=== PATIENT | male | born 1940 | race Caucasian/White ===

== ENCOUNTER 2017-12-31 15:40 | Inpatient (IN) ==
[2017-12-31] MEDS ORDERED: ceFAZolin 2 GM Premix Inj 2 GM/50 ML PIGGYBACK IV.SIG ONE (15:53)
[2017-12-31] MEDS ORDERED: Diphtheria/Tetanus/Pertussis Vaccine Inj 0.5 ML Syringe IM ONE (15:53)
--- NOTE | 2017-12-31 15:58 | XR ---
EXAM DATE: 12/31/2017 3:55 PM EDT AGE/SEX: 89 years / Male INDICATIONS: Syncope; fall at home. CLINICAL DATA: This is the patient's initial encounter. Patient reports that signs and symptoms have been present for 1 day and indicates a pain score of Nonresponsive. MEDICAL/SURGICAL HISTORY: Non-responsive. Non-responsive. COMPARISON: No prior exams available for comparison. FINDINGS: Examination of the pelvis demonstrates no evidence of fracture or dislocation. Bony mineralization i s normal. There is no widening of the sacroiliac joints. No foreign body is identified. Degenerativ e changes about the hips. Calcified vessels. CONCLUSION: 1. No acute fracture. Electronically signed by: Kostas Lovelace MD 12/31/2017 3:56 PM EDT
--- NOTE | 2017-12-31 16:00 | XR ---
EXAM DATE: 12/31/2017 3:57 PM EDT AGE/SEX: 89 years / Male INDICATIONS: Right hand laceration; fall at home. CLINICAL DATA: This is the patient's initial encounter. Patient reports that signs and symptoms have been present for 1 day and indicates a pain score of Nonresponsive. MEDICAL/SURGICAL HISTORY: Non-responsive. Non-responsive. COMPARISON: No prior exams available for comparison. FINDINGS: Bony structures are intact and in normal alignment. Osseous density is mildly decreased. Soft tissue s are unremarkable. No radiopaque foreign bodies seen. Diffusely calcified vessels. Degenerative gin nges most prominently at the first PIP joint. CONCLUSION: 1. No acute fracture or radiopaque foreign body. Electronically signed by: Kostas Lovelace MD 12/31/2017 3:59 PM EDT
--- NOTE | 2017-12-31 16:01 | XR ---
EXAM DATE: 12/31/2017 3:57 PM EDT AGE/SEX: 89 years / Male INDICATIONS: Syncope, fell at home.Trauma alert. CLINICAL DATA: This is the patient's initial encounter. Patient reports that signs and symptoms have been present for 1 day and indicates a pain score of Nonresponsive. MEDICAL/SURGICAL HISTORY: . none known . none known COMPARISON: No prior exams available for comparison. FINDINGS: Median sternotomy wires are noted status post cardiac surgery. The heart is prominent in size. The ally ngs are clear. No pneumothorax is noted. CONCLUSION: 1. Cardiomegaly. 2. Lungs are clear. Electronically signed by: Kendell Story MD 12/31/2017 3:59 PM EDT
[2017-12-31 16:09] LABS: Baso # (Auto) 0.1 th/mm3 (0.0-0.2); Baso % (Auto) 0.5 % (0.0-2.0); Eos # (Auto) 0.4 th/mm3 (0.0-0.4); Eos % (Auto) 3.7 % (0.0-4.0); Hematocrit 35.5 % (39.0-51.0); Hemoglobin 11.4 gm/dL (13.0-17.0); Lymph # (Auto) 1.7 th/mm3 (1.0-4.8); Lymph % (Auto) 16.1 % (9.0-44.0); Mean Corpuscular HGB Conc 32.2 % (32.0-36.0); Mean Corpuscular Hemoglobin 28.4 pg (27.0-34.0); Mean Corpuscular Volume 88.3 fL (80.0-100.0); Mean Platelet Volume 8.6 fL (7.0-11.0); Mono # (Auto) 0.6 th/mm3 (0.0-0.9); Neut # (Auto) 7.6 th/mm3 (1.8-7.7); Neut % (Auto) 73.7 % (16.0-70.0); Platelet Count 300 th/mm3 (150-450); Red Blood Count 4.02 mil/mm3 (4.50-5.90); Red Cell Distribution Width 16.3 % (11.6-17.2); White Blood Count 10.3 th/mm3 (4.0-11.0)
--- NOTE | 2017-12-31 16:12 | CT ---
EXAM DATE: 12/31/2017 4:08 PM EDT AGE/SEX: 89 years / Male INDICATIONS: Trauma Alert. Fall from standing. CLINICAL DATA: This is the patient's initial encounter. Patient reports that signs and symptoms have been present for 1 day and indicates a pain score of Nonresponsive. MEDICAL/SURGICAL HISTORY: None. None. RADIATION DOSE: 66.34 CTDI (mGy) COMPARISON: No prior exams available for comparison. TECHNIQUE: CT of the head without contrast. Using automated exposure control and adjustment of the mA and/or kV according to patient size, radiation dose was kept as low as reasonably achievable to ob tain optimal diagnostic quality images. DICOM format image data is available electronically for revi ew and comparison. FINDINGS: Cerebrum: Moderate diffuse cerebral atrophy. The ventricles are normal for degree of atrophy. Modera te periventricular white matter hypodensities. No evidence of midline shift, mass lesion, hemorrhage or acute infarction. No extraaxial fluid collections are seen. Posterior Fossa: The cerebellum and brainstem are intact. The 4th ventricle is midline. The cerebe llopontine angle is unremarkable. Extracranial: The visualized portion of the orbits is intact. Mucopyocele thickening in the inferior maxillary sinuses. Soft tissue hematoma overlying the anterior scalp near the vertex. Skull: The calvaria is intact. No evidence of skull fracture. CONCLUSION: 1. No acute intracranial abnormality. 2. Mild maxillary sinus mucosal disease. . Electronically signed by: Kostas Lovelace MD 12/31/2017 4:10 PM EDT
[2017-12-31 16:19] LABS: Activated Partial Thrombo Time 26.5 sec (24.3-30.1); INR 1.1 Ratio; Prothrombin Time 10.7 sec (9.8-11.6)
--- NOTE | 2017-12-31 16:24 | ED ---
HPI General Chief Complaint: Trauma Alert Stated Complaint: Trauma Alert Time Seen by Provider: 12/31/17 16:10 Source: EMS Mode of arrival: EMS Limitations: altered mental status History of Present Illness HPI narrative: The patient is approximately a [age]-old male who presents to the emergency department via EMS as a trauma alert. According to EMS the patient was standing in the kitchen, with his , when he fell and struck his head on the floor. EMS states when they arrived the patient had a good waveform, however, did not have a pulse and appeared to be in pulseless electrical activity. They subsequently started CPR and bag valve ventilation when the patient had spontaneous return of a pulse. They state the patient's initial GCS was 3. Upon arrival the patient's GCS has improved, however, he is unable to answer questions. No further history is obtainable from the patient. The patient was called a trauma alert in the field secondary to the fall, GCS , and head injury per EMS report. It is unknown if the patient is on any blood thinners. There was no medication list or allergy list brought with the patient by EMS. MD complaint: fall Onset (ago): minute(s) Loss of Consciousness: unsure Location: head and face Location - Extremities: Right: hand Severity: severe Severity scale (1-10): 10 Context: fall Associated symptoms: unable to assess and confusion Treatments prior to arrival: cervical collar and spinal immobilization Related Data Home Medications Medication Instructions Recorded Confirmed aspirin 81 mg PO DAILY 12/31/17 12/31/17 bumetanide 2 mg PO DAILY 12/31/17 12/31/17 carvedilol [Coreg] 12.5 mg PO BID 12/31/17 12/31/17 citalopram 20 mg PO DAILY 12/31/17 12/31/17 clopidogrel [Plavix] 75 mg PO DAILY 12/31/17 12/31/17 insulin aspart U-100 [Novolog 5 unit SUB-Q DAILY 12/31/17 12/31/17 U-100 Insulin aspart] insulin detemir U-100 [Levemir 25 unit SUB-Q QPM 12/31/17 12/31/17 FlexTouch U-100 Insuln] losartan 25 mg PO DAILY 12/31/17 12/31/17 ranitidine HCl 150 mg PO DAILY 12/31/17 12/31/17 rosuvastatin [Crestor] 20 mg PO DAILY 12/31/17 12/31/17 tamsulosin [Flomax] 0.4 mg PO DAILY 12/31/17 12/31/17 Allergies Allergy/AdvReac Type Severity Reaction Status Date / Time acetaminophen [From Hitchita] Allergy Nausea/Vomi Verified 12/31/17 18:03 ting exenatide [From Bydureon] Allergy Nausea/Vomi Verified 12/31/17 18:03 ting fentanyl Allergy Nausea/Vomi Verified 12/31/17 18:03 ting hydrocodone [From Hitchita] Allergy Nausea/Vomi Verified 12/31/17 18:03 ting oxycodone [From Percocet] Allergy Nausea/Vomi Verified 12/31/17 18:03 ting Review of Systems ROS: all other systems reviewed are negative [facility] Social History Social History Recent Travel in [facility] within the Last 8 Weeks: No Recent Out of Country Travel within the Last 8 Weeks: No Exam Narrative Exam Narrative: GENERAL: Awake, eyes open, confused approximately 70-82-year- old male who presents to the emergency department on a backboard with a cervical collar in place. SKIN: HEAD: Patient has a stellate laceration to the right frontal forehead that measures approximately 7 cm total in length. Small hematoma just to the lateral aspect. EYES: Pupils equal and round. 2 mm bilateral and reactive. EOMs appear intact. ENT: No nasal bleeding or discharge. Mucous membranes pink and moist. No visible blood in the posterior oropharynx. NECK: Trachea midline. No JVD. Cervical collar in place CARDIOVASCULAR: Regular rate and rhythm. No murmur appreciated. Well-healed sternal scar. No crepitus noted. RESPIRATORY: No accessory muscle use. Diminished breath sounds in the bases bilaterally. GASTROINTESTINAL: Abdomen soft, non-tender, nondistended. No guarding or rigidity. MUSCULOSKELETAL: Large skin abrasions noted to the extensor surface of the right hand over the second, third, fourth digit. No obvious bony deformity. Edema noted to lower extremities. Will squeeze his hands bilaterally and move his legs with flexion of the hips and knees to 30 bilaterally. NEUROLOGICAL: Awake, alert, confused speech, moves extremities spontaneously. Back: No obvious deformity over the thoracic or lumbar vertebrae. PSYCHIATRIC: Appears confused. Course Initial Documented Vital Signs Pulse Oximetry 94 L 12/31/17 16:00 Last Documented Vital Signs Pulse Rate 79 12/31/17 16:46 Respiratory Rate 16 12/31/17 16:46 Blood Pressure 143/66 H 12/31/17 16:46 Pulse Oximetry 98 12/31/17 16:46 Critical Care Time Critical Care Time: Yes Total Critical Care Time: 35 Attestation: Aggregate critical care time was 35 minutes. Time to perform other separately billable procedures was not included in the critical care time. My time did not include minutes spent treating any other patients simultaneously or on activities that did not directly contribute to the patient's treatment. The services I provided to this patient were to treat and/or prevent clinically significant deterioration that could result in: Anoxia, hypoxia, aspiration, hemorrhage, . I provided critical care services requiring my management, as noted below: Chart data review, documentation time, medication orders and management, vital sign assessments/reviewing monitor data, ordering and reviewing lab tests, ordering and interpreting/reviewing x-rays and diagnostic studies, care of the patient and discussion of the patient with the admitting physicians. Medical Decision Making MDM Narrative Medical decision making narrative: ATLS protocol was followed. Upon arrival 2 large-bore IVs were established, labs are drawn and sent, the patient was placed on cardiac telemetry monitoring and continuous pulse oximetry monitoring. Chest x-ray and pelvis x-ray were obtained. Chest x-ray and pelvis x-ray unremarkable for any acute findings. X-ray of the right hand was obtained, no obvious fracture. The patient was administered Ancef 2 g intravenously and a tetanus shot was updated. The patient was placed on oxygen , 4-5 L via nasal cannula, which brought his O2 saturation up to 94/95%. The patient was logrolled off the backboard, no obvious injuries. The patient then went to CT for CT the brain, facial bones, cervical spine, thorax, abdomen/ pelvis, thoracic spine, and lumbar spine. CT the brain was negative, no obvious hemorrhage. CT of the thorax does reveal possible aspiration and possible mass versus atelectasis. CT the cervical spine reveals degenerative changes but no fracture. CT of the abdomen and pelvis is negative. CT of the thoracic spine and lumbar spine are negative. I discussed the patient with the trauma surgeon, Dr. Hernandez, who evaluated the patient. Dr. Hernandez has medically cleared the patient for admission to the medical service. As the patient did have CPR and possible PEA upon arrival the patient will be placed intensive care unit. Medical Screen Exam Complete: Yes Emergency Medical Condition: Yes Differential Diagnosis Differential Diagnosis: Differential diagnosis includes syncope, mechanical fall , closed head injury, to cranial hemorrhage, cervical fracture, spinal cord injury, congestive heart failure, arrhythmia, electrolyte abnormality, hypoglycemia. Lab Data Result diagrams: 12/31/17 15:45 Lab Results 12/31/17 12/31/17 12/31/17 Range/Units 15:45 15:45 15:45 WBC 10.3 (4.0-11.0) th/mm3 RBC 4.02 L (4.50-5.90) mil/mm3 Hgb 11.4 L (13.0-17.0) gm/dL POC Hgb (Calc) 11.9 L (13.0-17.0) g/dL Hct 35.5 L (39.0-51.0) % POC Hct 35.0 L (39-51.0) % MCV 88.3 (80.0-100.0) fL MCH 28.4 (27.0-34.0) pg MCHC 32.2 (32.0-36.0) % RDW 16.3 (11.6-17.2) % Plt Count 300 (150-450) th/mm3 MPV 8.6 (7.0-11.0) fL Prelim Diff (Auto) Slide review pending Neut % (Auto) 73.7 H (16.0-70.0) % Lymph % (Auto) 16.1 (9.0-44.0) % Dewitt % (Auto) 6.0 (0.0-8.0) % Eos % (Auto) 3.7 (0.0-4.0) % Baso % (Auto) 0.5 (0.0-2.0) % Neut # (Auto) 7.6 (1.8-7.7) th/mm3 Lymph # (Auto) 1.7 (1.0-4.8) th/mm3 Dewitt # (Auto) 0.6 (0.0-0.9) th/mm3 Eos # (Auto) 0.4 (0.0-0.4) th/mm3 Baso # (Auto) 0.1 (0.0-0.2) th/mm3 WBC Differential Manual diff final Seg Neuts % (Manual) 64 (16-70) % Band Neuts % (Manual) 9 H (0-6) % Lymphocytes % (Manual) 17 (9-44) % Monocytes % (Manual) 5 (0-8) % Eosinophils % (Manual) 4 (0-4) % Myelocytes % (Man) 1 H (0-0) % Abs Neuts (Manual) 7.6 (1.8-7.7) th/mm3 Differential Comment . Platelet Estimate Normal (Normal) Platelet Morphology Normal (Normal) PT 10.7 (9.8-11.6) sec INR 1.1 Ratio APTT 26.5 (24.3-30.1) sec POC Sodium 139 (137-144) mmol/L POC Potassium 5.6 H (3.6-5.0) mmol/L POC Chloride 93 L (102-111) mmol/L POC BUN 64 H (5-21) mg/dL POC Creatinine 1.5 H (0.6-1.3) mg/dL POC Glucose 200 H (68-110) mg/dL Troponin I (0.02-0.05) ng/mL B-Natriuretic Peptide (0-100) pg/mL Blood Type Antibody Screen 12/31/17 12/31/17 12/31/17 Range/Units 15:45 15:45 15:45 WBC (4.0-11.0) th/mm3 RBC (4.50-5.90) mil/mm3 Hgb (13.0-17.0) gm/dL POC Hgb (Calc) (13.0-17.0) g/dL Hct (39.0-51.0) % POC Hct (39-51.0) % MCV (80.0-100.0) fL MCH (27.0-34.0) pg MCHC (32.0-36.0) % RDW (11.6-17.2) % Plt Count (150-450) th/mm3 MPV (7.0-11.0) fL Prelim Diff (Auto) Neut % (Auto) (16.0-70.0) % Lymph % (Auto) (9.0-44.0) % Dewitt % (Auto) (0.0-8.0) % Eos % (Auto) (0.0-4.0) % Baso % (Auto) (0.0-2.0) % Neut # (Auto) (1.8-7.7) th/mm3 Lymph # (Auto) (1.0-4.8) th/mm3 Dewitt # (Auto) (0.0-0.9) th/mm3 Eos # (Auto) (0.0-0.4) th/mm3 Baso # (Auto) (0.0-0.2) th/mm3 WBC Differential Seg Neuts % (Manual) (16-70) % Band Neuts % (Manual) (0-6) % Lymphocytes % (Manual) (9-44) % Monocytes % (Manual) (0-8) % Eosinophils % (Manual) (0-4) % Myelocytes % (Man) (0-0) % Abs Neuts (Manual) (1.8-7.7) th/mm3 Differential Comment Platelet Estimate (Normal) Platelet Morphology (Normal) PT (9.8-11.6) sec INR Ratio APTT (24.3-30.1) sec POC Sodium (137-144) mmol/L POC Potassium (3.6-5.0) mmol/L POC Chloride (102-111) mmol/L POC BUN (5-21) mg/dL POC Creatinine (0.6-1.3) mg/dL POC Glucose (68-110) mg/dL Troponin I 0.03 (0.02-0.05) ng/mL B-Natriuretic Peptide 101 H (0-100) pg/mL Blood Type O Negative Antibody Screen Negative Imaging Data Radiologist's impression: Chest X-Ray 12/31/17 15:43 CONCLUSION: 1. Cardiomegaly. 2. Lungs are clear. Pelvis X-Ray 12/31/17 15:43 CONCLUSION: 1. No acute fracture. Hand X-Ray 12/31/17 15:47 CONCLUSION: 1. No acute fracture or radiopaque foreign body. Abdomen/Pelvis CT 12/31/17 15:49 CONCLUSION: 1. Bilateral pleural effusions left greater than right. Consolidation left lung base I believe is rounded atelectasis. Intra-abdominal exam is unremarkable. Sigmoid diverticulosis. Marked atherosclerotic disease including the coronary vessels Chest CT 12/31/17 15:49 CONCLUSION: 1. No acute traumatic abdomen in the thorax. 2. Small fluid density left pleural effusion. 3. Rounded nearly masslike airspace consolidation in the left lung base measuring 5.9 x 3.3 cm. This may reflect rounded atelectasis given the adjacent pleural effusion. However, malignant etiology cannot be entirely excluded. Comparisons with prior examinations would be beneficial in further evaluation. Alternatively, outpatient PET/CT examination may be performed for further evaluation as clinically warranted. 4. Groundglass airspace consolidation in the inferior right middle lobe, presumably atelectasis, although differential considerations include aspiration. 5. Prominent coronary artery calcifications. Lumbar Spine CT 12/31/17 15:49 CONCLUSION: 1. Broad-based diffuse annular bulges at multiple levels. No evidence of an acute fracture. The posterior elements are unremarkable. There is no evidence of any subluxation or facet malalignment. Thoracic Spine CT 12/31/17 15:49 CONCLUSION: 1. Negative CT Thoracic Spine with contrast. No evidence of fracture. Cervical Spine CT 12/31/17 15:50 CONCLUSION: 1. No acute fracture. 2. 2 mm retrolisthesis of C4 on C5 and 3 mm anterolisthesis of C7 on T1 likely due to degenerative arthrosis. 3. Advanced multilevel degenerative spondylosis of the cervical spine most prominently at C4-5 and C5-6, as above. Face CT 12/31/17 15:50 CONCLUSION: 1. No acute facial bone fractures. 2. Mild bilateral maxillary sinus mucosal disease. Head CT 12/31/17 15:50 CONCLUSION: 1. No acute intracranial abnormality. 2. Mild maxillary sinus mucosal disease. . ECG Data EKG Prior to Arrival: No Attestation: I personally reviewed and interpreted this ECG as follows: Interpretation: EKG reveals sinus rhythm with first-degree AV block. Low QRS voltage in extremity leads. Moderate intraventricular conduction delay with QRS of 160 ms. Discharge Plan Discharge Disposition Patient Disposition: 30 Still Patient Discharge Condition Condition: Stable Discharge Details Diagnosis: Closed head injury, Dysrhythmia Physicians Team ED Provider: Jeramie Worthington Primary Care Provider: UNKNOWN, Attending Provider: Dashawn Davis Other Providers: Nik Rosales ; Jair Silva ; [employer] ; Cortez Pina ; Cherelle Miner ; Thomas Hernandez ; Nataliya Reynoso ; Sherry Rojas ; Radha King Discharge Interventions Interventions: Vital Signs Last Done: 12/31/17 16:46 Status ED Status: Admitted Patient
--- NOTE | 2017-12-31 16:27 | CT ---
EXAM DATE: 12/31/2017 4:19 PM EDT AGE/SEX: 89 years / Male INDICATIONS: Trauma alert. Fall from standing. CLINICAL DATA: This is the patient's initial encounter. Patient reports that signs and symptoms have been present for 1 day and indicates a pain score of Nonresponsive. MEDICAL/SURGICAL HISTORY: None. None. RADIATION DOSE: 25.19 CTDI (mGy) COMPARISON: No prior exams available for comparison. TECHNIQUE: Contiguous axial images were obtained using helical multirow detector technique. The vol umetric data was post-processed with multiplanar reconstruction in oblique axial, sagittal, and coron al planes. Using automated exposure control and adjustment of the mA and/or kV according to patient s ize, radiation dose was kept as low as reasonably achievable to obtain optimal diagnostic quality kathrine ges. DICOM format image data is available electronically for review and comparison. FINDINGS: OSSEOUS STRUCTURES: Vertebral body heights are maintained. Osseous structures are intact without evid ence for acute bony fracture. Dens is intact. ALIGNMENT: Grade 1, 2 mm, retrolisthesis of C4 on C5 and 3 mm anterolisthesis of C7 on T1. There is a normal C1-2 relationship. Facets are normally aligned. SOFT TISSUES: There is no significant prevertebral soft tissue hematoma. No significant cervical acosta nopathy or gross mass. The thyroid appears unremarkable. Visualized lung apices are clear without pn eumothorax. ADDITIONAL FINDINGS: Dense carotid artery calcifications particularly on the left. Multilevel facet a rthropathy. Multilevel degenerative spondylosis with severe disc space narrowing and prominent osteop hyte formation throughout the lower lumbar spine. This is most prominent at C4-5 and C5-6 with mild b bronwyn central canal stenosis and effacement of the left anterior lateral recess at C5-6. Moderate left bony neural foraminal narrowing at C4-5 and C7-T1 and on the right at C7-T1. CONCLUSION: 1. No acute fracture. 2. 2 mm retrolisthesis of C4 on C5 and 3 mm anterolisthesis of C7 on T1 likely due to degenerative a rthrosis. 3. Advanced multilevel degenerative spondylosis of the cervical spine most prominently at C4-5 and C 5-6, as above. Electronically signed by: Kostas Lovelace MD 12/31/2017 4:26 PM EDT
--- NOTE | 2017-12-31 16:34 | CT ---
EXAM DATE: 12/31/2017 4:29 PM EDT AGE/SEX: 89 years / Male INDICATIONS: Trauma alert. Fall from standing. CLINICAL DATA: This is the patient's initial encounter. Patient reports that signs and symptoms have been present for 1 day and indicates a pain score of Nonresponsive. MEDICAL/SURGICAL HISTORY: None. None. ORAL CONTRAST: No oral contrast ingested. RADIATION DOSE: 8.16 CTDI (mGy) ; Combined studies COMPARISON: No prior exams available for comparison. TECHNIQUE: Multiple contiguous axial images were obtained through the abdomen and pelvis following b olus infusion of 80 ml Omnipaque 350 (iohexol) nonionic water-soluble contrast as a cumulative dose for multiple exams. No oral contrast ingested. Using automated exposure control and adjustment of t he mA and/or kV according to patient size, radiation dose was kept as low as reasonably achievable to obtain optimal diagnostic quality images. DICOM format image data is available electronically for r eview and comparison. FINDINGS: Lower Lungs: There are bilateral pleural effusions, moderate-sized on the left tiny on the right. Th ere is a consolidated lung left lung base possible rounded atelectasis. The patient does have dense c oronary atherosclerotic disease Liver: The liver has a homogeneous density without space-occupying lesion. There is no dilation of th e biliary tree. Spleen: Homogeneous density without enlargement. Pancreas: Unremarkable without mass or calcification. Kidneys: Normal in size and shape. No evidence of mass or hydronephrosis. Adrenal Glands: Unremarkable. Aorta: The aorta and proximal iliac vessels are grossly unremarkable without aneurysmal dilation. Bowel/Mesentery: The bowel loops are grossly unremarkable. The cecum and sigmoid colon have a normal configuration. Abdominal Wall: Intact. Retroperitoneum: No evidence of adenopathy in the retrocrural, para-aortic, or deep pelvic regions. Bladder: Contours are smooth. Reproductive Organs: No abnormal masses or calcifications seen. Inguinal: The inguinal region is unremarkable without evidence of adenopathy. Bony Structures: Unremarkable. CONCLUSION: 1. Bilateral pleural effusions left greater than right. Consolidation left lung base I believe is ro unded atelectasis. Intra-abdominal exam is unremarkable. Sigmoid diverticulosis. Marked atherosclerot ic disease including the coronary vessels Electronically signed by: Roberto Coleman MD 12/31/2017 4:33 PM EDT
--- NOTE | 2017-12-31 16:36 | CT ---
EXAM DATE: 12/31/2017 4:29 PM EDT AGE/SEX: 89 years / Male INDICATIONS: Trauma alert. Fall from standing. CLINICAL DATA: This is the patient's initial encounter. Patient reports that signs and symptoms have been present for 1 day and indicates a pain score of Nonresponsive. MEDICAL/SURGICAL HISTORY: None. None. RADIATION DOSE: 8.16 CTDI (mGy) ; Combined studies COMPARISON: [facility], CHEST 1V SINGLE AP, 12/31/2017. . TECHNIQUE: Multiple contiguous axial images were obtained through the chest during bolus infusion of 80 ml Omnipaque 350 (iohexol) nonionic water-soluble contrast as a cumulative dose for multiple exa ms. Images were obtained in suspended respiration using multiple row detector helical technique. U sing automated exposure control and adjustment of the mA and/or kV according to patient size, radiati on dose was kept as low as reasonably achievable to obtain optimal diagnostic quality images. DICOM format image data is available electronically for review and comparison. FINDINGS: Lung: Groundglass airspace consolidation in the inferior right middle lobe. Minimal airspace consoli dation at the lung bases bilaterally. Rounded nearly masslike airspace consolidation in the left lung base measuring 5.9 x 3.3 cm. Pleura: Simple fluid density small left pleural effusion. No pneumothorax. Mediastinum: Prominent coronary artery calcifications. Heart is otherwise unremarkable without signi ficant pericardial effusion. The very central pulmonary arteries are patent. No significant mediastin al hematoma. Osseous Structures: Median sternotomy wires in place. Osseous structures appear intact without acute bony fracture. Degenerative spondylosis of the thoracic spine. Probable bone infarct in the proximal right humerus. Soft Tissues: Soft tissues are unremarkable. No significant axillary adenopathy. CONCLUSION: 1. No acute traumatic abdomen in the thorax. 2. Small fluid density left pleural effusion. 3. Rounded nearly masslike airspace consolidation in the left lung base measuring 5.9 x 3.3 cm. This may reflect rounded atelectasis given the adjacent pleural effusion. However, malignant etiology can not be entirely excluded. Comparisons with prior examinations would be beneficial in further evaluati on. Alternatively, outpatient PET/CT examination may be performed for further evaluation as clinicall y warranted. 4. Groundglass airspace consolidation in the inferior right middle lobe, presumably atelectasis, alt tod differential considerations include aspiration. 5. Prominent coronary artery calcifications. Electronically signed by: Kostas Lovelace MD 12/31/2017 4:35 PM EDT
--- NOTE | 2017-12-31 16:38 | CT ---
EXAM DATE: 12/31/2017 4:30 PM EDT AGE/SEX: 89 years / Male INDICATIONS: Trauma alert. Fall from standing. CLINICAL DATA: This is the patient's initial encounter. Patient reports that signs and symptoms have been present for 1 day and indicates a pain score of Nonresponsive. MEDICAL/SURGICAL HISTORY: None. None. RADIATION DOSE: 21.96 CTDI (mGy) COMPARISON: No prior exams available for comparison. TECHNIQUE: Contiguous images in the axial and coronal planes were obtained using helical multirow de tector technique. Using automated exposure control and adjustment of the mA and/or kV according to p atient size, radiation dose was kept as low as reasonably achievable to obtain optimal diagnostic ivett lity images. DICOM format image data is available electronically for review and comparison. FINDINGS: Orbits: The orbital and infraorbital osseous structures are intact. The retroconal structures have a normal configuration. No radiopaque foreign bodies are seen. Nasal Bone: The nasal bone and maxillary spine are intact. Zygomatic Arches: Symmetric without evidence of fracture. Sinuses: The maxillary, ethmoid, and frontal sinuses are intact. No air-fluid levels seen. Mild muc osal periosteal thickening in the inferior maxillary sinuses, left greater than right. Nasal Cavity: The nasal septum is intact and midline. The lacrimal ducts are intact. Soft Tissues: No radiopaque foreign bodies seen. No soft-tissue swelling is seen. Intracranial: No intracranial air seen. Cribriform Plate: Grossly intact. CONCLUSION: 1. No acute facial bone fractures. 2. Mild bilateral maxillary sinus mucosal disease. Electronically signed by: Kostas Lovelace MD 12/31/2017 4:37 PM EDT
[2017-12-31 16:51] LABS: Eosinophils 4 % (0-4); Lymphocytes 17 % (9-44); Monocytes 5 % (0-8); Myelocytes 1 % (0-0); Platelet Estimate Normal (Normal); Platelet Morphology Normal (Normal)
--- NOTE | 2017-12-31 16:58 | CT ---
EXAM DATE: 12/31/2017 4:53 PM EDT AGE/SEX: 89 years / Male INDICATIONS: Trauma alert. Fall from standing. CLINICAL DATA: This is the patient's initial encounter. Patient reports that signs and symptoms have been present for 1 day and indicates a pain score of Nonresponsive. MEDICAL/SURGICAL HISTORY: None. None. RADIATION DOSE: 0 CTDI (mGy) ; Reconstructed from previous dataset, no dose COMPARISON: [facility] [place], CT CERVICAL SPINE W/O CONTRAST, 12/31/2017. . TECHNIQUE: Contiguous axial images were acquired using a multirow detector CT scanner after intraven ous administration of 80 ml Omnipaque 350 (iohexol) nonionic water-soluble contrast as a cumulative dose for multiple exams. Multiplanar reconstruction in the sagittal and coronal planes was performe d. Using automated exposure control and adjustment of the mA and/or kV according to patient size, ra diation dose was kept as low as reasonably achievable to obtain optimal diagnostic quality images. D ICOM format image data is available electronically for review and comparison. FINDINGS: Vertebrae: Normal vertebral body height. Alignment: Normal. No subluxation. Post Contrast: No abnormal areas of enhancement are seen in the cord, dural or paraspinal regions. T1 - T2: Normal. T2 - T3: The thecal sac has a normal diameter. No evidence of disc bulge or protrusion. T3 - T4: The thecal sac has a normal diameter. No evidence of disc bulge or protrusion. T4 - T5: The thecal sac has a normal diameter. No evidence of disc bulge or protrusion. T5 - T6: The thecal sac has a normal diameter. No evidence of disc bulge or protrusion. T6 - T7: The thecal sac has a normal diameter. No evidence of disc bulge or protrusion. T7 - T8: The thecal sac has a normal diameter. No evidence of disc bulge or protrusion. T8 - T9: The thecal sac has a normal diameter. No evidence of disc bulge or protrusion. T9 - T10: The thecal sac has a normal diameter. No evidence of disc bulge or protrusion. T10 - T11: The thecal sac has a normal diameter. No evidence of disc bulge or protrusion. T11 - T12: The thecal sac has a normal diameter. No evidence of disc bulge or protrusion. T12 - L1: The thecal sac has a normal diameter. No evidence of disc bulge or protrusion. CONCLUSION: 1. Negative CT Thoracic Spine with contrast. No evidence of fracture. Electronically signed by: Roberto Coleman MD 12/31/2017 4:56 PM EDT
--- NOTE | 2017-12-31 17:27 | CT ---
EXAM DATE: 12/31/2017 5:09 PM EDT AGE/SEX: 89 years / Male INDICATIONS: Trauma alert. Fall from standing. CLINICAL DATA: This is the patient's initial encounter. Patient reports that signs and symptoms have been present for 1 day and indicates a pain score of Nonresponsive. MEDICAL/SURGICAL HISTORY: None. None. RADIATION DOSE: 0 CTDI (mGy) ; Reconstructed from previous dataset, no dose [place] [facility] [place] 12/31/2017. . TECHNIQUE: Contiguous axial images were acquired with a multirow detector CT scanner after intraveno us administration of 80 ml Omnipaque 350 (iohexol) nonionic water-soluble contrast as a cumulative d ose for multiple exams. Multiplanar reconstructions in the sagittal and coronal plane were also perf ormed. Using automated exposure control and adjustment of the mA and/or kV according to patient size, radiation dose was kept as low as reasonably achievable to obtain optimal diagnostic quality images. DICOM format image data is available electronically for review and comparison. FINDINGS: Vertebrae: Normal vertebral body height. Vacuum phenomenon at L5-S1. Alignment: Normal. No subluxation. There is an accentuated lumbar lordosis Post Contrast: No abnormal areas of enhancement are seen in the cord, dural or paraspinal regions. T12-L1: The thecal sac has a normal diameter. No evidence of disc bulge or protrusion. The neural foramina are patent bilaterally. L1-L2: The thecal sac is slightly flattened due to a broad-based diffuse annular bulge The neural fo ramina are patent bilaterally. L2-L3: The thecal sac has a normal diameter. There is a mild lateral disc bulge.. The neural forami na are patent bilaterally. L3-L4: The thecal sac is slightly flattened due to a broad-based diffuse annular bulge. Facet joints are well aligned.. The neural foramina are patent bilaterally. L4-L5: The thecal sac is slightly flattened secondary to diffuse annular bulge. Both neural foramen are narrowed due to bulge. L5-S1: The thecal sac has a normal diameter. No evidence of disc bulge or protrusion. The neural f oramina are patent bilaterally. CONCLUSION: 1. Broad-based diffuse annular bulges at multiple levels. No evidence of an acute fracture. The post erior elements are unremarkable. There is no evidence of any subluxation or facet malalignment. Electronically signed by: Roberto Coleman MD 12/31/2017 5:26 PM EDT
--- NOTE | 2017-12-31 18:01 | P.HPIM ---
History of Present Illness Service: [facility] Primary Care Physician: UNKNOWN Chief Complaint: trauma, PEA, head injury History of Present Illness: Mr. Sellers is a 77 yo M with PMH CAD (s/p CABG, prior IA x2), PAD (recent reperfusion surgery by Dr. Bustos, planned subsequent intervention 01/2018), TM, HTN, GERD, CKD who presented via EMS. History provided by patient's - patient was being wheeled into kitchen when they stopped to transition him to his walker, go up stair, then sit back down in wheelchair; during this process patient fell forward and hit his head. Patient's saw blood and that he looke "blue" so called family/neighbors who arrived and started doing CPR due to lack of palpable pulse and nonresponsiveness. EMS called; patient's estimates that EMS showed up very quickly. Per EMS documentation: patient was found to be in PEA; CPR was performed and ROSC achieved. Patient was initially GCS 3; this improved to 6 quickly and subsequently to a 13. Patient's states that patient has been doing much better since he arrived to ED. She is sure that mechanical fall took place when he was sitting up to reposition in chair and no syncope occurred to cause fall. His inability to remember year is new for him. Patient has had recent toe surgery (partial amputation?) per Podiatry with Dr. Aiken; he also has recently had angiogram/? intervention in R leg due to severe PAD. He plans to have additional procedure 01/18/[address] Bustos prior to repeat amputation. Patient has CHF but no recent complications reported; he sees Dr. Ferraro. PMH CAD- 2 IA, CHF, PAD, severe, DM, diabetic retinopathy, HTN, GERD, CKD PSH CABG, toe amputation, cyst removal from back,PAD- 5 blockages in R leg; reperfusion Physicians- sees Dr. Bustos for Vascular, Ronan- Cardiology, Dr. Cr- primary , Dr Lester- renal, Dr. Gaston- Urology- urinary retention, Dr. Louise- retinopathy, Dr. Wilkerson- cataract surgery, Dr. Aiken- Podiatry - Diagnosis (1) PEA (Pulseless electrical activity) (2) Closed head injury Review of Systems All other systems reviewed negative except as stated in HPI, other (recent trauma, some confusion) Constitutional: Denies chills, Denies fatigue Eyes: Reports blurry vision, Reports change in vision (chronic) Cardiovascular: Denies chest pain, Denies slow heart rate Respiratory: Denies cough, Denies wheezing Gastrointestinal: Denies abdominal pain Genitourinary: Denies urinary frequency, Denies urinary urgency Skin/Breast: Denies redness, Denies rash Neurologic: Denies tingling, Denies tingling/numbness/burning sensations Hematologic/Lymphatic: Denies easy bleeding, Denies easy bruising PMFSH - History History Provided By: Technical Fellow / EMT - Medical History Medical History: Medical History (Last Updated 12/31/17 @ 19:19 by Dashawn Davis MD) Fall with injury (Acute) Concussion (Acute) CAD (coronary artery disease) (Acute) Diabetes Fall with injury PAD (peripheral artery disease) - Surgical History Surgical History: Surgical History (Last Updated 12/31/17 @ 19:21 by Dashawn Davis MD) H/O vascular surgery Hx of CABG - Social History I have reviewed the patient's Social History: Yes - Travel History Recent Travel in the [place] Within the Last 8 Weeks: No Recent Travel Out of the Country Within the Last 8 Weeks: No Medications and Allergies Allergies Allergy/AdvReac Type Severity Reaction Status Date / Time acetaminophen [From [place]] Allergy Nausea/Vomi Verified 12/31/17 18:03 ting exenatide [From Bydureon] Allergy Nausea/Vomi Verified 12/31/17 18:03 ting fentanyl Allergy Nausea/Vomi Verified 12/31/17 18:03 ting hydrocodone [From [place]] Allergy Nausea/Vomi Verified 12/31/17 18:03 ting oxycodone [From Percocet] Allergy Nausea/Vomi Verified 12/31/17 18:03 ting Home Medications Medication Instructions Recorded Confirmed Type aspirin 81 mg PO DAILY 12/31/17 12/31/17 History bumetanide 2 mg PO DAILY 12/31/17 12/31/17 History carvedilol [Coreg] 12.5 mg PO BID 12/31/17 12/31/17 History citalopram 20 mg PO DAILY 12/31/17 12/31/17 History clopidogrel [Plavix] 75 mg PO DAILY 12/31/17 12/31/17 History insulin aspart U-100 [Novolog 5 unit SUB-Q DAILY 12/31/17 12/31/17 History U-100 Insulin aspart] insulin detemir U-100 [Levemir 25 unit SUB-Q QPM 12/31/17 12/31/17 History FlexTouch U-100 Insuln] losartan 25 mg PO DAILY 12/31/17 12/31/17 History ranitidine HCl 150 mg PO DAILY 12/31/17 12/31/17 History rosuvastatin [Crestor] 20 mg PO DAILY 12/31/17 12/31/17 History tamsulosin [Flomax] 0.4 mg PO DAILY 12/31/17 12/31/17 History Exam Vital signs: Vital Signs 12/31/17 16:00 12/31/17 16:31 12/31/17 16:46 Pulse Rate 81 79 Respiratory Rate 18 16 Blood Pressure 143/66 H 143/66 H Pulse Oximetry 94 L 94 L 98 Intake & Output 12/30/17 12/31/17 12/31/17 18:59 06:59 18:59 Weight 105 kg Narrative: Gen: On simple mask at ~5L; no distress HEENT: Moist mucus membranes. EOMI; PERRLA Skin: Laceration to forehead- no active bleeding. Right hand covered. R great toe appears gangrenous and/or without perfusion. Erythema proximally suggestive of infection associated Neuro: Awake, alert. Oriented to person and that he is in hospital. Does not know year or president. Normal sensory function peripherally; grossly normal motor function in extremities but weak symmetrically Cardiovascular-regular rate and rhythm; DP pulses not palpable Resp: On simple mask; saturations >95%. CTAB bilaterally; no obvious crackles Abd: soft, nontender Ext: Grossly normal ROM and motor function with symmetric weakness Results - Labs CBC & Chem 7: 12/31/17 15:45 Labs: Short CBC 12/31/17 Range/Units 15:45 WBC 10.3 (4.0-11.0) th/mm3 Hgb 11.4 L (13.0-17.0) gm/dL Hct 35.5 L (39.0-51.0) % Plt Count 300 (150-450) th/mm3 Cardiac Enzymes 12/31/17 Range/Units 15:45 Troponin I 0.03 (0.02-0.05) ng/mL - Imaging Impressions Chest X-Ray 12/31/17 15:43 CONCLUSION: 1. Cardiomegaly. 2. Lungs are clear. Pelvis X-Ray 12/31/17 15:43 CONCLUSION: 1. No acute fracture. Hand X-Ray 12/31/17 15:47 CONCLUSION: 1. No acute fracture or radiopaque foreign body. Abdomen/Pelvis CT 12/31/17 15:49 CONCLUSION: 1. Bilateral pleural effusions left greater than right. Consolidation left lung base I believe is rounded atelectasis. Intra-abdominal exam is unremarkable. Sigmoid diverticulosis. Marked atherosclerotic disease including the coronary vessels Chest CT 12/31/17 15:49 CONCLUSION: 1. No acute traumatic abdomen in the thorax. 2. Small fluid density left pleural effusion. 3. Rounded nearly masslike airspace consolidation in the left lung base measuring 5.9 x 3.3 cm. This may reflect rounded atelectasis given the adjacent pleural effusion. However, malignant etiology cannot be entirely excluded. Comparisons with prior examinations would be beneficial in further evaluation. Alternatively, outpatient PET/CT examination may be performed for further evaluation as clinically warranted. 4. Groundglass airspace consolidation in the inferior right middle lobe, presumably atelectasis, although differential considerations include aspiration. 5. Prominent coronary artery calcifications. Lumbar Spine CT 12/31/17 15:49 CONCLUSION: 1. Broad-based diffuse annular bulges at multiple levels. No evidence of an acute fracture. The posterior elements are unremarkable. There is no evidence of any subluxation or facet malalignment. Thoracic Spine CT 12/31/17 15:49 CONCLUSION: 1. Negative CT Thoracic Spine with contrast. No evidence of fracture. Cervical Spine CT 12/31/17 15:50 CONCLUSION: 1. No acute fracture. 2. 2 mm retrolisthesis of C4 on C5 and 3 mm anterolisthesis of C7 on T1 likely due to degenerative arthrosis. 3. Advanced multilevel degenerative spondylosis of the cervical spine most prominently at C4-5 and C5-6, as above. Face CT 12/31/17 15:50 CONCLUSION: 1. No acute facial bone fractures. 2. Mild bilateral maxillary sinus mucosal disease. Head CT 12/31/17 15:50 CONCLUSION: 1. No acute intracranial abnormality. 2. Mild maxillary sinus mucosal disease. . Caprini VTE Risk Assessment Caprini VTE Risk Assessment: Moderate/High Risk (score >= 2) Caprini Risk Assessment Model: Point Value = 1 Point Value = 2 Point Value = 3 Point Value = 5 Age 41-60 Minor surgery BMI > 25 kg/m2 Swollen legs Varicose veins or History of unexplained or recurrent spontaneous Oral contraceptives or hormone replacement Sepsis (< 1 month) Serious lung disease, including pneumonia (< 1 month) Abnormal pulmonary function Acute myocardial infarction Congestive heart failure (< 1 month) History of inflammatory bowel disease Medical patient at bed rest Age 61-74 Arthroscopic surgery Major open surgery (> 45 min) Laparoscopic surgery (> 45 min) Malignancy Confined to bed (> 72 hours) Immobilizing plaster cast Central venous access Age >= 75 History of VTE Family history of VTE Factor V Leiden Prothrombin [id number] Lupus anticoagulant Anticardiolipin antibodies Elevated serum homocysteine Heparin-induced thrombocytopenia Other congenital or acquired thrombophilia Stroke (< 1 month) Elective arthroplasty Hip, pelvis, or leg fracture Acute spinal cord injury (< 1 month) Prophylaxis Regimen: Total Risk Factor Score Risk Level Prophylaxis Regimen 0-1 Low Early ambulation 2 Moderate Order ONE of the following: *Sequential Compression Device (SCD) *Heparin 5000 units SQ BID 3-4 Higher Order ONE of the following medications: *Heparin 5000 units SQ TID *Enoxaparin/Lovenox 40 mg SQ daily (WT < 150 kg, CrCl > 30 mL/min) *Enoxaparin/Lovenox 30 mg SQ daily (WT < 150 kg, CrCl > 10-29 mL/min) *Enoxaparin/Lovenox 30 mg SQ BID (WT < 150 kg, CrCl > 30 mL/min) AND/OR *Sequential Compression Device (SCD) 5 or more Highest Order ONE of the following medications: *Heparin 5000 units SQ TID (Preferred with Epidurals) *Enoxaparin/Lovenox 40 mg SQ daily (WT < 150 kg, CrCl > 30 mL/min) *Enoxaparin/Lovenox 30 mg SQ daily (WT < 150 kg, CrCl > 10-29 mL/min) *Enoxaparin/Lovenox 30 mg SQ BID (WT < 150 kg, CrCl > 30 mL/min) AND *Sequential Compression Device (SCD) Assessment and Plan - Assessment (1) PEA (Pulseless electrical activity) Code(s): I46.9 - Cardiac arrest, cause unspecified Status: Acute (2) Closed head injury Code(s): S09.90XA - Unspecified injury of head, initial encounter Status: Acute - Plan Mr. Sellers is a 77 yo M with: Trauma Impression: Mechanical fall resulting in head injury Head CT- no acute intracranial abnormality Face CT- no acute fractures. 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 Multilevel spondylosis of Cspine most prominent at C4-5 and C5-[address]- negative T spine with contrast L spine CT- broad-based diffuse annular bulges at multiple levels. No evidence acute fracture, the posterior elements unremarkable. No subluxation or facet malalignment Chest CT- no acute trauma. concern for masslike airspace at L base- 5.9 x3.3 cm ; possible atelectasis w/ effusion vs possible malignancy, Outpatient f/u recommended. Ground glass consolidation at R middle lobe suggestive of possible aspiration. Prominent coronary calcifications A/P CT- left lung atelectasis, atherosclerosis Pelvic XR negative Hand XR negative -Will give IV Tylenol for pain control to avoid altering neuro status -PT consult Neuro Impression: Altered status with inability to remember year but otherwise oriented. GCS 14 at time of my exam; previously 3 in field. On home ASA/Plavix. Suspect concussion Head CT negative -Will monitor neuro checks -Will repeat CT head >[address] -ST consult Cardiovascular PEA CAD s/p CABD Impression: Reported PEA in field with ROSC after CPR. -Continue Telemetry -Will trend troponin, lactic acid EKG -Will continue home ASA, Plavix -Continue home BB, ARB -Continue home stat -Continue home Metolazone 2.5mg BID -Continue Bumex 2mg daily -Cardiology consulted Respiratory Impression: Lung imaging suggestive of effusions; possible aspiration in R middle lobe. Required simple mask in ED -Will start on Zosyn while monitoring respiratory status -VBG performed -CO2 was 73- will start BIPAP DM Impression: On home Levemir 24 U daily, Novolog 6U BID -Will give SS insulin while inpatient GI NPO overnight until assured of stability -Continue home Pepcid for PPX DVT PPX -SCD's Discussed with CC; aware in case of decompensation Code Status: Full code (2) Closed head injury Qualifiers: Encounter type: initial encounter Qualified Code(s): S09.90XA - Unspecified injury of head, initial encounter
--- NOTE | 2017-12-31 18:15 | MB ---
cc: Thomas Hernandez MD DATE: 12/31/2017 CHIEF COMPLAINT: Fall. HISTORY OF PRESENT ILLNESS: The patient is a 80-year-old male status post syncopal episode fall. The patient was noted, according to the EMS, standing in the kitchen, had a syncopal episode; fell and struck his head on the floor. The patient is amnestic to the event, states loss of consciousness. He was a questionable PEA arrest and underwent CPR without administration of medication and a return of pulse. The patient's initial GCS was reported to be 3. On arrival to the trauma bay, he was noted to be GCS of 13-14 with some confusion and intermittently answering some questions. He was complaining of headache and had a bruising to his anterior scalp area and complaints of right hand pain. He otherwise denies any numbness or weakness in extremities. He states he has never had a previous fall in the past. Primary and secondary surveys were done. The patient was otherwise noted to be hemodynamically stable. PAST MEDICAL HISTORY: Coronary artery disease, diabetes. PAST SURGICAL HISTORY: CABG, cardiac surgery. SOCIAL HISTORY: Denies smoking, ETOH, or IVDA. ALLERGIES: NO KNOWN DRUG ALLERGIES. MEDICATIONS: See EMR. FAMILY HISTORY: Denies diabetes, or cancers. REVIEW OF SYSTEMS: A 12-point review of systems is otherwise negative, except for as above per HPI. PHYSICAL EXAMINATION: GENERAL: The patient in no acute distress. VITAL SIGNS: Temperature 98.4, pulse 81, respirations 18, blood pressure 143/66, saturation 94%. HEENT: Pupils equal, round, reactive. Scalp: Laceration to anterior scalp. No active bleeding. Moist mucous membranes. NECK: C-collar in place. LUNGS: Bilateral expansion, decreased breath sounds to left chest basal area. HEART: S1, S2. Regular. ABDOMEN: Soft, nontender, nondistended. CHEST: With a midline healed surgical scar. EXTREMITIES: Warm and well perfused. Bilateral upper extremities: Bruising right hand with a dressing in place with laceration. Right lower extremity abrasion, right lower extremity large toe necrotic; chronic. NEUROLOGIC: GCS of 14; 5/5 motor in all extremities. PSYCHIATRIC: Appropriate mood, appropriate insight. LABORATORY AND DIAGNOSTIC DATA: WBC is pending. Labs reviewed. IMAGIN. Chest x-ray: No evidence of acute pneumothorax or fracture. 2. Pelvic x-ray: No fracture. 3. CT head: No evidence of intracranial hemorrhage or fracture. 4. CT C-spine: Degenerative changes. 5. CT chest: A 5.9 cm atelectatic spherical mass lower base with a small pleural effusion. 6. CT abdomen and pelvis: No evidence of acute pathology or no evidence of air. 7. X-ray right hand: No fracture. 8. X-ray entire spine: Degenerative changes. No evidence of acute fracture. ASSESSMENT: The patient is a 80-year-old male status-post fall in kitchen; questionable pulseless electrical activity arrest, concussion. PLAN: After a full workup, the patient with above above-named issues. At this point, the patient does not have appearance of any acute pathological fracture or acute traumatic injury. The patient is noted to have possible concussion and syncope. Recommend defer to medical management. Recommend observation for 24-hours in ICU. Again, we will defer to medicine for further workup and medical treatment. Trauma surgery will sign off. The patient is cleared from a traumatic standpoint. MD DAILY Pope/tex/asmita , 05:16 PM , 05:29 PM
[2017-12-31] MEDS ORDERED: Acetaminophen 325 MG Tablet PO PRN (18:21)
[2017-12-31] MEDS ORDERED: Dextrose 50% in Water 50 ML Vial IV.PUSH PRN (18:29)
[2017-12-31] MEDS: Sod Chloride 0.9% Inj 1,000 ML IV.CONT SCH (18:36)
[2017-12-31 19:13] LABS: VBG Base Excess 10.9 mmol/L (-2-2); VBG Blood Gas Oxygen Content 11.1 Vol % (9.0-17.0); VBG PCO2 73 mmHG (44-48); VBG PH 7.33 (7.360-7.400); VBG PO2 44 mmHG (35-40)
[2017-12-31] MEDS: Carvedilol 12.5 MG Tablet PO SCH (21:36)
[2017-12-31] MEDS: Senna/Docusate Sodium 8.6/50 MG Tablet PO SCH (21:36)
[2017-12-31] MEDS: Acetaminophen Inj 650 MG/65 ML VIAL IV.SIG SCH (21:36)
[2017-12-31] MEDS: Insulin NovoLOG Aspart Correctional Sugar Inj SQ SCH (21:37)
[2017-12-31] MEDS: Piperacil/Tazo 3.375 GM Premix 50 ML IV.SIG SCH (21:39)
[2017-12-31 23:19] LABS: Albumin 2.6 g/dL (3.4-5.0); Anion Gap 6 meq/L (5-15); Aspartate Aminotransferase 75 U/L (15-37); Blood Urea Nitrogen 40 mg/dL (7-18); Calcium 8.4 mg/dL (8.5-10.1); Carbon Dioxide 33.6 meq/L (21.0-32.0); Chloride 100 meq/L (98-107); Glomerular Filtration Rate 43 mL/min (>89); Glucose,Random 171 mg/dL (74-106); Potassium 3.8 meq/L (3.5-5.1); Sodium 140 meq/L (136-145)
[2017-12-31 23:20] LABS: Alanine Aminotransferase 76 U/L (12-78)
[2017-12-31 23:24] LABS: Alkaline Phosphatase 95 U/L (45-117)
[2017-12-31 23:28] LABS: Creatine Kinase 92 U/L (39-308)
[2018-01-01] MEDS: Acetaminophen Inj 650 MG/65 ML VIAL IV.SIG SCH ×3 (03:41→14:11)
[2018-01-01] MEDS: Piperacil/Tazo 3.375 GM Premix 50 ML IV.SIG SCH ×4 (03:42→21:08)
[2018-01-01] MEDS: Insulin NovoLOG Aspart Correctional Sugar Inj SQ SCH ×5 (03:42→21:07)
--- NOTE | 2018-01-01 04:45 | CT ---
EXAM DATE: 01/01/2018 4:30 AM EDT AGE/SEX: 89 years / Male INDICATIONS: Trauma; head injury. CLINICAL DATA: This is the patient's subsequent encounter. Patient reports that signs and symptoms h ave been present for 1 day and indicates a pain score of 3/10. MEDICAL/SURGICAL HISTORY: Cardiovascular disease. Diabetes. Concussion. CABG. RADIATION DOSE: 66.34 CTDI (mGy) COMPARISON: [facility] [place], CT HEAD W/O CONTRAST, 12/31/2017. . TECHNIQUE: CT of the head without contrast. Using automated exposure control and adjustment of the mA and/or kV according to patient size, radiation dose was kept as low as reasonably achievable to ob tain optimal diagnostic quality images. DICOM format image data is available electronically for revi ew and comparison. FINDINGS: Cerebrum: The ventricles are normal for age. No evidence of midline shift, mass lesion, hemorrhage or acute infarction. No extraaxial fluid collections are seen. Chronic low-attenuation again seen in the periventricular white matter. Posterior Fossa: The cerebellum and brainstem are intact. The 4th ventricle is midline. The cerebe llopontine angle is unremarkable. Extracranial: Frontal scalp hematoma again noted. Skull: The calvaria is intact. No evidence of skull fracture. CONCLUSION: 1. No acute intracranial abnormality. 2. Frontal scalp contusion/hematoma again noted. 3. Chronic white matter changes. . Electronically signed by: Michael Cardoso MD 01/01/2018 4:44 AM EDT
--- NOTE | 2018-01-01 04:52 | XR ---
EXAM DATE: 01/01/2018 3:54 AM EDT AGE/SEX: 89 years / Male INDICATIONS: Congestive heart failure. CLINICAL DATA: This is the patient's subsequent encounter. Patient reports that signs and symptoms h ave been present for 2 days and indicates a pain score of Nonresponsive. MEDICAL/SURGICAL HISTORY: Non-responsive. Non-responsive. COMPARISON: [place], CT CHEST W CONTRAST, 12/31/2017. . FINDINGS: Mild bibasilar consolidation noted. There is also a small left pleural effusion. No definite change f rom yesterday's chest CT. No pneumothorax demonstrated. Heart size stable, within normal limits. Patient has had previous median sternotomy. CONCLUSION: No significant change. Mild bibasilar consolidation and small left pleural effusion again noted. Electronically signed by: Michael Cardoso MD 01/01/2018 4:50 AM EDT
[2018-01-01 05:10] LABS: Baso % (Auto) 0.3 % (0.0-2.0); Eos # (Auto) 0.1 th/mm3 (0.0-0.4); Eos % (Auto) 0.7 % (0.0-4.0); Hematocrit 33.8 % (39.0-51.0); Hemoglobin 10.7 gm/dL (13.0-17.0); Lymph # (Auto) 0.7 th/mm3 (1.0-4.8); Lymph % (Auto) 5.8 % (9.0-44.0); Mean Corpuscular HGB Conc 31.8 % (32.0-36.0); Mean Corpuscular Hemoglobin 27.9 pg (27.0-34.0); Mean Corpuscular Volume 87.6 fL (80.0-100.0); Mean Platelet Volume 8.1 fL (7.0-11.0); Mono # (Auto) 0.7 th/mm3 (0.0-0.9); Mono % (Auto) 6.2 % (0.0-8.0); Neut # (Auto) 10.5 th/mm3 (1.8-7.7); Platelet Count 233 th/mm3 (150-450); Red Blood Count 3.86 mil/mm3 (4.50-5.90); Red Cell Distribution Width 15.6 % (11.6-17.2)
[2018-01-01 05:21] LABS: Alanine Aminotransferase 70 U/L (12-78); Albumin 2.6 g/dL (3.4-5.0); Anion Gap 8 meq/L (5-15); Aspartate Aminotransferase 64 U/L (15-37); Blood Urea Nitrogen 41 mg/dL (7-18); Calcium 8.4 mg/dL (8.5-10.1); Carbon Dioxide 35.1 meq/L (21.0-32.0); Chloride 98 meq/L (98-107); Glomerular Filtration Rate 44 mL/min (>89); Glucose,Random 170 mg/dL (74-106); Potassium 3.7 meq/L (3.5-5.1); Sodium 141 meq/L (136-145)
[2018-01-01 05:25] LABS: Alkaline Phosphatase 92 U/L (45-117); Total Protein 7.2 g/dL (6.4-8.2); Troponin I 0.08 ng/mL (0.02-0.05)
[2018-01-01 05:29] LABS: Creatine Kinase 88 U/L (39-308)
[2018-01-01 06:33] LABS: VBG Base Excess 10.1 mmol/L (-2-2); VBG Blood Gas Oxygen Content 12.3 Vol % (9.0-17.0); VBG PCO2 61 mmHG (44-48); VBG PH 7.38 (7.360-7.400); VBG PO2 59 mmHG (35-40)
--- NOTE | 2018-01-01 07:52 | P.PNIM ---
Subjective Interval history: Mr. Sellers was afebrile with intermittent HTN overnight (max SBP 186). Per nursing staff, patient did well and has been responding well to questioning. Patient oriented to place and person but does not know year. Patient now knows president with prompting. Patient provides supplemental history that he uses O2 at night per his primary physician; he has a distant history of smoking. Patient denies pain at this time on IV Tylenol. No headache or numbness/weakness /tingling reported; he feels of normal mental status No reported shortness of breath or chest pain Physical Exam Vital signs: Vital Signs 12/31/17 16:00 12/31/17 16:31 12/31/17 16:46 Temperature Pulse Rate 81 79 Respiratory Rate 18 16 Blood Pressure 143/66 H 143/66 H Pulse Oximetry 94 L 94 L 98 12/31/17 20:10 12/31/17 20:30 12/31/17 20:36 Temperature 97.7 F Pulse Rate 76 82 Respiratory Rate 22 30 H Blood Pressure 125/68 186/85 H Pulse Oximetry 98 96 94 L 12/31/17 20:38 01/01/18 00:00 01/01/18 03:40 Temperature 98.0 F Pulse Rate 62 Respiratory Rate 19 Blood Pressure 133/62 Pulse Oximetry 94 L 99 94 L 01/01/18 04:00 Temperature 98.3 F Pulse Rate 74 Respiratory Rate 23 Blood Pressure 179/83 H Pulse Oximetry 100 Intake & Output 12/31/17 01/01/18 01/01/18 18:59 06:59 18:59 Intake Total 350 / 350 Output Total 450 / 450 Balance -100 / -100 Weight 105 kg Intake: IV 230 / 230 Ofirmev Inj 650 mg In 65 ml @ 130 / 130 400 mls/hr IV.SIG Q6H LISSETH Rx#: [id number] Zosyn 3.375 GM Premix 50 ML @ 100 / 100 100 mls/hr IV.SIG Q6H LISSETH Rx#: [id number] Oral 120 / 120 Output: Urine Amount (Catheter) 450 / 450 Condom 450 / 450 Other: # Incontinent Voids 2 Date of Last Bowel Movement 12/31/17 Narrative: Gen: On BIPAP; calm and comfortable HEENT: Moist mucus membranes. EOMI; PERRLA. No photophobia Skin: Laceration to forehead- no active bleeding. Right hand covered. R great toe appears gangrenous and/or without perfusion. Erythema proximally suggestive of infection associated Neuro: Awake, alert. Oriented to person and that he is in hospital; still does not know year. Normal peripheral motor/sensory function. Cranial nerves normal Cardiovascular-regular rate and rhythm; DP pulses not palpable Resp: On BIPAP; saturations >95%. CTAB bilaterally; no obvious crackles Abd: soft, nontender Ext: Grossly normal ROM and motor function with symmetric weakness - Urinary Catheter Management Condom Cath placed during this visit: no Results - Labs CBC & Chem 7: 01/01/18 03:55 01/01/18 03:55 Laboratory Results - last 24 hr 12/31/17 12/31/17 12/31/17 15:45 15:45 15:45 WBC 10.3 RBC 4.02 L Hgb 11.4 L POC Hgb (Calc) 11.9 L Hct 35.5 L POC Hct 35.0 L MCV 88.3 MCH 28.4 MCHC 32.2 RDW 16.3 Plt Count 300 MPV 8.6 Prelim Diff (Auto) Slide review pending Neut % (Auto) 73.7 H Lymph % (Auto) 16.1 [place] % (Auto) 6.0 Eos % (Auto) 3.7 Baso % (Auto) 0.5 Neut # (Auto) 7.6 Lymph # (Auto) 1.7 [place] # (Auto) 0.6 Eos # (Auto) 0.4 Baso # (Auto) 0.1 WBC Differential Manual diff final Seg Neuts % (Manual) 64 Band Neuts % (Manual) 9 H Lymphocytes % (Manual) 17 Monocytes % (Manual) 5 Eosinophils % (Manual) 4 Myelocytes % (Man) 1 H Abs Neuts (Manual) 7.6 Differential Comment . Platelet Estimate Normal Platelet Morphology Normal PT 10.7 INR 1.1 APTT 26.5 Puncture Site Patient Temperature VBG pH VBG pCO2 VBG pO2 VBG HCO3 VBG O2 Saturation VBG O2 Content VBG Base Excess VBG Carboxyhemoglobin VBG Methemoglobin Hemoglobin O2 Delivery Device Liter Flow Critical Value POC Sodium 139 Sodium POC Potassium 5.6 H Potassium POC Chloride 93 L Chloride Carbon Dioxide Anion Gap POC BUN 64 H BUN Creatinine POC Creatinine 1.5 H Estimated GFR POC Glucose 200 H Random Glucose Lactic Acid Calcium Total Bilirubin AST ALT Alkaline Phosphatase Total Creatine Kinase Troponin I B-Natriuretic Peptide Total Protein Albumin Nasal Screen MRSA (PCR) Blood Type Antibody Screen 12/31/17 12/31/17 12/31/17 15:45 15:45 15:45 WBC RBC Hgb POC Hgb (Calc) Hct POC Hct MCV MCH MCHC RDW Plt Count MPV Prelim Diff (Auto) Neut % (Auto) Lymph % (Auto) [place] % (Auto) Eos % (Auto) Baso % (Auto) Neut # (Auto) Lymph # (Auto) [place] # (Auto) Eos # (Auto) Baso # (Auto) WBC Differential Seg Neuts % (Manual) Band Neuts % (Manual) Lymphocytes % (Manual) Monocytes % (Manual) Eosinophils % (Manual) Myelocytes % (Man) Abs Neuts (Manual) Differential Comment Platelet Estimate Platelet Morphology PT INR APTT Puncture Site Patient Temperature VBG pH VBG pCO2 VBG pO2 VBG HCO3 VBG O2 Saturation VBG O2 Content VBG Base Excess VBG Carboxyhemoglobin VBG Methemoglobin Hemoglobin O2 Delivery Device Liter Flow Critical Value POC Sodium Sodium POC Potassium Potassium POC Chloride Chloride Carbon Dioxide Anion Gap POC BUN BUN Creatinine POC Creatinine Estimated GFR POC Glucose Random Glucose Lactic Acid Calcium Total Bilirubin AST ALT Alkaline Phosphatase Total Creatine Kinase Troponin I 0.03 B-Natriuretic Peptide 101 H Total Protein Albumin Nasal Screen MRSA (PCR) Blood Type O Negative Antibody Screen Negative 12/31/17 12/31/17 12/31/17 18:59 19:09 21:29 WBC RBC Hgb POC Hgb (Calc) Hct POC Hct MCV MCH MCHC RDW Plt Count MPV Prelim Diff (Auto) Neut % (Auto) Lymph % (Auto) [place] % (Auto) Eos % (Auto) Baso % (Auto) Neut # (Auto) Lymph # (Auto) [place] # (Auto) Eos # (Auto) Baso # (Auto) WBC Differential Seg Neuts % (Manual) Band Neuts % (Manual) Lymphocytes % (Manual) Monocytes % (Manual) Eosinophils % (Manual) Myelocytes % (Man) Abs Neuts (Manual) Differential Comment Platelet Estimate Platelet Morphology PT INR APTT Puncture Site Iv line Patient Temperature 98.6 VBG pH 7.33 L VBG pCO2 73 H* VBG pO2 44 H VBG HCO3 37 H VBG O2 Saturation 74 VBG O2 Content 11.1 VBG Base Excess 10.9 H VBG Carboxyhemoglobin 1.1 VBG Methemoglobin 0.9 Hemoglobin 10.7 L O2 Delivery Device Simple mask Liter Flow 6.00 Critical Value Yes POC Sodium Sodium POC Potassium Potassium POC Chloride Chloride Carbon Dioxide Anion Gap POC BUN BUN Creatinine POC Creatinine Estimated GFR POC Glucose 174 H Random Glucose Lactic Acid 1.0 Calcium Total Bilirubin AST ALT Alkaline Phosphatase Total Creatine Kinase Troponin I B-Natriuretic Peptide Total Protein Albumin Nasal Screen MRSA (PCR) Blood Type Antibody Screen 12/31/17 12/31/17 12/31/17 21:30 22:46 22:46 WBC RBC Hgb POC Hgb (Calc) Hct POC Hct MCV MCH MCHC RDW Plt Count MPV Prelim Diff (Auto) Neut % (Auto) Lymph % (Auto) [place] % (Auto) Eos % (Auto) Baso % (Auto) Neut # (Auto) Lymph # (Auto) [place] # (Auto) Eos # (Auto) Baso # (Auto) WBC Differential Seg Neuts % (Manual) Band Neuts % (Manual) Lymphocytes % (Manual) Monocytes % (Manual) Eosinophils % (Manual) Myelocytes % (Man) Abs Neuts (Manual) Differential Comment Platelet Estimate Platelet Morphology PT INR APTT Puncture Site Patient Temperature VBG pH VBG pCO2 VBG pO2 VBG HCO3 VBG O2 Saturation VBG O2 Content VBG Base Excess VBG Carboxyhemoglobin VBG Methemoglobin Hemoglobin O2 Delivery Device Liter Flow Critical Value POC Sodium Sodium 140 POC Potassium Potassium 3.8 POC Chloride Chloride 100 Carbon Dioxide 33.6 H Anion Gap 6 POC BUN BUN 40 H Creatinine 1.42 H POC Creatinine Estimated GFR 43 L POC Glucose Random Glucose 171 H Lactic Acid Calcium 8.4 L Total Bilirubin 0.6 AST 75 H ALT 76 Alkaline Phosphatase 95 Total Creatine Kinase 92 Troponin I 0.10 H B-Natriuretic Peptide 148 H Total Protein 7.0 Albumin 2.6 L Nasal Screen MRSA (PCR) Not detected Blood Type Antibody Screen 01/01/18 01/01/18 01/01/18 03:37 03:55 03:55 WBC 12.0 H RBC 3.86 L Hgb 10.7 L POC Hgb (Calc) Hct 33.8 L POC Hct MCV 87.6 MCH 27.9 MCHC 31.8 L RDW 15.6 Plt Count 233 MPV 8.1 Prelim Diff (Auto) Neut % (Auto) 87.0 H Lymph % (Auto) 5.8 L [place] % (Auto) 6.2 Eos % (Auto) 0.7 Baso % (Auto) 0.3 Neut # (Auto) 10.5 H Lymph # (Auto) 0.7 L [place] # (Auto) 0.7 Eos # (Auto) 0.1 Baso # (Auto) 0.0 WBC Differential . Seg Neuts % (Manual) Band Neuts % (Manual) Lymphocytes % (Manual) Monocytes % (Manual) Eosinophils % (Manual) Myelocytes % (Man) Abs Neuts (Manual) Differential Comment Auto diff final Platelet Estimate Platelet Morphology PT INR APTT Puncture Site Patient Temperature VBG pH VBG pCO2 VBG pO2 VBG HCO3 VBG O2 Saturation VBG O2 Content VBG Base Excess VBG Carboxyhemoglobin VBG Methemoglobin Hemoglobin O2 Delivery Device Liter Flow Critical Value POC Sodium Sodium 141 POC Potassium Potassium 3.7 POC Chloride Chloride 98 Carbon Dioxide 35.1 H Anion Gap 8 POC BUN BUN 41 H Creatinine 1.39 H POC Creatinine Estimated GFR 44 L POC Glucose 188 H Random Glucose 170 H Lactic Acid Calcium 8.4 L Total Bilirubin 0.7 AST 64 H ALT 70 Alkaline Phosphatase 92 Total Creatine Kinase 88 Troponin I 0.08 H B-Natriuretic Peptide Total Protein 7.2 Albumin 2.6 L Nasal Screen MRSA (PCR) Blood Type Antibody Screen 01/01/18 06:05 WBC RBC Hgb POC Hgb (Calc) Hct POC Hct MCV MCH MCHC RDW Plt Count MPV Prelim Diff (Auto) Neut % (Auto) Lymph % (Auto) [place] % (Auto) Eos % (Auto) Baso % (Auto) Neut # (Auto) Lymph # (Auto) [place] # (Auto) Eos # (Auto) Baso # (Auto) WBC Differential Seg Neuts % (Manual) Band Neuts % (Manual) Lymphocytes % (Manual) Monocytes % (Manual) Eosinophils % (Manual) Myelocytes % (Man) Abs Neuts (Manual) Differential Comment Platelet Estimate Platelet Morphology PT INR APTT Puncture Site Iv line Patient Temperature 98.6 VBG pH 7.38 VBG pCO2 61 H* VBG pO2 59 H VBG HCO3 35 H VBG O2 Saturation 88 H VBG O2 Content 12.3 VBG Base Excess 10.1 H VBG Carboxyhemoglobin 1.3 VBG Methemoglobin 0.8 Hemoglobin 9.9 L O2 Delivery Device Simple mask Liter Flow 8.00 Critical Value Yes POC Sodium Sodium POC Potassium Potassium POC Chloride Chloride Carbon Dioxide Anion Gap POC BUN BUN Creatinine POC Creatinine Estimated GFR POC Glucose Random Glucose Lactic Acid Calcium Total Bilirubin AST ALT Alkaline Phosphatase Total Creatine Kinase Troponin I B-Natriuretic Peptide Total Protein Albumin Nasal Screen MRSA (PCR) Blood Type Antibody Screen - Imaging Impressions Chest X-Ray 12/31/17 15:43 CONCLUSION: 1. Cardiomegaly. 2. Lungs are clear. Pelvis X-Ray 12/31/17 15:43 CONCLUSION: 1. No acute fracture. Hand X-Ray 12/31/17 15:47 CONCLUSION: 1. No acute fracture or radiopaque foreign body. Abdomen/Pelvis CT 12/31/17 15:49 CONCLUSION: 1. Bilateral pleural effusions left greater than right. Consolidation left lung base I believe is rounded atelectasis. Intra-abdominal exam is unremarkable. Sigmoid diverticulosis. Marked atherosclerotic disease including the coronary vessels Chest CT 12/31/17 15:49 CONCLUSION: 1. No acute traumatic abdomen in the thorax. 2. Small fluid density left pleural effusion. 3. Rounded nearly masslike airspace consolidation in the left lung base measuring 5.9 x 3.3 cm. This may reflect rounded atelectasis given the adjacent pleural effusion. However, malignant etiology cannot be entirely excluded. Comparisons with prior examinations would be beneficial in further evaluation. Alternatively, outpatient PET/CT examination may be performed for further evaluation as clinically warranted. 4. Groundglass airspace consolidation in the inferior right middle lobe, presumably atelectasis, although differential considerations include aspiration. 5. Prominent coronary artery calcifications. Lumbar Spine CT 12/31/17 15:49 CONCLUSION: 1. Broad-based diffuse annular bulges at multiple levels. No evidence of an acute fracture. The posterior elements are unremarkable. There is no evidence of any subluxation or facet malalignment. Thoracic Spine CT 12/31/17 15:49 CONCLUSION: 1. Negative CT Thoracic Spine with contrast. No evidence of fracture. Cervical Spine CT 12/31/17 15:50 CONCLUSION: 1. No acute fracture. 2. 2 mm retrolisthesis of C4 on C5 and 3 mm anterolisthesis of C7 on T1 likely due to degenerative arthrosis. 3. Advanced multilevel degenerative spondylosis of the cervical spine most prominently at C4-5 and C5-6, as above. Face CT 12/31/17 15:50 CONCLUSION: 1. No acute facial bone fractures. 2. Mild bilateral maxillary sinus mucosal disease. Head CT 12/31/17 15:50 CONCLUSION: 1. No acute intracranial abnormality. 2. Mild maxillary sinus mucosal disease. . Chest X-Ray 01/01/18 00:00 CONCLUSION: No significant change. Mild bibasilar consolidation and small left pleural effusion again noted. Head CT 01/01/18 00:00 CONCLUSION: 1. No acute intracranial abnormality. 2. Frontal scalp contusion/hematoma again noted. 3. Chronic white matter changes. . Assessment and Plan - Assessment (1) PEA (Pulseless electrical activity) Code(s): I46.9 - Cardiac arrest, cause unspecified Status: Acute (2) Closed head injury Code(s): S09.90XA - Unspecified injury of head, initial encounter Status: Acute - Plan Mr. Sellers is a 77 yo M with: Trauma Impression: Mechanical fall resulting in head injury. Normal motor function peripherally Head CT- no acute intracranial abnormality Face CT- no acute fractures. 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 Multilevel spondylosis of Cspine most prominent at C4-5 and C5-[address]- negative T spine with contrast L spine CT- broad-based diffuse annular bulges at multiple levels. No evidence acute fracture, the posterior elements unremarkable. No subluxation or facet malalignment Chest CT- no acute trauma. concern for masslike airspace at L base- 5.9 x3.3 cm ; possible atelectasis w/ effusion vs possible malignancy, Outpatient f/u recommended. Ground glass consolidation at R middle lobe suggestive of possible aspiration. Prominent coronary calcifications A/P CT- left lung atelectasis, atherosclerosis Pelvic XR negative Hand XR negative -Continue IV Tylenol -PT consult Neuro Impression: Suspect concussion. Inability to remember year but otherwise oriented. GCS 14 at time of my initial exam; previously 3 in field. On home ASA/ Plavix 12/31- Normal neuro assessment with exception of not knowing year which is change from baseline Imaging: Head CT negative on admission Repeat Head CT ~12hrs after injury negative -Will monitor neuro checks -Resumed oral intake after passed bedside swallow -Will order MRI brain to assess for occult injury and consult neurology for change in memory in case additional work-up deemed appropriate -Since head imaging negative for bleed x2 and high risk for vascular event will resume antiplatelet agent later today Cardiovascular PEA CAD s/p CABD PAD Impression: Reported PEA in field with ROSC after CPR. Unclear whether was true PEA since seems to have responded well Troponin 0.02-> 0.1-> 0.08. Lactic acid wnl EKGs reassuring -Continue Telemetry -Will continue home ASA, Plavix later today -Continue home BB, ARB -Continue home statin -Continue home Metolazone 2.5mg BID -Continue Bumex 2mg daily -Cardiology consulted Respiratory Impression: Lung imaging suggestive of effusions; possible aspiration in R middle lobe. Required simple mask in ED. Wears O2 at night; distant smoker Venous gas with CO2 73-> [address]- no acute trauma. concern for masslike airspace at L base- 5.9 x3.3 cm ; possible atelectasis w/ effusion vs possible malignancy, Outpatient f/u recommended. Ground glass consolidation at R middle lobe suggestive of possible aspiration. Prominent coronary calcifications -Continue empiric Zosyn while monitoring respiratory status -BIPAP for CO2 retention (unclear whether chronic; baseline not known) -Pulmonology consulted for evaluation DM Impression: On home Levemir 24 U daily, Novolog 6U BID -Will give SS insulin while inpatient; will resume Levemir once stable intake GI Cardiac diet resumed -Continue home Pepcid for PPX Toe gangrene -Podiatry consulted (sees as outpatient with planned surgical intervention next month but signs of infection on exam so likely requires treatment plan until f/ u with his [employer]) -Continue empiric Zosyn DVT PPX -SCD's Discussed with CC; aware in case of decompensation Code Status: Full code (2) Closed head injury Qualifiers: Encounter type: initial encounter Qualified Code(s): S09.90XA - Unspecified injury of head, initial encounter
[2018-01-01] MEDS: Carvedilol 12.5 MG Tablet PO SCH ×2 (08:15→21:08)
[2018-01-01] MEDS: Famotidine 20 MG Tablet PO SCH (08:15)
[2018-01-01] MEDS: Citalopram 20 MG Tablet PO SCH (08:16)
[2018-01-01] MEDS: Senna/Docusate Sodium 8.6/50 MG Tablet PO SCH ×2 (09:42→21:08)
--- NOTE | 2018-01-01 10:03 | XR ---
EXAM DATE: 01/01/2018 9:35 AM EDT AGE/SEX: 89 years / Male INDICATIONS: Right foot pain, first digit. CLINICAL DATA: This is the patient's subsequent encounter. Patient reports that signs and symptoms h ave been present for 2 days and indicates a pain score of 5/10. MEDICAL/SURGICAL HISTORY: Diabetes. None. COMPARISON: No prior exams available for comparison. FINDINGS: Extensive digital artery calcifications are evident. There are degenerative changes at the first meta carpal phalangeal joint and the interphalangeal joint. I see no obvious bone destruction to suggest o steomyelitis CONCLUSION: Extensive digital artery calcifications. Inflammatory process cannot be excluded. Displaced fracture is not evident. Electronically signed by: Clark Michaud MD 01/01/2018 10:01 AM EDT
[2018-01-01] MEDS: Sod Chloride 0.9% Inj 1,000 ML IV.CONT SCH ×4 (10:27→21:08)
--- NOTE | 2018-01-01 10:48 | P.CONPAL ---
Consult Service: Palliative Care Requesting Physician: Dashawn Davis Reason for Consult: a. To assist with evaluation and management of symptoms including: pain and debility b. To assist medical decision maker(s) with: better understanding of current medical conditions; weighing benefits/burdens of medical treatment options; making medical treatment decisions. Primary Care Provider: UNKNOWN History of Present Illness History of Present Illness: Mr. Sellers is a 77 year old gentleman with a complex medical history. He is somewhat of a poor historian and the information is gleaned from past medical records as well as information from his Carlyn. His comorbidities consist of CAD, HTN, CKD Stage 3, GERD, Insulin dependent diabetes mellitus, CHF, hypercholesteremia, and severe PAD requiring multiple vascular surgeries. He presented to [facility] ED on 12/31/17 status post a fall at home with subsequent PEA arrest with ROSC prior to ED arrival. He was home with his at the time. She reports that he was transferring from walker to wheelchair when he suddenly stood up, lost his balance and fell and hit his head. She reports the patient experienced a lost of consciousness and bleeding from his forehead. She alerted her neighbor who initiated CPR because he could not feel a pules. EMS was activated at this time and he was brought to the hospital for further evaluation and treatment. Clinical Data upon admission:, * BP 143/66, Pules 81, Respiratory Rate 18, O2 sat 94% * Hgb 11.4, HCT 35.5, Plt 300 * VBG pC02 73, pH 7.33, pO2 44, HCO3 37 * Bun 40, Creatinine 1.42, GFR 43, Glucose 171, AST 75, Albumin 2.6 * Troponin 0.10, BNP 148 * CXR: cardiomegaly * Abdominal/Pelvis CT: Bilateral pleural effusions left greater than right. Consolidation left lung base I believe is rounded atelectasis. Intra-abdominal exam is unremarkable. Sigmoid diverticulosis. Marked atherosclerotic disease including the coronary vessels * Chest CT: 1. No acute traumatic abdomen in the thorax. 2. Small fluid density left pleural effusion. 3. Rounded nearly masslike airspace consolidation in the left lung base measuring 5.9 x 3.3 cm. This may reflect rounded atelectasis given the adjacent pleural effusion. However, malignant etiology cannot be entirely excluded. 4. Groundglass airspace consolidation in the inferior right middle lobe, presumably atelectasis, although differential considerations include aspiration. 5. Prominent coronary artery calcifications. * Head CT: No acute intracranial abnormality, mild maxillary sinus mucosal disease Given Mr. Sellers's complex medical history and presentation, Dr. Ding ( cardiology) was consulted with recommendations pending. The patient has had a longstanding issue with severe PAD and was noted to have a gangrenous right great toe which appears to be worsening and Dr. Aiken (podiatry) was also consulted. MRI of the right foot is pending. Dr. Power (pulmonology) was consulted as well to assist with patient management given the results of chest x -ray and CT. Palliative care was consulted to assist with pain management and to help address goals of medical treatment. The patient denies any pain currently but does describe the he usually has chronic pain in his lower back. This occurs mostly at night when he is trying to sleep but is unable to quantify further. He is pleasant upon exam and is oriented to himself but is unsure of the year or the president though he can clearly state his full date of . He does not remember his fall or what ensued afterward. He does recognize his . He holds appropriate eye contact and is able to follow conversation with myself and RIKKI Rashid and is agreeable to physical exam. Function/Cognitive Trajectory: Patient has a history of long standing debility secondary to multiple comorbidities and large body habitus. Lives a primarily a [id number] existence. He uses a walker to ambulate short distances( <20 feet). Requires increasing assistance with ADL's. states patient is less active because he is fearful of falling. Review of Systems Cardiovascular: Reports leg pain with activity Respiratory: Reports cough Musculoskeletal: Reports abnormal walking, Reports back pain, Reports joint pain , Reports muscle weakness Skin/Breast: Reports other Comments: worsening blackening to right great toe Neurologic: Reports memory loss Comments: as per Carlyn patient is currently at baseline being alert to self and place [facility] - History History Provided By: Family Member, Medical Record, Charting Clerk / EMT - Medical History Medical History: Medical History (Last Updated 01/01/18 @ 13:44 by RIKKI Pfeiffer) Fall with injury (Acute) Concussion (Acute) CAD (coronary artery disease) (Acute) Amputated toe of left foot BPH (benign prostatic hyperplasia) CHF (congestive heart failure) CKD (chronic kidney disease) Chronic low back pain Diabetes GERD (gastroesophageal reflux disease) Hypercholesteremia Hypertension PAD (peripheral artery disease) Rotator cuff arthropathy of right shoulder - Surgical History Surgical History: Surgical History (Last Updated 01/01/18 @ 13:44 by RIKKI Pfeiffer) H/O endarterectomy H/O removal of cyst H/O vascular surgery Hx of CABG S/P vascular bypass - Family History Family History: Family History (Last Updated 01/01/18 @ 13:45 by RIKKI Pfeiffer) Mother Myocardial infarct Father Diabetes Grandparent Diabetes - Social History I have reviewed the patient's Social History: Yes - Tobacco History Second Hand Smoke Exposure: No Tobacco Use In Past 30 Days: No Smoking Status: Former smoker Tobacco Type: Cigarettes (smoked briefly in the 1970's) - Alcohol History How Often Do You Have a Drink Containing Alcohol: Never - Substance Use History Substance History: No History of Abuse - Travel History History of Recent Travel: No Recent Travel in the [place] Within the Last 8 Weeks: No Recent Travel Out of the Country Within the Last 8 Weeks: No Medications and Allergies Active Medications: Active Medications Acetaminophen (Tylenol) 650 mg PO Q4H PRN PRN Reason: Temp > 100.4 Albuterol (Duoneb Neb (Prn)) 1 ampul NEB Q4HR NEB PRN PRN Reason: SHORTNESS OF BREATH/WHEEZING Aspirin (Aspirin Chew) 81 mg PO DAILY [facility] Last Admin: 01/01/18 08:24 Dose: 81 mg Atorvastatin Calcium (Lipitor) 40 mg PO DAILY [facility] Last Admin: 01/01/18 08:15 Dose: 40 mg Bumetanide (Bumex) 2 mg PO DAILY [facility] Last Admin: 01/01/18 08:15 Dose: 2 mg Carvedilol (Coreg) 12.5 mg PO BID [facility] Last Admin: 01/01/18 08:15 Dose: 12.5 mg Citalopram Hydrobromide (Celexa) 20 mg PO DAILY [facility] Last Admin: 01/01/18 08:16 Dose: 20 mg Clopidogrel Bisulfate (Plavix) 75 mg PO DAILY [facility] Dextrose (D50w Vial) 50 ml IV.PUSH UNSCH PRN PRN Reason: PER HYPOGLYCEMIA PROTOCOL Enalaprilat (Vasotec Inj) 1.25 mg IV.PUSH Q8H PRN PRN Reason: Sbp>170, Dbp>90 Last Admin: 01/01/18 04:11 Dose: 1.25 mg Famotidine (Pepcid) 20 mg PO DAILY [facility] Last Admin: 01/01/18 08:15 Dose: 20 mg Glucagon (Glucagon Inj) 1 mg OTHER PRN PRN PRN Reason: for Hypoglycemia Protocol Acetaminophen (Ofirmev Inj) 650 mg in 65 mls @ 400 mls/hr IV.SIG Q6H LISSETH Stop: 01/01/18 15:10 Last Infusion: 01/01/18 09:42 Dose: Infused Piperacillin/Tazobactam/Dextrose (Zosyn 3.375 Gm Premix) 50 mls @ 100 mls/hr IV.SIG Q6H LISSETH Last Infusion: 01/01/18 09:43 Dose: Infused Sodium Chloride (Ns Inj) 1,000 mls @ 100 mls/hr IV.CONT .Q10H [facility] Last Admin: 01/01/18 10:29 Dose: 100 mls/hr Insulin Aspart (Novolog Insulin Correctional Sugar Inj) 0 unit SQ ACHS AND 3AM LISSETH; Protocol Last Admin: 01/01/18 08:13 Dose: 1 unit Losartan Potassium (Cozaar) 25 mg PO DAILY [facility] Last Admin: 01/01/18 08:15 Dose: 25 mg Ondansetron HCl (Zofran Inj) 4 mg IV.PUSH Q6H PRN PRN Reason: NAUSEA OR VOMITING Senna/Docusate Sodium (Mackenzie-Colace) 1 tab PO BID [facility] Last Admin: 01/01/18 09:42 Dose: 1 tab Tamsulosin HCl (Flomax) 0.4 mg PO DAILY [facility] Last Admin: 01/01/18 08:16 Dose: 0.4 mg Allergies Allergy/AdvReac Type Severity Reaction Status Date / Time acetaminophen [From Morley] Allergy Nausea/Vomi Verified 12/31/17 18:03 ting exenatide [From Bydureon] Allergy Nausea/Vomi Verified 12/31/17 18:03 ting fentanyl Allergy Nausea/Vomi Verified 12/31/17 18:03 ting hydrocodone [From Morley] Allergy Nausea/Vomi Verified 12/31/17 18:03 ting oxycodone [From Percocet] Allergy Nausea/Vomi Verified 12/31/17 18:03 ting Home Medications Medication Instructions Recorded Confirmed Type aspirin 81 mg PO DAILY 12/31/17 12/31/17 History bumetanide 2 mg PO DAILY 12/31/17 12/31/17 History carvedilol [Coreg] 12.5 mg PO BID 12/31/17 12/31/17 History citalopram 20 mg PO DAILY 12/31/17 12/31/17 History clopidogrel [Plavix] 75 mg PO DAILY 12/31/17 12/31/17 History insulin aspart U-100 [Novolog 5 unit SUB-Q DAILY 12/31/17 12/31/17 History U-100 Insulin aspart] insulin detemir U-100 [Levemir 25 unit SUB-Q QPM 12/31/17 12/31/17 History FlexTouch U-100 Insuln] losartan 25 mg PO DAILY 12/31/17 12/31/17 History ranitidine HCl 150 mg PO DAILY 12/31/17 12/31/17 History rosuvastatin [Crestor] 20 mg PO DAILY 12/31/17 12/31/17 History tamsulosin [Flomax] 0.4 mg PO DAILY 12/31/17 12/31/17 History Advance Directives Living Will: No Healthcare Surrogate: No Health Care Surrogate Name and Number: Carlyn Sellers () HCP: [phone] Power of Fibrous Plasterer: No Today's verbally stated goals: FULL CODE per , Carlyn. At this time goals are aggressive though states she feels her would not want to be dependent on life support Ethical and Legal Issues: No known legal or ethical issues Physical Exam Vital Signs: Vital Signs - 24 hr 12/31/17 16:00 12/31/17 16:31 12/31/17 16:46 Temperature Pulse Rate 81 79 Respiratory Rate 18 16 Blood Pressure 143/66 H 143/66 H Pulse Oximetry 94 L 94 L 98 12/31/17 20:10 12/31/17 20:30 12/31/17 20:36 Temperature 97.7 F Pulse Rate 76 82 Respiratory Rate 22 30 H Blood Pressure 125/68 186/85 H Pulse Oximetry 98 96 94 L 12/31/17 20:38 01/01/18 00:00 01/01/18 03:40 Temperature 98.0 F Pulse Rate 62 Respiratory Rate 19 Blood Pressure 133/62 Pulse Oximetry 94 L 99 94 L 01/01/18 04:00 01/01/18 08:00 Temperature 98.3 F 98.7 F Pulse Rate 74 68 Respiratory Rate 23 25 H Blood Pressure 179/83 H 119/56 L Pulse Oximetry 100 100 I&O: Intake & Output 12/30/17 12/31/17 01/01/18 01/02/18 06:59 06:59 06:59 06:59 Intake Total 1350 / 1350 115 / 115 Output Total 450 / 450 Balance 900 / 900 115 / 115 Weight 105 kg Physical Exam: CONSTITUTIONAL/GENERAL: This is an adequately nourished patient, in no apparent distress. TUBES/LINES/DRAINS: PIV, Munoz cath SKIN: No jaundice, rashes, or lesions. Ecchymoses on upper extremities. Large laceration on forehead. Skin tear to right hand. Right great toe black and foul odor, erythema noted to surrounding skin. Skin temperature appropriate. Not diaphoretic. EYES: Pupils equal and round and reactive. Extraocular motions intact. No scleral icterus. No injection or drainage. Fundi not examined. ENT: Hearing grossly normal. Nose without bleeding or purulent drainage. Throat without visible erythema, exudates, masses, or lesions. NECK: Trachea midline. Supple, nontender. CARDIOVASCULAR: Regular rate and rhythm without murmurs, gallops, or rubs. No JVD. Peripheral pulses difficult to palpate to lower extremities. Left foot +1, right foot questionable. RESPIRATORY/CHEST: Symmetric, unlabored respirations. Clear to auscultation. Breath sounds equal bilaterally. No wheezes, rales, or rhonchi. GASTROINTESTINAL: Abdomen soft, non-tender, nondistended. No hepato-splenomegaly , or palpable masses. No guarding. Bowel sounds present. GENITOURINARY: Without palpable bladder distension. Munoz catheter in place. MUSCULOSKELETAL: Extremities without clubbing, cyanosis, or edema. No joint tenderness or effusion noted. No calf tenderness. No mottling or clubbing. LYMPHATICS: No palpable cervical or supraclavicular adenopathy. NEUROLOGICAL: Awake and alert. Motor and sensory grossly within normal limits. Follows commands. Moves all extremities. PSYCHIATRIC: No obvious anxiety/depression. no apparent hallucinations or other psychotic thought process. Diagnostic Tests Laboratory: Laboratory Results - last 72 hr 12/31/17 12/31/17 12/31/17 15:45 15:45 15:45 WBC 10.3 RBC 4.02 L Hgb 11.4 L POC Hgb (Calc) 11.9 L Hct 35.5 L POC Hct 35.0 L MCV 88.3 MCH 28.4 MCHC 32.2 RDW 16.3 Plt Count 300 MPV 8.6 Prelim Diff (Auto) Slide review pending Neut % (Auto) 73.7 H Lymph % (Auto) 16.1 [place] % (Auto) 6.0 Eos % (Auto) 3.7 Baso % (Auto) 0.5 Neut # (Auto) 7.6 Lymph # (Auto) 1.7 [place] # (Auto) 0.6 Eos # (Auto) 0.4 Baso # (Auto) 0.1 WBC Differential Manual diff final Seg Neuts % (Manual) 64 Band Neuts % (Manual) 9 H Lymphocytes % (Manual) 17 Monocytes % (Manual) 5 Eosinophils % (Manual) 4 Myelocytes % (Man) 1 H Abs Neuts (Manual) 7.6 Differential Comment . Platelet Estimate Normal Platelet Morphology Normal PT 10.7 INR 1.1 APTT 26.5 Puncture Site Patient Temperature VBG pH VBG pCO2 VBG pO2 VBG HCO3 VBG O2 Saturation VBG O2 Content VBG Base Excess VBG Carboxyhemoglobin VBG Methemoglobin Hemoglobin O2 Delivery Device Liter Flow Critical Value POC Sodium 139 Sodium POC Potassium 5.6 H Potassium POC Chloride 93 L Chloride Carbon Dioxide Anion Gap POC BUN 64 H BUN Creatinine POC Creatinine 1.5 H Estimated GFR POC Glucose 200 H Random Glucose Lactic Acid Calcium Total Bilirubin AST ALT Alkaline Phosphatase Total Creatine Kinase Troponin I B-Natriuretic Peptide Total Protein Albumin Nasal Screen MRSA (PCR) Blood Type Antibody Screen 12/31/17 12/31/17 12/31/17 15:45 15:45 15:45 WBC RBC Hgb POC Hgb (Calc) Hct POC Hct MCV MCH MCHC RDW Plt Count MPV Prelim Diff (Auto) Neut % (Auto) Lymph % (Auto) [place] % (Auto) Eos % (Auto) Baso % (Auto) Neut # (Auto) Lymph # (Auto) [place] # (Auto) Eos # (Auto) Baso # (Auto) WBC Differential Seg Neuts % (Manual) Band Neuts % (Manual) Lymphocytes % (Manual) Monocytes % (Manual) Eosinophils % (Manual) Myelocytes % (Man) Abs Neuts (Manual) Differential Comment Platelet Estimate Platelet Morphology PT INR APTT Puncture Site Patient Temperature VBG pH VBG pCO2 VBG pO2 VBG HCO3 VBG O2 Saturation VBG O2 Content VBG Base Excess VBG Carboxyhemoglobin VBG Methemoglobin Hemoglobin O2 Delivery Device Liter Flow Critical Value POC Sodium Sodium POC Potassium Potassium POC Chloride Chloride Carbon Dioxide Anion Gap POC BUN BUN Creatinine POC Creatinine Estimated GFR POC Glucose Random Glucose Lactic Acid Calcium Total Bilirubin AST ALT Alkaline Phosphatase Total Creatine Kinase Troponin I 0.03 B-Natriuretic Peptide 101 H Total Protein Albumin Nasal Screen MRSA (PCR) Blood Type O Negative Antibody Screen Negative 12/31/17 12/31/17 12/31/17 18:59 19:09 21:29 WBC RBC Hgb POC Hgb (Calc) Hct POC Hct MCV MCH MCHC RDW Plt Count MPV Prelim Diff (Auto) Neut % (Auto) Lymph % (Auto) [place] % (Auto) Eos % (Auto) Baso % (Auto) Neut # (Auto) Lymph # (Auto) [place] # (Auto) Eos # (Auto) Baso # (Auto) WBC Differential Seg Neuts % (Manual) Band Neuts % (Manual) Lymphocytes % (Manual) Monocytes % (Manual) Eosinophils % (Manual) Myelocytes % (Man) Abs Neuts (Manual) Differential Comment Platelet Estimate Platelet Morphology PT INR APTT Puncture Site Iv line Patient Temperature 98.6 VBG pH 7.33 L VBG pCO2 73 H* VBG pO2 44 H VBG HCO3 37 H VBG O2 Saturation 74 VBG O2 Content 11.1 VBG Base Excess 10.9 H VBG Carboxyhemoglobin 1.1 VBG Methemoglobin 0.9 Hemoglobin 10.7 L O2 Delivery Device Simple mask Liter Flow 6.00 Critical Value Yes POC Sodium Sodium POC Potassium Potassium POC Chloride Chloride Carbon Dioxide Anion Gap POC BUN BUN Creatinine POC Creatinine Estimated GFR POC Glucose 174 H Random Glucose Lactic Acid 1.0 Calcium Total Bilirubin AST ALT Alkaline Phosphatase Total Creatine Kinase Troponin I B-Natriuretic Peptide Total Protein Albumin Nasal Screen MRSA (PCR) Blood Type Antibody Screen 12/31/17 12/31/17 12/31/17 21:30 22:46 22:46 WBC RBC Hgb POC Hgb (Calc) Hct POC Hct MCV MCH MCHC RDW Plt Count MPV Prelim Diff (Auto) Neut % (Auto) Lymph % (Auto) [place] % (Auto) Eos % (Auto) Baso % (Auto) Neut # (Auto) Lymph # (Auto) [place] # (Auto) Eos # (Auto) Baso # (Auto) WBC Differential Seg Neuts % (Manual) Band Neuts % (Manual) Lymphocytes % (Manual) Monocytes % (Manual) Eosinophils % (Manual) Myelocytes % (Man) Abs Neuts (Manual) Differential Comment Platelet Estimate Platelet Morphology PT INR APTT Puncture Site Patient Temperature VBG pH VBG pCO2 VBG pO2 VBG HCO3 VBG O2 Saturation VBG O2 Content VBG Base Excess VBG Carboxyhemoglobin VBG Methemoglobin Hemoglobin O2 Delivery Device Liter Flow Critical Value POC Sodium Sodium 140 POC Potassium Potassium 3.8 POC Chloride Chloride 100 Carbon Dioxide 33.6 H Anion Gap 6 POC BUN BUN 40 H Creatinine 1.42 H POC Creatinine Estimated GFR 43 L POC Glucose Random Glucose 171 H Lactic Acid Calcium 8.4 L Total Bilirubin 0.6 AST 75 H ALT 76 Alkaline Phosphatase 95 Total Creatine Kinase 92 Troponin I 0.10 H B-Natriuretic Peptide 148 H Total Protein 7.0 Albumin 2.6 L Nasal Screen MRSA (PCR) Not detected Blood Type Antibody Screen 01/01/18 01/01/18 01/01/18 03:37 03:55 03:55 WBC 12.0 H RBC 3.86 L Hgb 10.7 L POC Hgb (Calc) Hct 33.8 L POC Hct MCV 87.6 MCH 27.9 MCHC 31.8 L RDW 15.6 Plt Count 233 MPV 8.1 Prelim Diff (Auto) Neut % (Auto) 87.0 H Lymph % (Auto) 5.8 L [place] % (Auto) 6.2 Eos % (Auto) 0.7 Baso % (Auto) 0.3 Neut # (Auto) 10.5 H Lymph # (Auto) 0.7 L [place] # (Auto) 0.7 Eos # (Auto) 0.1 Baso # (Auto) 0.0 WBC Differential . Seg Neuts % (Manual) Band Neuts % (Manual) Lymphocytes % (Manual) Monocytes % (Manual) Eosinophils % (Manual) Myelocytes % (Man) Abs Neuts (Manual) Differential Comment Auto diff final Platelet Estimate Platelet Morphology PT INR APTT Puncture Site Patient Temperature VBG pH VBG pCO2 VBG pO2 VBG HCO3 VBG O2 Saturation VBG O2 Content VBG Base Excess VBG Carboxyhemoglobin VBG Methemoglobin Hemoglobin O2 Delivery Device Liter Flow Critical Value POC Sodium Sodium 141 POC Potassium Potassium 3.7 POC Chloride Chloride 98 Carbon Dioxide 35.1 H Anion Gap 8 POC BUN BUN 41 H Creatinine 1.39 H POC Creatinine Estimated GFR 44 L POC Glucose 188 H Random Glucose 170 H Lactic Acid Calcium 8.4 L Total Bilirubin 0.7 AST 64 H ALT 70 Alkaline Phosphatase 92 Total Creatine Kinase 88 Troponin I 0.08 H B-Natriuretic Peptide Total Protein 7.2 Albumin 2.6 L Nasal Screen MRSA (PCR) Blood Type Antibody Screen 01/01/18 01/01/18 06:05 07:55 WBC RBC Hgb POC Hgb (Calc) Hct POC Hct MCV MCH MCHC RDW Plt Count MPV Prelim Diff (Auto) Neut % (Auto) Lymph % (Auto) [place] % (Auto) Eos % (Auto) Baso % (Auto) Neut # (Auto) Lymph # (Auto) [place] # (Auto) Eos # (Auto) Baso # (Auto) WBC Differential Seg Neuts % (Manual) Band Neuts % (Manual) Lymphocytes % (Manual) Monocytes % (Manual) Eosinophils % (Manual) Myelocytes % (Man) Abs Neuts (Manual) Differential Comment Platelet Estimate Platelet Morphology PT INR APTT Puncture Site Iv line Patient Temperature 98.6 VBG pH 7.38 VBG pCO2 61 H* VBG pO2 59 H VBG HCO3 35 H VBG O2 Saturation 88 H VBG O2 Content 12.3 VBG Base Excess 10.1 H VBG Carboxyhemoglobin 1.3 VBG Methemoglobin 0.8 Hemoglobin 9.9 L O2 Delivery Device Simple mask Liter Flow 8.00 Critical Value Yes POC Sodium Sodium POC Potassium Potassium POC Chloride Chloride Carbon Dioxide Anion Gap POC BUN BUN Creatinine POC Creatinine Estimated GFR POC Glucose 167 H Random Glucose Lactic Acid Calcium Total Bilirubin AST ALT Alkaline Phosphatase Total Creatine Kinase Troponin I B-Natriuretic Peptide Total Protein Albumin Nasal Screen MRSA (PCR) Blood Type Antibody Screen Result Diagrams: 01/01/18 03:55 01/01/18 03:55 Imaging: Impressions Chest X-Ray 12/31/17 15:43 CONCLUSION: 1. Cardiomegaly. 2. Lungs are clear. Pelvis X-Ray 12/31/17 15:43 CONCLUSION: 1. No acute fracture. Hand X-Ray 12/31/17 15:47 CONCLUSION: 1. No acute fracture or radiopaque foreign body. Abdomen/Pelvis CT 12/31/17 15:49 CONCLUSION: 1. Bilateral pleural effusions left greater than right. Consolidation left lung base I believe is rounded atelectasis. Intra-abdominal exam is unremarkable. Sigmoid diverticulosis. Marked atherosclerotic disease including the coronary vessels Chest CT 12/31/17 15:49 CONCLUSION: 1. No acute traumatic abdomen in the thorax. 2. Small fluid density left pleural effusion. 3. Rounded nearly masslike airspace consolidation in the left lung base measuring 5.9 x 3.3 cm. This may reflect rounded atelectasis given the adjacent pleural effusion. However, malignant etiology cannot be entirely excluded. Comparisons with prior examinations would be beneficial in further evaluation. Alternatively, outpatient PET/CT examination may be performed for further evaluation as clinically warranted. 4. Groundglass airspace consolidation in the inferior right middle lobe, presumably atelectasis, although differential considerations include aspiration. 5. Prominent coronary artery calcifications. Lumbar Spine CT 12/31/17 15:49 CONCLUSION: 1. Broad-based diffuse annular bulges at multiple levels. No evidence of an acute fracture. The posterior elements are unremarkable. There is no evidence of any subluxation or facet malalignment. Thoracic Spine CT 12/31/17 15:49 CONCLUSION: 1. Negative CT Thoracic Spine with contrast. No evidence of fracture. Cervical Spine CT 12/31/17 15:50 CONCLUSION: 1. No acute fracture. 2. 2 mm retrolisthesis of C4 on C5 and 3 mm anterolisthesis of C7 on T1 likely due to degenerative arthrosis. 3. Advanced multilevel degenerative spondylosis of the cervical spine most prominently at C4-5 and C5-6, as above. Face CT 12/31/17 15:50 CONCLUSION: 1. No acute facial bone fractures. 2. Mild bilateral maxillary sinus mucosal disease. Head CT 12/31/17 15:50 CONCLUSION: 1. No acute intracranial abnormality. 2. Mild maxillary sinus mucosal disease. . Chest X-Ray 01/01/18 00:00 CONCLUSION: No significant change. Mild bibasilar consolidation and small left pleural effusion again noted. Foot X-Ray 01/01/18 00:00 CONCLUSION: Extensive digital artery calcifications. Inflammatory process cannot be excluded. Displaced fracture is not evident. Head CT 01/01/18 00:00 CONCLUSION: 1. No acute intracranial abnormality. 2. Frontal scalp contusion/hematoma again noted. 3. Chronic white matter changes. . Patient/Family Conference Present at Family Conference: Carlyn Sellers () RIKKI Rashid Family Conference Location: Bedside Issues Discussed: * Palliative care role, purpose, approach, of note the patient does mention a negative experience with hospice back in 2000 with the of her father but did not wish to elaborate * Additional medical, psychosocial, and spiritual history * Patients general health, functional status, and cognitive changes in the months leading up to the current hospitalization * Patient/family understanding of the current medical problems * Patient/family understanding of prognosis * Patients goals of care as best understood from advance directives and/or conversations and/or values * Current medical treatment options and benefits/burdens of those options * Questions answered to the best of my ability * Palliative care contact information provided Assessment and Plan Pertinent Non-Medical Issues: Psychosocial:The patient has been for 51 years with 2 children. Taiwo Sellers (Jeff) who live at home. He is 50 years old and disabled and in acute renal failure. Their younger son is Grabiel who is 44yo and lives in [place]. He worked at [email or web address] and they lived in [place]. They retired in 1990 which is when they moved to [place] Spiritual: Hoahaoism Legal:Per [place] statues, in the absence of written advance directives, health care proxy decision making falls the the patient's Ethical issues impacting care: No known ethical issues impacting care at this time Important Contacts: Carlyn Sellers, (HCP): [phone] Prognosis: Given current trajectory and multiple comorbidities, patient is at high risk for mortality Code Status: Full Code Plan: * DECISION MAKER: Patient is limited insight towards his current healthcare and decision making. It is unclear if this will improve and as such, healthcare proxy falls to the , Carlyn Sellers [phone] * CODE STATUS: FULL CODE The goals of care remain aggressive at this time. Should the patient's status decline, the states should would not want her to be dependent on life support but she does want to do everything possible at this time. * GOALS OF CARE: Goals of medical treatment remain aggressive. They would ultimately like to return home where his remains as his full-time caregiver. Again, should the patient decline, his would like everything possible done. If it is apparent that he would not recover, at that time she would consider de-escalation of care * CURRENT SYMPTOMS: Pain, at the moment that patient appears comfortable. He denies pain except at night, however he does have multiple areas of potential pain sources (head, gangrenous toe). Since he is currently being monitored for any worsening mentation, we would hold off on the use of opioids. Would suggest monitoring clinically and if the need arises, should consider judicious use of morphine given kidney status. His current trajectory of debility secondary to multiple comorbidities and large body habitus, living a primarily a bed-to- wheelchair existence, would suggest PT evaluation. Depending on hospital course he may need to consider SNF with rehab placement * Palliative care will continue to follow to establish trust, assist with symptom management, and to further clarify goals of medical treatment as the clinical course evolves. Palliative care contact information was provided to the family. Goals with discussed with RN (Alyson) at bedside Appreciation Thank you for the opportunity to participate in the care of Taiwo Sellers. Attestation Attestation: To help prompt me to consider important information that might be impacting today's encounter and assessment, information from prior notes written by myself or my colleagues may have been "brought forward" into today's note. My signature on this note, however, is an attestation that I personally performed the exam, history, and/or decision-making noted today, and, unless otherwise indicated, the interactions with patient, family, and staff as well as the review of records all occurred today. I also attest that the listed assessment and stated plan reflect my best clinical judgment today based on the combination of historical information, prior notes, and today's exam/ interactions. When time spent is documented, it refers only to time spent today by the signer, or if indicated, combined time spent today by collaborating physician/nurse practitioner.
--- NOTE | 2018-01-01 15:43 | ECHRPT ---
EXAM DATE: 01/01/2018 11:48 AM EDT AGE/SEX: 77 years / Male INDICATIONS: Peripheral artery disease CLINICAL DATA: This is the patient's initial encounter. Patient reports that signs and symptoms have been present for 1 week and indicates a pain score of 2/10. MEDICAL/SURGICAL HISTORY: . coronary artery disease, concussion, diabetes, fall with injurym, p eripheral artery disease . vascular surgery, CABG COMPARISON: No prior exams available for comparison. TECHNIQUE: Five-station segmental examination of the lower extremities was performed. Pulsed-cuff wa veform tracings and pressures were recorded. Ankle-brachial indices and toe-brachial indices were sandy culated. PRESSURES (mmHg): Brachial (arm) : RIGHT: IV SITE, LEFT: 100 Upper Thigh : RIGHT: CNO, LEFT: CNO Calf : RIGHT: CNO, LEFT: 128 Ankle : RIGHT: CNO, LEFT: CNO NAHID : RIGHT: CNO, LEFT: CNO Toe : RIGHT: 0, LEFT: 43 TBI : RIGHT: 0.00, LEFT: 0.43 RIGHT: , LEFT: FINDINGS: Pulsed-Cuff Waveform: Very limited examination with moderately decreased toe brachial indices on the left. Other: None. CONCLUSION: 1. Very limited examination with unobtainable ankle-brachial indices bilaterally. 2. There is moderately decreased toe brachial indices on the left. 3. Consider CTA examination if there is continued clinical concern. Electronically signed by: Kostas Lovelace MD 01/01/2018 3:41 PM EDT
[2018-01-01] MEDS ORDERED: Gadobutrol PF 10 MMOL/10 ML Vial (for RAD) IV.SIG ONE (15:49)
--- NOTE | 2018-01-01 15:49 | MR ---
EXAM DATE: 01/01/2018 3:34 PM EDT AGE/SEX: 77 years / Male INDICATIONS: . Fall, head trauma. CLINICAL DATA: This is the patient's initial encounter. Patient reports that signs and symptoms have been present for 1 day and indicates a pain score of 0/10. MEDICAL/SURGICAL HISTORY: Renal insufficiency, chronic. CABG. COMPARISON: [facility] [place], [place], CT HEAD W/O CONTRAST, 01/01/2018. [facility] [place], [place], CT HEAD W/O CONTRAST, 12/31/2017. . TECHNIQUE: Multiplanar, multisequence examination of the brain was performed without contrast. FINDINGS: Cerebrum: Tiny scattered cortical foci are noted within the high parietal lobes on the diffusion-vu ghted images suggesting tiny acute cortical infarcts likely embolic in etiology. Clinical correlation is recommended. Scattered focal signal in relation noted on the SWI images suggestive of scattered a myloid angiopathy. No midline shift or extra-axial bleed is noted. Mild diffuse cerebral atrophy is n oted. White Matter: Moderate periventricular and subcortical white matter small vessel ischemic changes ar e noted bilaterally. Posterior Fossa: The cerebellum and brainstem are intact. The 4th ventricle is midline. The cerebel lopontine angle is unremarkable. The cerebellar tonsils are normal in position. Diffusion Imaging: No focal areas of restricted diffusion are seen. No evidence of acute infarction . Extracranial: The visualized portions of the orbits and paranasal sinuses are unremarkable. CONCLUSION: 1. Tiny scattered cortical foci are noted within the high parietal lobes on the diffusion-weighted i mages suggesting tiny acute cortical infarcts likely embolic in etiology. Clinical correlation is rec ommended. 2. Scattered focal signal in relation noted on the SWI images suggestive of scattered amyloid angiop athy. 3. No midline shift or extra-axial bleed is noted. 4. Mild diffuse cerebral atrophy is noted. 5. Moderate periventricular and subcortical white matter small vessel ischemic changes are noted bi laterally. Electronically signed by: Kendell Story MD 01/01/2018 3:48 PM EDT
--- NOTE | 2018-01-01 15:56 | MR ---
EXAM DATE: 01/01/2018 3:45 PM EDT AGE/SEX: 77 years / Male INDICATIONS: Osteomyelitis. Great toe on right foot black. CLINICAL DATA: This is the patient's initial encounter. Patient reports that signs and symptoms have been present for 1 day and indicates a pain score of 0/10. MEDICAL/SURGICAL HISTORY: Renal insufficiency, chronic. Diabetes mellitus type II. CABG. COMPARISON: . TECHNIQUE: Multiplanar, multisequence MRI examination was performed without contrast and after th e intravenous administration of 10 ml Gadavist (gadobutrol) single exam dose. FINDINGS: There is marrow edema in the distal tuft of the great toe crossing the DIP joint into the proximal en d of the phalanx. The marrow signal in the first second third fourth and fifth metatarsals appears ho mogeneous and normal. The marrow signal in the second third fourth and fifth toes appear homogeneous and normal. There is no evidence for a deep space abscess. CONCLUSION: 1. Electronically signed by: Clark Michaud MD 01/01/2018 3:55 PM EDT
--- NOTE | 2018-01-01 16:42 | P.CONCA ---
History of Present Illness Service: Cardiology Consult date: 01/01/18 Requesting Physician: Dashawn Davis Reason for Consult: Cardiac arrest at home, PEA requiring CPR, CAD, CHF Primary Care Provider: UNKNOWN Chief Complaint: trauma, PEA, head injury History of Present Illness: This is a 77-year-old male who is known to Dr. Ferraro with a past history of coronary artery disease status post CABG, prior myocardial infarctions 2, recent reperfusion surgery by Dr. Bustos with planned subsequent intervention [id number], PAD,TM, hypertension, GERD, chronic kidney disease who personally to the emergency department via EMS. Patient was unable to give a complete history is at bedside and she provided information. stated that she was willing him into the kitchen via wheelchair when she stopped to transition him to his walker, going up a step. During this process patient fell forward and hit his head. stated that he was bleeding and unresponsive and turning blue in color. She proceeded to call family and neighbors who arrived and started CPR due to lack of palpable pulses. EMS was called and patient was found to be in PEA, CPR was performed and return of spontaneous circulation achieved. Patient was transported to [facility] emergency department. Patient has a large dressing to forehead at this time. Patient currently denies any chest pain, pressure, palpitations, dizziness, edema or shortness of breath. Patient states that he is starting to feel much better. Review of Systems All other systems reviewed negative except as stated in [facility] - History History Provided By: Family Member, Medical Record, [employer] / EMT - Medical History Medical History: Medical History (Last Reviewed 01/01/18 @ 14:42 by Aileen Springer) Fall with injury (Acute) Concussion (Acute) CAD (coronary artery disease) (Acute) Amputated toe of left foot BPH (benign prostatic hyperplasia) CHF (congestive heart failure) CKD (chronic kidney disease) Chronic low back pain Diabetes GERD (gastroesophageal reflux disease) Hypercholesteremia Hypertension PAD (peripheral artery disease) Rotator cuff arthropathy of right shoulder - Surgical History Surgical History: Surgical History (Last Reviewed 01/01/18 @ 14:42 by Aileen Springer) H/O endarterectomy H/O removal of cyst H/O vascular surgery Hx of CABG S/P vascular bypass - Family History Family History: Family History (Last Updated 01/01/18 @ 13:45 by RIKKI Pfeiffer) Mother Myocardial infarct Father Diabetes Grandparent Diabetes - Tobacco History Second Hand Smoke Exposure: No Tobacco Use In Past 30 Days: No Smoking Status: Former smoker Tobacco Type: Cigarettes (smoked briefly in the 1970's) - Alcohol History How Often Do You Have a Drink Containing Alcohol: Never - Substance Use History Substance History: No History of Abuse - Travel History History of Recent Travel: No Recent Travel in the [place] Within the Last 8 Weeks: No Recent Travel Out of the Country Within the Last 8 Weeks: No Medications and Allergies Allergies Allergy/AdvReac Type Severity Reaction Status Date / Time acetaminophen [From Dundas] Allergy Nausea/Vomi Verified 12/31/17 18:03 ting exenatide [From Bydureon] Allergy Nausea/Vomi Verified 12/31/17 18:03 ting fentanyl Allergy Nausea/Vomi Verified 12/31/17 18:03 ting hydrocodone [From Dundas] Allergy Nausea/Vomi Verified 12/31/17 18:03 ting oxycodone [From Percocet] Allergy Nausea/Vomi Verified 12/31/17 18:03 ting Home Medications Medication Instructions Recorded Confirmed Type aspirin 81 mg PO DAILY 12/31/17 12/31/17 History bumetanide 2 mg PO DAILY 12/31/17 12/31/17 History carvedilol [Coreg] 12.5 mg PO BID 12/31/17 12/31/17 History citalopram 20 mg PO DAILY 12/31/17 12/31/17 History clopidogrel [Plavix] 75 mg PO DAILY 12/31/17 12/31/17 History insulin aspart U-100 [Novolog 5 unit SUB-Q DAILY 12/31/17 12/31/17 History U-100 Insulin aspart] insulin detemir U-100 [Levemir 25 unit SUB-Q QPM 12/31/17 12/31/17 History FlexTouch U-100 Insuln] losartan 25 mg PO DAILY 12/31/17 12/31/17 History ranitidine HCl 150 mg PO DAILY 12/31/17 12/31/17 History rosuvastatin [Crestor] 20 mg PO DAILY 12/31/17 12/31/17 History tamsulosin [Flomax] 0.4 mg PO DAILY 12/31/17 12/31/17 History Active Medications: Active Medications Acetaminophen (Tylenol) 650 mg PO Q4H PRN PRN Reason: Temp > 100.4 Albuterol (Duoneb Neb (Prn)) 1 ampul NEB Q4HR NEB PRN PRN Reason: SHORTNESS OF BREATH/WHEEZING Aspirin (Aspirin Chew) 81 mg PO DAILY [facility] Last Admin: 01/01/18 08:24 Dose: 81 mg Atorvastatin Calcium (Lipitor) 40 mg PO DAILY [facility] Last Admin: 01/01/18 08:15 Dose: 40 mg Bumetanide (Bumex) 2 mg PO DAILY [facility] Last Admin: 01/01/18 08:15 Dose: 2 mg Carvedilol (Coreg) 12.5 mg PO BID [facility] Last Admin: 01/01/18 08:15 Dose: 12.5 mg Citalopram Hydrobromide (Celexa) 20 mg PO DAILY [facility] Last Admin: 01/01/18 08:16 Dose: 20 mg Clopidogrel Bisulfate (Plavix) 75 mg PO DAILY [facility] Dextrose (D50w Vial) 50 ml IV.PUSH UNSCH PRN PRN Reason: PER HYPOGLYCEMIA PROTOCOL Enalaprilat (Vasotec Inj) 1.25 mg IV.PUSH Q8H PRN PRN Reason: Sbp>170, Dbp>90 Last Admin: 01/01/18 04:11 Dose: 1.25 mg Famotidine (Pepcid) 20 mg PO DAILY [facility] Last Admin: 01/01/18 08:15 Dose: 20 mg Glucagon (Glucagon Inj) 1 mg OTHER PRN PRN PRN Reason: for Hypoglycemia Protocol Piperacillin/Tazobactam/Dextrose (Zosyn 3.375 Gm Premix) 50 mls @ 100 mls/hr IV.SIG Q6H [facility] Last Infusion: 01/01/18 14:59 Dose: Infused Sodium Chloride (Ns Inj) 1,000 mls @ 100 mls/hr IV.CONT .Q10H [facility] Last Infusion: 01/01/18 14:59 Dose: 100 mls/hr Insulin Aspart (Novolog Insulin Correctional Sugar Inj) 0 unit SQ ACHS AND 3AM [facility]; Protocol Last Admin: 01/01/18 12:30 Dose: 1 unit Losartan Potassium (Cozaar) 25 mg PO DAILY [facility] Last Admin: 01/01/18 08:15 Dose: 25 mg Ondansetron HCl (Zofran Inj) 4 mg IV.PUSH Q6H PRN PRN Reason: NAUSEA OR VOMITING Senna/Docusate Sodium (Mackenzie-Colace) 1 tab PO BID [facility] Last Admin: 01/01/18 09:42 Dose: 1 tab Tamsulosin HCl (Flomax) 0.4 mg PO DAILY [facility] Last Admin: 01/01/18 08:16 Dose: 0.4 mg Exam Vital signs: Vital Signs 12/31/17 16:31 12/31/17 16:46 12/31/17 20:10 Temperature Pulse Rate 81 79 76 Respiratory Rate 18 16 22 Blood Pressure 143/66 H 143/66 H 125/68 Pulse Oximetry 94 L 98 98 12/31/17 20:30 12/31/17 20:36 12/31/17 20:38 Temperature 97.7 F Pulse Rate 82 Respiratory Rate 30 H Blood Pressure 186/85 H Pulse Oximetry 96 94 L 94 L 01/01/18 00:00 01/01/18 03:40 01/01/18 04:00 Temperature 98.0 F 98.3 F Pulse Rate 62 74 Respiratory Rate 19 23 Blood Pressure 133/62 179/83 H Pulse Oximetry 99 94 L 100 01/01/18 08:00 01/01/18 11:07 01/01/18 12:00 Temperature 98.7 F 97.4 F L Pulse Rate 68 59 L Respiratory Rate 25 H 22 Blood Pressure 119/56 L 120/60 Pulse Oximetry 100 99 97 Intake & Output 12/31/17 01/01/18 01/01/18 18:59 06:59 18:59 Intake Total 1350 / 1350 1230 / 1230 Output Total 450 / 450 Balance 900 / 900 1230 / 1230 Weight 105 kg Intake: IV 1230 / 1230 1230 / 1230 NS Inj 1,000 ML @ 100 mls/hr IV 1000 / 1000 1000 / 1000 .CONT .Q10H [facility] Rx#:[id number] Ofirmev Inj 650 mg In 65 ml @ 130 / 130 130 / 130 400 mls/hr IV.SIG Q6H [facility] Rx#: [id number] Zosyn 3.375 GM Premix 50 ML @ 100 / 100 100 / 100 100 mls/hr IV.SIG Q6H [facility] Rx#: [id number] Oral 120 / 120 Output: Urine Amount (Catheter) 450 / 450 Condom 450 / 450 Other: # Incontinent Voids 2 Date of Last Bowel Movement 12/31/17 12/31/17 - Constitutional no acute distress - Routine HEENT Exam Head: Present: normocephalic, laceration Eye: Present: PERRL ENT: Present: mucous membranes moist Comments: Large dressing to forehead status post fall at home. - Routine Neck Exam Present: supple - Routine Respiratory Exam Present: crackles Comments: crackles noted bilateral lower lobes - Routine Cardiovascular Exam Present: S1, S2. Absent: murmur, gallop, rubs - Routine Abdominal Exam Present: normoactive bowel sounds - Routine Extremities Exam Present: full ROM, pulses intact, normal capillary refill Comments: history of toe amputation. Great toe is black in color and scheduled for amputation per the - Routine Neurological Exam Present: alert Results 01/01/18 03:55 01/01/18 03:55 Cardiac Enzymes 12/31/17 12/31/17 12/31/17 Range/Units 15:45 15:45 22:46 AST 75 H (15-37) U/L Troponin I 0.03 0.10 H (0.02-0.05) ng/mL B-Natriuretic Peptide 101 H (0-100) pg/mL 12/31/17 01/01/18 Range/Units 22:46 03:55 AST 64 H (15-37) U/L Troponin I 0.08 H (0.02-0.05) ng/mL B-Natriuretic Peptide 148 H (0-100) pg/mL Coagulation 12/31/17 12/31/17 12/31/17 Range/Units 15:45 15:45 22:46 PT 10.7 (9.8-11.6) sec APTT 26.5 (24.3-30.1) sec B-Natriuretic Peptide 101 H 148 H (0-100) pg/mL CBC 12/31/17 01/01/18 Range/Units 15:45 03:55 WBC 10.3 12.0 H (4.0-11.0) th/mm3 RBC 4.02 L 3.86 L (4.50-5.90) mil/mm3 Hgb 11.4 L 10.7 L (13.0-17.0) gm/dL Hct 35.5 L 33.8 L (39.0-51.0) % Plt Count 300 233 (150-450) th/mm3 Neut # (Auto) 7.6 10.5 H (1.8-7.7) th/mm3 Lymph # (Auto) 1.7 0.7 L (1.0-4.8) th/mm3 Leslie # (Auto) 0.6 0.7 (0.0-0.9) th/mm3 Eos # (Auto) 0.4 0.1 (0.0-0.4) th/mm3 Baso # (Auto) 0.1 0.0 (0.0-0.2) th/mm3 Comprehensive Metabolic Panel 12/31/17 01/01/18 Range/Units 22:46 03:55 Sodium 140 141 (136-145) meq/L Potassium 3.8 3.7 (3.5-5.1) meq/L Chloride 100 98 (98-107) meq/L Carbon Dioxide 33.6 H 35.1 H (21.0-32.0) meq/L BUN 40 H 41 H (7-18) mg/dL Creatinine 1.42 H 1.39 H (0.60-1.30) mg/dL Calcium 8.4 L 8.4 L (8.5-10.1) mg/dL AST 75 H 64 H (15-37) U/L ALT 76 70 (12-78) U/L Alkaline Phosphatase 95 92 (45-117) U/L Total Protein 7.0 7.2 (6.4-8.2) g/dL Albumin 2.6 L 2.6 L (3.4-5.0) g/dL Intake and Output 01/01/18 01/01/18 01/01/18 06:59 14:59 22:59 Intake Total 1235 / 1235 1230 / 1230 Output Total 450 / 450 Balance 785 / 785 1230 / 1230 Intake: IV 1115 / 1115 1230 / 1230 NS Inj 1,000 ML @ 100 mls/hr IV 1000 / 1000 1000 / 1000 .CONT .Q10H [facility] Rx#:[id number] Ofirmev Inj 650 mg In 65 ml @ 65 / 65 130 / 130 400 mls/hr IV.SIG Q6H [facility] Rx#: [id number] Zosyn 3.375 GM Premix 50 ML @ 50 / 50 100 / 100 100 mls/hr IV.SIG Q6H [facility] Rx#: [id number] Oral 120 / 120 Output: Urine Amount (Catheter) 450 / 450 Condom 450 / 450 Other: # Incontinent Voids 2 Date of Last Bowel Movement 12/31/17 12/31/17 - Imaging and Cardiology Imaging: Impressions Chest X-Ray 12/31/17 15:43 CONCLUSION: 1. Cardiomegaly. 2. Lungs are clear. Pelvis X-Ray 12/31/17 15:43 CONCLUSION: 1. No acute fracture. Hand X-Ray 12/31/17 15:47 CONCLUSION: 1. No acute fracture or radiopaque foreign body. Abdomen/Pelvis CT 12/31/17 15:49 CONCLUSION: 1. Bilateral pleural effusions left greater than right. Consolidation left lung base I believe is rounded atelectasis. Intra-abdominal exam is unremarkable. Sigmoid diverticulosis. Marked atherosclerotic disease including the coronary vessels Chest CT 12/31/17 15:49 CONCLUSION: 1. No acute traumatic abdomen in the thorax. 2. Small fluid density left pleural effusion. 3. Rounded nearly masslike airspace consolidation in the left lung base measuring 5.9 x 3.3 cm. This may reflect rounded atelectasis given the adjacent pleural effusion. However, malignant etiology cannot be entirely excluded. Comparisons with prior examinations would be beneficial in further evaluation. Alternatively, outpatient PET/CT examination may be performed for further evaluation as clinically warranted. 4. Groundglass airspace consolidation in the inferior right middle lobe, presumably atelectasis, although differential considerations include aspiration. 5. Prominent coronary artery calcifications. Lumbar Spine CT 12/31/17 15:49 CONCLUSION: 1. Broad-based diffuse annular bulges at multiple levels. No evidence of an acute fracture. The posterior elements are unremarkable. There is no evidence of any subluxation or facet malalignment. Thoracic Spine CT 12/31/17 15:49 CONCLUSION: 1. Negative CT Thoracic Spine with contrast. No evidence of fracture. Cervical Spine CT 12/31/17 15:50 CONCLUSION: 1. No acute fracture. 2. 2 mm retrolisthesis of C4 on C5 and 3 mm anterolisthesis of C7 on T1 likely due to degenerative arthrosis. 3. Advanced multilevel degenerative spondylosis of the cervical spine most prominently at C4-5 and C5-6, as above. Face CT 12/31/17 15:50 CONCLUSION: 1. No acute facial bone fractures. 2. Mild bilateral maxillary sinus mucosal disease. Head CT 12/31/17 15:50 CONCLUSION: 1. No acute intracranial abnormality. 2. Mild maxillary sinus mucosal disease. . Chest X-Ray 01/01/18 00:00 CONCLUSION: No significant change. Mild bibasilar consolidation and small left pleural effusion again noted. Extremity Arterial Study 01/01/18 00:00 CONCLUSION: 1. Very limited examination with unobtainable ankle-brachial indices bilaterally. 2. There is moderately decreased toe brachial indices on the left. 3. Consider CTA examination if there is continued clinical concern. Foot MRI 01/01/18 00:00 CONCLUSION: 1. Foot X-Ray 01/01/18 00:00 CONCLUSION: Extensive digital artery calcifications. Inflammatory process cannot be excluded. Displaced fracture is not evident. Head CT 01/01/18 00:00 CONCLUSION: 1. No acute intracranial abnormality. 2. Frontal scalp contusion/hematoma again noted. 3. Chronic white matter changes. . Head MRI 01/01/18 00:00 CONCLUSION: 1. Tiny scattered cortical foci are noted within the high parietal lobes on the diffusion-weighted images suggesting tiny acute cortical infarcts likely embolic in etiology. Clinical correlation is recommended. 2. Scattered focal signal in relation noted on the SWI images suggestive of scattered amyloid angiopathy. 3. No midline shift or extra-axial bleed is noted. 4. Mild diffuse cerebral atrophy is noted. 5. Moderate periventricular and subcortical white matter small vessel ischemic changes are noted bilaterally. Assessment and Plan - Assessment (1) Closed head injury Code(s): S09.90XA - Unspecified injury of head, initial encounter Status: Acute (2) Dysrhythmia Code(s): I49.9 - Cardiac arrhythmia, unspecified Status: Acute (3) PEA (Pulseless electrical activity) Code(s): I46.9 - Cardiac arrest, cause unspecified Status: Acute (4) Fall with injury Code(s): W19.XXXA - Unspecified fall, initial encounter Status: Acute (5) Concussion Code(s): S06.0X9A - Concussion with loss of consciousness of unspecified duration, initial encounter Status: Acute (6) CAD (coronary artery disease) Code(s): I25.10 - Atherosclerotic heart disease of [place] coronary artery without angina pectoris Status: Acute - Plan Continue to monitor the patient in the ICU. CT with no evidence of intracranial hemorrhage. He is currently in sinus rhythm with first-degree AV block on the monitor. His vital signs are stable, continue current cardiac treatment plan and adjust as needed. The patient has history of heart disease and is followed by Dr. Ferraro. We will follow the patient during his hospitalization. The patient will follow up with Dr. Ferraro in his office after discharge. This was discussed with the patient and his family. The patient was seen and evaluated by Dr. Ding who participated in care, management and decision-making. - Attending Attestation Patient seen and examine. I reviewed and agree with the evaluation and plan as presented. He remains stable from cardiac standpoint. Continue ICU monitoring. F /u w Dr. Ferraro after discharge. (1) Closed head injury Qualifiers: Encounter type: initial encounter Qualified Code(s): S09.90XA - Unspecified injury of head, initial encounter (2) Dysrhythmia Qualifiers: Arrhythmia type: unspecified cardiac arrhythmia Qualified Code(s): I49.9 - Cardiac arrhythmia, unspecified
--- NOTE | 2018-01-01 18:58 | P.PNWCN ---
Wound Care Nurse Consult Description: Consult for Wound Management of concern for buttock ulcer per nursing staff per Dr Davis Communicated with: Crystal RN Recommendation: Continue to reposition patient Q2H using only ultrasorbs and flat sheet for repositioning. Apply Calazime skin protectant paste for moisture due to incontinence. No open areas noted. Additional information: Patient seen on 3 for evaluation of buttock. Patient has anatomy that make it appear as though there is a wound on his sacrococcygeal. There were no open areas noted, only an intact cavity of inverted skin.
--- NOTE | 2018-01-01 20:26 | P.CONNEU ---
History of Present Illness Service: Neurology Primary Care Provider: UNKNOWN Chief Complaint: trauma, PEA, head injury History of Present Illness: 77-year-old admitted for cardiac arrest which occurred after he fell in his kitchen floor from imbalance it appears. History and balance uses a walker his chronic weakness in his lower limbs peripheral vascular disease, states his right toe needs amputation fact. Had an MRI brain scan which demonstrated possible tiny high cortical infarct. He is on Plavix regularly. Review of Systems All other systems reviewed negative except as stated in [facility] - History History Provided By: Family Member, Medical Record, Transaction Manager / EMT - Medical History Medical History: Medical History (Last Reviewed 01/01/18 @ 14:42 by Aileen Springer) Fall with injury (Acute) Concussion (Acute) CAD (coronary artery disease) (Acute) Amputated toe of left foot BPH (benign prostatic hyperplasia) CHF (congestive heart failure) CKD (chronic kidney disease) Chronic low back pain Diabetes GERD (gastroesophageal reflux disease) Hypercholesteremia Hypertension PAD (peripheral artery disease) Rotator cuff arthropathy of right shoulder - Surgical History Surgical History: Surgical History (Last Reviewed 01/01/18 @ 14:42 by Aileen Springer) H/O endarterectomy H/O removal of cyst H/O vascular surgery Hx of CABG S/P vascular bypass - Family History Family History: Family History (Last Updated 01/01/18 @ 13:45 by RIKKI Pfeiffer) Mother Myocardial infarct Father Diabetes Grandparent Diabetes - Tobacco History Second Hand Smoke Exposure: No Tobacco Use In Past 30 Days: No Smoking Status: Former smoker Tobacco Type: Cigarettes (smoked briefly in the 1970's) - Alcohol History How Often Do You Have a Drink Containing Alcohol: Never - Substance Use History Substance History: No History of Abuse - Travel History History of Recent Travel: No Recent Travel in the [place] Within the Last 8 Weeks: No Recent Travel Out of the Country Within the Last 8 Weeks: No Medications and Allergies Active Medications: Active Medications Acetaminophen (Tylenol) 650 mg PO Q4H PRN PRN Reason: Temp > 100.4 Albuterol (Duoneb Neb (Prn)) 1 ampul NEB Q4HR NEB PRN PRN Reason: SHORTNESS OF BREATH/WHEEZING Aspirin (Aspirin Chew) 81 mg PO DAILY [facility] Last Admin: 01/01/18 08:24 Dose: 81 mg Atorvastatin Calcium (Lipitor) 40 mg PO DAILY [facility] Last Admin: 01/01/18 08:15 Dose: 40 mg Bumetanide (Bumex) 2 mg PO DAILY [facility] Last Admin: 01/01/18 08:15 Dose: 2 mg Carvedilol (Coreg) 12.5 mg PO BID [facility] Last Admin: 01/01/18 08:15 Dose: 12.5 mg Citalopram Hydrobromide (Celexa) 20 mg PO DAILY [facility] Last Admin: 01/01/18 08:16 Dose: 20 mg Clopidogrel Bisulfate (Plavix) 75 mg PO DAILY [facility] Last Admin: 01/01/18 16:29 Dose: 75 mg Dextrose (D50w Vial) 50 ml IV.PUSH UNSCH PRN PRN Reason: PER HYPOGLYCEMIA PROTOCOL Enalaprilat (Vasotec Inj) 1.25 mg IV.PUSH Q8H PRN PRN Reason: Sbp>170, Dbp>90 Last Admin: 01/01/18 04:11 Dose: 1.25 mg Famotidine (Pepcid) 20 mg PO DAILY [facility] Last Admin: 01/01/18 08:15 Dose: 20 mg Glucagon (Glucagon Inj) 1 mg OTHER PRN PRN PRN Reason: for Hypoglycemia Protocol Piperacillin/Tazobactam/Dextrose (Zosyn 3.375 Gm Premix) 50 mls @ 100 mls/hr IV.SIG Q6H [facility] Last Infusion: 01/01/18 14:59 Dose: Infused Sodium Chloride (Ns Inj) 1,000 mls @ 100 mls/hr IV.CONT .Q10H [facility] Last Infusion: 01/01/18 14:59 Dose: 100 mls/hr Insulin Aspart (Novolog Insulin Correctional Sugar Inj) 0 unit SQ ACHS AND 3AM [facility]; Protocol Last Admin: 01/01/18 16:29 Dose: 1 unit Losartan Potassium (Cozaar) 25 mg PO DAILY [facility] Last Admin: 01/01/18 08:15 Dose: 25 mg Ondansetron HCl (Zofran Inj) 4 mg IV.PUSH Q6H PRN PRN Reason: NAUSEA OR VOMITING Senna/Docusate Sodium (Mackenzie-Colace) 1 tab PO BID [facility] Last Admin: 01/01/18 09:42 Dose: 1 tab Tamsulosin HCl (Flomax) 0.4 mg PO DAILY [facility] Last Admin: 01/01/18 08:16 Dose: 0.4 mg Allergies Allergy/AdvReac Type Severity Reaction Status Date / Time acetaminophen [From Keaton] Allergy Nausea/Vomi Verified 12/31/17 18:03 ting exenatide [From Bydureon] Allergy Nausea/Vomi Verified 12/31/17 18:03 ting fentanyl Allergy Nausea/Vomi Verified 12/31/17 18:03 ting hydrocodone [From Keaton] Allergy Nausea/Vomi Verified 12/31/17 18:03 ting oxycodone [From Percocet] Allergy Nausea/Vomi Verified 12/31/17 18:03 ting Home Medications Medication Instructions Recorded Confirmed Type aspirin 81 mg PO DAILY 12/31/17 12/31/17 History bumetanide 2 mg PO DAILY 12/31/17 12/31/17 History carvedilol [Coreg] 12.5 mg PO BID 12/31/17 12/31/17 History citalopram 20 mg PO DAILY 12/31/17 12/31/17 History clopidogrel [Plavix] 75 mg PO DAILY 12/31/17 12/31/17 History insulin aspart U-100 [Novolog 5 unit SUB-Q DAILY 12/31/17 12/31/17 History U-100 Insulin aspart] insulin detemir U-100 [Levemir 25 unit SUB-Q QPM 12/31/17 12/31/17 History FlexTouch U-100 Insuln] losartan 25 mg PO DAILY 12/31/17 12/31/17 History ranitidine HCl 150 mg PO DAILY 12/31/17 12/31/17 History rosuvastatin [Crestor] 20 mg PO DAILY 12/31/17 12/31/17 History tamsulosin [Flomax] 0.4 mg PO DAILY 12/31/17 12/31/17 History Exam Vital signs: Vital Signs 12/31/17 20:30 12/31/17 20:36 12/31/17 20:38 Temperature 97.7 F Pulse Rate 82 Respiratory Rate 30 H Blood Pressure 186/85 H Pulse Oximetry 96 94 L 94 L 01/01/18 00:00 01/01/18 03:40 01/01/18 04:00 Temperature 98.0 F 98.3 F Pulse Rate 62 74 Respiratory Rate 19 23 Blood Pressure 133/62 179/83 H Pulse Oximetry 99 94 L 100 01/01/18 08:00 01/01/18 11:07 01/01/18 12:00 Temperature 98.7 F 97.4 F L Pulse Rate 68 59 L Respiratory Rate 25 H 22 Blood Pressure 119/56 L 120/60 Pulse Oximetry 100 99 97 01/01/18 16:00 01/01/18 19:30 Temperature 97.8 F Pulse Rate 68 Respiratory Rate 30 H Blood Pressure 126/60 Pulse Oximetry 96 95 Intake & Output 01/01/18 01/01/18 01/02/18 06:59 18:59 06:59 Intake Total 1350 / 1350 1430 / 1430 Output Total 450 / 450 250 / 250 Balance 900 / 900 1180 / 1180 Intake: IV 1230 / 1230 1230 / 1230 NS Inj 1,000 ML @ 100 mls/hr IV 1000 / 1000 1000 / 1000 .CONT .Q10H [facility] Rx#:[id number] Ofirmev Inj 650 mg In 65 ml @ 130 / 130 130 / 130 400 mls/hr IV.SIG Q6H [facility] Rx#: [id number] Zosyn 3.375 GM Premix 50 ML @ 100 / 100 100 / 100 100 mls/hr IV.SIG Q6H [facility] Rx#: [id number] Oral 120 / 120 200 / 200 Output: Urine Amount (Catheter) 450 / 450 250 / 250 Condom 450 / 450 250 / 250 Other: # Incontinent Voids 2 3 Date of Last Bowel Movement 12/31/17 12/31/17 Narrative: GENERAL: in NAD, SKIN: Warm and dry. HEAD: Bruises forehead bandaged EYES: Pupils equal and round. No scleral icterus. ENT: No nasal bleeding or discharge. Mucous membranes pink and moist. NECK: Trachea midline. No JVD. CARDIOVASCULAR: Regular rate and rhythm. RESPIRATORY: No accessory muscle use. Clear to auscultation. Breath sounds equal bilaterally. GASTROINTESTINAL: Abdomen soft, non-tender, nondistended. MUSCULOSKELETAL: Right great toe purplish mottled white states chronic NEUROLOGICAL: Awake and alert. Oriented 1-2, not to date, follows pleasant no aphasia, fluent articulate, No facial asymmetry, OU 3-2mm, eomi, VFF, No drift, Motor grossly within normal limits. Five out of 5 muscle strength in the arms and legs except bilateral distal foot weakness 3-4 out of 5 dorsiflexion in addition to reduced range of motion with bilateral arm abduction above the shoulders which is chronic suspected rotator cuff. Tone normal in all 4 limbs, reduce pinprick lower extremities, msr 1-2+ sym, no clonus, planterflexor, gait not assessed secondary fall risk PSYCHIATRIC: Appropriate mood and affect; - Constitutional no acute distress - Routine HEENT Exam Head: Present: normocephalic Eye: Present: EOMI Results - Labs CBC & Chem 7: 01/01/18 03:55 01/01/18 03:55 Labs: Laboratory Results - last 24 hr 12/31/17 12/31/17 12/31/17 21:29 21:30 22:46 WBC RBC Hgb Hct MCV MCH MCHC RDW Plt Count MPV Neut % (Auto) Lymph % (Auto) [place] % (Auto) Eos % (Auto) Baso % (Auto) Neut # (Auto) Lymph # (Auto) [place] # (Auto) Eos # (Auto) Baso # (Auto) WBC Differential Differential Comment Puncture Site Patient Temperature VBG pH VBG pCO2 VBG pO2 VBG HCO3 VBG O2 Saturation VBG O2 Content VBG Base Excess VBG Carboxyhemoglobin VBG Methemoglobin Hemoglobin O2 Delivery Device Liter Flow Critical Value Sodium 140 Potassium 3.8 Chloride 100 Carbon Dioxide 33.6 H Anion Gap 6 BUN 40 H Creatinine 1.42 H Estimated GFR 43 L POC Glucose 174 H Random Glucose 171 H Calcium 8.4 L Total Bilirubin 0.6 AST 75 H ALT 76 Alkaline Phosphatase 95 Total Creatine Kinase 92 Troponin I 0.10 H B-Natriuretic Peptide Total Protein 7.0 Albumin 2.6 L Nasal Screen MRSA (PCR) Not detected 12/31/17 01/01/18 01/01/18 22:46 03:37 03:55 WBC 12.0 H RBC 3.86 L Hgb 10.7 L Hct 33.8 L MCV 87.6 MCH 27.9 MCHC 31.8 L RDW 15.6 Plt Count 233 MPV 8.1 Neut % (Auto) 87.0 H Lymph % (Auto) 5.8 L [place] % (Auto) 6.2 Eos % (Auto) 0.7 Baso % (Auto) 0.3 Neut # (Auto) 10.5 H Lymph # (Auto) 0.7 L [place] # (Auto) 0.7 Eos # (Auto) 0.1 Baso # (Auto) 0.0 WBC Differential . Differential Comment Auto diff final Puncture Site Patient Temperature VBG pH VBG pCO2 VBG pO2 VBG HCO3 VBG O2 Saturation VBG O2 Content VBG Base Excess VBG Carboxyhemoglobin VBG Methemoglobin Hemoglobin O2 Delivery Device Liter Flow Critical Value Sodium Potassium Chloride Carbon Dioxide Anion Gap BUN Creatinine Estimated GFR POC Glucose 188 H Random Glucose Calcium Total Bilirubin AST ALT Alkaline Phosphatase Total Creatine Kinase Troponin I B-Natriuretic Peptide 148 H Total Protein Albumin Nasal Screen MRSA (PCR) 01/01/18 01/01/18 01/01/18 03:55 06:05 07:55 WBC RBC Hgb Hct MCV MCH MCHC RDW Plt Count MPV Neut % (Auto) Lymph % (Auto) [place] % (Auto) Eos % (Auto) Baso % (Auto) Neut # (Auto) Lymph # (Auto) [place] # (Auto) Eos # (Auto) Baso # (Auto) WBC Differential Differential Comment Puncture Site Iv line Patient Temperature 98.6 VBG pH 7.38 VBG pCO2 61 H* VBG pO2 59 H VBG HCO3 35 H VBG O2 Saturation 88 H VBG O2 Content 12.3 VBG Base Excess 10.1 H VBG Carboxyhemoglobin 1.3 VBG Methemoglobin 0.8 Hemoglobin 9.9 L O2 Delivery Device Simple mask Liter Flow 8.00 Critical Value Yes Sodium 141 Potassium 3.7 Chloride 98 Carbon Dioxide 35.1 H Anion Gap 8 BUN 41 H Creatinine 1.39 H Estimated GFR 44 L POC Glucose 167 H Random Glucose 170 H Calcium 8.4 L Total Bilirubin 0.7 AST 64 H ALT 70 Alkaline Phosphatase 92 Total Creatine Kinase 88 Troponin I 0.08 H B-Natriuretic Peptide Total Protein 7.2 Albumin 2.6 L Nasal Screen MRSA (PCR) 01/01/18 01/01/18 12:25 16:06 WBC RBC Hgb Hct MCV MCH MCHC RDW Plt Count MPV Neut % (Auto) Lymph % (Auto) [place] % (Auto) Eos % (Auto) Baso % (Auto) Neut # (Auto) Lymph # (Auto) [place] # (Auto) Eos # (Auto) Baso # (Auto) WBC Differential Differential Comment Puncture Site Patient Temperature VBG pH VBG pCO2 VBG pO2 VBG HCO3 VBG O2 Saturation VBG O2 Content VBG Base Excess VBG Carboxyhemoglobin VBG Methemoglobin Hemoglobin O2 Delivery Device Liter Flow Critical Value Sodium Potassium Chloride Carbon Dioxide Anion Gap BUN Creatinine Estimated GFR POC Glucose 152 H 167 H Random Glucose Calcium Total Bilirubin AST ALT Alkaline Phosphatase Total Creatine Kinase Troponin I B-Natriuretic Peptide Total Protein Albumin Nasal Screen MRSA (PCR) - Imaging Impressions Chest X-Ray 01/01/18 00:00 CONCLUSION: No significant change. Mild bibasilar consolidation and small left pleural effusion again noted. Extremity Arterial Study 01/01/18 00:00 CONCLUSION: 1. Very limited examination with unobtainable ankle-brachial indices bilaterally. 2. There is moderately decreased toe brachial indices on the left. 3. Consider CTA examination if there is continued clinical concern. Foot MRI 01/01/18 00:00 CONCLUSION: 1. Foot X-Ray 01/01/18 00:00 CONCLUSION: Extensive digital artery calcifications. Inflammatory process cannot be excluded. Displaced fracture is not evident. Head CT 01/01/18 00:00 CONCLUSION: 1. No acute intracranial abnormality. 2. Frontal scalp contusion/hematoma again noted. 3. Chronic white matter changes. . Head MRI 01/01/18 00:00 CONCLUSION: 1. Tiny scattered cortical foci are noted within the high parietal lobes on the diffusion-weighted images suggesting tiny acute cortical infarcts likely embolic in etiology. Clinical correlation is recommended. 2. Scattered focal signal in relation noted on the SWI images suggestive of scattered amyloid angiopathy. 3. No midline shift or extra-axial bleed is noted. 4. Mild diffuse cerebral atrophy is noted. 5. Moderate periventricular and subcortical white matter small vessel ischemic changes are noted bilaterally. Review/Management - Diagnosis (1) Closed head injury Code(s): S09.90XA - Unspecified injury of head, initial encounter Status: Acute Current Visit: Yes (2) Dysrhythmia Code(s): I49.9 - Cardiac arrhythmia, unspecified Status: Acute Current Visit : Yes (3) PEA (Pulseless electrical activity) Code(s): I46.9 - Cardiac arrest, cause unspecified Status: Acute Current Visit: Yes (4) Fall with injury Code(s): W19.XXXA - Unspecified fall, initial encounter Status: Acute Current Visit: Yes (5) Concussion Code(s): S06.0X9A - Concussion with loss of consciousness of unspecified duration, initial encounter Status: Acute Current Visit: Yes - Review/Management Plan: Status post cardiac arrest PEA, fall with concussive type injury MRI brain scan reviewed which demonstrates very tiny high cortical ischemic- looking regions. I suspect this may be related to contusion injury versus hypoxic. Tiny embolic infarcts is another possibility although less likely He does have mild postconcussive/hypoxic encephalopathy which is gradually improving Chronic gait disorder using a walker Recommendations EEG, carotid ultrasound Resume antiplatelet agent PT OT ST Can be transferred to the 5th floor with telemetry from neurologic standpoint Discussed with patient, spouse (1) Closed head injury Qualifiers: Encounter type: initial encounter Qualified Code(s): S09.90XA - Unspecified injury of head, initial encounter (2) Dysrhythmia Qualifiers: Arrhythmia type: unspecified cardiac arrhythmia Qualified Code(s): I49.9 - Cardiac arrhythmia, unspecified
--- NOTE | 2018-01-01 22:14 | MP ---
cc: Gayle Aiken DPM DATE OF OPERATION: 01/01/2018 REASON FOR CONSULTATION: Right foot gangrene. HISTORY OF PRESENT ILLNESS: The patient is a 77-year-old male who was admitted for cardiac arrest after a fall at home. The patient is well known by me in my outpatient practice. REVIEW OF SYSTEMS: Per HPI. PAST MEDICAL HISTORY: Concussion, CAD, amputation of left digit, BPH, CHF, CKD, low back pain, DM, GERD, hypercholesterolemia, hypertension, PAD. PAST SURGICAL HISTORY: History of endarterectomy, cyst removal, vascular surgery, CABG. FAMILY HISTORY: Noncontributory. SOCIAL HISTORY: Former smoker. Denies alcohol or substance abuse. MEDICATIONS: Per medical records. PHYSICAL EXAMINATION: Right lower extremity is warm. Nonpalpable pulses. Right hallux with drainage. No acute sign of infection. Muscle strength 3/5 to 4/5. LABORATORY DATA: On 01/01/2018, WBC 12.0, RBC 3.86, H and H 10.7 and 33.8. Right foot MRI carried out on 01/07/2014 with no deep space abscess. ASSESSMENT: 1. Peripheral vascular disease. 2. Diabetes mellitus. 3. Right hallux gangrene, dry, stable. PLAN: This patient is scheduled in 2 weeks for a revascularization with likely right hallux amputation after medically stable. We will continue to follow the patient with Betadine dressings applied daily and changed daily. Gayle Aiken DPM SR/beronica , 09:28 PM , 09:36 PM
[2018-01-02 01:27] LABS: Bilirubin,Urine Negative (Negative); Clarity,Urine Hazy (Clear); Color,Urine Yellow (Yellw/Straw); Glucose,Urine (UA) Negative (Negative); Leukocyte Esterase,Urine Negative (Negative); Nitrite,Urine Negative (Negative); Specific Gravity,Urine 1.028 (1.002-1.035); Squamous Epithelial Cell,Urine 1 /hpf (0-5)
[2018-01-02] MEDS: Insulin NovoLOG Aspart Correctional Sugar Inj SQ SCH ×5 (03:57→22:06)
[2018-01-02] MEDS: Piperacil/Tazo 3.375 GM Premix 50 ML IV.SIG SCH ×3 (03:57→15:00)
[2018-01-02] MEDS: Sod Chloride 0.9% Inj 1,000 ML IV.CONT SCH ×2 (08:12→16:58)
[2018-01-02] MEDS: Carvedilol 12.5 MG Tablet PO SCH ×2 (09:04→22:05)
[2018-01-02] MEDS: Citalopram 20 MG Tablet PO SCH (09:04)
[2018-01-02] MEDS: Senna/Docusate Sodium 8.6/50 MG Tablet PO SCH ×2 (09:05→22:06)
[2018-01-02] MEDS: Famotidine 20 MG Tablet PO SCH (09:08)
--- NOTE | 2018-01-02 10:13 | P.PNCA ---
Subjective Interval history: Patient sitting up in bed, denies any cardiac complaints. No chest pain or SOB. Nurse denies any cardiac issues overnight. Medications and Allergies Allergies Allergy/AdvReac Type Severity Reaction Status Date / Time acetaminophen [From [place]] Allergy Nausea/Vomi Verified 12/31/17 18:03 ting exenatide [From Bydureon] Allergy Nausea/Vomi Verified 12/31/17 18:03 ting fentanyl Allergy Nausea/Vomi Verified 12/31/17 18:03 ting hydrocodone [From [place]] Allergy Nausea/Vomi Verified 12/31/17 18:03 ting oxycodone [From Percocet] Allergy Nausea/Vomi Verified 12/31/17 18:03 ting Home Medications Medication Instructions Recorded Confirmed Type aspirin 81 mg PO DAILY 12/31/17 12/31/17 History bumetanide 2 mg PO DAILY 12/31/17 12/31/17 History carvedilol [Coreg] 12.5 mg PO BID 12/31/17 12/31/17 History citalopram 20 mg PO DAILY 12/31/17 12/31/17 History clopidogrel [Plavix] 75 mg PO DAILY 12/31/17 12/31/17 History insulin aspart U-100 [Novolog 5 unit SUB-Q DAILY 12/31/17 12/31/17 History U-100 Insulin aspart] insulin detemir U-100 [Levemir 25 unit SUB-Q QPM 12/31/17 12/31/17 History FlexTouch U-100 Insuln] losartan 25 mg PO DAILY 12/31/17 12/31/17 History ranitidine HCl 150 mg PO DAILY 12/31/17 12/31/17 History rosuvastatin [Crestor] 20 mg PO DAILY 12/31/17 12/31/17 History tamsulosin [Flomax] 0.4 mg PO DAILY 12/31/17 12/31/17 History Active Medications: Active Medications Acetaminophen (Tylenol) 650 mg PO Q4H PRN PRN Reason: Temp > 100.4 Last Admin: 01/01/18 21:09 Dose: 650 mg Albuterol (Duoneb Neb (Prn)) 1 ampul NEB Q4HR NEB PRN PRN Reason: SHORTNESS OF BREATH/WHEEZING Aspirin (Aspirin Chew) 81 mg PO DAILY [facility] Last Admin: 01/02/18 09:04 Dose: 81 mg Atorvastatin Calcium (Lipitor) 40 mg PO DAILY [facility] Last Admin: 01/02/18 09:04 Dose: 40 mg Bumetanide (Bumex) 2 mg PO DAILY [facility] Last Admin: 01/02/18 09:04 Dose: 2 mg Carvedilol (Coreg) 12.5 mg PO BID [facility] Last Admin: 01/02/18 09:04 Dose: 12.5 mg Citalopram Hydrobromide (Celexa) 20 mg PO DAILY [facility] Last Admin: 01/02/18 09:04 Dose: 20 mg Clopidogrel Bisulfate (Plavix) 75 mg PO DAILY [facility] Last Admin: 01/02/18 09:04 Dose: 75 mg Dextrose (D50w Vial) 50 ml IV.PUSH UNSCH PRN PRN Reason: PER HYPOGLYCEMIA PROTOCOL Enalaprilat (Vasotec Inj) 1.25 mg IV.PUSH Q8H PRN PRN Reason: Sbp>170, Dbp>90 Last Admin: 01/01/18 04:11 Dose: 1.25 mg Famotidine (Pepcid) 20 mg PO DAILY [facility] Last Admin: 01/02/18 09:08 Dose: 20 mg Glucagon (Glucagon Inj) 1 mg OTHER PRN PRN PRN Reason: for Hypoglycemia Protocol Piperacillin/Tazobactam/Dextrose (Zosyn 3.375 Gm Premix) 50 mls @ 100 mls/hr IV.SIG Q6H [facility] Last Admin: 01/02/18 09:03 Dose: 100 mls/hr Sodium Chloride (Ns Inj) 1,000 mls @ 100 mls/hr IV.CONT .Q10H [facility] Last Admin: 01/02/18 08:12 Dose: 100 mls/hr Insulin Aspart (Novolog Insulin [employer] Sugar Inj) 0 unit SQ ACHS AND 3AM [facility]; Protocol Last Admin: 01/02/18 09:03 Dose: 1 unit Losartan Potassium (Cozaar) 25 mg PO DAILY [facility] Last Admin: 01/02/18 09:08 Dose: 25 mg Ondansetron HCl (Zofran Inj) 4 mg IV.PUSH Q6H PRN PRN Reason: NAUSEA OR VOMITING Senna/Docusate Sodium ([place]-Colace) 1 tab PO BID [facility] Last Admin: 01/02/18 09:05 Dose: Not Given Tamsulosin HCl (Flomax) 0.4 mg PO DAILY [facility] Last Admin: 01/02/18 09:04 Dose: 0.4 mg Physical Exam Vital signs: Vital Signs 01/01/18 11:07 01/01/18 12:00 01/01/18 16:00 Temperature 97.4 F L 97.8 F Pulse Rate 59 L 68 Respiratory Rate 22 30 H Blood Pressure 120/60 126/60 Pulse Oximetry 99 97 96 01/01/18 19:30 01/01/18 20:00 01/02/18 00:00 Temperature 98.2 F 97.9 F Pulse Rate 74 66 Respiratory Rate 24 20 Blood Pressure 139/64 131/55 L Pulse Oximetry 95 93 L 92 L 01/02/18 04:00 01/02/18 07:24 01/02/18 08:00 Temperature 98.4 F Pulse Rate 72 Respiratory Rate 20 Blood Pressure 131/72 Pulse Oximetry 95 93 L 96 01/02/18 09:00 Temperature Pulse Rate 76 Respiratory Rate Blood Pressure Pulse Oximetry Intake & Output 01/01/18 01/02/18 01/02/18 18:59 06:59 18:59 Intake Total 1430 / 1430 1340 / 1340 1000 / 1000 Output Total 250 / 250 425 / 425 Balance 1180 / 1180 915 / 915 1000 / 1000 Intake: IV 1230 / 1230 1100 / 1100 1000 / 1000 NS Inj 1,000 ML @ 100 mls/hr IV 1000 / 1000 1000 / 1000 1000 / 1000 .CONT .Q10H [facility] Rx#:[id number] Ofirmev Inj 650 mg In 65 ml @ 130 / 130 400 mls/hr IV.SIG Q6H [facility] Rx#: [id number] Zosyn 3.375 GM Premix 50 ML @ 100 / 100 100 / 100 100 mls/hr IV.SIG Q6H [facility] Rx#: [id number] Oral 200 / 200 240 / 240 Output: Urine Amount (Catheter) 250 / 250 425 / 425 Condom 250 / 250 425 / 425 Other: # Incontinent Voids 3 Date of Last Bowel Movement 12/31/17 12/31/17 12/31/17 - Constitutional no acute distress - Routine HEENT Exam Head: Present: abrasion, hematoma Eye: Present: normal accommodation ENT: Present: mucous membranes moist - Routine Neck Exam Present: supple - Routine Respiratory Exam Present: CTA bilaterally - Routine Cardiovascular Exam Present: RRR - Routine Abdominal Exam Present: soft - Routine Skin Exam Present: intact, ecchymosis - Routine Neurological Exam Present: alert - Detailed Neurological Exam: Coma Scale Eye Opening: Spontaneous Verbal Response: Oriented Motor Response: Obey commands Maria E Coma Scale Total: 15 - Routine Psychiatric Exam Present: normal affect - Urinary Catheter Management Condom Cath placed during this visit: no Results 01/03/18 03:31 01/03/18 03:31 Cardiac Enzymes 12/31/17 12/31/17 12/31/17 Range/Units 15:45 15:45 22:46 AST 75 H (15-37) U/L Troponin I 0.03 0.10 H (0.02-0.05) ng/mL B-Natriuretic Peptide 101 H (0-100) pg/mL 12/31/17 01/01/18 Range/Units 22:46 03:55 AST 64 H (15-37) U/L Troponin I 0.08 H (0.02-0.05) ng/mL B-Natriuretic Peptide 148 H (0-100) pg/mL Coagulation 12/31/17 12/31/17 12/31/17 Range/Units 15:45 15:45 22:46 PT 10.7 (9.8-11.6) sec APTT 26.5 (24.3-30.1) sec B-Natriuretic Peptide 101 H 148 H (0-100) pg/mL CBC 12/31/17 01/01/18 Range/Units 15:45 03:55 WBC 10.3 12.0 H (4.0-11.0) th/mm3 RBC 4.02 L 3.86 L (4.50-5.90) mil/mm3 Hgb 11.4 L 10.7 L (13.0-17.0) gm/dL Hct 35.5 L 33.8 L (39.0-51.0) % Plt Count 300 233 (150-450) th/mm3 Neut # (Auto) 7.6 10.5 H (1.8-7.7) th/mm3 Lymph # (Auto) 1.7 0.7 L (1.0-4.8) th/mm3 [place] # (Auto) 0.6 0.7 (0.0-0.9) th/mm3 Eos # (Auto) 0.4 0.1 (0.0-0.4) th/mm3 Baso # (Auto) 0.1 0.0 (0.0-0.2) th/mm3 Comprehensive Metabolic Panel 12/31/17 01/01/18 Range/Units 22:46 03:55 Sodium 140 141 (136-145) meq/L Potassium 3.8 3.7 (3.5-5.1) meq/L Chloride 100 98 (98-107) meq/L Carbon Dioxide 33.6 H 35.1 H (21.0-32.0) meq/L BUN 40 H 41 H (7-18) mg/dL Creatinine 1.42 H 1.39 H (0.60-1.30) mg/dL Calcium 8.4 L 8.4 L (8.5-10.1) mg/dL AST 75 H 64 H (15-37) U/L ALT 76 70 (12-78) U/L Alkaline Phosphatase 95 92 (45-117) U/L Total Protein 7.0 7.2 (6.4-8.2) g/dL Albumin 2.6 L 2.6 L (3.4-5.0) g/dL Intake and Output 01/01/18 01/02/18 01/02/18 22:59 06:59 14:59 Intake Total 1250 / 1250 290 / 290 1000 / 1000 Output Total 250 / 250 425 / 425 Balance 1000 / 1000 -135 / -135 1000 / 1000 Intake: IV 1050 / 1050 50 / 50 1000 / 1000 NS Inj 1,000 ML @ 100 mls/hr IV 1000 / 1000 1000 / 1000 .CONT .Q10H [facility] Rx#:[id number] Zosyn 3.375 GM Premix 50 ML @ 50 / 50 50 / 50 100 mls/hr IV.SIG Q6H [facility] Rx#: [id number] Oral 200 / 200 240 / 240 Output: Urine Amount (Catheter) 250 / 250 425 / 425 Condom 250 / 250 425 / 425 Other: # Incontinent Voids 3 Date of Last Bowel Movement 12/31/17 12/31/17 12/31/17 - Imaging and Cardiology Imaging: Impressions Chest X-Ray 12/31/17 15:43 CONCLUSION: 1. Cardiomegaly. 2. Lungs are clear. Pelvis X-Ray 12/31/17 15:43 CONCLUSION: 1. No acute fracture. Hand X-Ray 12/31/17 15:47 CONCLUSION: 1. No acute fracture or radiopaque foreign body. Abdomen/Pelvis CT 12/31/17 15:49 CONCLUSION: 1. Bilateral pleural effusions left greater than right. Consolidation left lung base I believe is rounded atelectasis. Intra-abdominal exam is unremarkable. Sigmoid diverticulosis. Marked atherosclerotic disease including the coronary vessels Chest CT 12/31/17 15:49 CONCLUSION: 1. No acute traumatic abdomen in the thorax. 2. Small fluid density left pleural effusion. 3. Rounded nearly masslike airspace consolidation in the left lung base measuring 5.9 x 3.3 cm. This may reflect rounded atelectasis given the adjacent pleural effusion. However, malignant etiology cannot be entirely excluded. Comparisons with prior examinations would be beneficial in further evaluation. Alternatively, outpatient PET/CT examination may be performed for further evaluation as clinically warranted. 4. Groundglass airspace consolidation in the inferior right middle lobe, presumably atelectasis, although differential considerations include aspiration. 5. Prominent coronary artery calcifications. Lumbar Spine CT 12/31/17 15:49 CONCLUSION: 1. Broad-based diffuse annular bulges at multiple levels. No evidence of an acute fracture. The posterior elements are unremarkable. There is no evidence of any subluxation or facet malalignment. Thoracic Spine CT 12/31/17 15:49 CONCLUSION: 1. Negative CT Thoracic Spine with contrast. No evidence of fracture. Cervical Spine CT 12/31/17 15:50 CONCLUSION: 1. No acute fracture. 2. 2 mm retrolisthesis of C4 on C5 and 3 mm anterolisthesis of C7 on T1 likely due to degenerative arthrosis. 3. Advanced multilevel degenerative spondylosis of the cervical spine most prominently at C4-5 and C5-6, as above. Face CT 12/31/17 15:50 CONCLUSION: 1. No acute facial bone fractures. 2. Mild bilateral maxillary sinus mucosal disease. Head CT 12/31/17 15:50 CONCLUSION: 1. No acute intracranial abnormality. 2. Mild maxillary sinus mucosal disease. . Chest X-Ray 01/01/18 00:00 CONCLUSION: No significant change. Mild bibasilar consolidation and small left pleural effusion again noted. Extremity Arterial Study 01/01/18 00:00 CONCLUSION: 1. Very limited examination with unobtainable ankle-brachial indices bilaterally. 2. There is moderately decreased toe brachial indices on the left. 3. Consider CTA examination if there is continued clinical concern. Foot MRI 01/01/18 00:00 CONCLUSION: 1. Foot X-Ray 01/01/18 00:00 CONCLUSION: Extensive digital artery calcifications. Inflammatory process cannot be excluded. Displaced fracture is not evident. Head CT 01/01/18 00:00 CONCLUSION: 1. No acute intracranial abnormality. 2. Frontal scalp contusion/hematoma again noted. 3. Chronic white matter changes. . Head MRI 01/01/18 00:00 CONCLUSION: 1. Tiny scattered cortical foci are noted within the high parietal lobes on the diffusion-weighted images suggesting tiny acute cortical infarcts likely embolic in etiology. Clinical correlation is recommended. 2. Scattered focal signal in relation noted on the SWI images suggestive of scattered amyloid angiopathy. 3. No midline shift or extra-axial bleed is noted. 4. Mild diffuse cerebral atrophy is noted. 5. Moderate periventricular and subcortical white matter small vessel ischemic changes are noted bilaterally. Assessment and Plan - Plan Assessment Status post PEA arrest. Mild encephalopathy ASHD, NH, hx of CABG. CHF PAD-partial toe amputation. DM HTN CKD Plan -CPR initiated in the filed. Patient doing well today cardiac nicole. Continue to monitor the patient in the ICU. CT with no evidence of intracranial hemorrhage. -MRI shows possible tiny high cortical infarct-on plavix. Mild post concussion/ hypoxic encephalopathy-improving. Neurology following. -SR, Vital signs stable. Continue current cardiac treatment plan and adjust as needed. -History of ASHD, followed by Dr. Ferraro. Denies chest pain. -Pending addition surgery for right hallux amputation-dressing in place. -BP controlled on current regimen. -Creatinine 1.39 today-stable. We will follow the patient during his hospitalization. The patient will follow up with Dr. Ferraro in his office after discharge. The patient was seen and evaluated by Dr. Lin who participated in care, management and decision-making. The exam, history, and the medical decision-making described in the above note were completed with the assistance of the mid-level provider. I reviewed and agree with the findings presented. I attest that I had a [id number] encounter with the patient on the same day, and personally performed and documented my assessment and findings in the medical record. Dr Ding will see in AM Code Status: Full Code Discussed Condition With: Nurse
--- NOTE | 2018-01-02 10:22 | US ---
EXAM DATE: 01/02/2018 9:46 AM EDT AGE/SEX: 77 years / Male INDICATIONS: Imbalanced, weakness. CVA. CLINICAL DATA: This is the patient's initial encounter. Patient reports that signs and symptoms have been present for 1 day and indicates a pain score of 0/10. MEDICAL/SURGICAL HISTORY: Gastroesophageal reflux disease. Hypercholesterolemia. Hypertension . BPH. CAD. CHF. CK. Diabetes. Peripheral artery disease. CABG. Cyst removal. COMPARISON: No prior exams available for comparison. VELOCITY PARAMETERS: ICA/CCA Ratio: Right 1.2 , Left 1.1 ICA: Right 120 cm/sec, Left 146 cm/sec CCA: Right 98 cm/sec, Left 129 cm/sec ECA: Right 389 cm/sec, Left 103 cm/sec Vertebral: Right 76 cm/sec antegrade, Left Not visualized cm/sec absent FINDINGS: Right Carotid: Moderate arteriosclerotic plaque is visualized.The waveforms are within normal limits . Left Carotid: Moderate arteriosclerotic plaque is visualized. The waveforms are within normal limits . Other: None. CONCLUSION: Negative for hemodynamically significant carotid stenosis. Electronically signed by: Clark Michaud MD 01/02/2018 10:20 AM EDT
--- NOTE | 2018-01-02 11:00 | P.PNIM ---
Subjective Interval history: Mr. Sellers was afebrile with stable VS overnight; O2 saturations were in low- mid 90's on 4L O2 via NC. Discussed with nursing staff; patient has been doing well overall but has been anxious. Patient states that he is doing ok. He is oriented to person and place. He knows he is in a hospital in [facility] and knows the president; he does not know the year. Patient feels that he is breathing well. He states that he would like CPAP at night; he also wears O2 at night. Patient does not report chest pain, abdominal pain, or other concerns at this time. Patient states he would like to go home when possible. Left message with patient's Physical Exam Vital signs: Vital Signs 01/01/18 11:07 01/01/18 12:00 01/01/18 16:00 Temperature 97.4 F L 97.8 F Pulse Rate 59 L 68 Respiratory Rate 22 30 H Blood Pressure 120/60 126/60 Pulse Oximetry 99 97 96 01/01/18 19:30 01/01/18 20:00 01/02/18 00:00 Temperature 98.2 F 97.9 F Pulse Rate 74 66 Respiratory Rate 24 20 Blood Pressure 139/64 131/55 L Pulse Oximetry 95 93 L 92 L 01/02/18 04:00 01/02/18 07:24 01/02/18 08:00 Temperature 98.4 F Pulse Rate 72 Respiratory Rate 20 Blood Pressure 131/72 Pulse Oximetry 95 93 L 96 01/02/18 09:00 Temperature Pulse Rate 76 Respiratory Rate Blood Pressure Pulse Oximetry Intake & Output 01/01/18 01/02/18 01/02/18 18:59 06:59 18:59 Intake Total 1430 / 1430 1340 / 1340 1000 / 1000 Output Total 250 / 250 425 / 425 Balance 1180 / 1180 915 / 915 1000 / 1000 Intake: IV 1230 / 1230 1100 / 1100 1000 / 1000 NS Inj 1,000 ML @ 100 mls/hr IV 1000 / 1000 1000 / 1000 1000 / 1000 .CONT .Q10H [facility] Rx#:[id number] Ofirmev Inj 650 mg In 65 ml @ 130 / 130 400 mls/hr IV.SIG Q6H [facility] Rx#: [id number] Zosyn 3.375 GM Premix 50 ML @ 100 / 100 100 / 100 100 mls/hr IV.SIG Q6H [facility] Rx#: [id number] Oral 200 / 200 240 / 240 Output: Urine Amount (Catheter) 250 / 250 425 / 425 Condom 250 / 250 425 / 425 Other: # Incontinent Voids 3 Date of Last Bowel Movement 12/31/17 12/31/17 12/31/17 Narrative: Gen: NAD HEENT: Moist mucus membranes. EOMI Skin: Laceration to forehead covered; no active bleeding. Right hand covered. R great toe gangrenous a Neuro: Awake, alert. Oriented to person and that he is in hospital; still does not know year. Normal peripheral motor/sensory function. Cranial nerves normal Cardiovascular-regular rate and rhythm; normal rate Resp: CTAB; decreased breath sounds. Mild tachypnea with RR ~20. On NC O2 at ~4L /min Abd: soft, nontender, normal BS Ext: Grossly normal ROM and motor function with symmetric weakness - Urinary Catheter Management Condom Cath placed during this visit: no Results - Labs CBC & Chem 7: 01/01/18 03:55 01/01/18 03:55 Laboratory Results - last 24 hr 01/01/18 01/01/18 01/01/18 03:55 12:25 16:06 POC Glucose 152 H 167 H Vitamin B12 332 Urine Color Urine Clarity Urine pH Ur Specific [place] Urine Protein Urine Glucose (UA) Urine Ketones Urine Occult Blood Urine Nitrate Urine Bilirubin Urine Urobilinogen Ur Leukocyte Esterase Urine RBC Urine WBC Ur Squamous Epith Cells Micro UA Comment Ur Microscopic Review Urine Culture Comments 01/01/18 01/02/18 01/02/18 20:36 00:30 03:53 POC Glucose 209 H 149 H Vitamin B12 Urine Color Yellow Urine Clarity Hazy H Urine pH 5.0 Ur Specific [place] 1.028 Urine Protein Negative Urine Glucose (UA) Negative Urine Ketones Negative Urine Occult Blood Negative Urine Nitrate Negative Urine Bilirubin Negative Urine Urobilinogen Less than 2 Ur Leukocyte Esterase Negative Urine RBC 1 Urine WBC 3 Ur Squamous Epith Cells 1 Micro UA Comment Culture not ind Ur Microscopic Review Not Reportable Urine Culture Comments Culture not ind 01/02/18 08:19 POC Glucose 155 H Vitamin B12 Urine Color Urine Clarity Urine pH Ur Specific [place] Urine Protein Urine Glucose (UA) Urine Ketones Urine Occult Blood Urine Nitrate Urine Bilirubin Urine Urobilinogen Ur Leukocyte Esterase Urine RBC Urine WBC Ur Squamous Epith Cells Micro UA Comment Ur Microscopic Review Urine Culture Comments - Imaging Impressions Extremity Arterial Study 01/01/18 00:00 CONCLUSION: 1. Very limited examination with unobtainable ankle-brachial indices bilaterally. 2. There is moderately decreased toe brachial indices on the left. 3. Consider CTA examination if there is continued clinical concern. Foot MRI 01/01/18 00:00 CONCLUSION: 1. Head MRI 01/01/18 00:00 CONCLUSION: 1. Tiny scattered cortical foci are noted within the high parietal lobes on the diffusion-weighted images suggesting tiny acute cortical infarcts likely embolic in etiology. Clinical correlation is recommended. 2. Scattered focal signal in relation noted on the SWI images suggestive of scattered amyloid angiopathy. 3. No midline shift or extra-axial bleed is noted. 4. Mild diffuse cerebral atrophy is noted. 5. Moderate periventricular and subcortical white matter small vessel ischemic changes are noted bilaterally. Carotid Doppler Study 01/02/18 20:25 CONCLUSION: Negative for hemodynamically significant carotid stenosis. Assessment and Plan - Assessment (1) PEA (Pulseless electrical activity) Code(s): I46.9 - Cardiac arrest, cause unspecified Status: Acute (2) Closed head injury Code(s): S09.90XA - Unspecified injury of head, initial encounter Status: Acute (3) Hypercarbia Code(s): R06.89 - Other abnormalities of breathing Status: Acute (4) Diabetes Code(s): E11.9 - Type 2 diabetes mellitus without complications Status: Acute (5) Concussion Code(s): S06.0X9A - Concussion with loss of consciousness of unspecified duration, initial encounter Status: Acute (6) CAD (coronary artery disease) Code(s): I25.10 - Atherosclerotic heart disease of [place] coronary artery without angina pectoris Status: Acute - Plan Mr. Sellers is a 77 yo M with: Trauma Impression: Mechanical fall resulting in head injury. Normal motor function peripherally Head CT- no acute intracranial abnormality Face CT- no acute fractures. 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 Multilevel spondylosis of Cspine most prominent at C4-5 and C5-[address]- negative T spine with contrast L spine CT- broad-based diffuse annular bulges at multiple levels. No evidence acute fracture, the posterior elements unremarkable. No subluxation or facet malalignment Chest CT- no acute trauma. concern for masslike airspace at L base- 5.9 x3.3 cm ; possible atelectasis w/ effusion vs possible malignancy, Outpatient f/u recommended. Ground glass consolidation at R middle lobe suggestive of possible aspiration. Prominent coronary calcifications A/P CT- left lung atelectasis, atherosclerosis Pelvic XR negative Hand XR negative -Continue IV Tylenol -PT consult Neuro Impression: Suspect concussion. Inability to remember year but otherwise oriented. GCS 14 at time of my initial exam; previously 3 in field. On home ASA/ Plavix 01/01- Normal neuro assessment with exception of not knowing year which is change from baseline 01/02- Improvement in memory of president; still oriented. Normal CN Imaging: Head CT negative on admission, Repeat Head CT ~12hrs after injury negative MRI brain- tiny cortical foci in high parietal lobes likely embolic in etiology. Scattered amyloid angiopathy. No midline shift. Moderate periventricular and subcortical white matter changes noted bilaterally \ Carotid US unremarkable -Will monitor neuro checks -Resumed oral intake after passed bedside swallow -Neurology consulted -possible contusion injury vs hypoxic causing MRI cortical lesions; embolic infarcts less likely -Post concussive hypoxic encephalopathy gradually improving -Will check EEG, carotid US -Resume antiplatelets -PT/OT/ST Cardiovascular PEA CAD s/p CABD PAD Impression: Reported PEA in field with ROSC after CPR. Unclear whether was true PEA since seems to have responded well Troponin 0.02-> 0.1-> 0.08. Lactic acid wnl EKGs reassuring -Continue Telemetry -Will continue home ASA, Plavix later today -Continue home BB, ARB -Continue home statin -Continue home Metolazone 2.5mg BID -Continue Bumex 2mg daily -Cardiology consulted Respiratory Impression: Suspect hypercarbia after encephalopathy per Neuro Lung imaging suggestive of effusions; possible aspiration in R middle lobe. Required simple mask in ED. Wears O2 at night; distant smoker Venous gas with CO2 73-> [address]- no acute trauma. concern for masslike airspace at L base- 5.9 x3.3 cm ; possible atelectasis w/ effusion vs possible malignancy, Outpatient f/u recommended. Ground glass consolidation at R middle lobe suggestive of possible aspiration. Prominent coronary calcifications -Continue empiric Zosyn while monitoring respiratory status -BIPAP for CO2 retention (unclear whether chronic; baseline not known) -Pulmonology consulted for evaluation -will repeat venous gas DM Impression: On home Levemir 24 U daily, Novolog 6U BID -Will give SS insulin while inpatient; will resume Levemir once stable intake GI Cardiac diet resumed -Continue home Pepcid for PPX Toe gangrene Impression: sees Dr. Aiken and Dr. Bustos as outpatient with planned surgical intervention next month -Continue empiric Zosyn -MRI foot- marrow edema in distal tuft great toe crossing DIP to proximal phalanx; normal signal in other toes and metatarsals DVT PPX -SCD's Code Status: Full code (2) Closed head injury Qualifiers: Encounter type: initial encounter Qualified Code(s): S09.90XA - Unspecified injury of head, initial encounter
[2018-01-02 11:30] LABS: Baso % (Auto) 0.5 % (0.0-2.0); Eos # (Auto) 0.2 th/mm3 (0.0-0.4); Eos % (Auto) 2.7 % (0.0-4.0); Hematocrit 30.6 % (39.0-51.0); Hemoglobin 9.9 gm/dL (13.0-17.0); Lymph # (Auto) 0.5 th/mm3 (1.0-4.8); Lymph % (Auto) 5.2 % (9.0-44.0); Mean Corpuscular HGB Conc 32.3 % (32.0-36.0); Mean Corpuscular Hemoglobin 28.5 pg (27.0-34.0); Mean Corpuscular Volume 88.2 fL (80.0-100.0); Mean Platelet Volume 7.9 fL (7.0-11.0); Mono # (Auto) 0.6 th/mm3 (0.0-0.9); Mono % (Auto) 6.4 % (0.0-8.0); Neut # (Auto) 7.6 th/mm3 (1.8-7.7); Neut % (Auto) 85.2 % (16.0-70.0); Platelet Count 196 th/mm3 (150-450); Red Blood Count 3.47 mil/mm3 (4.50-5.90); Red Cell Distribution Width 15.9 % (11.6-17.2); White Blood Count 8.9 th/mm3 (4.0-11.0)
--- NOTE | 2018-01-02 11:46 | P.PNNEU ---
Subjective Subjective Comments: Slept well no acute events no seizure denies any focal weakness Active Medications: Active Medications Acetaminophen (Tylenol) 650 mg PO Q4H PRN PRN Reason: Temp > 100.4 Last Admin: 01/01/18 21:09 Dose: 650 mg Albuterol (Duoneb Neb (Prn)) 1 ampul NEB Q4HR NEB PRN PRN Reason: SHORTNESS OF BREATH/WHEEZING Aspirin (Aspirin Chew) 81 mg PO DAILY [facility] Last Admin: 01/02/18 09:04 Dose: 81 mg Atorvastatin Calcium (Lipitor) 40 mg PO DAILY [facility] Last Admin: 01/02/18 09:04 Dose: 40 mg Bumetanide (Bumex) 2 mg PO DAILY [facility] Last Admin: 01/02/18 09:04 Dose: 2 mg Carvedilol (Coreg) 12.5 mg PO BID [facility] Last Admin: 01/02/18 09:04 Dose: 12.5 mg Citalopram Hydrobromide (Celexa) 20 mg PO DAILY [facility] Last Admin: 01/02/18 09:04 Dose: 20 mg Clopidogrel Bisulfate (Plavix) 75 mg PO DAILY [facility] Last Admin: 01/02/18 09:04 Dose: 75 mg Dextrose (D50w Vial) 50 ml IV.PUSH UNSCH PRN PRN Reason: PER HYPOGLYCEMIA PROTOCOL Enalaprilat (Vasotec Inj) 1.25 mg IV.PUSH Q8H PRN PRN Reason: Sbp>170, Dbp>90 Last Admin: 01/01/18 04:11 Dose: 1.25 mg Famotidine (Pepcid) 20 mg PO DAILY [facility] Last Admin: 01/02/18 09:08 Dose: 20 mg Glucagon (Glucagon Inj) 1 mg OTHER PRN PRN PRN Reason: for Hypoglycemia Protocol Piperacillin/Tazobactam/Dextrose (Zosyn 3.375 Gm Premix) 50 mls @ 100 mls/hr IV.SIG Q6H [facility] Last Infusion: 01/02/18 10:42 Dose: Infused Sodium Chloride (Ns Inj) 1,000 mls @ 100 mls/hr IV.CONT .Q10H [facility] Last Admin: 01/02/18 08:12 Dose: 100 mls/hr Insulin Aspart (Novolog Insulin [place]al Sugar Inj) 0 unit SQ ACHS AND 3AM [facility]; Protocol Last Admin: 01/02/18 09:03 Dose: 1 unit Losartan Potassium (Cozaar) 25 mg PO DAILY [facility] Last Admin: 01/02/18 09:08 Dose: 25 mg Ondansetron HCl (Zofran Inj) 4 mg IV.PUSH Q6H PRN PRN Reason: NAUSEA OR VOMITING Senna/Docusate Sodium (Mackenzie-Colace) 1 tab PO BID [facility] Last Admin: 01/02/18 09:05 Dose: Not Given Tamsulosin HCl (Flomax) 0.4 mg PO DAILY [facility] Last Admin: 01/02/18 09:04 Dose: 0.4 mg Allergies/Adverse Reactions: Allergies Allergy/AdvReac Type Severity Reaction Status Date / Time acetaminophen [From Immaculata] Allergy Nausea/Vomi Verified 12/31/17 18:03 ting exenatide [From Bydureon] Allergy Nausea/Vomi Verified 12/31/17 18:03 ting fentanyl Allergy Nausea/Vomi Verified 12/31/17 18:03 ting hydrocodone [From Immaculata] Allergy Nausea/Vomi Verified 12/31/17 18:03 ting oxycodone [From Percocet] Allergy Nausea/Vomi Verified 12/31/17 18:03 ting Review of Systems All other systems reviewed negative except as stated in HPI Physical Exam Vital signs: Vital Signs 01/01/18 12:00 01/01/18 16:00 01/01/18 19:30 Temperature 97.4 F L 97.8 F Pulse Rate 59 L 68 Respiratory Rate 22 30 H Blood Pressure 120/60 126/60 Pulse Oximetry 97 96 95 01/01/18 20:00 01/02/18 00:00 01/02/18 04:00 Temperature 98.2 F 97.9 F 98.4 F Pulse Rate 74 66 72 Respiratory Rate 24 20 20 Blood Pressure 139/64 131/55 L 131/72 Pulse Oximetry 93 L 92 L 95 01/02/18 07:24 01/02/18 08:00 01/02/18 09:00 Temperature Pulse Rate 76 Respiratory Rate Blood Pressure Pulse Oximetry 93 L 96 Intake & Output 01/01/18 01/02/18 01/02/18 18:59 06:59 18:59 Intake Total 1430 / 1430 1340 / 1340 1050 / 1050 Output Total 250 / 250 425 / 425 Balance 1180 / 1180 915 / 915 1050 / 1050 Intake: IV 1230 / 1230 1100 / 1100 1050 / 1050 NS Inj 1,000 ML @ 100 mls/hr IV 1000 / 1000 1000 / 1000 1000 / 1000 .CONT .Q10H [facility] Rx#:[id number] Ofirmev Inj 650 mg In 65 ml @ 130 / 130 400 mls/hr IV.SIG Q6H [facility] Rx#: [id number] Zosyn 3.375 GM Premix 50 ML @ 100 / 100 100 / 100 50 / 50 100 mls/hr IV.SIG Q6H [facility] Rx#: [id number] Oral 200 / 200 240 / 240 Output: Urine Amount (Catheter) 250 / 250 425 / 425 Condom 250 / 250 425 / 425 Other: # Incontinent Voids 3 Date of Last Bowel Movement 12/31/17 12/31/17 12/31/17 Narrative: GENERAL: in NAD, SKIN: Warm and dry. HEAD: Bruises forehead bandaged EYES: Pupils equal and round. No scleral icterus. ENT: No nasal bleeding or discharge. Mucous membranes pink and moist. NECK: Trachea midline. No JVD. CARDIOVASCULAR: Regular rate and rhythm. RESPIRATORY: No accessory muscle use. Clear to auscultation. Breath sounds equal bilaterally. GASTROINTESTINAL: Abdomen soft, non-tender, nondistended. MUSCULOSKELETAL: Right great toe purplish mottled white states chronic NEUROLOGICAL: Awake and alert. Oriented 1-2, not to date, follows pleasant no aphasia, fluent articulate, No facial asymmetry, OU 3-2mm, eomi, VFF, No drift, Motor grossly within normal limits. Five out of 5 muscle strength in the arms and legs except bilateral distal foot weakness 3-4 out of 5 dorsiflexion in addition to reduced range of motion with bilateral arm abduction above the shoulders which is chronic suspected rotator cuff. Tone normal in all 4 limbs, reduce pinprick lower extremities, msr 1-2+ sym, no clonus, planterflexor, gait not assessed secondary fall risk PSYCHIATRIC: Appropriate mood and affect; - Constitutional no acute distress - Routine HEENT Exam Head: Present: normocephalic Eye: Present: EOMI - Urinary Catheter Management Condom Cath placed during this visit: no Objective Laboratory Results - last 24 hr 01/01/18 01/01/18 01/01/18 03:55 12:25 16:06 WBC RBC Hgb Hct MCV MCH MCHC RDW Plt Count MPV Neut % (Auto) Lymph % (Auto) [place] % (Auto) Eos % (Auto) Baso % (Auto) Neut # (Auto) Lymph # (Auto) [place] # (Auto) Eos # (Auto) Baso # (Auto) WBC Differential Differential Comment POC Glucose 152 H 167 H Vitamin B12 332 Urine Color Urine Clarity Urine pH Ur Specific [place] Urine Protein Urine Glucose (UA) Urine Ketones Urine Occult Blood Urine Nitrate Urine Bilirubin Urine Urobilinogen Ur Leukocyte Esterase Urine RBC Urine WBC Ur Squamous Epith Cells Micro UA Comment Ur Microscopic Review Urine Culture Comments 01/01/18 01/02/18 01/02/18 20:36 00:30 03:53 WBC RBC Hgb Hct MCV MCH MCHC RDW Plt Count MPV Neut % (Auto) Lymph % (Auto) [place] % (Auto) Eos % (Auto) Baso % (Auto) Neut # (Auto) Lymph # (Auto) [place] # (Auto) Eos # (Auto) Baso # (Auto) WBC Differential Differential Comment POC Glucose 209 H 149 H Vitamin B12 Urine Color Yellow Urine Clarity Hazy H Urine pH 5.0 Ur Specific [place] 1.028 Urine Protein Negative Urine Glucose (UA) Negative Urine Ketones Negative Urine Occult Blood Negative Urine Nitrate Negative Urine Bilirubin Negative Urine Urobilinogen Less than 2 Ur Leukocyte Esterase Negative Urine RBC 1 Urine WBC 3 Ur Squamous Epith Cells 1 Micro UA Comment Culture not ind Ur Microscopic Review Not Reportable Urine Culture Comments Culture not ind 01/02/18 01/02/18 01/02/18 08:19 11:19 11:35 WBC 8.9 RBC 3.47 L Hgb 9.9 L Hct 30.6 L MCV 88.2 MCH 28.5 MCHC 32.3 RDW 15.9 Plt Count 196 MPV 7.9 Neut % (Auto) 85.2 H Lymph % (Auto) 5.2 L [place] % (Auto) 6.4 Eos % (Auto) 2.7 Baso % (Auto) 0.5 Neut # (Auto) 7.6 Lymph # (Auto) 0.5 L [place] # (Auto) 0.6 Eos # (Auto) 0.2 Baso # (Auto) 0.0 WBC Differential . Differential Comment Auto diff final POC Glucose 155 H 190 H Vitamin B12 Urine Color Urine Clarity Urine pH Ur Specific [place] Urine Protein Urine Glucose (UA) Urine Ketones Urine Occult Blood Urine Nitrate Urine Bilirubin Urine Urobilinogen Ur Leukocyte Esterase Urine RBC Urine WBC Ur Squamous Epith Cells Micro UA Comment Ur Microscopic Review Urine Culture Comments Review/Management - Diagnosis (1) Closed head injury Code(s): S09.90XA - Unspecified injury of head, initial encounter Status: Acute Current Visit: Yes (2) Dysrhythmia Code(s): I49.9 - Cardiac arrhythmia, unspecified Status: Acute Current Visit : Yes (3) PEA (Pulseless electrical activity) Code(s): I46.9 - Cardiac arrest, cause unspecified Status: Acute Current Visit: Yes (4) Fall with injury Code(s): W19.XXXA - Unspecified fall, initial encounter Status: Acute Current Visit: Yes (5) Concussion Code(s): S06.0X9A - Concussion with loss of consciousness of unspecified duration, initial encounter Status: Acute Current Visit: Yes - Review/Management Plan: Status post cardiac arrest PEA, fall with concussive type injury MRI brain scan reviewed which demonstrates very tiny high cortical ischemic- looking regions. I suspect this may be related to contusion injury versus hypoxic. Tiny embolic infarcts is another possibility although less likely He does have mild postconcussive/hypoxic encephalopathy which is gradually improving Chronic gait disorder using a walker carotid ultrasound clinical negative Recommendations Neuro stable EEG, ; pending Resume antiplatelet agent PT OT ST Can be transferred to the 5th floor with telemetry from neurologic standpoint (1) Closed head injury Qualifiers: Encounter type: initial encounter Qualified Code(s): S09.90XA - Unspecified injury of head, initial encounter (2) Dysrhythmia Qualifiers: Arrhythmia type: unspecified cardiac arrhythmia Qualified Code(s): I49.9 - Cardiac arrhythmia, unspecified
[2018-01-02 12:02] LABS: Alanine Aminotransferase 29 U/L (12-78); Albumin 2.2 g/dL (3.4-5.0); Anion Gap 6 meq/L (5-15); Aspartate Aminotransferase 28 U/L (15-37); Blood Urea Nitrogen 49 mg/dL (7-18); Calcium 8.5 mg/dL (8.5-10.1); Carbon Dioxide 33.9 meq/L (21.0-32.0); Chloride 100 meq/L (98-107); Glomerular Filtration Rate 28 mL/min (>89); Glucose,Random 168 mg/dL (74-106); Potassium 3.8 meq/L (3.5-5.1); Sodium 140 meq/L (136-145)
[2018-01-02 12:04] LABS: Alkaline Phosphatase 70 U/L (45-117); Total Protein 6.3 g/dL (6.4-8.2)
--- NOTE | 2018-01-02 12:59 | ECG ---
Date Performed: 01/01/2018 Time Performed: 00:28:44 PTAGE: 89 years EKG: Sinus rhythm with 1st degree A-V block. Prolonged QT interval Possible anteroseptal infarct - age undetermined [place] T wave changes are nonspecific Low QRS voltages in limb leads Abnormal ECG PREVIOUS TRACING : 12/31/2017 16.46 Compared to previous tracing, QTc slightly prolonged DOCTOR: Daniel David Interpretating Date/Time 01/02/2018 12:58:41
--- NOTE | 2018-01-02 13:27 | ECG ---
Date Performed: 12/31/2017 Time Performed: 16:46:04 PTAGE: 89 years EKG: Sinus rhythm WITH FIRST DEGREE AV BLOCK LOW QRS VOLTAGE IN EXTREMITY LEADS MODERATE INTRAVENTRICULAR CONDUCTION D DCAY ABNORMAL ECG INTERPRETATION BASED ON A DEFAULT AGE OF 42 YEARS NO PREVIOUS TRACING DOCTOR: Daniel David Interpretating Date/Time 01/02/2018 13:26:18
[2018-01-02 14:43] LABS: VBG Base Excess 7.5 mmol/L (-2-2); VBG Blood Gas Oxygen Content 11.2 Vol % (9.0-17.0); VBG PCO2 62 mmHG (44-48); VBG PH 7.35 (7.360-7.400); VBG PO2 52 mmHG (35-40)
[2018-01-02] MEDS ORDERED: Sodium Chloride 0.65% Nasal Spray 45 ML Bottle EACH NARE PRN (17:44)
[2018-01-02] MEDS ORDERED: Sodium Chlor 0.9% Inj 500 ML IV.SIG SCH (18:00)
[2018-01-02] MEDS: Heparin - SQ 10,000 UNITS/ML Vial SQ SCH (22:05)
[2018-01-02] MEDS: LORazepam 0.5 MG Tablet PO PRN (22:52)
[2018-01-03] MEDS: Sod Chloride 0.9% Inj 1,000 ML IV.CONT SCH ×2 (02:30→10:42)
[2018-01-03 04:50] LABS: Baso % (Auto) 0.5 % (0.0-2.0); Eos # (Auto) 0.3 th/mm3 (0.0-0.4); Eos % (Auto) 3.1 % (0.0-4.0); Lymph # (Auto) 0.6 th/mm3 (1.0-4.8); Lymph % (Auto) 7.4 % (9.0-44.0); Mean Corpuscular HGB Conc 32.1 % (32.0-36.0); Mean Corpuscular Hemoglobin 28.5 pg (27.0-34.0); Mean Corpuscular Volume 88.6 fL (80.0-100.0); Mean Platelet Volume 8.2 fL (7.0-11.0); Mono # (Auto) 0.7 th/mm3 (0.0-0.9); Mono % (Auto) 8.2 % (0.0-8.0); Neut # (Auto) 6.6 th/mm3 (1.8-7.7); Neut % (Auto) 80.8 % (16.0-70.0); Platelet Count 200 th/mm3 (150-450); Red Cell Distribution Width 16.1 % (11.6-17.2); White Blood Count 8.2 th/mm3 (4.0-11.0)
[2018-01-03 05:15] LABS: Alanine Aminotransferase 25 U/L (12-78); Albumin 2.2 g/dL (3.4-5.0); Anion Gap 7 meq/L (5-15); Aspartate Aminotransferase 29 U/L (15-37); Blood Urea Nitrogen 56 mg/dL (7-18); Calcium 8.3 mg/dL (8.5-10.1); Carbon Dioxide 33.3 meq/L (21.0-32.0); Chloride 101 meq/L (98-107); Glomerular Filtration Rate 24 mL/min (>89); Glucose,Random 115 mg/dL (74-106); Potassium 3.7 meq/L (3.5-5.1); Sodium 141 meq/L (136-145)
[2018-01-03 05:18] LABS: Alkaline Phosphatase 70 U/L (45-117); Total Protein 6.4 g/dL (6.4-8.2)
--- NOTE | 2018-01-03 05:38 | XR ---
EXAM DATE: 01/03/2018 4:54 AM EDT AGE/SEX: 77 years / Male INDICATIONS: Shortness of breath. Possible respiratory disease. CLINICAL DATA: This is the patient's subsequent encounter. Patient reports that signs and symptoms h ave been present for 3 days and indicates a pain score of Nonresponsive. MEDICAL/SURGICAL HISTORY: . Cardiovascular disease. Diabetes. Concussion. CABG. COMPARISON: C, CHEST 1V SINGLE AP, 01/01/2018. . FINDINGS: Mild bibasilar parenchymal consolidation and small left pleural effusion not significantly changed. N o pneumothorax. Heart size stable, within normal limits. Median sternotomy changes are again seen. CONCLUSION: No significant change mild bibasilar consolidation and small left pleural effusion. Electronically signed by: Michael Cardoso MD 01/03/2018 5:36 AM EDT
[2018-01-03] MEDS: Insulin NovoLOG Aspart Correctional Sugar Inj SQ SCH ×5 (08:02→22:09)
[2018-01-03] MEDS: Carvedilol 12.5 MG Tablet PO SCH ×2 (08:15→20:35)
[2018-01-03] MEDS: Citalopram 20 MG Tablet PO SCH (08:15)
[2018-01-03] MEDS: Heparin - SQ 10,000 UNITS/ML Vial SQ SCH ×2 (08:16→20:35)
[2018-01-03] MEDS: Famotidine 20 MG Tablet PO SCH (08:16)
[2018-01-03] MEDS: Senna/Docusate Sodium 8.6/50 MG Tablet PO SCH ×2 (08:16→20:41)
--- NOTE | 2018-01-03 08:47 | P.PNIM ---
Subjective Interval history: Mr. Sellers was afebrile with intermittent tachypnea overnight. Balance + 2775ml in past 24hrs mainly from IVF; 825ml urine output. Per nursing staff patient was placed on Venturi mask by respiratory therapy. He has been eating ~20% of his trays and not drinking much Patient states that he is doing ok at this time; he states that he has continued difficulty breathing but it was not as bad as previously. Patient does not report other complaints at this time. Patient awake and alert; oriented to person, place but not year (estimated at 2019). Physical Exam Vital signs: Vital Signs 01/02/18 09:00 01/02/18 12:00 01/02/18 16:00 Temperature 97.8 F 98.3 F Pulse Rate 76 66 64 Respiratory Rate 23 19 Blood Pressure 140/63 131/60 Pulse Oximetry 95 01/02/18 20:00 01/02/18 21:00 01/02/18 21:28 Temperature 98.3 F Pulse Rate 72 Respiratory Rate 31 H Blood Pressure 175/72 H Pulse Oximetry 97 98 95 01/03/18 00:00 01/03/18 04:00 01/03/18 07:31 Temperature 98.1 F 98.5 F Pulse Rate 66 66 Respiratory Rate 21 18 Blood Pressure 135/63 145/65 H Pulse Oximetry 97 98 98 01/03/18 08:00 Temperature 98.5 F Pulse Rate 79 Respiratory Rate 25 H Blood Pressure 157/67 H Pulse Oximetry 90 L Intake & Output 01/02/18 01/03/18 01/03/18 18:59 06:59 18:59 Intake Total 2600 / 2600 1000 / 1000 Output Total 375 / 375 450 / 450 Balance 2225 / 2225 550 / 550 Intake: IV 2100 / 2100 1000 / 1000 NS Inj 1,000 ML @ 125 mls/hr IV 2000 / 2000 1000 / 1000 .CONT .Q8H [facility] Rx#:[id number] Zosyn 3.375 GM Premix 50 ML @ 100 / 100 100 mls/hr IV.SIG Q6H [facility] Rx#: [id number] Oral 500 / 500 Output: Urine 375 / 375 Urine Amount (Catheter) 450 / 450 Condom 450 / 450 Other: Date of Last Bowel Movement 12/31/17 12/31/17 # Bowel Movements 0 Narrative: Gen: NAD HEENT: Moist mucus membranes. EOMI Skin: Laceration to forehead covered; no active bleeding. Right hand with laceration; no bleeding. R 1st toe not inspected today Neuro: Awake, alert. Oriented to person and that he is in hospital; still does not know year. Normal peripheral motor/sensory function. Cranial nerves normal Cardiovascular-regular rate and rhythm; normal rate. Some mild increased LE edema Resp: borderline tachypnea; decreased breath sounds. On Venturi mask Abd: soft, nontender, normal BS Ext: Grossly normal ROM and motor function with symmetric weakness - Urinary Catheter Management Condom Cath placed during this visit: no Results - Labs CBC & Chem 7: 01/03/18 03:31 01/03/18 03:31 Laboratory Results - last 24 hr 01/02/18 01/02/18 01/02/18 11:19 11:19 11:35 WBC 8.9 RBC 3.47 L Hgb 9.9 L Hct 30.6 L MCV 88.2 MCH 28.5 MCHC 32.3 RDW 15.9 Plt Count 196 MPV 7.9 Neut % (Auto) 85.2 H Lymph % (Auto) 5.2 L [place] % (Auto) 6.4 Eos % (Auto) 2.7 Baso % (Auto) 0.5 Neut # (Auto) 7.6 Lymph # (Auto) 0.5 L [place] # (Auto) 0.6 Eos # (Auto) 0.2 Baso # (Auto) 0.0 WBC Differential . Differential Comment Auto diff final Puncture Site Patient Temperature VBG pH VBG pCO2 VBG pO2 VBG HCO3 VBG O2 Saturation VBG O2 Content VBG Base Excess VBG Carboxyhemoglobin VBG Methemoglobin Hemoglobin O2 Delivery Device Liter Flow Critical Value Sodium 140 Potassium 3.8 Chloride 100 Carbon Dioxide 33.9 H Anion Gap 6 BUN 49 H Creatinine 2.32 H Estimated GFR 28 L POC Glucose 190 H Random Glucose 168 H Calcium 8.5 Total Bilirubin 0.7 AST 28 ALT 29 Alkaline Phosphatase 70 B-Natriuretic Peptide Total Protein 6.3 L D Albumin 2.2 L Urine Eosinophils 01/02/18 01/02/18 01/02/18 14:35 17:47 21:40 WBC RBC Hgb Hct MCV MCH MCHC RDW Plt Count MPV Neut % (Auto) Lymph % (Auto) [place] % (Auto) Eos % (Auto) Baso % (Auto) Neut # (Auto) Lymph # (Auto) [place] # (Auto) Eos # (Auto) Baso # (Auto) WBC Differential Differential Comment Puncture Site Intravenous Patient Temperature 98.6 VBG pH 7.35 L VBG pCO2 62 H* VBG pO2 52 H VBG HCO3 33 H VBG O2 Saturation 81 H VBG O2 Content 11.2 VBG Base Excess 7.5 H VBG Carboxyhemoglobin 1.5 VBG Methemoglobin 1.4 Hemoglobin 9.8 L O2 Delivery Device Nasal cannula Liter Flow 4.00 Critical Value Yes Sodium Potassium Chloride Carbon Dioxide Anion Gap BUN Creatinine Estimated GFR POC Glucose 143 H 159 H Random Glucose Calcium Total Bilirubin AST ALT Alkaline Phosphatase B-Natriuretic Peptide Total Protein Albumin Urine Eosinophils 01/03/18 01/03/18 01/03/18 01:00 03:31 03:31 WBC 8.2 RBC 3.50 L Hgb 10.0 L Hct 31.0 L MCV 88.6 MCH 28.5 MCHC 32.1 RDW 16.1 Plt Count 200 MPV 8.2 Neut % (Auto) 80.8 H Lymph % (Auto) 7.4 L [place] % (Auto) 8.2 H Eos % (Auto) 3.1 Baso % (Auto) 0.5 Neut # (Auto) 6.6 Lymph # (Auto) 0.6 L [place] # (Auto) 0.7 Eos # (Auto) 0.3 Baso # (Auto) 0.0 WBC Differential . Differential Comment Auto diff final Puncture Site Patient Temperature VBG pH VBG pCO2 VBG pO2 VBG HCO3 VBG O2 Saturation VBG O2 Content VBG Base Excess VBG Carboxyhemoglobin VBG Methemoglobin Hemoglobin O2 Delivery Device Liter Flow Critical Value Sodium 141 Potassium 3.7 Chloride 101 Carbon Dioxide 33.3 H Anion Gap 7 BUN 56 H Creatinine 2.58 H Estimated GFR 24 L POC Glucose Random Glucose 115 H Calcium 8.3 L Total Bilirubin 0.5 AST 29 ALT 25 Alkaline Phosphatase 70 B-Natriuretic Peptide Total Protein 6.4 Albumin 2.2 L Urine Eosinophils None seen 01/03/18 01/03/18 01/03/18 03:31 04:21 08:14 WBC RBC Hgb Hct MCV MCH MCHC RDW Plt Count MPV Neut % (Auto) Lymph % (Auto) [place] % (Auto) Eos % (Auto) Baso % (Auto) Neut # (Auto) Lymph # (Auto) [place] # (Auto) Eos # (Auto) Baso # (Auto) WBC Differential Differential Comment Puncture Site Patient Temperature VBG pH VBG pCO2 VBG pO2 VBG HCO3 VBG O2 Saturation VBG O2 Content VBG Base Excess VBG Carboxyhemoglobin VBG Methemoglobin Hemoglobin O2 Delivery Device Liter Flow Critical Value Sodium Potassium Chloride Carbon Dioxide Anion Gap BUN Creatinine Estimated GFR POC Glucose 118 H 125 H Random Glucose Calcium Total Bilirubin AST ALT Alkaline Phosphatase B-Natriuretic Peptide 278 H Total Protein Albumin Urine Eosinophils - Imaging Impressions Carotid Doppler Study 01/02/18 20:25 CONCLUSION: Negative for hemodynamically significant carotid stenosis. Chest X-Ray 01/03/18 07:00 CONCLUSION: No significant change mild bibasilar consolidation and small left pleural effusion. Assessment and Plan - Assessment (1) PEA (Pulseless electrical activity) Code(s): I46.9 - Cardiac arrest, cause unspecified Status: Acute (2) Closed head injury Code(s): S09.90XA - Unspecified injury of head, initial encounter Status: Acute (3) Hypercarbia Code(s): R06.89 - Other abnormalities of breathing Status: Acute (4) Diabetes Code(s): E11.9 - Type 2 diabetes mellitus without complications Status: Acute (5) Concussion Code(s): S06.0X9A - Concussion with loss of consciousness of unspecified duration, initial encounter Status: Acute (6) CAD (coronary artery disease) Code(s): I25.10 - Atherosclerotic heart disease of [place] coronary artery without angina pectoris Status: Acute - Plan Mr. Sellers is a 77 yo M with: Trauma Impression: Mechanical fall resulting in head injury. Normal motor function peripherally Head CT- no acute intracranial abnormality Face CT- no acute fractures. 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 Multilevel spondylosis of Cspine most prominent at C4-5 and C5-[address]- negative T spine with contrast L spine CT- broad-based diffuse annular bulges at multiple levels. No evidence acute fracture, the posterior elements unremarkable. No subluxation or facet malalignment Chest CT- no acute trauma. concern for masslike airspace at L base- 5.9 x3.3 cm ; possible atelectasis w/ effusion vs possible malignancy, Outpatient f/u recommended. Ground glass consolidation at R middle lobe suggestive of possible aspiration. Prominent coronary calcifications A/P CT- left lung atelectasis, atherosclerosis Pelvic XR negative Hand XR negative -Continue IV Tylenol -PT consult Neuro Impression: Suspect concussion. Inability to remember year but otherwise oriented. GCS 14 at time of my initial exam; previously 3 in field. On home ASA/ Plavix 01/01- Normal neuro assessment with exception of not knowing year which is change from baseline 01/02- Improvement in memory of president; still oriented. Normal CN Imaging: Head CT negative on admission, Repeat Head CT ~12hrs after injury negative MRI brain- tiny cortical foci in high parietal lobes likely embolic in etiology. Scattered amyloid angiopathy. No midline shift. Moderate periventricular and subcortical white matter changes noted bilaterally \ Carotid US unremarkable -Will monitor neuro checks -Resumed oral intake after passed bedside swallow -Neurology consulted -possible contusion injury vs hypoxic causing MRI cortical lesions; embolic infarcts less likely -Post concussive hypoxic encephalopathy gradually improving -EEG pending -Resume antiplatelets -PT/OT/ST Cardiovascular PEA CAD s/p CABD PAD Impression: Reported PEA in field with ROSC after CPR. Unclear whether was true PEA since seems to have responded well Troponin 0.02-> 0.1-> 0.08. Lactic acid wnl EKGs reassuring -Continue Telemetry -Will continue home ASA, Plavix later today -Continue home BB, ARB -Continue home statin -Continue home Metolazone 2.5mg BID -Continue Bumex 2mg daily -Cardiology consulted Respiratory Impression: Suspect hypercarbia after encephalopathy per Neuro Lung imaging suggestive of effusions; possible aspiration in R middle lobe. Required simple mask in ED. Wears O2 at night; distant smoker Venous gas with CO2 73-> [address]- no acute trauma. concern for masslike airspace at L base- 5.9 x3.3 cm ; possible atelectasis w/ effusion vs possible malignancy, Outpatient f/u recommended. Ground glass consolidation at R middle lobe suggestive of possible aspiration. Prominent coronary calcifications BNP mildly elevated in 200's -Pulmonology consulted for evaluation -BIPAP for CO2 retention (unclear whether chronic; baseline not known) -Aim for sats ~low 90's to avoid retention Renal Impression: mild CKD at baseline; sees Dr. Foster as outpatient. Net input for several days (+900 ml 01/01, +675ml 01/02, +2775ml 01/03) Was on Zosyn but no urine eosinophils Cr: 1.42 on admission-> 1.39 -> 2.32 -> 2.58 -Nephrology consulted per Cardiology -Will decrease IVF to 75ml/hr (~1/2 maintenance; not eating much) -Will give 1gm Bumetanide daily -Will check renal US DM Impression: On home Levemir 24 U daily, Novolog 6U BID -Will give SS insulin while inpatient; will resume Levemir once stable intake GI Cardiac diet resumed -Continue home Pepcid for PPX Toe gangrene Impression: sees Dr. Aiken and Dr. Bustos as outpatient with planned surgical intervention next month -MRI foot- marrow edema in distal tuft great toe crossing DIP to proximal phalanx; normal signal in other toes and metatarsals DVT PPX -SCD's Heparin Code Status: Full code (2) Closed head injury Qualifiers: Encounter type: initial encounter Qualified Code(s): S09.90XA - Unspecified injury of head, initial encounter
--- NOTE | 2018-01-03 08:51 | P.PNCA ---
Subjective Interval history: Pt resting in bed, no changes overnight. Medications and Allergies Allergies Allergy/AdvReac Type Severity Reaction Status Date / Time acetaminophen [From [place]] Allergy Nausea/Vomi Verified 12/31/17 18:03 ting exenatide [From Bydureon] Allergy Nausea/Vomi Verified 12/31/17 18:03 ting fentanyl Allergy Nausea/Vomi Verified 12/31/17 18:03 ting hydrocodone [From [place]] Allergy Nausea/Vomi Verified 12/31/17 18:03 ting oxycodone [From Percocet] Allergy Nausea/Vomi Verified 12/31/17 18:03 ting Home Medications Medication Instructions Recorded Confirmed Type aspirin 81 mg PO DAILY 12/31/17 12/31/17 History bumetanide 2 mg PO DAILY 12/31/17 12/31/17 History carvedilol [Coreg] 12.5 mg PO BID 12/31/17 12/31/17 History citalopram 20 mg PO DAILY 12/31/17 12/31/17 History clopidogrel [Plavix] 75 mg PO DAILY 12/31/17 12/31/17 History insulin aspart U-100 [Novolog 5 unit SUB-Q DAILY 12/31/17 12/31/17 History U-100 Insulin aspart] insulin detemir U-100 [Levemir 25 unit SUB-Q QPM 12/31/17 12/31/17 History FlexTouch U-100 Insuln] losartan 25 mg PO DAILY 12/31/17 12/31/17 History ranitidine HCl 150 mg PO DAILY 12/31/17 12/31/17 History rosuvastatin [Crestor] 20 mg PO DAILY 12/31/17 12/31/17 History tamsulosin [Flomax] 0.4 mg PO DAILY 12/31/17 12/31/17 History Active Medications: Active Medications Acetaminophen (Tylenol) 650 mg PO Q4H PRN PRN Reason: Temp > 100.4 Last Admin: 01/01/18 21:09 Dose: 650 mg Albuterol (Duoneb Neb (Prn)) 1 ampul NEB Q4HR NEB PRN PRN Reason: SHORTNESS OF BREATH/WHEEZING Aspirin (Aspirin Chew) 81 mg PO DAILY [facility] Last Admin: 01/03/18 08:15 Dose: 81 mg Atorvastatin Calcium (Lipitor) 40 mg PO DAILY [facility] Last Admin: 01/03/18 08:16 Dose: 40 mg Bumetanide (Bumex) 2 mg PO DAILY [facility] Last Admin: 01/02/18 09:04 Dose: 2 mg Carvedilol (Coreg) 12.5 mg PO BID [facility] Last Admin: 01/03/18 08:15 Dose: 12.5 mg Citalopram Hydrobromide (Celexa) 20 mg PO DAILY [facility] Last Admin: 01/03/18 08:15 Dose: 20 mg Clopidogrel Bisulfate (Plavix) 75 mg PO DAILY [facility] Last Admin: 01/03/18 08:16 Dose: 75 mg Dextrose (D50w Vial) 50 ml IV.PUSH UNSCH PRN PRN Reason: PER HYPOGLYCEMIA PROTOCOL Enalaprilat (Vasotec Inj) 1.25 mg IV.PUSH Q8H PRN PRN Reason: Sbp>170, Dbp>90 Last Admin: 01/01/18 04:11 Dose: 1.25 mg Famotidine (Pepcid) 20 mg PO DAILY [facility] Last Admin: 01/03/18 08:16 Dose: 20 mg Fluticasone Propionate (Flonase Nasal [place]) 2 spray NASAL DAILY [facility] Last Admin: 01/03/18 08:16 Dose: 2 spray Glucagon (Glucagon Inj) 1 mg OTHER PRN PRN PRN Reason: for Hypoglycemia Protocol Heparin Sodium (Porcine) (Heparin Inj) 5,000 units SQ Q12HR [facility] Last Admin: 01/03/18 08:16 Dose: 5,000 units Piperacillin/Tazobactam/Dextrose (Zosyn 3.375 Gm Premix) 50 mls @ 100 mls/hr IV.SIG Q6H [facility] Last Infusion: 01/02/18 16:57 Dose: Infused Sodium Chloride (Ns Inj) 1,000 mls @ 75 mls/hr IV.CONT .[id number] [facility] Last Admin: 01/03/18 02:30 Dose: 125 mls/hr Sodium Chloride (Ns Inj) 500 mls @ 0 mls/hr IV.SIG BOLUS [facility] Insulin Aspart (Novolog Insulin Correctional Sugar Inj) 0 unit SQ ACHS AND 3AM [facility]; Protocol Last Admin: 01/03/18 08:15 Dose: Not Given Lorazepam (Ativan) 0.5 mg PO Q12H PRN PRN Reason: SEVERE ANXIETY OR AGITATION Last Admin: 01/02/18 22:52 Dose: 0.5 mg Losartan Potassium (Cozaar) 25 mg PO DAILY [facility] Last Admin: 01/03/18 08:15 Dose: 25 mg Ondansetron HCl (Zofran Inj) 4 mg IV.PUSH Q6H PRN PRN Reason: NAUSEA OR VOMITING Senna/Docusate Sodium ([place]-Colace) 1 tab PO BID [facility] Last Admin: 01/03/18 08:16 Dose: 1 tab Sodium Chloride ([place] Nasal [place]) 2 spray EACH NARE Q4H PRN PRN Reason: dry nose Tamsulosin HCl (Flomax) 0.4 mg PO DAILY [facility] Last Admin: 01/03/18 08:15 Dose: 0.4 mg Physical Exam Vital signs: Vital Signs 01/02/18 09:00 01/02/18 12:00 01/02/18 16:00 Temperature 97.8 F 98.3 F Pulse Rate 76 66 64 Respiratory Rate 23 19 Blood Pressure 140/63 131/60 Pulse Oximetry 95 01/02/18 20:00 01/02/18 21:00 01/02/18 21:28 Temperature 98.3 F Pulse Rate 72 Respiratory Rate 31 H Blood Pressure 175/72 H Pulse Oximetry 97 98 95 01/03/18 00:00 01/03/18 04:00 01/03/18 07:31 Temperature 98.1 F 98.5 F Pulse Rate 66 66 Respiratory Rate 21 18 Blood Pressure 135/63 145/65 H Pulse Oximetry 97 98 98 01/03/18 08:00 Temperature 98.5 F Pulse Rate 79 Respiratory Rate 25 H Blood Pressure 157/67 H Pulse Oximetry 90 L Intake & Output 01/02/18 01/03/18 01/03/18 18:59 06:59 18:59 Intake Total 2600 / 2600 1000 / 1000 Output Total 375 / 375 450 / 450 Balance 2225 / 2225 550 / 550 Intake: IV 2099 / 2099 1000 / 1000 NS Inj 1,000 ML @ 125 mls/hr IV 2000 / 2000 1000 / 1000 .CONT .Q8H [facility] Rx#:[id number] Zosyn 3.375 GM Premix 50 ML @ 100 / 100 100 mls/hr IV.SIG Q6H [facility] Rx#: [id number] Oral 500 / 500 Output: Urine 375 / 375 Urine Amount (Catheter) 450 / 450 Condom 450 / 450 Other: Date of Last Bowel Movement 12/31/17 12/31/17 # Bowel Movements 0 - Constitutional no acute distress - Routine HEENT Exam Head: Present: abrasion, laceration, hematoma, facial swelling Eye: Present: PERRL, normal accommodation ENT: Present: mucous membranes moist - Routine Neck Exam Present: supple - Routine Respiratory Exam Present: diminished air movement - Routine Cardiovascular Exam Present: RRR - Routine Abdominal Exam Present: soft Comments: obese - Routine Extremities Exam Present: amputation Comments: prior partial big toe amputation, dressing in place. - Routine Skin Exam Present: wounds - Routine Neurological Exam Present: alert - Detailed Neurological Exam: Coma Scale Eye Opening: Spontaneous Verbal Response: Oriented Motor Response: Obey commands Maria E Coma Scale Total: 15 - Routine Psychiatric Exam Present: normal affect - Urinary Catheter Management Condom Cath placed during this visit: no Results 01/03/18 03:31 01/03/18 03:31 Cardiac Enzymes 01/02/18 01/03/18 01/03/18 Range/Units 11:19 03:31 03:31 AST 28 29 (15-37) U/L B-Natriuretic Peptide 278 H (0-100) pg/mL Coagulation 01/03/18 Range/Units 03:31 B-Natriuretic Peptide 278 H (0-100) pg/mL CBC 01/02/18 01/03/18 Range/Units 11:19 03:31 WBC 8.9 8.2 (4.0-11.0) th/mm3 RBC 3.47 L 3.50 L (4.50-5.90) mil/mm3 Hgb 9.9 L 10.0 L (13.0-17.0) gm/dL Hct 30.6 L 31.0 L (39.0-51.0) % Plt Count 196 200 (150-450) th/mm3 Neut # (Auto) 7.6 6.6 (1.8-7.7) th/mm3 Lymph # (Auto) 0.5 L 0.6 L (1.0-4.8) th/mm3 [place] # (Auto) 0.6 0.7 (0.0-0.9) th/mm3 Eos # (Auto) 0.2 0.3 (0.0-0.4) th/mm3 Baso # (Auto) 0.0 0.0 (0.0-0.2) th/mm3 Comprehensive Metabolic Panel 01/02/18 01/03/18 Range/Units 11:19 03:31 Sodium 140 141 (136-145) meq/L Potassium 3.8 3.7 (3.5-5.1) meq/L Chloride 100 101 (98-107) meq/L Carbon Dioxide 33.9 H 33.3 H (21.0-32.0) meq/L BUN 49 H 56 H (7-18) mg/dL Creatinine 2.32 H 2.58 H (0.60-1.30) mg/dL Calcium 8.5 8.3 L (8.5-10.1) mg/dL AST 28 29 (15-37) U/L ALT 29 25 (12-78) U/L Alkaline Phosphatase 70 70 (45-117) U/L Total Protein 6.3 L D 6.4 (6.4-8.2) g/dL Albumin 2.2 L 2.2 L (3.4-5.0) g/dL Intake and Output 01/02/18 01/03/18 01/03/18 22:59 06:59 14:59 Intake Total 1550 / 1550 1000 / 1000 Output Total 375 / 375 450 / 450 Balance 1175 / 1175 550 / 550 Intake: IV 1050 / 1050 1000 / 1000 NS Inj 1,000 ML @ 125 mls/hr IV 1000 / 1000 1000 / 1000 .CONT .Q8H [facility] Rx#:[id number] Zosyn 3.375 GM Premix 50 ML @ 50 / 50 100 mls/hr IV.SIG Q6H [facility] Rx#: [id number] Oral 500 / 500 Output: Urine 375 / 375 Urine Amount (Catheter) 450 / 450 Condom 450 / 450 Other: Date of Last Bowel Movement 12/31/17 12/31/17 # Bowel Movements 0 - Imaging and Cardiology Imaging: Impressions Extremity Arterial Study 01/01/18 00:00 CONCLUSION: 1. Very limited examination with unobtainable ankle-brachial indices bilaterally. 2. There is moderately decreased toe brachial indices on the left. 3. Consider CTA examination if there is continued clinical concern. Foot MRI 01/01/18 00:00 CONCLUSION: 1. Foot X-Ray 01/01/18 00:00 CONCLUSION: Extensive digital artery calcifications. Inflammatory process cannot be excluded. Displaced fracture is not evident. Head MRI 01/01/18 00:00 CONCLUSION: 1. Tiny scattered cortical foci are noted within the high parietal lobes on the diffusion-weighted images suggesting tiny acute cortical infarcts likely embolic in etiology. Clinical correlation is recommended. 2. Scattered focal signal in relation noted on the SWI images suggestive of scattered amyloid angiopathy. 3. No midline shift or extra-axial bleed is noted. 4. Mild diffuse cerebral atrophy is noted. 5. Moderate periventricular and subcortical white matter small vessel ischemic changes are noted bilaterally. Carotid Doppler Study 01/02/18 20:25 CONCLUSION: Negative for hemodynamically significant carotid stenosis. Chest X-Ray 01/03/18 07:00 CONCLUSION: No significant change mild bibasilar consolidation and small left pleural effusion. Assessment and Plan - Plan Assessment Status post PEA arrest. Mild encephalopathy ASHD, [place], hx of CABG. CHF PAD-partial toe amputation. DM HTN CKD Plan -CPR initiated in the filed. Patient doing well cardiac nicole. Continue to monitor the patient in the ICU. CT with no evidence of intracranial hemorrhage. -MRI shows possible tiny high cortical infarct-on plavix. Mild post concussion/ hypoxic encephalopathy-improving. Neurology following. -History of ASHD, followed by Dr. Ferraro. Denies chest pain. -Pending addition surgery for right hallux amputation-dressing in place. -BP elevated this AM, will add amlodipine and continue to monitor. -Creatinine elevated this AM 2.58. Will consult nephrology to evaluate further. Dr. Ding or Dr. Ferraro will see patient tomorrow. The patient will follow up with Dr. Ferraro in his office after discharge. The patient was seen and evaluated by Dr. Lin who participated in care, management and decision-making. The exam, history, and the medical decision-making described in the above note were completed with the assistance of the mid-level provider. I reviewed and agree with the findings presented. I attest that I had a [id number] encounter with the patient on the same day, and personally performed and documented my assessment and findings in the medical record. Improvement slow Dr Petit will see in am. Code Status: Full Code
--- NOTE | 2018-01-03 09:31 | P.CONNP ---
History of Present Illness Service: Nephrology Reason for Consult: Acute on chronic kidney disease Primary Care Provider: UNKNOWN Chief Complaint: trauma, PEA, head injury History of Present Illness: Mr. Sellers is a 77 year old male with history of CAD, s/p CABG, PAD who was admitted on the of this month after suffering a fall at home as a result of which he suffered closed head injury. A diagnosis of contusion has been made. Patient's called neighbors, who started CPR. It is possible that patient suffered PEA arrest. Patient was successfully resuscitated. He underwent several CT scans on the with IV contrast: 80 ml of iodinated contrast given. Patient's creatinine was 1.42 on arrival, increased to 2.32 on , it is now 2.58. No significant drop in BP, but BP has fluctuated. He has received IVF since admission, is positive approximately about 6 liters since admission. Patient's UA is unremarkable. He is oriented to place, person. Knows his birthday. Could not remember the year , although he was able to tell me we are in the 9 month. Has amnesia for the events that happened at home. Review of Systems Constitutional: Reports body ache(s), Reports weight gain, Denies chills Eyes: Denies blind spots, Denies blurry vision Cardiovascular: Denies chest pain, Denies chest pain at rest Gastrointestinal: Denies abdominal pain, Denies black, tarry stools Genitourinary: Denies blood in urine PMFSH - History History Provided By: Significant Other - Medical History Medical History: Medical History (Last Reviewed 01/01/18 @ 14:42 by Aileen Springer) Fall with injury (Acute) Concussion (Acute) CAD (coronary artery disease) (Acute) Amputated toe of left foot BPH (benign prostatic hyperplasia) CHF (congestive heart failure) CKD (chronic kidney disease) Chronic low back pain Diabetes GERD (gastroesophageal reflux disease) Hypercholesteremia Hypertension PAD (peripheral artery disease) Rotator cuff arthropathy of right shoulder - Surgical History Surgical History: Surgical History (Last Reviewed 01/01/18 @ 14:42 by Aileen Springer) H/O endarterectomy H/O removal of cyst H/O vascular surgery Hx of CABG S/P vascular bypass - Family History Family History: Family History (Last Updated 01/01/18 @ 13:45 by RIKKI Pfeiffer) Mother Myocardial infarct Father Diabetes Grandparent Diabetes - Tobacco History Second Hand Smoke Exposure: No Tobacco Use In Past 30 Days: No Smoking Status: Former smoker Tobacco Type: Cigarettes (smoked briefly in the 1970's) - Alcohol History How Often Do You Have a Drink Containing Alcohol: Never - Substance Use History Substance History: No History of Abuse - Travel History History of Recent Travel: No Recent Travel in the [place] Within the Last 8 Weeks: No Recent Travel Out of the Country Within the Last 8 Weeks: No - Immunization History Tetanus Immunization: Unsure Hx Influenza Vaccine This Season: No Medications and Allergies Active Medications: Active Medications Acetaminophen (Tylenol) 650 mg PO Q4H PRN PRN Reason: Temp > 100.4 Last Admin: 01/01/18 21:09 Dose: 650 mg Albuterol (Duoneb Neb (Prn)) 1 ampul NEB Q4HR NEB PRN PRN Reason: SHORTNESS OF BREATH/WHEEZING Amlodipine Besylate (Norvasc) 5 mg PO DAILY [facility] Aspirin (Aspirin Chew) 81 mg PO DAILY [facility] Last Admin: 01/03/18 08:15 Dose: 81 mg Atorvastatin Calcium (Lipitor) 40 mg PO DAILY [facility] Last Admin: 01/03/18 08:16 Dose: 40 mg Bumetanide (Bumex) 1 mg PO DAILY [facility] Carvedilol (Coreg) 12.5 mg PO BID [facility] Last Admin: 01/03/18 08:15 Dose: 12.5 mg Citalopram Hydrobromide (Celexa) 20 mg PO DAILY [facility] Last Admin: 01/03/18 08:15 Dose: 20 mg Clopidogrel Bisulfate (Plavix) 75 mg PO DAILY [facility] Last Admin: 01/03/18 08:16 Dose: 75 mg Dextrose (D50w Vial) 50 ml IV.PUSH UNSCH PRN PRN Reason: PER HYPOGLYCEMIA PROTOCOL Enalaprilat (Vasotec Inj) 1.25 mg IV.PUSH Q8H PRN PRN Reason: Sbp>170, Dbp>90 Last Admin: 01/01/18 04:11 Dose: 1.25 mg Famotidine (Pepcid) 20 mg PO DAILY [facility] Last Admin: 01/03/18 08:16 Dose: 20 mg Fluticasone Propionate (Flonase Nasal [place]) 2 spray NASAL DAILY [facility] Last Admin: 01/03/18 08:16 Dose: 2 spray Glucagon (Glucagon Inj) 1 mg OTHER PRN PRN PRN Reason: for Hypoglycemia Protocol Heparin Sodium (Porcine) (Heparin Inj) 5,000 units SQ Q12HR [facility] Last Admin: 01/03/18 08:16 Dose: 5,000 units Piperacillin/Tazobactam/Dextrose (Zosyn 3.375 Gm Premix) 50 mls @ 100 mls/hr IV.SIG Q6H [facility] Last Infusion: 01/02/18 16:57 Dose: Infused Sodium Chloride (Ns Inj) 1,000 mls @ 75 mls/hr IV.CONT .[id number] [facility] Last Admin: 01/03/18 02:30 Dose: 125 mls/hr Sodium Chloride (Ns Inj) 500 mls @ 0 mls/hr IV.SIG BOLUS [facility] Insulin Aspart (Novolog Insulin Correctional Sugar Inj) 0 unit SQ ACHS AND 3AM [facility]; Protocol Last Admin: 01/03/18 08:15 Dose: Not Given Lorazepam (Ativan) 0.5 mg PO Q12H PRN PRN Reason: SEVERE ANXIETY OR AGITATION Last Admin: 01/02/18 22:52 Dose: 0.5 mg Losartan Potassium (Cozaar) 25 mg PO DAILY [facility] Last Admin: 01/03/18 08:15 Dose: 25 mg Ondansetron HCl (Zofran Inj) 4 mg IV.PUSH Q6H PRN PRN Reason: NAUSEA OR VOMITING Senna/Docusate Sodium ([place]-Colace) 1 tab PO BID [facility] Last Admin: 01/03/18 08:16 Dose: 1 tab Sodium Chloride ([place] Nasal [place]) 2 spray EACH NARE Q4H PRN PRN Reason: dry nose Tamsulosin HCl (Flomax) 0.4 mg PO DAILY [facility] Last Admin: 01/03/18 08:15 Dose: 0.4 mg Allergies Allergy/AdvReac Type Severity Reaction Status Date / Time acetaminophen [From [place]] Allergy Nausea/Vomi Verified 12/31/17 18:03 ting exenatide [From Bydureon] Allergy Nausea/Vomi Verified 12/31/17 18:03 ting fentanyl Allergy Nausea/Vomi Verified 12/31/17 18:03 ting hydrocodone [From [place]] Allergy Nausea/Vomi Verified 12/31/17 18:03 ting oxycodone [From Percocet] Allergy Nausea/Vomi Verified 12/31/17 18:03 ting Home Medications Medication Instructions Recorded Confirmed Type aspirin 81 mg PO DAILY 12/31/17 12/31/17 History bumetanide 2 mg PO DAILY 12/31/17 12/31/17 History carvedilol [Coreg] 12.5 mg PO BID 12/31/17 12/31/17 History citalopram 20 mg PO DAILY 12/31/17 12/31/17 History clopidogrel [Plavix] 75 mg PO DAILY 12/31/17 12/31/17 History insulin aspart U-100 [Novolog 5 unit SUB-Q DAILY 12/31/17 12/31/17 History U-100 Insulin aspart] insulin detemir U-100 [Levemir 25 unit SUB-Q QPM 12/31/17 12/31/17 History FlexTouch U-100 Insuln] losartan 25 mg PO DAILY 12/31/17 12/31/17 History ranitidine HCl 150 mg PO DAILY 12/31/17 12/31/17 History rosuvastatin [Crestor] 20 mg PO DAILY 12/31/17 12/31/17 History tamsulosin [Flomax] 0.4 mg PO DAILY 12/31/17 12/31/17 History Exam Vital signs: Vital Signs 01/02/18 12:00 01/02/18 16:00 01/02/18 20:00 Temperature 97.8 F 98.3 F 98.3 F Pulse Rate 66 64 72 Respiratory Rate 23 19 31 H Blood Pressure 140/63 131/60 175/72 H Pulse Oximetry 95 97 01/02/18 21:00 01/02/18 21:28 01/03/18 00:00 Temperature 98.1 F Pulse Rate 66 Respiratory Rate 21 Blood Pressure 135/63 Pulse Oximetry 98 95 97 01/03/18 04:00 01/03/18 07:31 01/03/18 08:00 Temperature 98.5 F 98.5 F Pulse Rate 66 79 Respiratory Rate 18 25 H Blood Pressure 145/65 H 157/67 H Pulse Oximetry 98 98 92 L Intake & Output 01/02/18 01/03/18 01/03/18 18:59 06:59 18:59 Intake Total 2600 / 2600 1000 / 1000 Output Total 375 / 375 450 / 450 Balance 2225 / 2225 550 / 550 Intake: IV 2100 / 2100 1000 / 1000 NS Inj 1,000 ML @ 125 mls/hr IV 2000 / 2000 1000 / 1000 .CONT .Q8H [facility] Rx#:[id number] Zosyn 3.375 GM Premix 50 ML @ 100 / 100 100 mls/hr IV.SIG Q6H [facility] Rx#: [id number] Oral 500 / 500 Output: Urine 375 / 375 Urine Amount (Catheter) 450 / 450 Condom 450 / 450 Other: Date of Last Bowel Movement 12/31/17 12/31/17 12/31/17 # Bowel Movements 0 Narrative: patient is lethargic, elderly. Neck: scar of previous CEA No JVD. No thyromegaly. Heart: RRR, no rub, no murmur. Chest: crackles bilaterally. Abdomen: distended, soft, non tender. Extremities: patient demonstrates generalized edema, both upper and lower extremity swelling, anasarca. Results - Lab Results 01/03/18 03:31 01/03/18 03:31 Most recent lab results Calcium 8.3 mg/dL (8.5-10.1) L 01/03/18 03:31 Assessment and Plan - Assessment (1) Acute kidney injury Code(s): N17.9 - Acute kidney failure, unspecified Status: Acute Plan: patient received IV contrast on the , and therefor could have developed contrast nephropathy. Likely has ATN. Patient demonstrates massive fluid overload. I will stop IVF at this time. Start Bumex 2 mg IV Q 8 hours. Avoid nephrotoxic agents. Obtain renal US. Monitor urine output and renal function. Apparently has underlying stage III CKD. He has followed with Dr. Foster. (2) Diabetes Code(s): E11.9 - Type 2 diabetes mellitus without complications Status: Acute Plan: insulin coverage to maintain blood glucose between 140 and 180. (3) Concussion Code(s): S06.0X9A - Concussion with loss of consciousness of unspecified duration, initial encounter Status: Acute Plan: Neurology following, improving. (4) CAD (coronary artery disease) Code(s): I25.10 - Atherosclerotic heart disease of [place] coronary artery without angina pectoris Status: Acute
--- NOTE | 2018-01-03 09:58 | MG ---
cc: Fabian Frazier MD EEG RECORD NUMBER: [id number] [place] activity of 4-6 Hz,10-30 microvolts, followed by delta intrusion with periods of drowsy state. Tiny vertex waves suggestive of stage I sleep. Occasional frontal myogenic artifact. Tiny sharp transient T6, EPOC 16. There is driving with photic stimulation. Single lead EKG showing sinus rhythm with premature contractions. INTERPRETATION: Mild encephalopathy in sleep state. Clinical correlation. MD ALEXIS Rea/viola , 08:19 AM , 08:23 AM
--- NOTE | 2018-01-03 10:13 | US ---
EXAM DATE: 01/03/2018 9:53 AM EDT AGE/SEX: 77 years / Male INDICATIONS: Increased BUN/creatinine. CLINICAL DATA: This is the patient's initial encounter. Patient reports that signs and symptoms have been present for 1 day and indicates a pain score of 0/10. MEDICAL/SURGICAL HISTORY: Hypercholesterolemia. BPH. Coronary artery disease. CHF. CKD. Diabete s. GERD. HTN. Peripheral artery disease. Right rotator cuff arthropathy. . Left toe amputation. End arterectomy. Cyst removal. Vascular surgery. CABG. Vascular bypass. COMPARISON: [facility] [place]BDOMEN & PELVIS W CONTRAST, 12/31/2017. . MEASUREMENTS: Right Kidney:__. Not visualized. Left Kidney:__9.8 x 4.4 x 5.4 cm FINDINGS: Severely limited by body habitus. Right Kidney: Not visualized. Left Kidney: Increased echotexture. No mass or hydronephrosis. Bladder: Within normal limits given the degree of distension. . CONCLUSION: 1. Severely limited by body habitus 2. No gross hydronephrosis. DTPA renogram may help. Kidneys are grossly unremarkable on CT of 018. Electronically signed by: Clark Michaud MD 01/03/2018 10:11 AM EDT
[2018-01-03] MEDS: amLODIPine 5 MG Tablet PO SCH (10:14)
--- NOTE | 2018-01-03 12:59 | P.PNNEU ---
Subjective Subjective Comments: no cp, no dyspnea, no vieyra, no focal weakness, no vision loss Active Medications: Active Medications Acetaminophen (Tylenol) 650 mg PO Q4H PRN PRN Reason: Temp > 100.4 Last Admin: 01/01/18 21:09 Dose: 650 mg Albuterol (Duoneb Neb (Prn)) 1 ampul NEB Q4HR NEB PRN PRN Reason: SHORTNESS OF BREATH/WHEEZING Amlodipine Besylate (Norvasc) 5 mg PO DAILY [facility] Last Admin: 01/03/18 10:14 Dose: 5 mg Aspirin (Aspirin Chew) 81 mg PO DAILY [facility] Last Admin: 01/03/18 08:15 Dose: 81 mg Atorvastatin Calcium (Lipitor) 40 mg PO DAILY [facility] Last Admin: 01/03/18 08:16 Dose: 40 mg Bumetanide (Bumex) 1 mg PO DAILY [facility] Bumetanide (Bumex Inj) 2 mg IV.PUSH Q8H [facility] Carvedilol (Coreg) 12.5 mg PO BID [facility] Last Admin: 01/03/18 08:15 Dose: 12.5 mg Citalopram Hydrobromide (Celexa) 20 mg PO DAILY [facility] Last Admin: 01/03/18 08:15 Dose: 20 mg Clopidogrel Bisulfate (Plavix) 75 mg PO DAILY [facility] Last Admin: 01/03/18 08:16 Dose: 75 mg Dextrose (D50w Vial) 50 ml IV.PUSH UNSCH PRN PRN Reason: PER HYPOGLYCEMIA PROTOCOL Enalaprilat (Vasotec Inj) 1.25 mg IV.PUSH Q8H PRN PRN Reason: Sbp>170, Dbp>90 Last Admin: 01/01/18 04:11 Dose: 1.25 mg Famotidine (Pepcid) 20 mg PO DAILY [facility] Last Admin: 01/03/18 08:16 Dose: 20 mg Fluticasone Propionate (Flonase Nasal [place]) 2 spray NASAL DAILY [facility] Last Admin: 01/03/18 08:16 Dose: 2 spray Glucagon (Glucagon Inj) 1 mg OTHER PRN PRN PRN Reason: for Hypoglycemia Protocol Heparin Sodium (Porcine) (Heparin Inj) 5,000 units SQ Q12HR [facility] Last Admin: 01/03/18 08:16 Dose: 5,000 units Piperacillin/Tazobactam/Dextrose (Zosyn 3.375 Gm Premix) 50 mls @ 100 mls/hr IV.SIG Q6H [facility] Last Infusion: 01/02/18 16:57 Dose: Infused Sodium Chloride (Ns Inj) 500 mls @ 0 mls/hr IV.SIG BOLUS [facility] Insulin Aspart (Novolog Insulin [place] Inj) 0 unit SQ ACHS AND 3AM LISSETH; Protocol Last Admin: 01/03/18 08:15 Dose: Not Given Lorazepam (Ativan) 0.5 mg PO Q12H PRN PRN Reason: SEVERE ANXIETY OR AGITATION Last Admin: 01/02/18 22:52 Dose: 0.5 mg Losartan Potassium (Cozaar) 25 mg PO DAILY [facility] Last Admin: 01/03/18 08:15 Dose: 25 mg Ondansetron HCl (Zofran Inj) 4 mg IV.PUSH Q6H PRN PRN Reason: NAUSEA OR VOMITING Senna/Docusate Sodium ([place]-Colace) 1 tab PO BID [facility] Last Admin: 01/03/18 08:16 Dose: 1 tab Sodium Chloride (Tift Nasal [place]) 2 spray EACH NARE Q4H PRN PRN Reason: dry nose Tamsulosin HCl (Flomax) 0.4 mg PO DAILY [facility] Last Admin: 01/03/18 08:15 Dose: 0.4 mg Allergies/Adverse Reactions: Allergies Allergy/AdvReac Type Severity Reaction Status Date / Time acetaminophen [From [place]] Allergy Nausea/Vomi Verified 12/31/17 18:03 ting exenatide [From Bydureon] Allergy Nausea/Vomi Verified 12/31/17 18:03 ting fentanyl Allergy Nausea/Vomi Verified 12/31/17 18:03 ting hydrocodone [From [place]] Allergy Nausea/Vomi Verified 12/31/17 18:03 ting oxycodone [From Percocet] Allergy Nausea/Vomi Verified 12/31/17 18:03 ting Review of Systems All other systems reviewed negative except as stated in HPI Physical Exam Vital signs: Vital Signs 01/02/18 16:00 01/02/18 20:00 01/02/18 21:00 Temperature 98.3 F 98.3 F Pulse Rate 64 72 Respiratory Rate 19 31 H Blood Pressure 131/60 175/72 H Pulse Oximetry 97 98 01/02/18 21:28 01/03/18 00:00 01/03/18 04:00 Temperature 98.1 F 98.5 F Pulse Rate 66 66 Respiratory Rate 21 18 Blood Pressure 135/63 145/65 H Pulse Oximetry 95 97 98 01/03/18 07:31 01/03/18 08:00 01/03/18 09:00 Temperature 98.5 F Pulse Rate 79 70 Respiratory Rate 25 H Blood Pressure 157/67 H Pulse Oximetry 98 92 L Intake & Output 01/02/18 01/03/18 01/03/18 18:59 06:59 18:59 Intake Total 2600 / 2600 1000 / 1000 1000 / 1000 Output Total 375 / 375 450 / 450 Balance 2225 / 2225 550 / 550 1000 / 1000 Intake: IV 2100 / 2100 1000 / 1000 1000 / 1000 NS Inj 1,000 ML @ 75 mls/hr IV. 1999 / 1999 1000 / 1000 1000 / 1000 CONT .[id number] LISSET[facility] Rx#:[id number] Zosyn 3.375 GM Premix 50 ML @ 100 / 100 100 mls/hr IV.SIG Q6H L[facility] Rx#: [id number] Oral 500 / 500 Output: Urine 375 / 375 Urine Amount (Catheter) 450 / 450 Condom 450 / 450 Other: Date of Last Bowel Movement 12/31/17 12/31/17 12/31/17 # Bowel Movements 0 Narrative: GENERAL: in NAD, SKIN: Warm and dry. HEAD: Bruises, mild raccoons eyes EYES: Pupils equal and round. No scleral icterus. ENT: No nasal bleeding or discharge. Mucous membranes pink and moist. NECK: Trachea midline. No JVD. CARDIOVASCULAR: Regular rate and rhythm. RESPIRATORY: No accessory muscle use. Clear to auscultation. Breath sounds equal bilaterally. GASTROINTESTINAL: Abdomen soft, non-tender, nondistended. MUSCULOSKELETAL: Right great toe purplish mottled white states chronic NEUROLOGICAL: Awake and alert. Oriented x 2, not to date, follows pleasant no aphasia, fluent articulate, No facial asymmetry, OU 3-2mm, eomi, VFF, No drift, Motor grossly within normal limits. bilateral distal foot weakness 3-4 out of 5 dorsiflexion in addition to reduced range of motion with bilateral arm abduction above the shoulders which is chronic suspected rotator cuff. Tone normal in all 4 limbs, reduce pinprick lower extremities, msr 1-2+ sym, no clonus, planterflexor, gait not assessed secondary fall risk PSYCHIATRIC: Appropriate mood and affect; - Constitutional no acute distress - Routine HEENT Exam Head: Present: normocephalic Eye: Present: EOMI - Urinary Catheter Management Condom Cath placed during this visit: no Objective Laboratory Results - last 24 hr 01/02/18 01/02/18 01/02/18 14:35 17:47 21:40 WBC RBC Hgb Hct MCV MCH MCHC RDW Plt Count MPV Neut % (Auto) Lymph % (Auto) [place] % (Auto) Eos % (Auto) Baso % (Auto) Neut # (Auto) Lymph # (Auto) [place] # (Auto) Eos # (Auto) Baso # (Auto) WBC Differential Differential Comment Puncture Site Intravenous Patient Temperature 98.6 VBG pH 7.35 L VBG pCO2 62 H* VBG pO2 52 H VBG HCO3 33 H VBG O2 Saturation 81 H VBG O2 Content 11.2 VBG Base Excess 7.5 H VBG Carboxyhemoglobin 1.5 VBG Methemoglobin 1.4 Hemoglobin 9.8 L O2 Delivery Device Nasal cannula Liter Flow 4.00 Critical Value Yes Sodium Potassium Chloride Carbon Dioxide Anion Gap BUN Creatinine Estimated GFR POC Glucose 143 H 159 H Random Glucose Calcium Total Bilirubin AST ALT Alkaline Phosphatase B-Natriuretic Peptide Total Protein Albumin Urine Eosinophils 01/03/18 01/03/18 01/03/18 01:00 03:31 03:31 WBC 8.2 RBC 3.50 L Hgb 10.0 L Hct 31.0 L MCV 88.6 MCH 28.5 MCHC 32.1 RDW 16.1 Plt Count 200 MPV 8.2 Neut % (Auto) 80.8 H Lymph % (Auto) 7.4 L [place] % (Auto) 8.2 H Eos % (Auto) 3.1 Baso % (Auto) 0.5 Neut # (Auto) 6.6 Lymph # (Auto) 0.6 L [place] # (Auto) 0.7 Eos # (Auto) 0.3 Baso # (Auto) 0.0 WBC Differential . Differential Comment Auto diff final Puncture Site Patient Temperature VBG pH VBG pCO2 VBG pO2 VBG HCO3 VBG O2 Saturation VBG O2 Content VBG Base Excess VBG Carboxyhemoglobin VBG Methemoglobin Hemoglobin O2 Delivery Device Liter Flow Critical Value Sodium 141 Potassium 3.7 Chloride 101 Carbon Dioxide 33.3 H Anion Gap 7 BUN 56 H Creatinine 2.58 H Estimated GFR 24 L POC Glucose Random Glucose 115 H Calcium 8.3 L Total Bilirubin 0.5 AST 29 ALT 25 Alkaline Phosphatase 70 B-Natriuretic Peptide Total Protein 6.4 Albumin 2.2 L Urine Eosinophils None seen 01/03/18 01/03/18 01/03/18 03:31 04:21 08:14 WBC RBC Hgb Hct MCV MCH MCHC RDW Plt Count MPV Neut % (Auto) Lymph % (Auto) [place] % (Auto) Eos % (Auto) Baso % (Auto) Neut # (Auto) Lymph # (Auto) [place] # (Auto) Eos # (Auto) Baso # (Auto) WBC Differential Differential Comment Puncture Site Patient Temperature VBG pH VBG pCO2 VBG pO2 VBG HCO3 VBG O2 Saturation VBG O2 Content VBG Base Excess VBG Carboxyhemoglobin VBG Methemoglobin Hemoglobin O2 Delivery Device Liter Flow Critical Value Sodium Potassium Chloride Carbon Dioxide Anion Gap BUN Creatinine Estimated GFR POC Glucose 118 H 125 H Random Glucose Calcium Total Bilirubin AST ALT Alkaline Phosphatase B-Natriuretic Peptide 278 H Total Protein Albumin Urine Eosinophils 01/03/18 11:51 WBC RBC Hgb Hct MCV MCH MCHC RDW Plt Count MPV Neut % (Auto) Lymph % (Auto) [place] % (Auto) Eos % (Auto) Baso % (Auto) Neut # (Auto) Lymph # (Auto) [place] # (Auto) Eos # (Auto) Baso # (Auto) WBC Differential Differential Comment Puncture Site Patient Temperature VBG pH VBG pCO2 VBG pO2 VBG HCO3 VBG O2 Saturation VBG O2 Content VBG Base Excess VBG Carboxyhemoglobin VBG Methemoglobin Hemoglobin O2 Delivery Device Liter Flow Critical Value Sodium Potassium Chloride Carbon Dioxide Anion Gap BUN Creatinine Estimated GFR POC Glucose 127 H Random Glucose Calcium Total Bilirubin AST ALT Alkaline Phosphatase B-Natriuretic Peptide Total Protein Albumin Urine Eosinophils Review/Management - Diagnosis (1) Closed head injury Code(s): S09.90XA - Unspecified injury of head, initial encounter Status: Acute Current Visit: Yes (2) Dysrhythmia Code(s): I49.9 - Cardiac arrhythmia, unspecified Status: Acute Current Visit : Yes (3) PEA (Pulseless electrical activity) Code(s): I46.9 - Cardiac arrest, cause unspecified Status: Acute Current Visit: Yes (4) Fall with injury Code(s): W19.XXXA - Unspecified fall, initial encounter Status: Acute Current Visit: Yes (5) Concussion Code(s): S06.0X9A - Concussion with loss of consciousness of unspecified duration, initial encounter Status: Acute Current Visit: Yes - Review/Management Plan: Status post cardiac arrest PEA, fall with concussive type injury MRI brain scan reviewed which demonstrates very tiny high cortical ischemic- looking regions. I suspect this may be related to contusion injury versus hypoxic. Tiny embolic infarcts is another possibility although less likely He does have mild postconcussive/hypoxic encephalopathy which is gradually improving Chronic gait disorder using a walker carotid ultrasound clinical negative Recommendations Neuro stable; doing well more alert today EEG negative for any seizure activity PT OT ST Can be transferred to the 5th floor with telemetry from neurologic standpoint Discussed with patient and spouse and RN (1) Closed head injury Qualifiers: Encounter type: initial encounter Qualified Code(s): S09.90XA - Unspecified injury of head, initial encounter (2) Dysrhythmia Qualifiers: Arrhythmia type: unspecified cardiac arrhythmia Qualified Code(s): I49.9 - Cardiac arrhythmia, unspecified
--- NOTE | 2018-01-04 06:08 | XR ---
EXAM DATE: 01/04/2018 5:56 AM EDT AGE/SEX: 77 years / Male INDICATIONS: Shortness of breath. Possible respiratory disease. CLINICAL DATA: This is the patient's subsequent encounter. Patient reports that signs and symptoms h ave been present for 4 - 6 days and indicates a pain score of 0/10. MEDICAL/SURGICAL HISTORY: . Cardiovascular disease. Diabetes. Concussion. CABG. COMPARISON: [facility] [place], CHEST 1V SINGLE AP, 01/03/2018. . FINDINGS: Single AP view the chest. Bilateral lower lung zone predominant pulmonary opacity unchanged. Median s ternotomy wires noted. Cardiomediastinal silhouette unchanged. Small left pleural effusion unchanged. No evidence of pneumothorax. CONCLUSION: No significant interval change with persistent bilateral pulmonary parenchymal opacity and small left pleural effusion. Electronically signed by: Markus Urrutia MD 01/04/2018 6:07 AM EDT
[2018-01-04 07:10] LABS: Baso % (Auto) 0.4 % (0.0-2.0); Eos # (Auto) 0.3 th/mm3 (0.0-0.4); Eos % (Auto) 3.1 % (0.0-4.0); Hematocrit 31.2 % (39.0-51.0); Hemoglobin 10.3 gm/dL (13.0-17.0); Lymph # (Auto) 0.6 th/mm3 (1.0-4.8); Lymph % (Auto) 7.9 % (9.0-44.0); Mean Corpuscular HGB Conc 32.9 % (32.0-36.0); Mean Corpuscular Hemoglobin 28.7 pg (27.0-34.0); Mean Corpuscular Volume 87.3 fL (80.0-100.0); Mean Platelet Volume 8.3 fL (7.0-11.0); Mono # (Auto) 0.8 th/mm3 (0.0-0.9); Mono % (Auto) 9.6 % (0.0-8.0); Neut # (Auto) 6.5 th/mm3 (1.8-7.7); Platelet Count 214 th/mm3 (150-450); Red Blood Count 3.58 mil/mm3 (4.50-5.90); White Blood Count 8.3 th/mm3 (4.0-11.0)
[2018-01-04 07:36] LABS: Albumin 2.2 g/dL (3.4-5.0); Calcium 8.6 mg/dL (8.5-10.1); Carbon Dioxide 31.2 meq/L (21.0-32.0); Potassium 3.8 meq/L (3.5-5.1)
[2018-01-04 07:38] LABS: Phosphorus 3.9 mg/dL (2.5-4.9)
[2018-01-04] MEDS: Insulin NovoLOG Aspart Correctional Sugar Inj SQ SCH ×5 (07:40→21:55)
--- NOTE | 2018-01-04 08:59 | P.PNIM ---
Subjective Interval history: Mr. Sellers was afebrile with mild HTN (SBP's in 140's-170's) overnight; saturations in upper 90's on 4 L O2 via NC. Net output 520ml in the past 24 hrs. Patient awoken from sleep today; he states that he is doing well without shortness of breath. Patient reports frequent urination. Patient does not report any other concerns at this time. Physical Exam Vital signs: Vital Signs 01/03/18 09:00 01/03/18 12:00 01/03/18 16:00 Temperature 98.3 F 98.5 F Pulse Rate 70 64 70 Respiratory Rate 28 H 23 Blood Pressure 152/70 H 171/76 H Pulse Oximetry 95 95 01/03/18 20:00 01/03/18 20:18 01/04/18 00:00 Temperature 98.2 F 98.5 F Pulse Rate 76 66 Respiratory Rate 25 H 10 L Blood Pressure 163/71 H 155/70 H Pulse Oximetry 94 L 97 98 01/04/18 04:00 01/04/18 08:02 Temperature 98.5 F Pulse Rate 66 Respiratory Rate 13 Blood Pressure 162/68 H Pulse Oximetry 100 97 Intake & Output 01/03/18 01/04/18 01/04/18 18:59 06:59 18:59 Intake Total 2000 / 1999 480 / 480 Output Total 950 / 950 2049 Balance 1050 / 1050 -1570 / -1570 Intake: IV 1500 / 1500 NS Inj 1,000 ML @ 75 mls/hr IV. 1500 / 1500 CONT .[id number] [facility]IS[facility] Rx#:[id number] Oral 500 / 500 480 / 480 Output: Urine Amount (Catheter) 950 / 950 2049 Condom 950 / 950 2049 Other: Date of Last Bowel Movement 01/03/18 01/04/18 # Bowel Movements 2 2 Narrative: Gen: NAD HEENT: Moist mucus membranes. EOMI Skin: Laceration to forehead covered; no active bleeding. Right hand with laceration; no bleeding. R 1st toe not inspected today.facial/periorbital bruising Neuro: Awake, alert. Generally oriented to person/situation; seems to be improving. Normal peripheral motor/sensory function. Cranial nerves normal Cardiovascular-regular rate and rhythm; normal rate. Seemingly improved LE edema Resp: Regular rate, no visible distress; decreased breath sounds. On NC O2 at 4 L with sats 97% Abd: soft, nontender, normal BS Ext: Grossly normal ROM and motor function with symmetric weakness. Some bilateral LE edema Psych: calm, normal affect - Urinary Catheter Management Condom Cath placed during this visit: no Results - Labs CBC & Chem 7: 01/04/18 05:44 01/04/18 05:44 Laboratory Results - last 24 hr 01/03/18 01/03/18 01/03/18 11:51 16:48 22:04 WBC RBC Hgb Hct MCV MCH MCHC RDW Plt Count MPV Neut % (Auto) Lymph % (Auto) [place] % (Auto) Eos % (Auto) Baso % (Auto) Neut # (Auto) Lymph # (Auto) [place] # (Auto) Eos # (Auto) Baso # (Auto) WBC Differential Differential Comment Sodium Potassium Chloride Carbon Dioxide Anion Gap BUN Creatinine Estimated GFR POC Glucose 127 H 150 H 133 H Random Glucose Calcium Phosphorus B-Natriuretic Peptide Albumin 01/04/18 01/04/18 01/04/18 03:15 05:44 05:44 WBC 8.3 RBC 3.58 L Hgb 10.3 L Hct 31.2 L MCV 87.3 MCH 28.7 MCHC 32.9 RDW 16.0 Plt Count 214 MPV 8.3 Neut % (Auto) 79.0 H Lymph % (Auto) 7.9 L [place] % (Auto) 9.6 H Eos % (Auto) 3.1 Baso % (Auto) 0.4 Neut # (Auto) 6.5 Lymph # (Auto) 0.6 L [place] # (Auto) 0.8 Eos # (Auto) 0.3 Baso # (Auto) 0.0 WBC Differential . Differential Comment Auto diff final Sodium 141 Potassium 3.8 Chloride 102 Carbon Dioxide 31.2 Anion Gap 8 BUN 60 H Creatinine 2.03 H Estimated GFR 32 L POC Glucose 126 H Random Glucose 107 H Calcium 8.6 Phosphorus 3.9 B-Natriuretic Peptide Albumin 2.2 L 01/04/18 05:44 WBC RBC Hgb Hct MCV MCH MCHC RDW Plt Count MPV Neut % (Auto) Lymph % (Auto) [place] % (Auto) Eos % (Auto) Baso % (Auto) Neut # (Auto) Lymph # (Auto) [place] # (Auto) Eos # (Auto) Baso # (Auto) WBC Differential Differential Comment Sodium Potassium Chloride Carbon Dioxide Anion Gap BUN Creatinine Estimated GFR POC Glucose Random Glucose Calcium Phosphorus B-Natriuretic Peptide 415 H Albumin - Imaging Impressions Abdomen/Bladder Ultrasound 01/03/18 00:00 CONCLUSION: 1. Severely limited by body habitus 2. No gross hydronephrosis. DTPA renogram may help. Kidneys are grossly unremarkable on CT of 12/31/2017. Chest X-Ray 01/04/18 06:00 CONCLUSION: No significant interval change with persistent bilateral pulmonary parenchymal opacity and small left pleural effusion. Assessment and Plan - Assessment (1) PEA (Pulseless electrical activity) Code(s): I46.9 - Cardiac arrest, cause unspecified Status: Acute (2) Closed head injury Code(s): S09.90XA - Unspecified injury of head, initial encounter Status: Acute (3) Hypercarbia Code(s): R06.89 - Other abnormalities of breathing Status: Acute (4) Diabetes Code(s): E11.9 - Type 2 diabetes mellitus without complications Status: Acute (5) Concussion Code(s): S06.0X9A - Concussion with loss of consciousness of unspecified duration, initial encounter Status: Acute (6) CAD (coronary artery disease) Code(s): I25.10 - Atherosclerotic heart disease of [place] coronary artery without angina pectoris Status: Acute - Plan Mr. Sellers is a 77 yo M with: Trauma Impression: Mechanical fall resulting in head injury. Normal motor function peripherally Head CT- no acute intracranial abnormality Face CT- no acute fractures. 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 Multilevel spondylosis of Cspine most prominent at C4-5 and C5-[address]- negative T spine with contrast L spine CT- broad-based diffuse annular bulges at multiple levels. No evidence acute fracture, the posterior elements unremarkable. No subluxation or facet malalignment Chest CT- no acute trauma. concern for masslike airspace at L base- 5.9 x3.3 cm ; possible atelectasis w/ effusion vs possible malignancy, Outpatient f/u recommended. Ground glass consolidation at R middle lobe suggestive of possible aspiration. Prominent coronary calcifications A/P CT- left lung atelectasis, atherosclerosis Pelvic XR negative Hand XR negative -Continue IV Tylenol -PT consult Neuro Impression: Suspect concussion. Inability to remember year but otherwise oriented. GCS 14 at time of my initial exam; previously 3 in field. On home ASA/ Plavix 01/01- Normal neuro assessment with exception of not knowing year which is change from baseline 01/02- Improvement in memory of president; still oriented. Normal CN Imaging: Head CT negative on admission, Repeat Head CT ~12hrs after injury negative MRI brain- tiny cortical foci in high parietal lobes likely embolic in etiology. Scattered amyloid angiopathy. No midline shift. Moderate periventricular and subcortical white matter changes noted bilaterally Carotid US unremarkable -Will monitor neuro checks -Resumed oral intake after passed bedside swallow -Neurology consulted -possible contusion injury vs hypoxic causing MRI cortical lesions; embolic infarcts less likely -Post concussive hypoxic encephalopathy gradually improving -EEG Negative -Resume antiplatelets -PT/OT/ST Cardiovascular PEA CAD s/p CABD PAD HTN Impression: Reported PEA in field with ROSC after CPR. Unclear whether was true PEA since seems to have responded well Troponin 0.02-> 0.1-> 0.08. Lactic acid wnl EKGs reassuring -Continue Telemetry -Will continue home ASA, Plavix later today -Continue home BB, ARB -Will increase Losartan to 50mg daily -Continue home statin -Continue home Metolazone 2.5mg BID -Continue Bumex 2mg daily -Cardiology consulted Respiratory Impression: Suspect hypercarbia after encephalopathy per Neuro Lung imaging suggestive of effusions; possible aspiration in R middle lobe. Required simple mask in ED. Wears O2 at night; distant smoker Venous gas with CO2 73-> [address]- no acute trauma. concern for masslike airspace at L base- 5.9 x3.3 cm ; possible atelectasis w/ effusion vs possible malignancy, Outpatient f/u recommended. Ground glass consolidation at R middle lobe suggestive of possible aspiration. Prominent coronary calcifications BNP mildly elevated in 200's-> 400 -Pulmonology consulted for evaluation -BIPAP for CO2 retention (unclear whether chronic; baseline not known) -Aim for sats ~low 90's to avoid retention Renal Impression: mild CKD at baseline; sees Dr. Foster as outpatient. Net input for several days (+900 ml 01/01, +675ml 01/02, +2775ml 9/23) Was on Zosyn but no urine eosinophils Cr: 1.42 on admission-> 1.39 -> 2.32 -> 2.58-> 2 Renal US- no gross hydronephrosis. DTPA renogram may help. Kidneys grossly unremarkable on CT 12/31 -Nephrology consulted -IVF stopped - Bumetanide 2gm IV q8hrs -Monitor I/O DM Impression: On home Levemir 24 U daily, Novolog 6U BID -Will give SS insulin while inpatient; will resume Levemir once stable intake GI Cardiac diet resumed -Continue home Pepcid for PPX Toe gangrene Impression: sees Dr. Aiken and Dr. Bustos as outpatient with planned surgical intervention next month -MRI foot- marrow edema in distal tuft great toe crossing DIP to proximal phalanx; normal signal in other toes and metatarsals DVT PPX -SCD's Heparin Code Status: Full code (2) Closed head injury Qualifiers: Encounter type: initial encounter Qualified Code(s): S09.90XA - Unspecified injury of head, initial encounter
[2018-01-04] MEDS ORDERED: hydrALAZINE 10 MG Tablet PO PRN (09:00)
[2018-01-04] MEDS: Senna/Docusate Sodium 8.6/50 MG Tablet PO SCH ×2 (09:24→20:39)
[2018-01-04] MEDS: Famotidine 20 MG Tablet PO SCH (09:24)
[2018-01-04] MEDS: amLODIPine 5 MG Tablet PO SCH (09:24)
[2018-01-04] MEDS: Citalopram 20 MG Tablet PO SCH (09:24)
[2018-01-04] MEDS: Carvedilol 12.5 MG Tablet PO SCH ×2 (09:24→20:38)
[2018-01-04] MEDS: Heparin - SQ 10,000 UNITS/ML Vial SQ SCH ×2 (09:25→20:38)
--- NOTE | 2018-01-04 10:10 | P.PNNEU ---
Subjective Subjective Comments: No cp, no dyspnea, no vieyra, no focal weakness, no vision loss Active Medications: Active Medications Acetaminophen (Tylenol) 650 mg PO Q4H PRN PRN Reason: Temp > 100.4 Last Admin: 01/01/18 21:09 Dose: 650 mg Albuterol (Duoneb Neb (Prn)) 1 ampul NEB Q4HR NEB PRN PRN Reason: SHORTNESS OF BREATH/WHEEZING Amlodipine Besylate (Norvasc) 5 mg PO DAILY [facility] Last Admin: 01/04/18 09:24 Dose: 5 mg Aspirin (Aspirin Chew) 81 mg PO DAILY [facility] Last Admin: 01/04/18 09:23 Dose: 81 mg Atorvastatin Calcium (Lipitor) 40 mg PO DAILY [facility] Last Admin: 01/04/18 09:24 Dose: 40 mg Bumetanide (Bumex) 1 mg PO DAILY [facility] Bumetanide (Bumex Inj) 2 mg IV.PUSH Q8H [facility] Last Admin: 01/04/18 06:02 Dose: 2 mg Carvedilol (Coreg) 12.5 mg PO BID [facility] Last Admin: 01/04/18 09:24 Dose: 12.5 mg Citalopram Hydrobromide (Celexa) 20 mg PO DAILY [facility] Last Admin: 01/04/18 09:24 Dose: 20 mg Clopidogrel Bisulfate (Plavix) 75 mg PO DAILY [facility] Last Admin: 01/04/18 09:24 Dose: 75 mg Dextrose (D50w Vial) 50 ml IV.PUSH UNSCH PRN PRN Reason: PER HYPOGLYCEMIA PROTOCOL Enalaprilat (Vasotec Inj) 1.25 mg IV.PUSH Q8H PRN PRN Reason: Sbp>170, Dbp>90 Last Admin: 01/04/18 07:45 Dose: 1.25 mg Famotidine (Pepcid) 20 mg PO DAILY [facility] Last Admin: 01/04/18 09:24 Dose: 20 mg Fluticasone Propionate (Flonase Nasal [place]) 2 spray NASAL DAILY [facility] Last Admin: 01/04/18 09:28 Dose: 2 spray Glucagon (Glucagon Inj) 1 mg OTHER PRN PRN PRN Reason: for Hypoglycemia Protocol Heparin Sodium (Porcine) (Heparin Inj) 5,000 units SQ Q12HR [facility] Last Admin: 01/04/18 09:25 Dose: 5,000 units Hydralazine HCl (Apresoline) 10 mg PO QID PRN PRN Reason: SBP >175, DBP >95 Piperacillin/Tazobactam/Dextrose (Zosyn 3.375 Gm Premix) 50 mls @ 100 mls/hr IV.SIG Q6H [facility] Last Infusion: 01/02/18 16:57 Dose: Infused Sodium Chloride (Ns Inj) 500 mls @ 0 mls/hr IV.SIG BOLUS [facility] Insulin Aspart (Novolog Insulin Correctional Sugar Inj) 0 unit SQ ACHS AND 3AM [facility]; Protocol Last Admin: 01/04/18 09:30 Dose: Not Given Lorazepam (Ativan) 0.5 mg PO Q12H PRN PRN Reason: SEVERE ANXIETY OR AGITATION Last Admin: 01/02/18 22:52 Dose: 0.5 mg Losartan Potassium (Cozaar) 50 mg PO DAILY [facility] Last Admin: 01/04/18 09:28 Dose: 50 mg Ondansetron HCl (Zofran Inj) 4 mg IV.PUSH Q6H PRN PRN Reason: NAUSEA OR VOMITING Senna/Docusate Sodium ([place]-Colace) 1 tab PO BID [facility] Last Admin: 01/04/18 09:24 Dose: 1 tab Sodium Chloride ([place] Nasal [place]) 2 spray EACH NARE Q4H PRN PRN Reason: dry nose Tamsulosin HCl (Flomax) 0.4 mg PO DAILY [facility] Last Admin: 01/04/18 09:23 Dose: 0.4 mg Allergies/Adverse Reactions: Allergies Allergy/AdvReac Type Severity Reaction Status Date / Time acetaminophen [From [place]] Allergy Nausea/Vomi Verified 12/31/17 18:03 ting exenatide [From Bydureon] Allergy Nausea/Vomi Verified 12/31/17 18:03 ting fentanyl Allergy Nausea/Vomi Verified 12/31/17 18:03 ting hydrocodone [From [place]] Allergy Nausea/Vomi Verified 12/31/17 18:03 ting oxycodone [From Percocet] Allergy Nausea/Vomi Verified 12/31/17 18:03 ting Review of Systems All other systems reviewed negative except as stated in HPI Physical Exam Vital signs: Vital Signs 01/03/18 12:00 01/03/18 16:00 01/03/18 20:00 Temperature 98.3 F 98.5 F 98.2 F Pulse Rate 64 70 76 Respiratory Rate 28 H 23 25 H Blood Pressure 152/70 H 171/76 H 163/71 H Pulse Oximetry 95 95 94 L 01/03/18 20:18 01/04/18 00:00 01/04/18 04:00 Temperature 98.5 F 98.5 F Pulse Rate 66 66 Respiratory Rate 10 L 13 Blood Pressure 155/70 H 162/68 H Pulse Oximetry 97 98 100 01/04/18 08:02 Temperature Pulse Rate Respiratory Rate Blood Pressure Pulse Oximetry 97 Intake & Output 01/03/18 01/04/18 01/04/18 18:59 06:59 18:59 Intake Total 1999 / 1999 480 / 480 Output Total 950 / 950 2049 Balance 1050 / 1050 -1570 / -1570 Intake: IV 1500 / 1500 NS Inj 1,000 ML @ 75 mls/hr IV. 1500 / 1500 CONT .[id number] [facility] Rx#:[id number] Oral 500 / 500 480 / 480 Output: Urine Amount (Catheter) 950 / 950 2049 Condom 950 / 950 2049 Other: Date of Last Bowel Movement 01/03/18 01/04/18 # Bowel Movements 2 2 Narrative: GENERAL: in NAD, SKIN: Warm and dry. HEAD: Bruises, mild raccoon/beckman eyes EYES: Pupils equal and round. No scleral icterus. ENT: No nasal bleeding or discharge. Mucous membranes pink and moist. NECK: Trachea midline. No JVD. CARDIOVASCULAR: Regular rate and rhythm. RESPIRATORY: No accessory muscle use. GASTROINTESTINAL: Abdomen soft, non-tender, nondistended. MUSCULOSKELETAL: Right great toe purplish mottled white states chronic NEUROLOGICAL: Awake and alert. Oriented x 2-3, not to date, follows pleasant no aphasia, fluent articulate, No facial asymmetry, OU 3-2mm, eomi, VFF, No drift, Motor grossly within normal limits. bilateral distal foot weakness 3-4 out of 5 dorsiflexion in addition to reduced range of motion with bilateral arm abduction above the shoulders which is chronic suspected rotator cuff. Tone normal in all 4 limbs, reduce pinprick lower extremities, msr 1-2+ sym, no clonus, planterflexor, gait not assessed secondary fall risk PSYCHIATRIC: Appropriate mood and affect; - Constitutional no acute distress - Routine HEENT Exam Head: Present: normocephalic - Urinary Catheter Management Condom Cath placed during this visit: no Objective Laboratory Results - last 24 hr 01/03/18 01/03/18 01/03/18 11:51 16:48 22:04 WBC RBC Hgb Hct MCV MCH MCHC RDW Plt Count MPV Neut % (Auto) Lymph % (Auto) [place] % (Auto) Eos % (Auto) Baso % (Auto) Neut # (Auto) Lymph # (Auto) [place] # (Auto) Eos # (Auto) Baso # (Auto) WBC Differential Differential Comment Sodium Potassium Chloride Carbon Dioxide Anion Gap BUN Creatinine Estimated GFR POC Glucose 127 H 150 H 133 H Random Glucose Calcium Phosphorus B-Natriuretic Peptide Albumin 01/04/18 01/04/18 01/04/18 03:15 05:44 05:44 WBC 8.3 RBC 3.58 L Hgb 10.3 L Hct 31.2 L MCV 87.3 MCH 28.7 MCHC 32.9 RDW 16.0 Plt Count 214 MPV 8.3 Neut % (Auto) 79.0 H Lymph % (Auto) 7.9 L [place] % (Auto) 9.6 H Eos % (Auto) 3.1 Baso % (Auto) 0.4 Neut # (Auto) 6.5 Lymph # (Auto) 0.6 L [place] # (Auto) 0.8 Eos # (Auto) 0.3 Baso # (Auto) 0.0 WBC Differential . Differential Comment Auto diff final Sodium 141 Potassium 3.8 Chloride 102 Carbon Dioxide 31.2 Anion Gap 8 BUN 60 H Creatinine 2.03 H Estimated GFR 32 L POC Glucose 126 H Random Glucose 107 H Calcium 8.6 Phosphorus 3.9 B-Natriuretic Peptide Albumin 2.2 L 01/04/18 01/04/18 05:44 09:30 WBC RBC Hgb Hct MCV MCH MCHC RDW Plt Count MPV Neut % (Auto) Lymph % (Auto) [place] % (Auto) Eos % (Auto) Baso % (Auto) Neut # (Auto) Lymph # (Auto) [place] # (Auto) Eos # (Auto) Baso # (Auto) WBC Differential Differential Comment Sodium Potassium Chloride Carbon Dioxide Anion Gap BUN Creatinine Estimated GFR POC Glucose 118 H Random Glucose Calcium Phosphorus B-Natriuretic Peptide 415 H Albumin Review/Management - Diagnosis (1) Closed head injury Code(s): S09.90XA - Unspecified injury of head, initial encounter Status: Acute Current Visit: Yes (2) Dysrhythmia Code(s): I49.9 - Cardiac arrhythmia, unspecified Status: Acute Current Visit : Yes (3) PEA (Pulseless electrical activity) Code(s): I46.9 - Cardiac arrest, cause unspecified Status: Acute Current Visit: Yes (4) Fall with injury Code(s): W19.XXXA - Unspecified fall, initial encounter Status: Acute Current Visit: Yes (5) Concussion Code(s): S06.0X9A - Concussion with loss of consciousness of unspecified duration, initial encounter Status: Acute Current Visit: Yes - Review/Management Plan: Status post cardiac arrest PEA, fall with concussive type injury MRI brain scan reviewed which demonstrates very tiny high cortical ischemic- looking regions. I suspect this may be related to contusion injury versus hypoxic. Tiny embolic infarcts is another possibility although less likely He does have mild postconcussive/hypoxic encephalopathy which is gradually improving Chronic gait disorder using a walker carotid ultrasound clinical negative EEG negative for any seizure activity Recommendations Neuro stable; pain controlled PT OT ST Can be transferred to the 5th floor with telemetry from neurologic standpoint Discussed with patient and RN May require inpatient rehab (1) Closed head injury Qualifiers: Encounter type: initial encounter Qualified Code(s): S09.90XA - Unspecified injury of head, initial encounter (2) Dysrhythmia Qualifiers: Arrhythmia type: unspecified cardiac arrhythmia Qualified Code(s): I49.9 - Cardiac arrhythmia, unspecified
--- NOTE | 2018-01-04 15:17 | P.PNCA ---
Subjective Interval history: Patient denies any chest pain, pressure, palpitations, dizziness, edema or shortness of breath this time. Patient sitting up in chair position, appears to be comfortable in no acute distress. Medications and Allergies Allergies Allergy/AdvReac Type Severity Reaction Status Date / Time acetaminophen [From [place]] Allergy Nausea/Vomi Verified 12/31/17 18:03 ting exenatide [From Bydureon] Allergy Nausea/Vomi Verified 12/31/17 18:03 ting fentanyl Allergy Nausea/Vomi Verified 12/31/17 18:03 ting hydrocodone [From [place]] Allergy Nausea/Vomi Verified 12/31/17 18:03 ting oxycodone [From Percocet] Allergy Nausea/Vomi Verified 12/31/17 18:03 ting Home Medications Medication Instructions Recorded Confirmed Type aspirin 81 mg PO DAILY 12/31/17 12/31/17 History bumetanide 2 mg PO DAILY 12/31/17 12/31/17 History carvedilol [Coreg] 12.5 mg PO BID 12/31/17 12/31/17 History citalopram 20 mg PO DAILY 12/31/17 12/31/17 History clopidogrel [Plavix] 75 mg PO DAILY 12/31/17 12/31/17 History insulin aspart U-100 [Novolog 5 unit SUB-Q DAILY 12/31/17 12/31/17 History U-100 Insulin aspart] insulin detemir U-100 [Levemir 25 unit SUB-Q QPM 12/31/17 12/31/17 History FlexTouch U-100 Insuln] losartan 25 mg PO DAILY 12/31/17 12/31/17 History ranitidine HCl 150 mg PO DAILY 12/31/17 12/31/17 History rosuvastatin [Crestor] 20 mg PO DAILY 12/31/17 12/31/17 History tamsulosin [Flomax] 0.4 mg PO DAILY 12/31/17 12/31/17 History Active Medications: Active Medications Acetaminophen (Tylenol) 650 mg PO Q4H PRN PRN Reason: Temp > 100.4 Last Admin: 01/01/18 21:09 Dose: 650 mg Albuterol (Duoneb Neb (Prn)) 1 ampul NEB Q4HR NEB PRN PRN Reason: SHORTNESS OF BREATH/WHEEZING Amlodipine Besylate (Norvasc) 5 mg PO DAILY [facility] Last Admin: 01/04/18 09:24 Dose: 5 mg Aspirin (Aspirin Chew) 81 mg PO DAILY [facility] Last Admin: 01/04/18 09:23 Dose: 81 mg Atorvastatin Calcium (Lipitor) 40 mg PO DAILY [facility] Last Admin: 01/04/18 09:24 Dose: 40 mg Bumetanide (Bumex) 1 mg PO DAILY [facility] Bumetanide (Bumex Inj) 2 mg IV.PUSH Q8H [facility] Last Admin: 01/04/18 12:52 Dose: 2 mg Carvedilol (Coreg) 12.5 mg PO BID [facility] Last Admin: 01/04/18 09:24 Dose: 12.5 mg Citalopram Hydrobromide (Celexa) 20 mg PO DAILY [facility] Last Admin: 01/04/18 09:24 Dose: 20 mg Clopidogrel Bisulfate (Plavix) 75 mg PO DAILY [facility] Last Admin: 01/04/18 09:24 Dose: 75 mg Dextrose (D50w Vial) 50 ml IV.PUSH UNSCH PRN PRN Reason: PER HYPOGLYCEMIA PROTOCOL Enalaprilat (Vasotec Inj) 1.25 mg IV.PUSH Q8H PRN PRN Reason: Sbp>170, Dbp>90 Last Admin: 01/04/18 07:45 Dose: 1.25 mg Famotidine (Pepcid) 20 mg PO DAILY [facility] Last Admin: 01/04/18 09:24 Dose: 20 mg Fluticasone Propionate (Flonase Nasal [place]) 2 spray NASAL DAILY [facility] Last Admin: 01/04/18 09:28 Dose: 2 spray Glucagon (Glucagon Inj) 1 mg OTHER PRN PRN PRN Reason: for Hypoglycemia Protocol Heparin Sodium (Porcine) (Heparin Inj) 5,000 units SQ Q12HR [facility] Last Admin: 01/04/18 09:25 Dose: 5,000 units Hydralazine HCl (Apresoline) 10 mg PO QID PRN PRN Reason: SBP >175, DBP >95 Piperacillin/Tazobactam/Dextrose (Zosyn 3.375 Gm Premix) 50 mls @ 100 mls/hr IV.SIG Q6H [facility] Last Infusion: 01/02/18 16:57 Dose: Infused Sodium Chloride (Ns Inj) 500 mls @ 0 mls/hr IV.SIG BOLUS [facility] Insulin Aspart (Novolog Insulin Correctional Sugar Inj) 0 unit SQ ACHS AND 3AM [facility]; Protocol Last Admin: 01/04/18 12:52 Dose: 3 unit Lorazepam (Ativan) 0.5 mg PO Q12H PRN PRN Reason: SEVERE ANXIETY OR AGITATION Last Admin: 01/02/18 22:52 Dose: 0.5 mg Losartan Potassium (Cozaar) 50 mg PO DAILY [facility] Last Admin: 01/04/18 09:28 Dose: 50 mg Ondansetron HCl (Zofran Inj) 4 mg IV.PUSH Q6H PRN PRN Reason: NAUSEA OR VOMITING Senna/Docusate Sodium ([place]-Colace) 1 tab PO BID [facility] Last Admin: 01/04/18 09:24 Dose: 1 tab Sodium Chloride ([place] Nasal [place]) 2 spray EACH NARE Q4H PRN PRN Reason: dry nose Tamsulosin HCl (Flomax) 0.4 mg PO DAILY [facility] Last Admin: 01/04/18 09:23 Dose: 0.4 mg Physical Exam Vital signs: Vital Signs 01/03/18 16:00 01/03/18 20:00 01/03/18 20:18 Temperature 98.5 F 98.2 F Pulse Rate 70 76 Respiratory Rate 23 25 H Blood Pressure 171/76 H 163/71 H Pulse Oximetry 95 94 L 97 01/04/18 00:00 01/04/18 04:00 01/04/18 08:00 Temperature 98.5 F 98.5 F 98.2 F Pulse Rate 66 66 70 Respiratory Rate 10 L 13 22 Blood Pressure 155/70 H 162/68 H 168/76 H Pulse Oximetry 98 100 97 01/04/18 08:02 01/04/18 10:00 01/04/18 12:00 Temperature 97.9 F Pulse Rate 70 73 Respiratory Rate 22 Blood Pressure 123/58 L Pulse Oximetry 97 94 L Intake & Output 01/03/18 01/04/18 01/04/18 18:59 06:59 18:59 Intake Total 1999 / 1999 480 / 480 Output Total 950 / 950 2049 / 2049 Balance 1050 / 1050 -1570 / -1570 Intake: IV 1500 / 1500 NS Inj 1,000 ML @ 75 mls/hr IV. 1500 / 1500 CONT .[id number] [facility] Rx#:[id number] Oral 500 / 500 480 / 480 Output: Urine Amount (Catheter) 950 / 950 2049 Condom 950 / 950 2049 Other: Date of Last Bowel Movement 01/03/18 01/04/18 01/03/18 # Bowel Movements 2 2 - Constitutional no acute distress - Routine HEENT Exam Head: Present: normocephalic Eye: Present: PERRL ENT: Present: mucous membranes moist - Routine Neck Exam Present: full ROM - Routine Respiratory Exam Present: CTA bilaterally - Routine Cardiovascular Exam Present: S1, S2. Absent: gallop, rubs - Routine Abdominal Exam Present: normoactive bowel sounds - Routine Extremities Exam Present: full ROM, pulses intact, normal capillary refill. Absent: cyanosis, clubbing, edema - Routine Skin Exam Comments: Patient has healing laceration to the mid forehead, status post fall. - Routine Neurological Exam Present: oriented X3 - Detailed Neurological Exam: Coma Scale Eye Opening: Spontaneous Verbal Response: Oriented Motor Response: Obey commands [place] Coma Scale Total: 15 - Routine Psychiatric Exam Present: normal affect - Urinary Catheter Management Condom Cath placed during this visit: no Results 01/04/18 05:44 01/04/18 05:44 Cardiac Enzymes 01/03/18 01/03/18 01/04/18 Range/Units 03:31 03:31 05:44 AST 29 (15-37) U/L B-Natriuretic Peptide 278 H 415 H (0-100) pg/mL Coagulation 01/03/18 01/04/18 Range/Units 03:31 05:44 B-Natriuretic Peptide 278 H 415 H (0-100) pg/mL CBC 01/03/18 01/04/18 Range/Units 03:31 05:44 WBC 8.2 8.3 (4.0-11.0) th/mm3 RBC 3.50 L 3.58 L (4.50-5.90) mil/mm3 Hgb 10.0 L 10.3 L (13.0-17.0) gm/dL Hct 31.0 L 31.2 L (39.0-51.0) % Plt Count 200 214 (150-450) th/mm3 Neut # (Auto) 6.6 6.5 (1.8-7.7) th/mm3 Lymph # (Auto) 0.6 L 0.6 L (1.0-4.8) th/mm3 [place] # (Auto) 0.7 0.8 (0.0-0.9) th/mm3 Eos # (Auto) 0.3 0.3 (0.0-0.4) th/mm3 Baso # (Auto) 0.0 0.0 (0.0-0.2) th/mm3 Comprehensive Metabolic Panel 01/03/18 01/04/18 Range/Units 03:31 05:44 Sodium 141 141 (136-145) meq/L Potassium 3.7 3.8 (3.5-5.1) meq/L Chloride 101 102 (98-107) meq/L Carbon Dioxide 33.3 H 31.2 (21.0-32.0) meq/L BUN 56 H 60 H (7-18) mg/dL Creatinine 2.58 H 2.03 H (0.60-1.30) mg/dL Calcium 8.3 L 8.6 (8.5-10.1) mg/dL AST 29 (15-37) U/L ALT 25 (12-78) U/L Alkaline Phosphatase 70 (45-117) U/L Total Protein 6.4 (6.4-8.2) g/dL Albumin 2.2 L 2.2 L (3.4-5.0) g/dL Intake and Output 01/04/18 01/04/18 01/04/18 06:59 14:59 22:59 Intake Total 480 / 480 Output Total 2049 Balance -1570 / -1570 Intake: Oral 480 / 480 Output: Urine Amount (Catheter) 2049 Condom 2049 Other: Date of Last Bowel Movement 01/04/18 01/03/18 # Bowel Movements 2 - Imaging and Cardiology Imaging: Impressions Abdomen/Bladder Ultrasound 01/03/18 00:00 CONCLUSION: 1. Severely limited by body habitus 2. No gross hydronephrosis. DTPA renogram may help. Kidneys are grossly unremarkable on CT of 12/31/2017. Chest X-Ray 01/03/18 07:00 CONCLUSION: No significant change mild bibasilar consolidation and small left pleural effusion. Chest X-Ray 01/04/18 06:00 CONCLUSION: No significant interval change with persistent bilateral pulmonary parenchymal opacity and small left pleural effusion. Assessment and Plan - Assessment (1) Closed head injury Code(s): S09.90XA - Unspecified injury of head, initial encounter Status: Acute (2) Dysrhythmia Code(s): I49.9 - Cardiac arrhythmia, unspecified Status: Acute (3) PEA (Pulseless electrical activity) Code(s): I46.9 - Cardiac arrest, cause unspecified Status: Acute (4) Hypercarbia Code(s): R06.89 - Other abnormalities of breathing Status: Acute (5) Diabetes Code(s): E11.9 - Type 2 diabetes mellitus without complications Status: Acute (6) Acute kidney injury Code(s): N17.9 - Acute kidney failure, unspecified Status: Acute (7) Fall with injury Code(s): W19.XXXA - Unspecified fall, initial encounter Status: Acute (8) Concussion Code(s): S06.0X9A - Concussion with loss of consciousness of unspecified duration, initial encounter Status: Acute - Plan Patient was started on Norvasc 5 mg this morning for hypertension. Will increase Norvasc to 5 mg twice daily for better blood pressure control. Patient is more alert today, neurologic evaluation in progress. Nephrology evaluation in progress due to renal insufficiency. Continue with current cardiac treatment plan and adjust as needed. We will follow during his hospitalization. The patient will follow up with Dr. Ferraro in his office after discharge. The patient was seen and evaluated by Dr. Ding who participated in care, management and decision-making. - Attending Attestation Patient seen and examined. I reviewed and agree with the evaluation and plan as presented. Titrate BP control. Increase activity. F/u with Dr. Ferraro as outpatient. (1) Closed head injury Qualifiers: Encounter type: initial encounter Qualified Code(s): S09.90XA - Unspecified injury of head, initial encounter (2) Dysrhythmia Qualifiers: Arrhythmia type: unspecified cardiac arrhythmia Qualified Code(s): I49.9 - Cardiac arrhythmia, unspecified
[2018-01-05] MEDS: Insulin NovoLOG Aspart Correctional Sugar Inj SQ SCH ×5 (03:00→20:42)
[2018-01-05 05:37] LABS: Baso % (Auto) 0.5 % (0.0-2.0); Eos # (Auto) 0.3 th/mm3 (0.0-0.4); Eos % (Auto) 4.6 % (0.0-4.0); Hematocrit 30.3 % (39.0-51.0); Hemoglobin 9.7 gm/dL (13.0-17.0); Lymph # (Auto) 0.7 th/mm3 (1.0-4.8); Lymph % (Auto) 10.6 % (9.0-44.0); Mean Corpuscular HGB Conc 31.9 % (32.0-36.0); Mean Corpuscular Hemoglobin 28.1 pg (27.0-34.0); Mean Corpuscular Volume 88.2 fL (80.0-100.0); Mean Platelet Volume 7.7 fL (7.0-11.0); Mono # (Auto) 0.7 th/mm3 (0.0-0.9); Mono % (Auto) 11.3 % (0.0-8.0); Neut # (Auto) 4.8 th/mm3 (1.8-7.7); Platelet Count 217 th/mm3 (150-450); Red Blood Count 3.44 mil/mm3 (4.50-5.90); Red Cell Distribution Width 15.9 % (11.6-17.2); White Blood Count 6.6 th/mm3 (4.0-11.0)
[2018-01-05 06:00] LABS: Calcium 8.6 mg/dL (8.5-10.1); Carbon Dioxide 34.5 meq/L (21.0-32.0); Potassium 3.4 meq/L (3.5-5.1)
[2018-01-05] MEDS: Heparin - SQ 10,000 UNITS/ML Vial SQ SCH ×3 (07:23→20:36)
[2018-01-05] MEDS: amLODIPine 5 MG Tablet PO SCH (08:03)
[2018-01-05] MEDS: Famotidine 20 MG Tablet PO SCH (08:03)
[2018-01-05] MEDS: Carvedilol 12.5 MG Tablet PO SCH ×2 (08:04→20:36)
[2018-01-05] MEDS: Citalopram 20 MG Tablet PO SCH (08:04)
[2018-01-05] MEDS: Senna/Docusate Sodium 8.6/50 MG Tablet PO SCH ×2 (08:05→20:36)
--- NOTE | 2018-01-05 08:14 | P.PNNEU ---
Subjective Subjective Comments: No cp, no dyspnea, no vieyra, no focal weakness, no vision loss Active Medications: Active Medications Acetaminophen (Tylenol) 650 mg PO Q4H PRN PRN Reason: Temp > 100.4 Last Admin: 01/01/18 21:09 Dose: 650 mg Albuterol (Duoneb Neb (Prn)) 1 ampul NEB Q4HR NEB PRN PRN Reason: SHORTNESS OF BREATH/WHEEZING Amlodipine Besylate (Norvasc) 5 mg PO DAILY [facility] Last Admin: 01/05/18 08:03 Dose: 5 mg Aspirin (Aspirin Chew) 81 mg PO DAILY [facility] Last Admin: 01/05/18 08:03 Dose: 81 mg Atorvastatin Calcium (Lipitor) 40 mg PO DAILY [facility] Last Admin: 01/05/18 08:03 Dose: 40 mg Bumetanide (Bumex) 1 mg PO DAILY [facility] Bumetanide (Bumex Inj) 2 mg IV.PUSH Q8H [facility] Last Admin: 01/05/18 05:00 Dose: 2 mg Carvedilol (Coreg) 12.5 mg PO BID [facility] Last Admin: 01/05/18 08:04 Dose: 12.5 mg Citalopram Hydrobromide (Celexa) 20 mg PO DAILY [facility] Last Admin: 01/05/18 08:04 Dose: 20 mg Clopidogrel Bisulfate (Plavix) 75 mg PO DAILY [facility] Last Admin: 01/05/18 08:04 Dose: 75 mg Dextrose (D50w Vial) 50 ml IV.PUSH UNSCH PRN PRN Reason: PER HYPOGLYCEMIA PROTOCOL Enalaprilat (Vasotec Inj) 1.25 mg IV.PUSH Q8H PRN PRN Reason: Sbp>170, Dbp>90 Last Admin: 01/04/18 07:45 Dose: 1.25 mg Famotidine (Pepcid) 20 mg PO DAILY [facility] Last Admin: 01/05/18 08:03 Dose: 20 mg Fluticasone Propionate (Flonase Nasal [place]) 2 spray NASAL DAILY [facility] Last Admin: 01/05/18 08:04 Dose: 2 spray Glucagon (Glucagon Inj) 1 mg OTHER PRN PRN PRN Reason: for Hypoglycemia Protocol Heparin Sodium (Porcine) (Heparin Inj) 5,000 units SQ Q12HR [facility] Last Admin: 01/05/18 08:04 Dose: 5,000 units Hydralazine HCl (Apresoline) 10 mg PO QID PRN PRN Reason: SBP >175, DBP >95 Piperacillin/Tazobactam/Dextrose (Zosyn 3.375 Gm Premix) 50 mls @ 100 mls/hr IV.SIG Q6H [facility] Last Infusion: 01/02/18 16:57 Dose: Infused Sodium Chloride (Ns Inj) 500 mls @ 0 mls/hr IV.SIG BOLUS [facility] Insulin Aspart (Novolog Insulin Correctional Sugar Inj) 0 unit SQ ACHS AND 3AM [facility]; Protocol Last Admin: 01/05/18 08:03 Dose: Not Given Lorazepam (Ativan) 0.5 mg PO Q12H PRN PRN Reason: SEVERE ANXIETY OR AGITATION Last Admin: 01/02/18 22:52 Dose: 0.5 mg Losartan Potassium (Cozaar) 50 mg PO DAILY [facility] Last Admin: 01/05/18 08:03 Dose: 50 mg Ondansetron HCl (Zofran Inj) 4 mg IV.PUSH Q6H PRN PRN Reason: NAUSEA OR VOMITING Senna/Docusate Sodium ([place]-Colace) 1 tab PO BID [facility] Last Admin: 01/05/18 08:05 Dose: Not Given Sodium Chloride ([place] Nasal [place]) 2 spray EACH NARE Q4H PRN PRN Reason: dry nose Tamsulosin HCl (Flomax) 0.4 mg PO DAILY [facility] Last Admin: 01/05/18 08:03 Dose: 0.4 mg Allergies/Adverse Reactions: Allergies Allergy/AdvReac Type Severity Reaction Status Date / Time acetaminophen [From [place]] Allergy Nausea/Vomi Verified 12/31/17 18:03 ting exenatide [From Bydureon] Allergy Nausea/Vomi Verified 12/31/17 18:03 ting fentanyl Allergy Nausea/Vomi Verified 12/31/17 18:03 ting hydrocodone [From [place]] Allergy Nausea/Vomi Verified 12/31/17 18:03 ting oxycodone [From Percocet] Allergy Nausea/Vomi Verified 12/31/17 18:03 ting Review of Systems All other systems reviewed negative except as stated in HPI Physical Exam Vital signs: Vital Signs 01/04/18 10:00 01/04/18 12:00 01/04/18 14:00 Temperature 97.9 F Pulse Rate 70 73 68 Respiratory Rate 22 Blood Pressure 123/58 L Pulse Oximetry 94 L 01/04/18 16:00 01/04/18 18:00 01/04/18 20:00 Temperature 98 F 98 F Pulse Rate 84 65 68 Respiratory Rate 16 23 Blood Pressure 129/64 142/85 H Pulse Oximetry 100 100 01/04/18 22:00 01/04/18 22:23 01/05/18 00:00 Temperature 98.1 F Pulse Rate 68 65 Respiratory Rate 21 Blood Pressure 139/63 Pulse Oximetry 97 99 01/05/18 02:00 01/05/18 04:00 01/05/18 06:00 Temperature 98.2 F Pulse Rate 64 62 62 Respiratory Rate 22 Blood Pressure 133/63 Pulse Oximetry 98 Intake & Output 01/04/18 01/05/18 01/05/18 18:59 06:59 18:59 Intake Total 480 / 480 Output Total 950 / 950 1200 / 1200 Balance -470 / -470 -1200 / -1200 Weight 107.8 kg Intake: Oral 480 / 480 Output: Urine Amount (Catheter) 950 / 950 1200 / 1200 Condom 950 / 950 1200 / 1200 Other: Date of Last Bowel Movement 01/03/18 01/04/18 # Bowel Movements 3 Weight On Admission 177.8 kg Narrative: GENERAL: in NAD, SKIN: Warm and dry. HEAD: Bruises, mild raccoon/beckman eyes EYES: Pupils equal and round. No scleral icterus. ENT: No nasal bleeding or discharge. Mucous membranes pink and moist. NECK: Trachea midline. No JVD. CARDIOVASCULAR: Regular rate and rhythm. RESPIRATORY: No accessory muscle use. GASTROINTESTINAL: Abdomen soft, non-tender, nondistended. MUSCULOSKELETAL: Right great toe purplish mottled white states chronic NEUROLOGICAL: Awake and alert. Oriented x 2, not to date, follows pleasant no aphasia, fluent articulate, No facial asymmetry, OU 3-2mm, eomi, VFF, No drift, Motor grossly within normal limits. bilateral distal foot weakness 3-4 out of 5 dorsiflexion in addition to reduced range of motion with bilateral arm abduction above the shoulders which is chronic suspected rotator cuff. Tone normal in all 4 limbs, reduce pinprick lower extremities, msr 1-2+ sym, no clonus, planterflexor, gait not assessed secondary fall risk PSYCHIATRIC: Appropriate mood and affect; - Constitutional no acute distress - Routine HEENT Exam Head: Present: normocephalic - Urinary Catheter Management Condom Cath placed during this visit: no Objective Laboratory Results - last 24 hr 01/04/18 01/04/18 01/04/18 09:30 12:49 16:11 WBC RBC Hgb Hct MCV MCH MCHC RDW Plt Count MPV Neut % (Auto) Lymph % (Auto) [place] % (Auto) Eos % (Auto) Baso % (Auto) Neut # (Auto) Lymph # (Auto) [place] # (Auto) Eos # (Auto) Baso # (Auto) WBC Differential Differential Comment Sodium Potassium Chloride Carbon Dioxide Anion Gap BUN Creatinine Estimated GFR POC Glucose 118 H 214 H 210 H Random Glucose Calcium 01/04/18 01/05/18 01/05/18 20:46 04:17 05:21 WBC 6.6 RBC 3.44 L Hgb 9.7 L Hct 30.3 L MCV 88.2 MCH 28.1 MCHC 31.9 L RDW 15.9 Plt Count 217 MPV 7.7 Neut % (Auto) 73.0 H Lymph % (Auto) 10.6 [place] % (Auto) 11.3 H Eos % (Auto) 4.6 H Baso % (Auto) 0.5 Neut # (Auto) 4.8 Lymph # (Auto) 0.7 L [place] # (Auto) 0.7 Eos # (Auto) 0.3 Baso # (Auto) 0.0 WBC Differential . Differential Comment Auto diff final Sodium Potassium Chloride Carbon Dioxide Anion Gap BUN Creatinine Estimated GFR POC Glucose 177 H 124 H Random Glucose Calcium 01/05/18 01/05/18 05:21 07:59 WBC RBC Hgb Hct MCV MCH MCHC RDW Plt Count MPV Neut % (Auto) Lymph % (Auto) [place] % (Auto) Eos % (Auto) Baso % (Auto) Neut # (Auto) Lymph # (Auto) [place] # (Auto) Eos # (Auto) Baso # (Auto) WBC Differential Differential Comment Sodium 143 Potassium 3.4 L Chloride 101 Carbon Dioxide 34.5 H Anion Gap 8 BUN 56 H Creatinine 1.62 H Estimated GFR 42 L POC Glucose 116 H Random Glucose 113 H Calcium 8.6 Review/Management - Diagnosis (1) Closed head injury Code(s): S09.90XA - Unspecified injury of head, initial encounter Status: Acute Current Visit: Yes (2) Dysrhythmia Code(s): I49.9 - Cardiac arrhythmia, unspecified Status: Acute Current Visit : Yes (3) PEA (Pulseless electrical activity) Code(s): I46.9 - Cardiac arrest, cause unspecified Status: Acute Current Visit: Yes (4) Fall with injury Code(s): W19.XXXA - Unspecified fall, initial encounter Status: Acute Current Visit: Yes (5) Concussion Code(s): S06.0X9A - Concussion with loss of consciousness of unspecified duration, initial encounter Status: Acute Current Visit: Yes - Review/Management Plan: Status post cardiac arrest PEA, fall with concussive type injury MRI brain scan reviewed which demonstrates very tiny high cortical ischemic- looking regions. I suspect this may be related to contusion injury versus hypoxic. Tiny embolic infarcts is another possibility although less likely He does have mild postconcussive/hypoxic encephalopathy which is gradually improving Chronic gait disorder using a walker carotid ultrasound clinical negative EEG negative for any seizure activity Recommendations Neuro stable; doing well PT OT ST Can be transferred to the 5th floor with telemetry from neurologic standpoint Discussed with patient and RN May require inpatient rehab (1) Closed head injury Qualifiers: Encounter type: initial encounter Qualified Code(s): S09.90XA - Unspecified injury of head, initial encounter (2) Dysrhythmia Qualifiers: Arrhythmia type: unspecified cardiac arrhythmia Qualified Code(s): I49.9 - Cardiac arrhythmia, unspecified
[2018-01-05] MEDS ORDERED: Potassium Chloride 25 MEQ Effervescent Tablet PO ONE (08:45)
--- NOTE | 2018-01-05 09:55 | P.PNNP ---
Subjective Interval history: patient was seen and examined. Edema has improved. Renal function has improved. Patient is alert, awake, answers questions. Wants to be discharged. Physical Exam Vital signs: Vital Signs 01/04/18 10:00 01/04/18 12:00 01/04/18 14:00 Temperature 97.9 F Pulse Rate 70 73 68 Respiratory Rate 22 Blood Pressure 123/58 L Pulse Oximetry 94 L 01/04/18 16:00 01/04/18 18:00 01/04/18 20:00 Temperature 98 F 98 F Pulse Rate 84 65 68 Respiratory Rate 16 23 Blood Pressure 129/64 142/85 H Pulse Oximetry 100 100 01/04/18 22:00 01/04/18 22:23 01/05/18 00:00 Temperature 98.1 F Pulse Rate 68 65 Respiratory Rate 21 Blood Pressure 139/63 Pulse Oximetry 97 99 01/05/18 02:00 01/05/18 04:00 01/05/18 06:00 Temperature 98.2 F Pulse Rate 64 62 62 Respiratory Rate 22 Blood Pressure 133/63 Pulse Oximetry 98 01/05/18 08:00 Temperature Pulse Rate Respiratory Rate Blood Pressure Pulse Oximetry 94 L Intake & Output 01/04/18 01/05/18 01/05/18 18:59 06:59 18:59 Intake Total 480 / 480 Output Total 950 / 950 1200 / 1200 Balance -470 / -470 -1200 / -1200 Weight 107.8 kg Intake: Oral 480 / 480 Output: Urine Amount (Catheter) 950 / 950 1200 / 1200 Condom 950 / 950 1200 / 1200 Other: Date of Last Bowel Movement 01/03/18 01/04/18 # Bowel Movements 3 Weight On Admission 177.8 kg - Constitutional no acute distress - Routine HEENT Exam Head: Present: normocephalic, atraumatic Comments: facial contusion - Routine Neck Exam Present: supple. Absent: JVD - Routine Respiratory Exam Present: rhonchi, wheezes - Routine Cardiovascular Exam Present: S1, S2 - Routine Abdominal Exam Present: soft, normoactive bowel sounds - Routine Extremities Exam Present: edema - Routine Skin Exam Present: intact - Urinary Catheter Management Condom Cath placed during this visit: no Assessment and Plan - Assessment (1) Acute kidney injury Code(s): N17.9 - Acute kidney failure, unspecified Status: Acute Plan: patient received IV contrast on the , and therefore could have developed contrast nephropathy. Likely has ATN. Fluid overload has improved. Reduce diuretics. Replace potassium. Avoid nephrotoxic agents. Monitor urine output and renal function. GFR now at baseline. (2) Diabetes Code(s): E11.9 - Type 2 diabetes mellitus without complications Status: Acute Plan: insulin coverage to maintain blood glucose between 140 and 180. (3) Concussion Code(s): S06.0X9A - Concussion with loss of consciousness of unspecified duration, initial encounter Status: Acute Plan: Neurology following, improving. (4) CAD (coronary artery disease) Code(s): I25.10 - Atherosclerotic heart disease of [place] coronary artery without angina pectoris Status: Acute
--- NOTE | 2018-01-05 10:55 | P.PNCA ---
Subjective Interval history: Patient denies any chest pain, pressure, palpitations, dizziness, edema or shortness of breath. Medications and Allergies Allergies Allergy/AdvReac Type Severity Reaction Status Date / Time acetaminophen [From [place]] Allergy Nausea/Vomi Verified 12/31/17 18:03 ting exenatide [From Bydureon] Allergy Nausea/Vomi Verified 12/31/17 18:03 ting fentanyl Allergy Nausea/Vomi Verified 12/31/17 18:03 ting hydrocodone [From [place]] Allergy Nausea/Vomi Verified 12/31/17 18:03 ting oxycodone [From Percocet] Allergy Nausea/Vomi Verified 12/31/17 18:03 ting Home Medications Medication Instructions Recorded Confirmed Type aspirin 81 mg PO DAILY 12/31/17 12/31/17 History bumetanide 2 mg PO DAILY 12/31/17 12/31/17 History carvedilol [Coreg] 12.5 mg PO BID 12/31/17 12/31/17 History citalopram 20 mg PO DAILY 12/31/17 12/31/17 History clopidogrel [Plavix] 75 mg PO DAILY 12/31/17 12/31/17 History insulin aspart U-100 [Novolog 5 unit SUB-Q DAILY 12/31/17 12/31/17 History U-100 Insulin aspart] insulin detemir U-100 [Levemir 25 unit SUB-Q QPM 12/31/17 12/31/17 History FlexTouch U-100 Insuln] losartan 25 mg PO DAILY 12/31/17 12/31/17 History ranitidine HCl 150 mg PO DAILY 12/31/17 12/31/17 History rosuvastatin [Crestor] 20 mg PO DAILY 12/31/17 12/31/17 History tamsulosin [Flomax] 0.4 mg PO DAILY 12/31/17 12/31/17 History Active Medications: Active Medications Acetaminophen (Tylenol) 650 mg PO Q4H PRN PRN Reason: Temp > 100.4 Last Admin: 01/01/18 21:09 Dose: 650 mg Albuterol (Duoneb Neb (Prn)) 1 ampul NEB Q4HR NEB PRN PRN Reason: SHORTNESS OF BREATH/WHEEZING Amlodipine Besylate (Norvasc) 5 mg PO DAILY [facility] Last Admin: 01/05/18 08:03 Dose: 5 mg Aspirin (Aspirin Chew) 81 mg PO DAILY [facility] Last Admin: 01/05/18 08:03 Dose: 81 mg Atorvastatin Calcium (Lipitor) 40 mg PO DAILY [facility] Last Admin: 01/05/18 08:03 Dose: 40 mg Bumetanide (Bumex) 2 mg PO BID@0900,1800 [facility] Carvedilol (Coreg) 12.5 mg PO BID [facility] Last Admin: 01/05/18 08:04 Dose: 12.5 mg Citalopram Hydrobromide (Celexa) 20 mg PO DAILY [facility] Last Admin: 01/05/18 08:04 Dose: 20 mg Clopidogrel Bisulfate (Plavix) 75 mg PO DAILY [facility] Last Admin: 01/05/18 08:04 Dose: 75 mg Dextrose (D50w Vial) 50 ml IV.PUSH UNSCH PRN PRN Reason: PER HYPOGLYCEMIA PROTOCOL Enalaprilat (Vasotec Inj) 1.25 mg IV.PUSH Q8H PRN PRN Reason: Sbp>170, Dbp>90 Last Admin: 01/04/18 07:45 Dose: 1.25 mg Famotidine (Pepcid) 20 mg PO DAILY [facility] Last Admin: 01/05/18 08:03 Dose: 20 mg Fluticasone Propionate (Flonase Nasal [place]) 2 spray NASAL DAILY [facility] Last Admin: 01/05/18 08:04 Dose: 2 spray Glucagon (Glucagon Inj) 1 mg OTHER PRN PRN PRN Reason: for Hypoglycemia Protocol Heparin Sodium (Porcine) (Heparin Inj) 5,000 units SQ Q12HR [facility] Last Admin: 01/05/18 08:04 Dose: 5,000 units Hydralazine HCl (Apresoline) 10 mg PO QID PRN PRN Reason: SBP >175, DBP >95 Piperacillin/Tazobactam/Dextrose (Zosyn 3.375 Gm Premix) 50 mls @ 100 mls/hr IV.SIG Q6H [facility] Last Infusion: 01/02/18 16:57 Dose: Infused Sodium Chloride (Ns Inj) 500 mls @ 0 mls/hr IV.SIG BOLUS [facility] Insulin Aspart (Novolog Insulin [place] Sugar Inj) 0 unit SQ ACHS AND 3AM [facility]; Protocol Last Admin: 01/05/18 08:03 Dose: Not Given Lorazepam (Ativan) 0.5 mg PO Q12H PRN PRN Reason: SEVERE ANXIETY OR AGITATION Last Admin: 01/02/18 22:52 Dose: 0.5 mg Losartan Potassium (Cozaar) 50 mg PO DAILY [facility] Last Admin: 01/05/18 08:03 Dose: 50 mg Ondansetron HCl (Zofran Inj) 4 mg IV.PUSH Q6H PRN PRN Reason: NAUSEA OR VOMITING Senna/Docusate Sodium ([place]-Colace) 1 tab PO BID [facility] Last Admin: 01/05/18 08:05 Dose: Not Given Sodium Chloride ([place] Nasal [place]) 2 spray EACH NARE Q4H PRN PRN Reason: dry nose Tamsulosin HCl (Flomax) 0.4 mg PO DAILY [facility] Last Admin: 01/05/18 08:03 Dose: 0.4 mg Physical Exam Vital signs: Vital Signs 01/04/18 12:00 01/04/18 14:00 01/04/18 16:00 Temperature 97.9 F 98 F Pulse Rate 73 68 84 Respiratory Rate 22 16 Blood Pressure 123/58 L 129/64 Pulse Oximetry 94 L 100 01/04/18 18:00 01/04/18 20:00 01/04/18 22:00 Temperature 98 F Pulse Rate 65 68 68 Respiratory Rate 23 Blood Pressure 142/85 H Pulse Oximetry 100 01/04/18 22:23 01/05/18 00:00 01/05/18 02:00 Temperature 98.1 F Pulse Rate 65 64 Respiratory Rate 21 Blood Pressure 139/63 Pulse Oximetry 97 99 01/05/18 04:00 01/05/18 06:00 01/05/18 08:00 Temperature 98.2 F Pulse Rate 62 62 Respiratory Rate 22 Blood Pressure 133/63 Pulse Oximetry 98 94 L Intake & Output 01/04/18 01/05/18 01/05/18 18:59 06:59 18:59 Intake Total 480 / 480 Output Total 950 / 950 1200 / 1200 Balance -470 / -470 -1200 / -1200 Weight 107.8 kg Intake: Oral 480 / 480 Output: Urine Amount (Catheter) 950 / 950 1200 / 1200 Condom 950 / 950 1200 / 1200 Other: Date of Last Bowel Movement 01/03/18 01/04/18 # Bowel Movements 3 Weight On Admission 177.8 kg - Constitutional no acute distress - Routine HEENT Exam Head: Present: normocephalic Eye: Present: PERRL ENT: Present: mucous membranes moist Comments: Healing laceration to the forehead, dry and intact. - Routine Neck Exam Present: full ROM - Routine Respiratory Exam Present: CTA bilaterally - Routine Cardiovascular Exam Present: S1, S2 - Routine Abdominal Exam Present: normoactive bowel sounds - Routine Extremities Exam Present: full ROM, pulses intact, normal capillary refill. Absent: cyanosis, clubbing, edema - Routine Skin Exam Present: warm - Routine Neurological Exam Present: oriented X3 - Detailed Neurological Exam: Coma Scale Eye Opening: Spontaneous Verbal Response: Oriented Motor Response: Obey commands Maria E Coma Scale Total: 15 - Routine Psychiatric Exam Present: normal affect - Urinary Catheter Management Condom Cath placed during this visit: no Results 01/05/18 05:21 01/05/18 05:21 Cardiac Enzymes 01/04/18 Range/Units 05:44 B-Natriuretic Peptide 415 H (0-100) pg/mL Coagulation 01/04/18 Range/Units 05:44 B-Natriuretic Peptide 415 H (0-100) pg/mL CBC 01/04/18 01/05/18 Range/Units 05:44 05:21 WBC 8.3 6.6 (4.0-11.0) th/mm3 RBC 3.58 L 3.44 L (4.50-5.90) mil/mm3 Hgb 10.3 L 9.7 L (13.0-17.0) gm/dL Hct 31.2 L 30.3 L (39.0-51.0) % Plt Count 214 217 (150-450) th/mm3 Neut # (Auto) 6.5 4.8 (1.8-7.7) th/mm3 Lymph # (Auto) 0.6 L 0.7 L (1.0-4.8) th/mm3 [place] # (Auto) 0.8 0.7 (0.0-0.9) th/mm3 Eos # (Auto) 0.3 0.3 (0.0-0.4) th/mm3 Baso # (Auto) 0.0 0.0 (0.0-0.2) th/mm3 Comprehensive Metabolic Panel 01/04/18 01/05/18 Range/Units 05:44 05:21 Sodium 141 143 (136-145) meq/L Potassium 3.8 3.4 L (3.5-5.1) meq/L Chloride 102 101 (98-107) meq/L Carbon Dioxide 31.2 34.5 H (21.0-32.0) meq/L BUN 60 H 56 H (7-18) mg/dL Creatinine 2.03 H 1.62 H (0.60-1.30) mg/dL Calcium 8.6 8.6 (8.5-10.1) mg/dL Albumin 2.2 L (3.4-5.0) g/dL Intake and Output 01/04/18 01/05/18 01/05/18 22:59 06:59 14:59 Intake Total 480 / 480 Output Total 950 / 950 1200 / 1200 Balance -470 / -470 -1200 / -1200 Intake: Oral 480 / 480 Output: Urine Amount (Catheter) 950 / 950 1200 / 1200 Condom 950 / 950 1200 / 1200 Other: Date of Last Bowel Movement 01/04/18 01/04/18 # Bowel Movements 3 Weight 107.8 kg Weight On Admission 177.8 kg - Imaging and Cardiology Imaging: Impressions Chest X-Ray 01/04/18 06:00 CONCLUSION: No significant interval change with persistent bilateral pulmonary parenchymal opacity and small left pleural effusion. Assessment and Plan - Assessment (1) Closed head injury Code(s): S09.90XA - Unspecified injury of head, initial encounter Status: Acute (2) Dysrhythmia Code(s): I49.9 - Cardiac arrhythmia, unspecified Status: Acute (3) PEA (Pulseless electrical activity) Code(s): I46.9 - Cardiac arrest, cause unspecified Status: Acute (4) Hypercarbia Code(s): R06.89 - Other abnormalities of breathing Status: Acute (5) Diabetes Code(s): E11.9 - Type 2 diabetes mellitus without complications Status: Acute (6) Acute kidney injury Code(s): N17.9 - Acute kidney failure, unspecified Status: Acute (7) Fall with injury Code(s): W19.XXXA - Unspecified fall, initial encounter Status: Acute (8) Concussion Code(s): S06.0X9A - Concussion with loss of consciousness of unspecified duration, initial encounter Status: Acute - Plan Patient's blood pressure better controlled on Norvasc 5 mg twice daily. Continue with current cardiac treatment plan and adjust as needed. Patient is more alert today, neurologic evaluation in progress. Nephrology evaluation in progress due to renal insufficiency. We will follow during his hospitalization. The patient will follow up with Dr. Ferraro in his office after discharge. The patient was seen and evaluated by Dr. Ding who participated in care, management and decision-making. - Attending Attestation Patient seen and examined. I reviewed and agree with the evaluation and plan as presented. Continue and titrate BP control. F/u w Dr. Ferraro after discharge. (1) Closed head injury Qualifiers: Encounter type: initial encounter Qualified Code(s): S09.90XA - Unspecified injury of head, initial encounter (2) Dysrhythmia Qualifiers: Arrhythmia type: unspecified cardiac arrhythmia Qualified Code(s): I49.9 - Cardiac arrhythmia, unspecified
--- NOTE | 2018-01-05 16:30 | P.PNIM ---
Subjective Interval history: The patient was resting comfortably in bed. He denied any pain. He said he was eating too much. He denied any shortness of breath. Discussed with nursing. Physical Exam Vital signs: Vital Signs 01/04/18 18:00 01/04/18 20:00 01/04/18 22:00 Temperature 98 F Pulse Rate 65 68 68 Respiratory Rate 23 Blood Pressure 142/85 H Pulse Oximetry 100 01/04/18 22:23 01/05/18 00:00 01/05/18 02:00 Temperature 98.1 F Pulse Rate 65 64 Respiratory Rate 21 Blood Pressure 139/63 Pulse Oximetry 97 99 01/05/18 04:00 01/05/18 06:00 01/05/18 08:00 Temperature 98.2 F Pulse Rate 62 62 Respiratory Rate 22 Blood Pressure 133/63 Pulse Oximetry 98 94 L Intake & Output 01/04/18 01/05/18 01/05/18 18:59 06:59 18:59 Intake Total 480 / 480 Output Total 950 / 950 1200 / 1200 Balance -470 / -470 -1200 / -1200 Weight 107.8 kg Intake: Oral 480 / 480 Output: Urine Amount (Catheter) 950 / 950 1200 / 1200 Condom 950 / 950 1200 / 1200 Other: Date of Last Bowel Movement 01/03/18 01/04/18 # Bowel Movements 3 Weight On Admission 177.8 kg Narrative: GENERAL: in NAD. SKIN: Warm and dry. HEAD: Bruises, mild raccoon/beckman eyes. EYES: Pupils equal and round. No scleral icterus. ENT: No nasal bleeding or discharge. Mucous membranes pink and moist. NECK: Trachea midline. No JVD. CARDIOVASCULAR: Regular rate and rhythm. RESPIRATORY: No accessory muscle use. GASTROINTESTINAL: Abdomen soft, non-tender, nondistended. MUSCULOSKELETAL: Grossly normal ROM and motor function with symmetric weakness. Some bilateral LE edema. NEUROLOGICAL: Awake and alert. No aphasia. Motor grossly within normal limits PSYCHIATRIC: Appropriate mood and affect. - Urinary Catheter Management Condom Cath placed during this visit: no Results - Labs CBC & Chem 7: 01/05/18 05:21 01/05/18 05:21 Laboratory Results - last 24 hr 01/04/18 01/05/18 01/05/18 20:46 04:17 05:21 WBC 6.6 RBC 3.44 L Hgb 9.7 L Hct 30.3 L MCV 88.2 MCH 28.1 MCHC 31.9 L RDW 15.9 Plt Count 217 MPV 7.7 Neut % (Auto) 73.0 H Lymph % (Auto) 10.6 [place] % (Auto) 11.3 H Eos % (Auto) 4.6 H Baso % (Auto) 0.5 Neut # (Auto) 4.8 Lymph # (Auto) 0.7 L [place] # (Auto) 0.7 Eos # (Auto) 0.3 Baso # (Auto) 0.0 WBC Differential . Differential Comment Auto diff final Sodium Potassium Chloride Carbon Dioxide Anion Gap BUN Creatinine Estimated GFR POC Glucose 177 H 124 H Random Glucose Calcium 01/05/18 01/05/18 01/05/18 05:21 07:59 14:20 WBC RBC Hgb Hct MCV MCH MCHC RDW Plt Count MPV Neut % (Auto) Lymph % (Auto) [place] % (Auto) Eos % (Auto) Baso % (Auto) Neut # (Auto) Lymph # (Auto) [place] # (Auto) Eos # (Auto) Baso # (Auto) WBC Differential Differential Comment Sodium 143 Potassium 3.4 L Chloride 101 Carbon Dioxide 34.5 H Anion Gap 8 BUN 56 H Creatinine 1.62 H Estimated GFR 42 L POC Glucose 116 H 207 H Random Glucose 113 H Calcium 8.6 Assessment and Plan - Assessment (1) PEA (Pulseless electrical activity) Code(s): I46.9 - Cardiac arrest, cause unspecified Status: Acute (2) Closed head injury Code(s): S09.90XA - Unspecified injury of head, initial encounter Status: Acute (3) Hypercarbia Code(s): R06.89 - Other abnormalities of breathing Status: Acute (4) Diabetes Code(s): E11.9 - Type 2 diabetes mellitus without complications Status: Acute (5) Concussion Code(s): S06.0X9A - Concussion with loss of consciousness of unspecified duration, initial encounter Status: Acute (6) CAD (coronary artery disease) Code(s): I25.10 - Atherosclerotic heart disease of [place] coronary artery without angina pectoris Status: Acute - Plan Mr. Sellers is a 77 yo M with: Trauma Impression: Mechanical fall resulting in head injury. Normal motor function peripherally Head CT- no acute intracranial abnormality Face CT- no acute fractures. 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 Multilevel spondylosis of Cspine most prominent at C4-5 and C5-[address]- negative T spine with contrast L spine CT- broad-based diffuse annular bulges at multiple levels. No evidence acute fracture, the posterior elements unremarkable. No subluxation or facet malalignment Chest CT- no acute trauma. concern for masslike airspace at L base- 5.9 x3.3 cm ; possible atelectasis w/ effusion vs possible malignancy, Outpatient f/u recommended. Ground glass consolidation at R middle lobe suggestive of possible aspiration. Prominent coronary calcifications A/P CT- left lung atelectasis, atherosclerosis Pelvic XR negative Hand XR negative -Continue IV Tylenol -PT/OT/ST consults Neuro Impression: Suspect concussion. Inability to remember year but otherwise oriented. GCS 14 at time of my initial exam; previously 3 in field. On home ASA/ Plavix 01/01- Normal neuro assessment with exception of not knowing year which is change from baseline 01/02- Improvement in memory of president; still oriented. Normal CN Imaging: Head CT negative on admission, Repeat Head CT ~12hrs after injury negative MRI brain- tiny cortical foci in high parietal lobes likely embolic in etiology. Scattered amyloid angiopathy. No midline shift. Moderate periventricular and subcortical white matter changes noted bilaterally Carotid US unremarkable -Will monitor neuro checks -Resumed oral intake after passed bedside swallow -Neurology consulted -possible contusion injury vs hypoxic causing MRI cortical lesions; embolic infarcts less likely -Post concussive hypoxic encephalopathy gradually improving -EEG Negative -Resume antiplatelets Cardiovascular PEA CAD s/p CABD PAD HTN Impression: Reported PEA in field with ROSC after CPR. Unclear whether was true PEA since seems to have responded well Troponin 0.02-> 0.1-> 0.08. Lactic acid wnl EKGs reassuring -Continue Telemetry -Will continue home ASA, Plavix later today -Continue home BB, ARB -Will increase Losartan to 50mg daily -Continue home statin -Continue home Metolazone -Continue Bumex -Cardiology following Respiratory Impression: Suspect hypercarbia after encephalopathy per Neuro Lung imaging suggestive of effusions; possible aspiration in R middle lobe. Required simple mask in ED. Wears O2 at night; distant smoker Venous gas with CO2 73-> [address]- no acute trauma. concern for masslike airspace at L base- 5.9 x3.3 cm ; possible atelectasis w/ effusion vs possible malignancy, Outpatient f/u recommended. Ground glass consolidation at R middle lobe suggestive of possible aspiration. Prominent coronary calcifications BNP mildly elevated in 200's-> 400 -Pulmonology consulted for evaluation -BIPAP for CO2 retention (unclear whether chronic; baseline not known) -Aim for sats ~low 90's to avoid retention Renal Impression: mild CKD at baseline; sees Dr. Foster as outpatient. Net input for several days (+900 ml 01/01, +675ml 01/02, +2775ml 01/03) Was on Zosyn but no urine eosinophils Cr: 1.42 on admission-> 1.39 -> 2.32 -> 2.58-> 2 Renal US- no gross hydronephrosis. DTPA renogram may help. Kidneys grossly unremarkable on CT 12/31 -Nephrology consulted -IVF stopped -Bumetanide per nephrology -Monitor I/O DM Impression: On home Levemir 24 U daily, Novolog 6U BID -Will give SS insulin while inpatient; will resume Levemir once stable intake GI Cardiac diet resumed -Continue home Pepcid for PPX Toe gangrene Impression: sees Dr. Aiken and Dr. Bustos as outpatient with planned surgical intervention next month -MRI foot- marrow edema in distal tuft great toe crossing DIP to proximal phalanx; normal signal in other toes and metatarsals DVT PPX -SCD's Heparin Discharge Planning: Transfer to floor (2) Closed head injury Qualifiers: Encounter type: initial encounter Qualified Code(s): S09.90XA - Unspecified injury of head, initial encounter
--- NOTE | 2018-01-05 17:11 | P.PNPAL ---
Reason for Visit Reason for visit: a. To assist with evaluation and management of symptoms including: pain and debility b. To assist medical decision maker(s) with: better understanding of current medical conditions; weighing benefits/burdens of medical treatment options; making medical treatment decisions. Subjective Subjective/Interval History: Patient seen and examined in ICU. at bedside. Discussed with nurse. Patient is awake and alert. Hard of hearing. He feels he is doing much better and anxious to move to medical floor as he can't wait to go home. He is on oxygen via [place]. Denies shortness of breath or pain. Has PRN Tylenol available, none taken recent. Vital signs stable. Good appetite. Creatinine 1.62. Family/Friend Interactions: at bedside. She is pleased with patient's clinical improvement. Advance Directives Health Care Surrogate Name and Number: Carlyn Sellers () HCP: [phone] Objective Vital Signs: Vital Signs 01/04/18 18:00 01/04/18 20:00 01/04/18 22:00 Temperature 98 F Pulse Rate 65 68 68 Respiratory Rate 23 Blood Pressure 142/85 H Pulse Oximetry 100 01/04/18 22:23 01/05/18 00:00 01/05/18 02:00 Temperature 98.1 F Pulse Rate 65 64 Respiratory Rate 21 Blood Pressure 139/63 Pulse Oximetry 97 99 01/05/18 04:00 01/05/18 06:00 01/05/18 08:00 Temperature 98.2 F Pulse Rate 62 62 Respiratory Rate 22 Blood Pressure 133/63 Pulse Oximetry 98 94 L Intake & Output 01/04/18 01/05/18 01/05/18 18:59 06:59 18:59 Intake Total 480 / 480 Output Total 950 / 950 1200 / 1200 Balance -470 / -470 -1200 / -1200 Weight 107.8 kg Intake: Oral 480 / 480 Output: Urine Amount (Catheter) 950 / 950 1200 / 1200 Condom 950 / 950 1200 / 1200 Other: Date of Last Bowel Movement 01/03/18 01/04/18 # Bowel Movements 3 Weight On Admission 177.8 kg Physical Exam: CONSTITUTIONAL/GENERAL: This is an adequately nourished patient, in no apparent distress. TUBES/LINES/DRAINS: PIV, Munoz cath SKIN: No jaundice, rashes, or lesions. Ecchymoses on upper extremities. Large laceration on forehead. Skin tear to right hand. Right great toe black and foul odor, erythema noted to surrounding skin. Skin temperature appropriate. Not diaphoretic. EYES: Pupils equal and round and reactive. Extraocular motions intact. No scleral icterus. No injection or drainage. Fundi not examined. ENT: Hearing grossly normal. Nose without bleeding or purulent drainage. Throat without visible erythema, exudates, masses, or lesions. NECK: Trachea midline. Supple, nontender. CARDIOVASCULAR: Regular rate and rhythm without murmurs, gallops, or rubs. No JVD. Peripheral pulses difficult to palpate to lower extremities. Left foot +1, right foot questionable. RESPIRATORY/CHEST: Symmetric, unlabored respirations. Clear to auscultation. Breath sounds equal bilaterally. No wheezes, rales, or rhonchi. GASTROINTESTINAL: Abdomen soft, non-tender, nondistended. No hepato-splenomegaly , or palpable masses. No guarding. Bowel sounds present. GENITOURINARY: Without palpable bladder distension. Munoz catheter in place. MUSCULOSKELETAL: Extremities without clubbing, cyanosis, or edema. No joint tenderness or effusion noted. No calf tenderness. No mottling or clubbing. LYMPHATICS: No palpable cervical or supraclavicular adenopathy. NEUROLOGICAL: Awake and alert. Motor and sensory grossly within normal limits. Follows commands. Moves all extremities. PSYCHIATRIC: No obvious anxiety/depression. no apparent hallucinations or other psychotic thought process. Diagnostic Tests Laboratory: Laboratory Results - last 72 hr 01/02/18 01/02/18 01/03/18 17:47 21:40 01:00 WBC RBC Hgb Hct MCV MCH MCHC RDW Plt Count MPV Neut % (Auto) Lymph % (Auto) [place] % (Auto) Eos % (Auto) Baso % (Auto) Neut # (Auto) Lymph # (Auto) [place] # (Auto) Eos # (Auto) Baso # (Auto) WBC Differential Differential Comment Sodium Potassium Chloride Carbon Dioxide Anion Gap BUN Creatinine Estimated GFR POC Glucose 143 H 159 H Random Glucose Calcium Phosphorus Total Bilirubin AST ALT Alkaline Phosphatase B-Natriuretic Peptide Total Protein Albumin Urine Eosinophils None seen 01/03/18 01/03/18 01/03/18 03:31 03:31 03:31 WBC 8.2 RBC 3.50 L Hgb 10.0 L Hct 31.0 L MCV 88.6 MCH 28.5 MCHC 32.1 RDW 16.1 Plt Count 200 MPV 8.2 Neut % (Auto) 80.8 H Lymph % (Auto) 7.4 L [place] % (Auto) 8.2 H Eos % (Auto) 3.1 Baso % (Auto) 0.5 Neut # (Auto) 6.6 Lymph # (Auto) 0.6 L [place] # (Auto) 0.7 Eos # (Auto) 0.3 Baso # (Auto) 0.0 WBC Differential . Differential Comment Auto diff final Sodium 141 Potassium 3.7 Chloride 101 Carbon Dioxide 33.3 H Anion Gap 7 BUN 56 H Creatinine 2.58 H Estimated GFR 24 L POC Glucose Random Glucose 115 H Calcium 8.3 L Phosphorus Total Bilirubin 0.5 AST 29 ALT 25 Alkaline Phosphatase 70 B-Natriuretic Peptide 278 H Total Protein 6.4 Albumin 2.2 L Urine Eosinophils 01/03/18 01/03/18 01/03/18 04:21 08:14 11:51 WBC RBC Hgb Hct MCV MCH MCHC RDW Plt Count MPV Neut % (Auto) Lymph % (Auto) [place] % (Auto) Eos % (Auto) Baso % (Auto) Neut # (Auto) Lymph # (Auto) [place] # (Auto) Eos # (Auto) Baso # (Auto) WBC Differential Differential Comment Sodium Potassium Chloride Carbon Dioxide Anion Gap BUN Creatinine Estimated GFR POC Glucose 118 H 125 H 127 H Random Glucose Calcium Phosphorus Total Bilirubin AST ALT Alkaline Phosphatase B-Natriuretic Peptide Total Protein Albumin Urine Eosinophils 01/03/18 01/03/18 01/04/18 16:48 22:04 03:15 WBC RBC Hgb Hct MCV MCH MCHC RDW Plt Count MPV Neut % (Auto) Lymph % (Auto) [place] % (Auto) Eos % (Auto) Baso % (Auto) Neut # (Auto) Lymph # (Auto) [place] # (Auto) Eos # (Auto) Baso # (Auto) WBC Differential Differential Comment Sodium Potassium Chloride Carbon Dioxide Anion Gap BUN Creatinine Estimated GFR POC Glucose 150 H 133 H 126 H Random Glucose Calcium Phosphorus Total Bilirubin AST ALT Alkaline Phosphatase B-Natriuretic Peptide Total Protein Albumin Urine Eosinophils 01/04/18 01/04/18 01/04/18 05:44 05:44 05:44 WBC 8.3 RBC 3.58 L Hgb 10.3 L Hct 31.2 L MCV 87.3 MCH 28.7 MCHC 32.9 RDW 16.0 Plt Count 214 MPV 8.3 Neut % (Auto) 79.0 H Lymph % (Auto) 7.9 L [place] % (Auto) 9.6 H Eos % (Auto) 3.1 Baso % (Auto) 0.4 Neut # (Auto) 6.5 Lymph # (Auto) 0.6 L [place] # (Auto) 0.8 Eos # (Auto) 0.3 Baso # (Auto) 0.0 WBC Differential . Differential Comment Auto diff final Sodium 141 Potassium 3.8 Chloride 102 Carbon Dioxide 31.2 Anion Gap 8 BUN 60 H Creatinine 2.03 H Estimated GFR 32 L POC Glucose Random Glucose 107 H Calcium 8.6 Phosphorus 3.9 Total Bilirubin AST ALT Alkaline Phosphatase B-Natriuretic Peptide 415 H Total Protein Albumin 2.2 L Urine Eosinophils 01/04/18 01/04/18 01/04/18 09:30 12:49 16:11 WBC RBC Hgb Hct MCV MCH MCHC RDW Plt Count MPV Neut % (Auto) Lymph % (Auto) [place] % (Auto) Eos % (Auto) Baso % (Auto) Neut # (Auto) Lymph # (Auto) [place] # (Auto) Eos # (Auto) Baso # (Auto) WBC Differential Differential Comment Sodium Potassium Chloride Carbon Dioxide Anion Gap BUN Creatinine Estimated GFR POC Glucose 118 H 214 H 210 H Random Glucose Calcium Phosphorus Total Bilirubin AST ALT Alkaline Phosphatase B-Natriuretic Peptide Total Protein Albumin Urine Eosinophils 01/04/18 01/05/18 01/05/18 20:46 04:17 05:21 WBC 6.6 RBC 3.44 L Hgb 9.7 L Hct 30.3 L MCV 88.2 MCH 28.1 MCHC 31.9 L RDW 15.9 Plt Count 217 MPV 7.7 Neut % (Auto) 73.0 H Lymph % (Auto) 10.6 [place] % (Auto) 11.3 H Eos % (Auto) 4.6 H Baso % (Auto) 0.5 Neut # (Auto) 4.8 Lymph # (Auto) 0.7 L [place] # (Auto) 0.7 Eos # (Auto) 0.3 Baso # (Auto) 0.0 WBC Differential . Differential Comment Auto diff final Sodium Potassium Chloride Carbon Dioxide Anion Gap BUN Creatinine Estimated GFR POC Glucose 177 H 124 H Random Glucose Calcium Phosphorus Total Bilirubin AST ALT Alkaline Phosphatase B-Natriuretic Peptide Total Protein Albumin Urine Eosinophils 01/05/18 01/05/18 01/05/18 05:21 07:59 14:20 WBC RBC Hgb Hct MCV MCH MCHC RDW Plt Count MPV Neut % (Auto) Lymph % (Auto) [place] % (Auto) Eos % (Auto) Baso % (Auto) Neut # (Auto) Lymph # (Auto) [place] # (Auto) Eos # (Auto) Baso # (Auto) WBC Differential Differential Comment Sodium 143 Potassium 3.4 L Chloride 101 Carbon Dioxide 34.5 H Anion Gap 8 BUN 56 H Creatinine 1.62 H Estimated GFR 42 L POC Glucose 116 H 207 H Random Glucose 113 H Calcium 8.6 Phosphorus Total Bilirubin AST ALT Alkaline Phosphatase B-Natriuretic Peptide Total Protein Albumin Urine Eosinophils Result Diagrams: 01/05/18 05:21 01/05/18 05:21 Imaging: Pelvis X-Ray 12/31/17 15:43 CONCLUSION: 1. No acute fracture. Hand X-Ray 12/31/17 15:47 CONCLUSION: 1. No acute fracture or radiopaque foreign body. Abdomen/Pelvis CT 12/31/17 15:49 CONCLUSION: 1. Bilateral pleural effusions left greater than right. Consolidation left lung base I believe is rounded atelectasis. Intra-abdominal exam is unremarkable. Sigmoid diverticulosis. Marked atherosclerotic disease including the coronary vessels Chest CT 12/31/17 15:49 CONCLUSION: 1. No acute traumatic abdomen in the thorax. 2. Small fluid density left pleural effusion. 3. Rounded nearly masslike airspace consolidation in the left lung base measuring 5.9 x 3.3 cm. This may reflect rounded atelectasis given the adjacent pleural effusion. However, malignant etiology cannot be entirely excluded. Comparisons with prior examinations would be beneficial in further evaluation. Alternatively, outpatient PET/CT examination may be performed for further evaluation as clinically warranted. 4. Groundglass airspace consolidation in the inferior right middle lobe, presumably atelectasis, although differential considerations include aspiration. 5. Prominent coronary artery calcifications. Lumbar Spine CT 12/31/17 15:49 CONCLUSION: 1. Broad-based diffuse annular bulges at multiple levels. No evidence of an acute fracture. The posterior elements are unremarkable. There is no evidence of any subluxation or facet malalignment. Thoracic Spine CT 12/31/17 15:49 CONCLUSION: 1. Negative CT Thoracic Spine with contrast. No evidence of fracture. Cervical Spine CT 12/31/17 15:50 CONCLUSION: 1. No acute fracture. 2. 2 mm retrolisthesis of C4 on C5 and 3 mm anterolisthesis of C7 on T1 likely due to degenerative arthrosis. 3. Advanced multilevel degenerative spondylosis of the cervical spine most prominently at C4-5 and C5-6, as above. Face CT 12/31/17 15:50 CONCLUSION: 1. No acute facial bone fractures. 2. Mild bilateral maxillary sinus mucosal disease. Extremity Arterial Study 01/01/18 00:00 CONCLUSION: 1. Very limited examination with unobtainable ankle-brachial indices bilaterally. 2. There is moderately decreased toe brachial indices on the left. 3. Consider CTA examination if there is continued clinical concern. Foot MRI 01/01/18 00:00 CONCLUSION: 1. Foot X-Ray 01/01/18 00:00 CONCLUSION: Extensive digital artery calcifications. Inflammatory process cannot be excluded. Displaced fracture is not evident. Head CT 01/01/18 00:00 CONCLUSION: 1. No acute intracranial abnormality. 2. Frontal scalp contusion/hematoma again noted. 3. Chronic white matter changes. . Head MRI 01/01/18 00:00 CONCLUSION: 1. Tiny scattered cortical foci are noted within the high parietal lobes on the diffusion-weighted images suggesting tiny acute cortical infarcts likely embolic in etiology. Clinical correlation is recommended. 2. Scattered focal signal in relation noted on the SWI images suggestive of scattered amyloid angiopathy. 3. No midline shift or extra-axial bleed is noted. 4. Mild diffuse cerebral atrophy is noted. 5. Moderate periventricular and subcortical white matter small vessel ischemic changes are noted bilaterally. Carotid Doppler Study 01/02/18 20:25 CONCLUSION: Negative for hemodynamically significant carotid stenosis. Abdomen/Bladder Ultrasound 01/03/18 00:00 CONCLUSION: 1. Severely limited by body habitus 2. No gross hydronephrosis. DTPA renogram may help. Kidneys are grossly unremarkable on CT of 12/31/2017. Chest X-Ray 01/04/18 06:00 CONCLUSION: No significant interval change with persistent bilateral pulmonary parenchymal opacity and small left pleural effusion. Assessment and Plan Pertinent Non-Medical Issues: Psychosocial:The patient has been for 51 years with 2 children. Taiwo "Frantz Sellers who live at home. He is 50 years old and disabled and in acute renal failure. Their younger son is Grabiel who is 44yo and lives in [place]. He worked at [employer] and they lived in [place]. They retired in 1990 which is when they moved to [place] Spiritual: Jehovah'[employer] Witness Legal:Per [place] statues, in the absence of written advance directives, health care proxy decision making falls the the patient's Ethical issues impacting care: No known ethical issues impacting care at this time Important Contacts: Carlyn Sellers, (HCP): [phone] Prognosis: Given current trajectory and multiple comorbidities, patient is at high risk for mortality Code Status: Full Code Plan: * DECISION MAKER: Patient is limited insight towards his current healthcare and decision making. It is unclear if this will improve and as such, healthcare proxy falls to the , Carlyn Sellers [phone] * FULL CODE The goals of care remain aggressive at this time. Should the patient 's status decline, the states should would not want her to be dependent on life support but she does want to do everything possible at this time. * GOALS OF CARE: Goals of medical treatment remain aggressive. They would ultimately like to return home where his remains as his full-time caregiver. They are optimistic given clinical improvement. If it is apparent that he would not recover, at that time she would consider de-escalation of care. * SYMPTOMS: Pain, at the moment that patient appears comfortable. He denies pain. Potential pain sources (head, gangrenous toe). Depending on hospital course he may need to consider SNF with rehab placement. * Palliative care will continue to follow to establish trust, assist with symptom management, and to further clarify goals of medical treatment as the clinical course evolves. Palliative care contact information was provided to the family. Attestation Attestation: To help prompt me to consider important information that might be impacting today's encounter and assessment, information from prior notes written by myself or my colleagues may have been "brought forward" into today's note. My signature on this note, however, is an attestation that I personally performed the exam, history, and/or decision-making noted today, and, unless otherwise indicated, the interactions with patient, family, and staff as well as the review of records all occurred today. I also attest that the listed assessment and stated plan reflect my best clinical judgment today based on the combination of historical information, prior notes, and today's exam/ interactions. When time spent is documented, it refers only to time spent today by the signer, or if indicated, combined time spent today by collaborating physician/nurse practitioner.
[2018-01-06] MEDS: LORazepam 0.5 MG Tablet PO PRN (00:42)
[2018-01-06] MEDS: Insulin NovoLOG Aspart Correctional Sugar Inj SQ SCH ×5 (03:34→20:21)
[2018-01-06 05:40] LABS: Albumin 2.3 g/dL (3.4-5.0); Calcium 8.5 mg/dL (8.5-10.1); Potassium 3.2 meq/L (3.5-5.1)
[2018-01-06 05:48] LABS: Phosphorus 2.8 mg/dL (2.5-4.9)
[2018-01-06] MEDS: Carvedilol 12.5 MG Tablet PO SCH ×2 (08:15→20:09)
[2018-01-06] MEDS: Famotidine 20 MG Tablet PO SCH (08:15)
[2018-01-06] MEDS: Citalopram 20 MG Tablet PO SCH (08:15)
[2018-01-06] MEDS: Senna/Docusate Sodium 8.6/50 MG Tablet PO SCH ×2 (08:15→20:09)
[2018-01-06] MEDS: Heparin - SQ 10,000 UNITS/ML Vial SQ SCH ×2 (08:16→20:09)
[2018-01-06] MEDS: amLODIPine 5 MG Tablet PO SCH ×2 (08:19→20:08)
--- NOTE | 2018-01-06 11:07 | P.PNNP ---
Subjective Interval history: patient has been transferred out of ICU. He is non oliguric, but urine output not measured. Renal function has improved. He is sleepy, but arousable. Denies any pain. Wants to go home. Physical Exam Vital signs: Vital Signs 01/05/18 11:15 01/05/18 12:00 01/05/18 16:00 Temperature 98 F 98.3 F 98.2 F Pulse Rate 68 64 66 Respiratory Rate 20 20 25 H Blood Pressure 176/83 H 124/61 145/56 H Pulse Oximetry 94 L 98 97 01/05/18 20:00 01/05/18 20:16 01/06/18 00:00 Temperature 98.5 F 98 F Pulse Rate 66 68 Respiratory Rate 21 20 Blood Pressure 151/66 H 168/71 H Pulse Oximetry 98 98 94 L 01/06/18 07:00 01/06/18 07:48 01/06/18 08:00 Temperature 98 F Pulse Rate 85 Respiratory Rate 12 17 Blood Pressure 163/72 H Pulse Oximetry 93 L 93 L Intake & Output 01/05/18 01/06/18 01/06/18 18:59 06:59 18:59 Intake Total 480 / 480 Output Total 1400 / 1400 700 / 700 Balance -920 / -920 -700 / -700 Intake: Oral 480 / 480 Output: Urine 700 / 700 Urine Amount (Catheter) 1400 / 1400 Condom 1400 / 1400 Other: Date of Last Bowel Movement 01/03/18 01/03/18 # Bowel Movements 4 Narrative: GENERAL: in NAD. SKIN: Warm and dry. HEAD: Bruises, mild raccoon/beckman eyes. Facial contusion EYES: Pupils equal and round. No scleral icterus. ENT: No nasal bleeding or discharge. Mucous membranes pink and moist. NECK: No JVD. CARDIOVASCULAR: Regular rate and rhythm. RESPIRATORY: No accessory muscle use. GASTROINTESTINAL: Abdomen soft, non-tender, nondistended. MUSCULOSKELETAL: Grossly normal ROM and motor function with symmetric weakness. NEUROLOGICAL: No focal deficits. PSYCHIATRIC: Appropriate mood and affect. - Urinary Catheter Management Condom Cath placed during this visit: no Assessment and Plan - Assessment (1) Acute kidney injury Code(s): N17.9 - Acute kidney failure, unspecified Status: Acute Plan: patient received IV contrast on the , and therefore could have developed contrast nephropathy. Likely has ATN. Fluid overload has improved. Agree with stopping diuretics. Replace potassium. Avoid nephrotoxic agents. Monitor urine output and renal function. GFR now at baseline. (2) Diabetes Code(s): E11.9 - Type 2 diabetes mellitus without complications Status: Acute Plan: insulin coverage to maintain blood glucose between 140 and 180. (3) Concussion Code(s): S06.0X9A - Concussion with loss of consciousness of unspecified duration, initial encounter Status: Acute Plan: Neurology following, improving. (4) CAD (coronary artery disease) Code(s): I25.10 - Atherosclerotic heart disease of [place] coronary artery without angina pectoris Status: Acute - Attending Attestation Recommend physical therapy. Patient can be discharged from renal standpoint.
--- NOTE | 2018-01-06 12:31 | P.PN ---
Subjective Interval history: Follow-up for mechanical fall, head injury. Patient is currently doing well. He is alert and coherent. Denies any chest pain, shortness of breath, fever or chills. Physical Exam Vital signs: Vital Signs 01/05/18 16:00 01/05/18 20:00 01/05/18 20:16 Temperature 98.2 F 98.5 F Pulse Rate 66 66 Respiratory Rate 25 H 21 Blood Pressure 145/56 H 151/66 H Pulse Oximetry 97 98 98 01/06/18 00:00 01/06/18 07:00 01/06/18 07:48 Temperature 98 F Pulse Rate 68 Respiratory Rate 20 12 Blood Pressure 168/71 H Pulse Oximetry 94 L 93 L 01/06/18 08:00 Temperature 98 F Pulse Rate 85 Respiratory Rate 17 Blood Pressure 163/72 H Pulse Oximetry 93 L Intake & Output 01/05/18 01/06/18 01/06/18 18:59 06:59 18:59 Intake Total 480 / 480 Output Total 1400 / 1400 700 / 700 Balance -920 / -920 -700 / -700 Intake: Oral 480 / 480 Output: Urine 700 / 700 Urine Amount (Catheter) 1400 / 1400 Condom 1400 / 1400 Other: Date of Last Bowel Movement 01/03/18 01/03/18 # Bowel Movements 4 Narrative: GENERAL: Alert, oriented to self, place, knows the name of the [place] president. SKIN: Warm and dry. HEAD: Bruises, mild raccoon/beckman eyes. EYES: No scleral icterus. No injection or drainage. NECK: Supple, trachea midline. No JVD or lymphadenopathy. CARDIOVASCULAR: Regular rate and rhythm without murmurs, gallops, or rubs. RESPIRATORY: Breath sounds equal bilaterally. No accessory muscle use. GASTROINTESTINAL: Abdomen soft, non-tender, nondistended. MUSCULOSKELETAL: No cyanosis, or edema. BACK: Nontender without obvious deformity. No CVA tenderness. - Urinary Catheter Management Condom Cath placed during this visit: no Results - Labs CBC & Chem 7: 01/05/18 05:21 01/06/18 04:45 Laboratory Results - last 24 hr 01/05/18 01/05/18 01/05/18 14:20 18:01 20:37 Sodium Potassium Chloride Carbon Dioxide Anion Gap BUN Creatinine Estimated GFR POC Glucose 207 H 127 H 275 H Random Glucose Calcium Phosphorus Albumin 01/06/18 01/06/18 01/06/18 03:32 04:45 07:33 Sodium 144 Potassium 3.2 L Chloride 101 Carbon Dioxide 37.0 H Anion Gap 6 BUN 48 H Creatinine 1.46 H Estimated GFR 47 L POC Glucose 157 H 176 H Random Glucose 128 H Calcium 8.5 Phosphorus 2.8 D Albumin 2.3 L 01/06/18 11:15 Sodium Potassium Chloride Carbon Dioxide Anion Gap BUN Creatinine Estimated GFR POC Glucose 172 H Random Glucose Calcium Phosphorus Albumin Assessment and Plan - Assessment (1) PEA (Pulseless electrical activity) Code(s): I46.9 - Cardiac arrest, cause unspecified Status: Acute (2) Closed head injury Code(s): S09.90XA - Unspecified injury of head, initial encounter Status: Acute (3) Hypercarbia Code(s): R06.89 - Other abnormalities of breathing Status: Acute (4) Diabetes Code(s): E11.9 - Type 2 diabetes mellitus without complications Status: Acute (5) Concussion Code(s): S06.0X9A - Concussion with loss of consciousness of unspecified duration, initial encounter Status: Acute (6) CAD (coronary artery disease) Code(s): I25.10 - Atherosclerotic heart disease of [place] coronary artery without angina pectoris Status: Acute - Plan Mr. Sellers is a 77 yo M with: Trauma Mechanical fall resulting in head injury. Normal motor function peripherally Head CT- no acute intracranial abnormality Face CT- no acute fractures. 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 Multilevel spondylosis of Cspine most prominent at C4-5 and C5-[address]- negative T spine with contrast L spine CT- broad-based diffuse annular bulges at multiple levels. No evidence acute fracture, the posterior elements unremarkable. No subluxation or facet malalignment Chest CT- no acute trauma. concern for masslike airspace at L base- 5.9 x3.3 cm ; possible atelectasis w/ effusion vs possible malignancy, Outpatient f/u recommended. Ground glass consolidation at R middle lobe suggestive of possible aspiration. Prominent coronary calcifications A/P CT- left lung atelectasis, atherosclerosis Pelvic XR negative Hand XR negative Continue Tylenol PT/OT/ST consults Neuro Suspect concussion. Inability to remember year but otherwise oriented. GCS 14 at time of my initial exam; previously 3 in field. On home ASA/Plavix 01/01- Normal neuro assessment with exception of not knowing year which is change from baseline 01/02- Improvement in memory of president; still oriented. Normal CN Imaging: Head CT negative on admission, Repeat Head CT ~12hrs after injury negative MRI brain- tiny cortical foci in high parietal lobes likely embolic in etiology. Scattered amyloid angiopathy. No midline shift. Moderate periventricular and subcortical white matter changes noted bilaterally Carotid US unremarkable -Will monitor neuro checks -Resumed oral intake after passed bedside swallow -Neurology consulted -possible contusion injury vs hypoxic causing MRI cortical lesions; embolic infarcts less likely -Post concussive hypoxic encephalopathy gradually improving -EEG Negative -Resume antiplatelets Cardiovascular PEA CAD s/p CABG PAD HTN Reported PEA in field with ROSC after CPR. Unclear whether was true PEA since seems to have responded well Troponin 0.02-> 0.1-> 0.08. EKGs reassuring -Continue Telemetry -Will continue home ASA, Plavix later today -Continue home BB, ARB -Losartan to 50mg daily -Continue home statin -Continue home Metolazone -Continue Bumex -Cardiology following Respiratory Suspect hypercarbia after encephalopathy per Neuro Lung imaging suggestive of effusions; possible aspiration in R middle lobe. Required simple mask in ED. Wears O2 at night; distant smoker Venous gas with CO2 73-> [address]- no acute trauma. concern for masslike airspace at L base- 5.9 x3.3 cm ; possible atelectasis w/ effusion vs possible malignancy, Outpatient f/u recommended. Ground glass consolidation at R middle lobe suggestive of possible aspiration. Prominent coronary calcifications BNP mildly elevated in 200's-> 400 -Pulmonology consulted for evaluation -BIPAP for CO2 retention (unclear whether chronic; baseline not known) -Aim for sats ~low 90's to avoid retention Renal mild CKD at baseline; sees Dr. Foster as outpatient. Net input for several days ( +900 ml 01/01, +675ml 01/02, +2775ml 01/03) Was on Zosyn but no urine eosinophils Cr: 1.42 on admission-> 1.39 -> 2.32 -> 2.58-> 2 ==> 1.46. Renal US- no gross hydronephrosis. DTPA renogram may help. Kidneys grossly unremarkable on CT 12/31 -Nephrology consulted -IVF stopped -Bumetanide discontinued today. DM Currently on sliding scale insulin. Will start low dose Levemir 5 units QHS. Toe gangrene Impression: sees Dr. Aiken and Dr. Bustos as outpatient with planned surgical intervention next month -MRI foot- marrow edema in distal tuft great toe crossing DIP to proximal phalanx; normal signal in other toes and metatarsals Full code. Heparin SQ. Discharge plan: Nephrology cleared for discharge. Patient's is coming today and CM will discuss regarding SNF placement. We can discharge patient today/tomorrow to SNF. If patient/ do not want SNF, home with home health would be an option. (2) Closed head injury Qualifiers: Encounter type: initial encounter Qualified Code(s): S09.90XA - Unspecified injury of head, initial encounter
--- NOTE | 2018-01-06 14:25 | P.PNCA ---
Subjective Interval history: Patient has been transferred out of ICU. Patient denies any chest pain, pressure, palpitations, dizziness, edema or shortness of breath. Patient is more alert and coherent today, states that he feels much better. Medications and Allergies Allergies Allergy/AdvReac Type Severity Reaction Status Date / Time acetaminophen [From [place]] Allergy Nausea/Vomi Verified 12/31/17 18:03 ting exenatide [From Bydureon] Allergy Nausea/Vomi Verified 12/31/17 18:03 ting fentanyl Allergy Nausea/Vomi Verified 12/31/17 18:03 ting hydrocodone [From [place]] Allergy Nausea/Vomi Verified 12/31/17 18:03 ting oxycodone [From Percocet] Allergy Nausea/Vomi Verified 12/31/17 18:03 ting Home Medications Medication Instructions Recorded Confirmed Type aspirin 81 mg PO DAILY 12/31/17 12/31/17 History bumetanide 2 mg PO DAILY 12/31/17 12/31/17 History carvedilol [Coreg] 12.5 mg PO BID 12/31/17 12/31/17 History citalopram 20 mg PO DAILY 12/31/17 12/31/17 History clopidogrel [Plavix] 75 mg PO DAILY 12/31/17 12/31/17 History insulin aspart U-100 [Novolog 5 unit SUB-Q DAILY 12/31/17 12/31/17 History U-100 Insulin aspart] insulin detemir U-100 [Levemir 25 unit SUB-Q QPM 12/31/17 12/31/17 History FlexTouch U-100 Insuln] losartan 25 mg PO DAILY 12/31/17 12/31/17 History ranitidine HCl 150 mg PO DAILY 12/31/17 12/31/17 History rosuvastatin [Crestor] 20 mg PO DAILY 12/31/17 12/31/17 History tamsulosin [Flomax] 0.4 mg PO DAILY 12/31/17 12/31/17 History Active Medications: Active Medications Acetaminophen (Tylenol) 650 mg PO Q4H PRN PRN Reason: Temp > 100.4 Last Admin: 01/01/18 21:09 Dose: 650 mg Albuterol (Duoneb Neb (Prn)) 1 ampul NEB Q4HR NEB PRN PRN Reason: SHORTNESS OF BREATH/WHEEZING Amlodipine Besylate (Norvasc) 5 mg PO DAILY [facility] Last Admin: 01/06/18 08:19 Dose: 5 mg Aspirin (Aspirin Chew) 81 mg PO DAILY [facility] Last Admin: 01/06/18 08:15 Dose: 81 mg Atorvastatin Calcium (Lipitor) 40 mg PO DAILY [facility] Last Admin: 01/06/18 08:15 Dose: 40 mg Carvedilol (Coreg) 12.5 mg PO BID [facility] Last Admin: 01/06/18 08:15 Dose: 12.5 mg Citalopram Hydrobromide (Celexa) 20 mg PO DAILY [facility] Last Admin: 01/06/18 08:15 Dose: 20 mg Clopidogrel Bisulfate (Plavix) 75 mg PO DAILY [facility] Last Admin: 01/06/18 08:15 Dose: 75 mg Dextrose (D50w Vial) 50 ml IV.PUSH UNSCH PRN PRN Reason: PER HYPOGLYCEMIA PROTOCOL Enalaprilat (Vasotec Inj) 1.25 mg IV.PUSH Q8H PRN PRN Reason: Sbp>170, Dbp>90 Last Admin: 01/04/18 07:45 Dose: 1.25 mg Famotidine (Pepcid) 20 mg PO DAILY [facility] Last Admin: 01/06/18 08:15 Dose: 20 mg Fluticasone Propionate (Flonase Nasal [place]) 2 spray NASAL DAILY [facility] Last Admin: 01/06/18 08:16 Dose: Not Given Glucagon (Glucagon Inj) 1 mg OTHER PRN PRN PRN Reason: for Hypoglycemia Protocol Heparin Sodium (Porcine) (Heparin Inj) 5,000 units SQ Q12HR [facility] Last Admin: 01/06/18 08:16 Dose: 5,000 units Hydralazine HCl (Apresoline) 10 mg PO QID PRN PRN Reason: SBP >175, DBP >95 Sodium Chloride (Ns Inj) 500 mls @ 0 mls/hr IV.SIG BOLUS [facility] Insulin Aspart (Novolog Insulin [place] Inj) 0 unit SQ ACHS AND 3AM [facility]; Protocol Last Admin: 01/06/18 11:18 Dose: 1 unit Insulin Detemir (Levemir Inj) 5 unit SQ HS [facility] Lorazepam (Ativan) 0.5 mg PO Q12H PRN PRN Reason: SEVERE ANXIETY OR AGITATION Last Admin: 01/06/18 00:42 Dose: 0.5 mg Losartan Potassium (Cozaar) 50 mg PO DAILY [facility] Last Admin: 01/06/18 08:15 Dose: 50 mg Ondansetron HCl (Zofran Inj) 4 mg IV.PUSH Q6H PRN PRN Reason: NAUSEA OR VOMITING Senna/Docusate Sodium ([place]-Colace) 1 tab PO BID [facility] Last Admin: 01/06/18 08:15 Dose: 1 tab Sodium Chloride ([place] Nasal [place]) 2 spray EACH NARE Q4H PRN PRN Reason: dry nose Tamsulosin HCl (Flomax) 0.4 mg PO DAILY [facility] Last Admin: 01/06/18 08:15 Dose: 0.4 mg Physical Exam Vital signs: Vital Signs 01/05/18 16:00 01/05/18 20:00 01/05/18 20:16 Temperature 98.2 F 98.5 F Pulse Rate 66 66 Respiratory Rate 25 H 21 Blood Pressure 145/56 H 151/66 H Pulse Oximetry 97 98 98 01/06/18 00:00 01/06/18 07:00 01/06/18 07:48 Temperature 98 F Pulse Rate 68 Respiratory Rate 20 12 Blood Pressure 168/71 H Pulse Oximetry 94 L 93 L 01/06/18 08:00 01/06/18 12:00 Temperature 98 F 97.6 F Pulse Rate 85 65 Respiratory Rate 17 18 Blood Pressure 163/72 H 150/67 H Pulse Oximetry 93 L 91 L Intake & Output 01/05/18 01/06/18 01/06/18 18:59 06:59 18:59 Intake Total 480 / 480 Output Total 1400 / 1400 700 / 700 Balance -920 / -920 -700 / -700 Intake: Oral 480 / 480 Output: Urine 700 / 700 Urine Amount (Catheter) 1400 / 1400 Condom 1400 / 1400 Other: Date of Last Bowel Movement 01/03/18 01/03/18 # Bowel Movements 4 - Constitutional no acute distress - Routine HEENT Exam Head: Present: normocephalic Eye: Present: PERRL ENT: Present: mucous membranes moist - Routine Neck Exam Present: supple - Routine Respiratory Exam Present: CTA bilaterally - Routine Cardiovascular Exam Present: S1, S2. Absent: murmur, gallop, rubs - Routine Abdominal Exam Present: normoactive bowel sounds - Routine Extremities Exam Present: full ROM, pulses intact, normal capillary refill. Absent: cyanosis, clubbing, edema - Routine Skin Exam Present: wounds, ecchymosis Comments: Healing wound on forehead. Ecchymosis around eyes s/p fall. - Routine Neurological Exam Present: oriented X3 - Detailed Neurological Exam: Coma Scale Eye Opening: Spontaneous Verbal Response: Oriented Motor Response: Obey commands [place] Coma Scale Total: 15 - Routine Psychiatric Exam Present: normal affect - Urinary Catheter Management Condom Cath placed during this visit: no Results 01/05/18 05:21 01/06/18 04:45 CBC 01/05/18 Range/Units 05:21 WBC 6.6 (4.0-11.0) th/mm3 RBC 3.44 L (4.50-5.90) mil/mm3 Hgb 9.7 L (13.0-17.0) gm/dL Hct 30.3 L (39.0-51.0) % Plt Count 217 (150-450) th/mm3 Neut # (Auto) 4.8 (1.8-7.7) th/mm3 Lymph # (Auto) 0.7 L (1.0-4.8) th/mm3 [place] # (Auto) 0.7 (0.0-0.9) th/mm3 Eos # (Auto) 0.3 (0.0-0.4) th/mm3 Baso # (Auto) 0.0 (0.0-0.2) th/mm3 Comprehensive Metabolic Panel 01/05/18 01/06/18 Range/Units 05:21 04:45 Sodium 143 144 (136-145) meq/L Potassium 3.4 L 3.2 L (3.5-5.1) meq/L Chloride 101 101 (98-107) meq/L Carbon Dioxide 34.5 H 37.0 H (21.0-32.0) meq/L BUN 56 H 48 H (7-18) mg/dL Creatinine 1.62 H 1.46 H (0.60-1.30) mg/dL Calcium 8.6 8.5 (8.5-10.1) mg/dL Albumin 2.3 L (3.4-5.0) g/dL Intake and Output 01/05/18 01/06/18 01/06/18 22:59 06:59 14:59 Intake Total 480 / 480 Output Total 1400 / 1400 700 / 700 Balance -920 / -920 -700 / -700 Intake: Oral 480 / 480 Output: Urine 700 / 700 Urine Amount (Catheter) 1400 / 1400 Condom 1400 / 1400 Other: Date of Last Bowel Movement 01/03/18 # Bowel Movements 4 Assessment and Plan - Assessment (1) Closed head injury Code(s): S09.90XA - Unspecified injury of head, initial encounter Status: Acute (2) Dysrhythmia Code(s): I49.9 - Cardiac arrhythmia, unspecified Status: Acute (3) PEA (Pulseless electrical activity) Code(s): I46.9 - Cardiac arrest, cause unspecified Status: Acute (4) Hypercarbia Code(s): R06.89 - Other abnormalities of breathing Status: Acute (5) Diabetes Code(s): E11.9 - Type 2 diabetes mellitus without complications Status: Acute (6) Acute kidney injury Code(s): N17.9 - Acute kidney failure, unspecified Status: Acute (7) Fall with injury Code(s): W19.XXXA - Unspecified fall, initial encounter Status: Acute (8) Concussion Code(s): S06.0X9A - Concussion with loss of consciousness of unspecified duration, initial encounter Status: Acute - Plan No new cardiac issues. Continue with current cardiac treatment plan and adjust as needed. Patient is more alert and coherent today, neurologic evaluation in progress. Nephrology evaluation in progress due to renal insufficiency. We will follow during his hospitalization. The patient will follow up with Dr. Ferraro in his office after discharge. The patient was seen and evaluated by Dr. Ding who participated in care, management and decision-making. - Attending Attestation Patient seen and examined. I reviewed and agree with the evaluation and plan as presented. Remains stable from cardiac standpoint. Continue current program. F/ u w Dr. Ferraro after discharge. (1) Closed head injury Qualifiers: Encounter type: initial encounter Qualified Code(s): S09.90XA - Unspecified injury of head, initial encounter (2) Dysrhythmia Qualifiers: Arrhythmia type: unspecified cardiac arrhythmia Qualified Code(s): I49.9 - Cardiac arrhythmia, unspecified
--- NOTE | 2018-01-06 17:32 | P.PNNEU ---
Subjective Subjective Comments: No cp, no dyspnea, no vieyra, no focal weakness, no vision loss Active Medications: Active Medications Acetaminophen (Tylenol) 650 mg PO Q4H PRN PRN Reason: Temp > 100.4 Last Admin: 01/01/18 21:09 Dose: 650 mg Albuterol (Duoneb Neb (Prn)) 1 ampul NEB Q4HR NEB PRN PRN Reason: SHORTNESS OF BREATH/WHEEZING Amlodipine Besylate (Norvasc) 5 mg PO BID [facility] Aspirin (Aspirin Chew) 81 mg PO DAILY [facility] Last Admin: 01/06/18 08:15 Dose: 81 mg Atorvastatin Calcium (Lipitor) 40 mg PO DAILY [facility] Last Admin: 01/06/18 08:15 Dose: 40 mg Carvedilol (Coreg) 12.5 mg PO BID [facility] Last Admin: 01/06/18 08:15 Dose: 12.5 mg Citalopram Hydrobromide (Celexa) 20 mg PO DAILY [facility] Last Admin: 01/06/18 08:15 Dose: 20 mg Clopidogrel Bisulfate (Plavix) 75 mg PO DAILY [facility] Last Admin: 01/06/18 08:15 Dose: 75 mg Dextrose (D50w Vial) 50 ml IV.PUSH UNSCH PRN PRN Reason: PER HYPOGLYCEMIA PROTOCOL Enalaprilat (Vasotec Inj) 1.25 mg IV.PUSH Q8H PRN PRN Reason: Sbp>170, Dbp>90 Last Admin: 01/04/18 07:45 Dose: 1.25 mg Famotidine (Pepcid) 20 mg PO DAILY [facility] Last Admin: 01/06/18 08:15 Dose: 20 mg Fluticasone Propionate (Flonase Nasal [place]) 2 spray NASAL DAILY [facility] Last Admin: 01/06/18 08:16 Dose: Not Given Glucagon (Glucagon Inj) 1 mg OTHER PRN PRN PRN Reason: for Hypoglycemia Protocol Heparin Sodium (Porcine) (Heparin Inj) 5,000 units SQ Q12HR [facility] Last Admin: 01/06/18 08:16 Dose: 5,000 units Hydralazine HCl (Apresoline) 10 mg PO QID PRN PRN Reason: SBP >175, DBP >95 Sodium Chloride (Ns Inj) 500 mls @ 0 mls/hr IV.SIG BOLUS [facility] Insulin Aspart (Novolog Insulin Correctional Sugar Inj) 0 unit SQ ACHS AND 3AM LISSETH; Protocol Last Admin: 01/06/18 16:16 Dose: 3 unit Insulin Detemir (Levemir Inj) 5 unit SQ HS [facility] Lorazepam (Ativan) 0.5 mg PO Q12H PRN PRN Reason: SEVERE ANXIETY OR AGITATION Last Admin: 01/06/18 00:42 Dose: 0.5 mg Losartan Potassium (Cozaar) 50 mg PO DAILY [facility] Last Admin: 01/06/18 08:15 Dose: 50 mg Ondansetron HCl (Zofran Inj) 4 mg IV.PUSH Q6H PRN PRN Reason: NAUSEA OR VOMITING Senna/Docusate Sodium ([place]-Colace) 1 tab PO BID [facility] Last Admin: 01/06/18 08:15 Dose: 1 tab Sodium Chloride ([place] Nasal [place]) 2 spray EACH NARE Q4H PRN PRN Reason: dry nose Tamsulosin HCl (Flomax) 0.4 mg PO DAILY [facility] Last Admin: 01/06/18 08:15 Dose: 0.4 mg Allergies/Adverse Reactions: Allergies Allergy/AdvReac Type Severity Reaction Status Date / Time acetaminophen [From [place]] Allergy Nausea/Vomi Verified 12/31/17 18:03 ting exenatide [From Bydureon] Allergy Nausea/Vomi Verified 12/31/17 18:03 ting fentanyl Allergy Nausea/Vomi Verified 12/31/17 18:03 ting hydrocodone [From [place]] Allergy Nausea/Vomi Verified 12/31/17 18:03 ting oxycodone [From Percocet] Allergy Nausea/Vomi Verified 12/31/17 18:03 ting Review of Systems All other systems reviewed negative except as stated in HPI Physical Exam Vital signs: Vital Signs 01/05/18 20:00 01/05/18 20:16 01/06/18 00:00 Temperature 98.5 F 98 F Pulse Rate 66 68 Respiratory Rate 21 20 Blood Pressure 151/66 H 168/71 H Pulse Oximetry 98 98 94 L 01/06/18 07:00 01/06/18 07:48 01/06/18 08:00 Temperature 98 F Pulse Rate 85 Respiratory Rate 12 17 Blood Pressure 163/72 H Pulse Oximetry 93 L 93 L 01/06/18 12:00 01/06/18 16:00 Temperature 97.6 F 97.3 F L Pulse Rate 65 71 Respiratory Rate 18 18 Blood Pressure 150/67 H 156/73 H Pulse Oximetry 91 L 95 Intake & Output 01/05/18 01/06/18 01/06/18 18:59 06:59 18:59 Intake Total 480 / 480 240 / 240 Output Total 1400 / 1400 700 / 700 Balance -920 / -920 -700 / -700 240 / 240 Intake: Oral 480 / 480 240 / 240 Output: Urine 700 / 700 Urine Amount (Catheter) 1400 / 1400 Condom 1400 / 1400 Other: Date of Last Bowel Movement 01/03/18 01/03/18 # Bowel Movements 4 Narrative: GENERAL: in NAD, SKIN: Warm and dry. HEAD: Bruises, mild raccoon/beckman eyes EYES: Pupils equal and round. No scleral icterus. ENT: No nasal bleeding or discharge. Mucous membranes pink and moist. NECK: Trachea midline. No JVD. CARDIOVASCULAR: Regular rate and rhythm. RESPIRATORY: No accessory muscle use. GASTROINTESTINAL: Abdomen soft, non-tender, nondistended. MUSCULOSKELETAL: Right great toe purplish mottled white states chronic NEUROLOGICAL: Awake and alert. Oriented x 2, not to date, follows pleasant no aphasia, fluent articulate, No facial asymmetry, OU 3-2mm, eomi, VFF, No drift, Motor grossly within normal limits. bilateral distal foot weakness 3-4 out of 5 dorsiflexion in addition to reduced range of motion with bilateral arm abduction above the shoulders which is chronic suspected rotator cuff. Tone normal in all 4 limbs, reduce pinprick lower extremities, msr 1-2+ sym, no clonus, planterflexor, gait not assessed secondary fall risk PSYCHIATRIC: Appropriate mood and affect - Constitutional no acute distress - Routine HEENT Exam Head: Present: normocephalic - Urinary Catheter Management Condom Cath placed during this visit: no Objective Laboratory Results - last 24 hr 01/05/18 01/05/18 01/06/18 18:01 20:37 03:32 Sodium Potassium Chloride Carbon Dioxide Anion Gap BUN Creatinine Estimated GFR POC Glucose 127 H 275 H 157 H Random Glucose Calcium Phosphorus Albumin 01/06/18 01/06/18 01/06/18 04:45 07:33 11:15 Sodium 144 Potassium 3.2 L Chloride 101 Carbon Dioxide 37.0 H Anion Gap 6 BUN 48 H Creatinine 1.46 H Estimated GFR 47 L POC Glucose 176 H 172 H Random Glucose 128 H Calcium 8.5 Phosphorus 2.8 D Albumin 2.3 L 01/06/18 16:07 Sodium Potassium Chloride Carbon Dioxide Anion Gap BUN Creatinine Estimated GFR POC Glucose 242 H Random Glucose Calcium Phosphorus Albumin Review/Management - Diagnosis (1) Closed head injury Code(s): S09.90XA - Unspecified injury of head, initial encounter Status: Acute Current Visit: Yes (2) Dysrhythmia Code(s): I49.9 - Cardiac arrhythmia, unspecified Status: Acute Current Visit : Yes (3) PEA (Pulseless electrical activity) Code(s): I46.9 - Cardiac arrest, cause unspecified Status: Acute Current Visit: Yes (4) Fall with injury Code(s): W19.XXXA - Unspecified fall, initial encounter Status: Acute Current Visit: Yes (5) Concussion Code(s): S06.0X9A - Concussion with loss of consciousness of unspecified duration, initial encounter Status: Acute Current Visit: Yes - Review/Management Plan: Status post cardiac arrest PEA, fall with concussive type injury MRI brain scan reviewed which demonstrates very tiny high cortical ischemic- looking regions. I suspect this may be related to contusion injury versus hypoxic. Tiny embolic infarcts is another possibility although less likely He does have mild postconcussive/hypoxic encephalopathy which is gradually improving Chronic gait disorder using a walker carotid ultrasound clinical negative EEG negative for any seizure activity Recommendations Neuro stable; doing well Therapy May require inpatient rehab (1) Closed head injury Qualifiers: Encounter type: initial encounter Qualified Code(s): S09.90XA - Unspecified injury of head, initial encounter (2) Dysrhythmia Qualifiers: Arrhythmia type: unspecified cardiac arrhythmia Qualified Code(s): I49.9 - Cardiac arrhythmia, unspecified
[2018-01-06] MEDS: Insulin Detemir Inj 1,000 UNIT/10 ML Vial SQ SCH (20:20)
[2018-01-07] MEDS: Insulin NovoLOG Aspart Correctional Sugar Inj SQ SCH ×5 (04:45→20:55)
[2018-01-07] MEDS: Senna/Docusate Sodium 8.6/50 MG Tablet PO SCH ×2 (08:41→20:53)
[2018-01-07] MEDS: amLODIPine 5 MG Tablet PO SCH ×2 (08:41→20:53)
[2018-01-07] MEDS: Citalopram 20 MG Tablet PO SCH (08:41)
[2018-01-07] MEDS: Famotidine 20 MG Tablet PO SCH (08:41)
[2018-01-07] MEDS: Carvedilol 12.5 MG Tablet PO SCH ×2 (08:41→20:53)
[2018-01-07] MEDS: Heparin - SQ 10,000 UNITS/ML Vial SQ SCH ×2 (08:42→20:53)
--- NOTE | 2018-01-07 13:10 | P.PNCA ---
Subjective Interval history: Patient in no acute distress. Patient denies any chest pain, pressure, palpitations, dizziness, edema or shortness of breath. Patient states that he is feeling better each day. Medications and Allergies Allergies Allergy/AdvReac Type Severity Reaction Status Date / Time acetaminophen [From [place]] Allergy Nausea/Vomi Verified 12/31/17 18:03 ting exenatide [From Bydureon] Allergy Nausea/Vomi Verified 12/31/17 18:03 ting fentanyl Allergy Nausea/Vomi Verified 12/31/17 18:03 ting hydrocodone [From [place]] Allergy Nausea/Vomi Verified 12/31/17 18:03 ting oxycodone [From Percocet] Allergy Nausea/Vomi Verified 12/31/17 18:03 ting Home Medications Medication Instructions Recorded Confirmed Type aspirin 81 mg PO DAILY 12/31/17 12/31/17 History bumetanide 2 mg PO DAILY 12/31/17 12/31/17 History carvedilol [Coreg] 12.5 mg PO BID 12/31/17 12/31/17 History citalopram 20 mg PO DAILY 12/31/17 12/31/17 History clopidogrel [Plavix] 75 mg PO DAILY 12/31/17 12/31/17 History insulin aspart U-100 [Novolog 5 unit SUB-Q DAILY 12/31/17 12/31/17 History U-100 Insulin aspart] insulin detemir U-100 [Levemir 25 unit SUB-Q QPM 12/31/17 12/31/17 History FlexTouch U-100 Insuln] losartan 25 mg PO DAILY 12/31/17 12/31/17 History ranitidine HCl 150 mg PO DAILY 12/31/17 12/31/17 History rosuvastatin [Crestor] 20 mg PO DAILY 12/31/17 12/31/17 History tamsulosin [Flomax] 0.4 mg PO DAILY 12/31/17 12/31/17 History Active Medications: Active Medications Acetaminophen (Tylenol) 650 mg PO Q4H PRN PRN Reason: Temp > 100.4 Last Admin: 01/01/18 21:09 Dose: 650 mg Al Hydroxide/Mg Hydroxide (Milk Of [place] Liq) 30 ml PO DAILY PRN PRN Reason: CONSTIPATION Albuterol (Duoneb Neb (Prn)) 1 ampul NEB Q4HR NEB PRN PRN Reason: SHORTNESS OF BREATH/WHEEZING Amlodipine Besylate (Norvasc) 5 mg PO BID [facility] Last Admin: 01/07/18 08:41 Dose: 5 mg Aspirin (Aspirin Chew) 81 mg PO DAILY [facility] Last Admin: 01/07/18 08:41 Dose: 81 mg Atorvastatin Calcium (Lipitor) 40 mg PO DAILY [facility] Last Admin: 01/07/18 08:41 Dose: 40 mg Carvedilol (Coreg) 12.5 mg PO BID [facility] Last Admin: 01/07/18 08:41 Dose: 12.5 mg Citalopram Hydrobromide (Celexa) 20 mg PO DAILY [facility] Last Admin: 01/07/18 08:41 Dose: 20 mg Clopidogrel Bisulfate (Plavix) 75 mg PO DAILY [facility] Last Admin: 01/07/18 08:41 Dose: 75 mg Dextrose (D50w Vial) 50 ml IV.PUSH UNSCH PRN PRN Reason: PER HYPOGLYCEMIA PROTOCOL Enalaprilat (Vasotec Inj) 1.25 mg IV.PUSH Q8H PRN PRN Reason: Sbp>170, Dbp>90 Last Admin: 01/04/18 07:45 Dose: 1.25 mg Famotidine (Pepcid) 20 mg PO DAILY [facility] Last Admin: 01/07/18 08:41 Dose: 20 mg Fluticasone Propionate (Flonase Nasal [place]) 2 spray NASAL DAILY [facility] Last Admin: 01/07/18 08:42 Dose: 2 spray Glucagon (Glucagon Inj) 1 mg OTHER PRN PRN PRN Reason: for Hypoglycemia Protocol Heparin Sodium (Porcine) (Heparin Inj) 5,000 units SQ Q12HR [facility] Last Admin: 01/07/18 08:42 Dose: 5,000 units Hydralazine HCl (Apresoline) 10 mg PO QID PRN PRN Reason: SBP >175, DBP >95 Sodium Chloride (Ns Inj) 500 mls @ 0 mls/hr IV.SIG BOLUS [facility] Insulin Aspart (Novolog Insulin Correctional Sugar Inj) 0 unit SQ ACHS AND 3AM LISSETH; Protocol Last Admin: 01/07/18 11:18 Dose: 5 unit Insulin Detemir (Levemir Inj) 5 unit SQ HS [facility] Last Admin: 01/06/18 20:20 Dose: 5 unit Lorazepam (Ativan) 0.5 mg PO Q12H PRN PRN Reason: SEVERE ANXIETY OR AGITATION Last Admin: 01/06/18 00:42 Dose: 0.5 mg Losartan Potassium (Cozaar) 50 mg PO DAILY [facility] Last Admin: 01/07/18 08:41 Dose: 50 mg Ondansetron HCl (Zofran Inj) 4 mg IV.PUSH Q6H PRN PRN Reason: NAUSEA OR VOMITING Senna/Docusate Sodium ([place]-Colace) 1 tab PO BID [facility] Last Admin: 01/07/18 08:41 Dose: 1 tab Sodium Chloride ([place] Nasal [place]) 2 spray EACH NARE Q4H PRN PRN Reason: dry nose Tamsulosin HCl (Flomax) 0.4 mg PO DAILY [facility] Last Admin: 01/07/18 08:41 Dose: 0.4 mg Physical Exam Vital signs: Vital Signs 01/06/18 16:00 01/06/18 17:31 01/06/18 20:00 Temperature 97.3 F L 97.5 F L Pulse Rate 71 81 Respiratory Rate 18 18 Blood Pressure 156/73 H 150/67 H Pulse Oximetry 95 95 94 L 01/07/18 00:00 01/07/18 04:00 01/07/18 07:00 Temperature 98.5 F 98.5 F Pulse Rate 70 79 Respiratory Rate 18 19 12 Blood Pressure 140/65 163/72 H Pulse Oximetry 92 L 92 L 01/07/18 08:00 01/07/18 10:50 01/07/18 12:00 Temperature 97.4 F L 97.2 F L Pulse Rate 82 61 Respiratory Rate 17 17 Blood Pressure 148/67 H 119/57 L Pulse Oximetry 92 L 94 L 92 L Intake & Output 01/06/18 01/07/18 01/07/18 18:59 06:59 18:59 Intake Total 240 / 240 480 / 480 Balance 240 / 240 480 / 480 Weight 107.8 kg Intake: Oral 240 / 240 480 / 480 Other: # Voids 3 Narrative: GENERAL: This is a well-nourished, well-developed patient, in no apparent distress. Patient speaks in clear complete sentences. Patient is pleasant. HEENT: Head is normocephalic with healing repaired laceration in the middle of the forehead. Neck is supple without lymphadenopathy and trachea is midline. No JVD or carotid bruits. Ecchymotic areas around both eyes status post fall. CARDIOVASCULAR: Regular rate and rhythm without murmurs, gallops, or rubs. RESPIRATORY: Clear to auscultation. Breath sounds equal bilaterally. No wheezes , rales, or rhonchi. Chest wall is nontender. No use of accessory muscles. GASTROINTESTINAL: Abdomen is nontender, nondistended. Abdomen soft. No obvious pulsatile mass or bruit. No CVA tenderness. Strong femoral pulses bilaterally. Normal bowel sounds in all quadrants. MUSCULOSKELETAL: Patient is moving upper and lower extremities freely. No calf tenderness or edema, no Homans sign. Strong pulses in upper and lower extremities. NEUROLOGICAL: Patient is alert and oriented. Cranial nerves 2-12 are grossly intact. No focal deficits and speech is clear. SKIN: No rash and turgor is normal. - Urinary Catheter Management Condom Cath placed during this visit: no Results 01/05/18 05:21 01/06/18 04:45 Comprehensive Metabolic Panel 01/06/18 Range/Units 04:45 Sodium 144 (136-145) meq/L Potassium 3.2 L (3.5-5.1) meq/L Chloride 101 (98-107) meq/L Carbon Dioxide 37.0 H (21.0-32.0) meq/L BUN 48 H (7-18) mg/dL Creatinine 1.46 H (0.60-1.30) mg/dL Calcium 8.5 (8.5-10.1) mg/dL Albumin 2.3 L (3.4-5.0) g/dL Intake and Output 01/06/18 01/07/18 01/07/18 22:59 06:59 14:59 Intake Total 240 / 240 480 / 480 Balance 240 / 240 480 / 480 Intake: Oral 240 / 240 480 / 480 Other: # Voids 3 Weight 107.8 kg Assessment and Plan - Assessment (1) Closed head injury Code(s): S09.90XA - Unspecified injury of head, initial encounter Status: Acute (2) Dysrhythmia Code(s): I49.9 - Cardiac arrhythmia, unspecified Status: Acute (3) PEA (Pulseless electrical activity) Code(s): I46.9 - Cardiac arrest, cause unspecified Status: Acute (4) Hypercarbia Code(s): R06.89 - Other abnormalities of breathing Status: Acute (5) Diabetes Code(s): E11.9 - Type 2 diabetes mellitus without complications Status: Acute (6) Acute kidney injury Code(s): N17.9 - Acute kidney failure, unspecified Status: Acute (7) Fall with injury Code(s): W19.XXXA - Unspecified fall, initial encounter Status: Acute (8) Concussion Code(s): S06.0X9A - Concussion with loss of consciousness of unspecified duration, initial encounter Status: Acute - Plan There have been no new cardiac issues. Remains stable from cardiac standpoint. Continue with current cardiac treatment plan and adjust as needed. Neurologic evaluation in progress. Nephrology evaluation in progress due to renal insufficiency. We will continue to follow during his hospitalization. The patient will follow up with Dr. Ferraro in his office after discharge. The patient was seen and evaluated by Dr. Ding who participated in care, management and decision-making. - Attending Attestation Patient seen and examined. I reviewed and agree with the evaluation and plan as presented. Remains stable from cardiac standpoint. F/u w Dr. Ferraro after discharge. (1) Closed head injury Qualifiers: Encounter type: initial encounter Qualified Code(s): S09.90XA - Unspecified injury of head, initial encounter (2) Dysrhythmia Qualifiers: Arrhythmia type: unspecified cardiac arrhythmia Qualified Code(s): I49.9 - Cardiac arrhythmia, unspecified
--- NOTE | 2018-01-07 13:50 | P.PN ---
Subjective Interval history: Follow-up closed head injury/dysrhythmia/PEA January 07, 2018-patient seen and examined, denies any headache, visual impairment. Denies any chest pain or shortness of breath. No acute event overnight. Alert and oriented to self and place but not date. Physical Exam Vital signs: Vital Signs 01/06/18 16:00 01/06/18 17:31 01/06/18 20:00 Temperature 97.3 F L 97.5 F L Pulse Rate 71 81 Respiratory Rate 18 18 Blood Pressure 156/73 H 150/67 H Pulse Oximetry 95 95 94 L 01/07/18 00:00 01/07/18 04:00 01/07/18 07:00 Temperature 98.5 F 98.5 F Pulse Rate 70 79 Respiratory Rate 18 19 12 Blood Pressure 140/65 163/72 H Pulse Oximetry 92 L 92 L 01/07/18 08:00 01/07/18 10:50 01/07/18 12:00 Temperature 97.4 F L 97.2 F L Pulse Rate 82 61 Respiratory Rate 17 17 Blood Pressure 148/67 H 119/57 L Pulse Oximetry 92 L 94 L 92 L Intake & Output 01/06/18 01/07/18 01/07/18 18:59 06:59 18:59 Intake Total 240 / 240 480 / 480 Balance 240 / 240 480 / 480 Weight 107.8 kg Intake: Oral 240 / 240 480 / 480 Other: # Voids 3 Narrative: GENERAL: NAD SKIN: Warm and dry. HEAD: Normocephalic. EYES: No scleral icterus. No injection or drainage. NECK: Supple, trachea midline. No JVD or lymphadenopathy. CARDIOVASCULAR: Regular rate and rhythm without murmurs, gallops, or rubs. RESPIRATORY: Breath sounds equal bilaterally. No accessory muscle use. GASTROINTESTINAL: Abdomen soft, non-tender, nondistended. MUSCULOSKELETAL: No cyanosis, or edema. BACK: Nontender without obvious deformity. No CVA tenderness. - Urinary Catheter Management Condom Cath placed during this visit: no Results - Labs CBC & Chem 7: 01/05/18 05:21 01/06/18 04:45 Laboratory Results - last 24 hr 01/06/18 01/06/18 01/07/18 16:07 20:10 04:44 POC Glucose 242 H 258 H 141 H 01/07/18 01/07/18 07:09 11:13 POC Glucose 163 H 264 H - Procedures None Assessment and Plan - Assessment (1) PEA (Pulseless electrical activity) Code(s): I46.9 - Cardiac arrest, cause unspecified Status: Acute (2) Closed head injury Code(s): S09.90XA - Unspecified injury of head, initial encounter Status: Acute (3) Hypercarbia Code(s): R06.89 - Other abnormalities of breathing Status: Acute (4) Diabetes Code(s): E11.9 - Type 2 diabetes mellitus without complications Status: Acute (5) Concussion Code(s): S06.0X9A - Concussion with loss of consciousness of unspecified duration, initial encounter Status: Acute (6) CAD (coronary artery disease) Code(s): I25.10 - Atherosclerotic heart disease of [place] coronary artery without angina pectoris Status: Acute - Plan 77-year-old man with: Mechanical fall resulting in head injury. Normal motor function peripherally -Chest CT- no acute trauma. concern for masslike airspace at L base- 5.9 x3.3 cm ; possible atelectasis w/ effusion vs possible malignancy, Outpatient f/u recommended. Ground glass consolidation at R middle lobe suggestive of possible aspiration. Prominent coronary calcifications -Continue Tylenol -PT/OT/ST consults Neuro Suspect concussion. 01/01- Normal neuro assessment with exception of not knowing year which is change from baseline 01/02- Improvement in memory of president; still oriented. Normal CN Imaging: Head CT negative on admission, Repeat Head CT ~12hrs after injury negative MRI brain- tiny cortical foci in high parietal lobes likely embolic in etiology. Scattered amyloid angiopathy. No midline shift. Moderate periventricular and subcortical white matter changes noted bilaterally Carotid US unremarkable -Appreciate input from neurology -possible contusion injury vs hypoxic causing MRI cortical lesions; embolic infarcts less likely -Post concussive hypoxic encephalopathy gradually improving -EEG Negative -Continue antiplatelets including aspirin and Plavix Cardiovascular PEA CAD s/p CABG PAD HTN Troponin 0.02-> 0.1-> 0.08. EKGs reassuring -Appreciate input from cardiology -continue home ASA, Plavix later today -Continue home BB, ARB -Losartan 50mg daily -Continue home statin -Continue home Metolazone -Continue Bumex Respiratory Suspect hypercarbia after encephalopathy per Neuro Chest CT- no acute trauma. concern for masslike airspace at L base- 5.9 x3.3 cm ; possible atelectasis w/ effusion vs possible malignancy, Outpatient f/u recommended. -Pulmonology input appreciated -BIPAP for CO2 retention as needed Mild VIKASH on CKD at baseline -Patient improved from nephrology, Bumex has been discontinued. Continue to monitor BUN and creatinine -Renal US- no gross hydronephrosis. DTPA renogram may help. Kidneys grossly unremarkable on CT 12/31 DM Currently on sliding scale insulin. Currently on low dose Levemir 5 units QHS. Toe gangrene -sees Dr. Aiken and Dr. Bustos as outpatient with planned surgical intervention next month -MRI foot- marrow edema in distal tuft great toe crossing DIP to proximal phalanx; normal signal in other toes and metatarsals Full code. Heparin SQ. (2) Closed head injury Qualifiers: Encounter type: initial encounter Qualified Code(s): S09.90XA - Unspecified injury of head, initial encounter
--- NOTE | 2018-01-07 15:01 | P.DS ---
Date of admission: 12/31/17 18:05 Primary care physician: UNKNOWN Anticipated date of discharge: 01/07/18 Brief History from admission: Mr. Sellers is a 77 yo M with PMH CAD (s/p CABG, prior IN x2), PAD (recent reperfusion surgery by Dr. Bustos, planned subsequent intervention 01/2018), TM, HTN, GERD, CKD who presented via EMS. History provided by patient's - patient was being wheeled into kitchen when they stopped to transition him to his walker, go up stair, then sit back down in wheelchair; during this process patient fell forward and hit his head. Patient's saw blood and that he looke "blue" so called family/neighbors who arrived and started doing CPR due to lack of palpable pulse and nonresponsiveness. EMS called; patient's estimates that EMS showed up very quickly. Per EMS documentation: patient was found to be in PEA; CPR was performed and ROSC achieved. Patient was initially GCS 3; this improved to 6 quickly and subsequently to a 13. Patient's states that patient has been doing much better since he arrived to ED. She is sure that mechanical fall took place when he was sitting up to reposition in chair and no syncope occurred to cause fall. His inability to remember year is new for him. Patient has had recent toe surgery (partial amputation?) per Podiatry with Dr. Aiken; he also has recently had angiogram/? intervention in R leg due to severe PAD. He plans to have additional procedure 01/18/[address] Bustos prior to repeat amputation. Patient has CHF but no recent complications reported; he sees Dr. Ferraro. PMH CAD- 2 IN, CHF, PAD, severe, DM, diabetic retinopathy, HTN, GERD, CKD PSH CABG, toe amputation, cyst removal from back,PAD- 5 blockages in R leg; reperfusion Physicians- sees Dr. Bustos for Vascular, Ronan- Cardiology, Dr. Cr- primary , Dr Lester- renal, Dr. Gaston- Urology- urinary retention, Dr. Louise- retinopathy, Dr. Wilkerson- cataract surgery, Dr. Aiken- Podiatry DS: Diagnosis - Discharge Diagnosis (1) PEA (Pulseless electrical activity) Status: Acute (2) Closed head injury Status: Acute (3) Hypercarbia Status: Acute (4) Diabetes Status: Acute (5) Concussion Status: Acute (6) CAD (coronary artery disease) Status: Acute DS: Medications - Discharge Medications Prescriptions: lorazepam 0.5 mg PO Q12H PRN #10 tab PRN Reason: Severe Anxiety Or Agitation DS: Summary Hospital Course: While In the hospital, patient was treated for: Mechanical fall resulting in head injury. Normal motor function peripherally -Chest CT- no acute trauma. concern for masslike airspace at L base- 5.9 x3.3 cm ; possible atelectasis w/ effusion vs possible malignancy, Outpatient f/u recommended. Ground glass consolidation at R middle lobe suggestive of possible aspiration. Prominent coronary calcifications -Continue Tylenol -PT/OT/ST consults Neuro Suspect concussion. 01/01- Normal neuro assessment with exception of not knowing year which is change from baseline 01/02- Improvement in memory of president; still oriented. Normal CN Imaging: Head CT negative on admission, Repeat Head CT ~12hrs after injury negative MRI brain- tiny cortical foci in high parietal lobes likely embolic in etiology. Scattered amyloid angiopathy. No midline shift. Moderate periventricular and subcortical white matter changes noted bilaterally Carotid US unremarkable -Appreciate input from neurology -possible contusion injury vs hypoxic causing MRI cortical lesions; embolic infarcts less likely -Post concussive hypoxic encephalopathy gradually improving -EEG Negative -Continue antiplatelets including aspirin and Plavix Cardiovascular PEA CAD s/p CABG PAD HTN Troponin 0.02-> 0.1-> 0.08. EKGs reassuring -Appreciate input from cardiology -continue home ASA, Plavix later today -Continue home BB, ARB -Losartan 50mg daily -Continue home statin -Continue home Metolazone -Continue Bumex Respiratory Suspect hypercarbia after encephalopathy per Neuro Chest CT- no acute trauma. concern for masslike airspace at L base- 5.9 x3.3 cm ; possible atelectasis w/ effusion vs possible malignancy, Outpatient f/u recommended. -Pulmonology input appreciated -BIPAP for CO2 retention as needed Mild VIKASH on CKD at baseline -Patient improved from nephrology, Bumex has been discontinued. Continue to monitor BUN and creatinine -Renal US- no gross hydronephrosis. DTPA renogram may help. Kidneys grossly unremarkable on CT 12/31 DM Currently on sliding scale insulin. Currently on low dose Levemir 5 units QHS. Toe gangrene -sees Dr. Aiken and Dr. Bustos as outpatient with planned surgical intervention next month after his stay in rehab - Time Spent with Patient Total time spent providing and/or coordinating discharge services: Greater than 30 minutes - Quality: VTE Deep Vein Thrombosis/Pulmonary Embolism Present on Admission: No Exam Vital signs: Vital Signs 01/06/18 16:00 01/06/18 17:31 01/06/18 20:00 Temperature 97.3 F L 97.5 F L Pulse Rate 71 81 Respiratory Rate 18 18 Blood Pressure 156/73 H 150/67 H Pulse Oximetry 95 95 94 L 01/07/18 00:00 01/07/18 04:00 01/07/18 07:00 Temperature 98.5 F 98.5 F Pulse Rate 70 79 Respiratory Rate 18 19 12 Blood Pressure 140/65 163/72 H Pulse Oximetry 92 L 92 L 01/07/18 08:00 01/07/18 10:50 01/07/18 12:00 Temperature 97.4 F L 97.2 F L Pulse Rate 82 61 Respiratory Rate 17 17 Blood Pressure 148/67 H 119/57 L Pulse Oximetry 92 L 94 L 92 L Intake & Output 01/06/18 01/07/18 01/07/18 18:59 06:59 18:59 Intake Total 240 / 240 480 / 480 Balance 240 / 240 480 / 480 Weight 107.8 kg Intake: Oral 240 / 240 480 / 480 Other: # Voids 3 Narrative: GENERAL: NAD SKIN: Warm and dry. HEAD: Normocephalic. EYES: No scleral icterus. No injection or drainage. NECK: Supple, trachea midline. No JVD or lymphadenopathy. CARDIOVASCULAR: Regular rate and rhythm without murmurs, gallops, or rubs. RESPIRATORY: Breath sounds equal bilaterally. No accessory muscle use. GASTROINTESTINAL: Abdomen soft, non-tender, nondistended. MUSCULOSKELETAL: No cyanosis, or edema. BACK: Nontender without obvious deformity. No CVA tenderness. Results Procedures completed during hospitalization: None Labs on day of discharge: Labs from last 24 hours 01/07/18 01/07/18 01/07/18 11:13 07:09 04:44 POC Glucose 264 H 163 H 141 H 01/06/18 01/06/18 20:10 16:07 POC Glucose 258 H 242 H - Impressions ITS Impressions Pelvis X-Ray 12/31/17 15:43 CONCLUSION: 1. No acute fracture. Hand X-Ray 12/31/17 15:47 CONCLUSION: 1. No acute fracture or radiopaque foreign body. Abdomen/Pelvis CT 12/31/17 15:49 CONCLUSION: 1. Bilateral pleural effusions left greater than right. Consolidation left lung base I believe is rounded atelectasis. Intra-abdominal exam is unremarkable. Sigmoid diverticulosis. Marked atherosclerotic disease including the coronary vessels Chest CT 12/31/17 15:49 CONCLUSION: 1. No acute traumatic abdomen in the thorax. 2. Small fluid density left pleural effusion. 3. Rounded nearly masslike airspace consolidation in the left lung base measuring 5.9 x 3.3 cm. This may reflect rounded atelectasis given the adjacent pleural effusion. However, malignant etiology cannot be entirely excluded. Comparisons with prior examinations would be beneficial in further evaluation. Alternatively, outpatient PET/CT examination may be performed for further evaluation as clinically warranted. 4. Groundglass airspace consolidation in the inferior right middle lobe, presumably atelectasis, although differential considerations include aspiration. 5. Prominent coronary artery calcifications. Lumbar Spine CT 12/31/17 15:49 CONCLUSION: 1. Broad-based diffuse annular bulges at multiple levels. No evidence of an acute fracture. The posterior elements are unremarkable. There is no evidence of any subluxation or facet malalignment. Thoracic Spine CT 12/31/17 15:49 CONCLUSION: 1. Negative CT Thoracic Spine with contrast. No evidence of fracture. Cervical Spine CT 12/31/17 15:50 CONCLUSION: 1. No acute fracture. 2. 2 mm retrolisthesis of C4 on C5 and 3 mm anterolisthesis of C7 on T1 likely due to degenerative arthrosis. 3. Advanced multilevel degenerative spondylosis of the cervical spine most prominently at C4-5 and C5-6, as above. Face CT 12/31/17 15:50 CONCLUSION: 1. No acute facial bone fractures. 2. Mild bilateral maxillary sinus mucosal disease. Extremity Arterial Study 01/01/18 00:00 CONCLUSION: 1. Very limited examination with unobtainable ankle-brachial indices bilaterally. 2. There is moderately decreased toe brachial indices on the left. 3. Consider CTA examination if there is continued clinical concern. Foot MRI 01/01/18 00:00 CONCLUSION: 1. Foot X-Ray 01/01/18 00:00 CONCLUSION: Extensive digital artery calcifications. Inflammatory process cannot be excluded. Displaced fracture is not evident. Head CT 01/01/18 00:00 CONCLUSION: 1. No acute intracranial abnormality. 2. Frontal scalp contusion/hematoma again noted. 3. Chronic white matter changes. . Head MRI 01/01/18 00:00 CONCLUSION: 1. Tiny scattered cortical foci are noted within the high parietal lobes on the diffusion-weighted images suggesting tiny acute cortical infarcts likely embolic in etiology. Clinical correlation is recommended. 2. Scattered focal signal in relation noted on the SWI images suggestive of scattered amyloid angiopathy. 3. No midline shift or extra-axial bleed is noted. 4. Mild diffuse cerebral atrophy is noted. 5. Moderate periventricular and subcortical white matter small vessel ischemic changes are noted bilaterally. Carotid Doppler Study 01/02/18 20:25 CONCLUSION: Negative for hemodynamically significant carotid stenosis. Abdomen/Bladder Ultrasound 01/03/18 00:00 CONCLUSION: 1. Severely limited by body habitus 2. No gross hydronephrosis. DTPA renogram may help. Kidneys are grossly unremarkable on CT of 12/31/2017. Chest X-Ray 01/04/18 06:00 CONCLUSION: No significant interval change with persistent bilateral pulmonary parenchymal opacity and small left pleural effusion. Discharge Plan - Discharge Disposition Patient Disposition: 62 Rehab Inpatient - Discharge Condition Condition: Fair - Discharge Order Discharge Orders: Discharge Order (Routine); Ordered 01/07/18 Ordered By: Suman Howell - Physicians Team Primary Care Provider: UNKNOWN, Attending Provider: Suman Howell Other Providers: Nik Rosales MD ; Jair Silva MD ; Systems, [employer] ; Cortez Pina MD ; Cherelle Miner ARNP ; Thomas Hernandez MD ; Nataliya Reynoso MD ; Sherry Rojas ARNP ; Radha King MD ; Jayesh Ferraro MD ; Afshin Montenegro MD ; Herrera Power MD ; Fabian Frazier MD ; Gayle Aiken DPM ; Theo Lester MD
--- NOTE | 2018-01-07 15:15 | P.PNNP ---
Subjective Interval history: doing well, no complaints. To be discharged to rehab. Physical Exam Vital signs: Vital Signs 01/06/18 16:00 01/06/18 17:31 01/06/18 20:00 Temperature 97.3 F L 97.5 F L Pulse Rate 71 81 Respiratory Rate 18 18 Blood Pressure 156/73 H 150/67 H Pulse Oximetry 95 95 94 L 01/07/18 00:00 01/07/18 04:00 01/07/18 07:00 Temperature 98.5 F 98.5 F Pulse Rate 70 79 Respiratory Rate 18 19 12 Blood Pressure 140/65 163/72 H Pulse Oximetry 92 L 92 L 01/07/18 08:00 01/07/18 10:50 01/07/18 12:00 Temperature 97.4 F L 97.2 F L Pulse Rate 82 61 Respiratory Rate 17 17 Blood Pressure 148/67 H 119/57 L Pulse Oximetry 92 L 94 L 92 L Intake & Output 01/06/18 01/07/18 01/07/18 18:59 06:59 18:59 Intake Total 240 / 240 480 / 480 Balance 240 / 240 480 / 480 Weight 107.8 kg Intake: Oral 240 / 240 480 / 480 Other: # Voids 3 - Constitutional no acute distress - Routine HEENT Exam Head: Present: normocephalic, atraumatic - Routine Neck Exam Present: supple. Absent: JVD - Routine Respiratory Exam Present: CTA bilaterally - Routine Cardiovascular Exam Present: RRR, S1, S2 - Routine Abdominal Exam Present: soft, normoactive bowel sounds - Routine Neurological Exam Present: alert - Urinary Catheter Management Condom Cath placed during this visit: no Assessment and Plan - Assessment (1) Acute kidney injury Code(s): N17.9 - Acute kidney failure, unspecified Status: Acute Plan: patient received IV contrast on the , and therefore could have developed contrast nephropathy. Fluid overload has improved. Renal function has improved. Avoid nephrotoxic agents. Monitor urine output and renal function. GFR now at baseline. (2) Diabetes Code(s): E11.9 - Type 2 diabetes mellitus without complications Status: Acute Plan: insulin coverage to maintain blood glucose between 140 and 180. (3) Concussion Code(s): S06.0X9A - Concussion with loss of consciousness of unspecified duration, initial encounter Status: Acute Plan: Improved. (4) CAD (coronary artery disease) Code(s): I25.10 - Atherosclerotic heart disease of [place] coronary artery without angina pectoris Status: Acute - Attending Attestation To be discharged to rehab.
[2018-01-07] MEDS: Insulin Detemir Inj 1,000 UNIT/10 ML Vial SQ SCH (20:54)
[2018-01-08] MEDS: Insulin NovoLOG Aspart Correctional Sugar Inj SQ SCH ×2 (02:38→08:00)
[2018-01-08 08:37] VITALS: BP 165/74; PULSE 63; RESP 18; TEMP 98; O2SAT 92
--- NOTE | 2018-01-08 08:43 | P.PNNEU ---
Subjective Subjective Comments: No cp, no dyspnea, no vieyra, no focal weakness, no vision loss Active Medications: Active Medications Acetaminophen (Tylenol) 650 mg PO Q4H PRN PRN Reason: Temp > 100.4 Last Admin: 01/01/18 21:09 Dose: 650 mg Al Hydroxide/Mg Hydroxide (Milk Of Magnesia Liq) 30 ml PO DAILY PRN PRN Reason: CONSTIPATION Albuterol (Duoneb Neb (Prn)) 1 ampul NEB Q4HR NEB PRN PRN Reason: SHORTNESS OF BREATH/WHEEZING Amlodipine Besylate (Norvasc) 5 mg PO BID [facility] Last Admin: 01/07/18 20:53 Dose: 5 mg Aspirin (Aspirin Chew) 81 mg PO DAILY [facility] Last Admin: 01/07/18 08:41 Dose: 81 mg Atorvastatin Calcium (Lipitor) 40 mg PO DAILY [facility] Last Admin: 01/07/18 08:41 Dose: 40 mg Carvedilol (Coreg) 12.5 mg PO BID [facility] Last Admin: 01/07/18 20:53 Dose: 12.5 mg Citalopram Hydrobromide (Celexa) 20 mg PO DAILY [facility] Last Admin: 01/07/18 08:41 Dose: 20 mg Clopidogrel Bisulfate (Plavix) 75 mg PO DAILY [facility] Last Admin: 01/07/18 08:41 Dose: 75 mg Dextrose (D50w Vial) 50 ml IV.PUSH UNSCH PRN PRN Reason: PER HYPOGLYCEMIA PROTOCOL Enalaprilat (Vasotec Inj) 1.25 mg IV.PUSH Q8H PRN PRN Reason: Sbp>170, Dbp>90 Last Admin: 01/04/18 07:45 Dose: 1.25 mg Famotidine (Pepcid) 20 mg PO DAILY [facility] Last Admin: 01/07/18 08:41 Dose: 20 mg Fluticasone Propionate (Flonase Nasal [place]) 2 spray NASAL DAILY [facility] Last Admin: 01/07/18 08:42 Dose: 2 spray Glucagon (Glucagon Inj) 1 mg OTHER PRN PRN PRN Reason: for Hypoglycemia Protocol Heparin Sodium (Porcine) (Heparin Inj) 5,000 units SQ Q12HR [facility] Last Admin: 01/07/18 20:53 Dose: 5,000 units Hydralazine HCl (Apresoline) 10 mg PO QID PRN PRN Reason: SBP >175, DBP >95 Sodium Chloride (Ns Inj) 500 mls @ 0 mls/hr IV.SIG BOLUS [facility] Insulin Aspart (Novolog Insulin [place] Inj) 0 unit SQ ACHS AND 3AM LISSETH; Protocol Last Admin: 01/08/18 02:38 Dose: Not Given Insulin Detemir (Levemir Inj) 5 unit SQ HS [facility] Last Admin: 01/07/18 20:54 Dose: 5 unit Lorazepam (Ativan) 0.5 mg PO Q12H PRN PRN Reason: SEVERE ANXIETY OR AGITATION Last Admin: 01/06/18 00:42 Dose: 0.5 mg Losartan Potassium (Cozaar) 50 mg PO DAILY [facility] Last Admin: 01/07/18 08:41 Dose: 50 mg Ondansetron HCl (Zofran Inj) 4 mg IV.PUSH Q6H PRN PRN Reason: NAUSEA OR VOMITING Senna/Docusate Sodium ([place]-Colace) 1 tab PO BID [facility] Last Admin: 01/07/18 20:53 Dose: 1 tab Sodium Chloride ([place] Nasal [place]) 2 spray EACH NARE Q4H PRN PRN Reason: dry nose Tamsulosin HCl (Flomax) 0.4 mg PO DAILY [facility] Last Admin: 01/07/18 08:41 Dose: 0.4 mg Allergies/Adverse Reactions: Allergies Allergy/AdvReac Type Severity Reaction Status Date / Time acetaminophen [From [place]] Allergy Nausea/Vomi Verified 12/31/17 18:03 ting exenatide [From Bydureon] Allergy Nausea/Vomi Verified 12/31/17 18:03 ting fentanyl Allergy Nausea/Vomi Verified 12/31/17 18:03 ting hydrocodone [From [place]] Allergy Nausea/Vomi Verified 12/31/17 18:03 ting oxycodone [From Percocet] Allergy Nausea/Vomi Verified 12/31/17 18:03 ting Review of Systems All other systems reviewed negative except as stated in HPI Physical Exam Vital signs: Vital Signs 01/07/18 10:50 01/07/18 12:00 01/07/18 16:00 Temperature 97.2 F L 97.2 F L Pulse Rate 61 70 Respiratory Rate 17 17 Blood Pressure 119/57 L 146/66 H Pulse Oximetry 94 L 92 L 93 L 01/07/18 19:40 01/07/18 20:00 01/08/18 00:00 Temperature 97.3 F L 98.2 F Pulse Rate 67 74 Respiratory Rate 20 20 Blood Pressure 150/67 H 176/74 H Pulse Oximetry 94 L 93 L 92 L 01/08/18 04:00 01/08/18 08:00 Temperature 97.9 F 98.0 F Pulse Rate 72 63 Respiratory Rate 22 18 Blood Pressure 153/64 H 165/74 H Pulse Oximetry 98 92 L Intake & Output 01/07/18 01/08/18 01/08/18 18:59 06:59 18:59 Intake Total 500 / 500 Output Total 400 / 400 900 / 900 Balance -400 / -400 -400 / -400 Intake: Oral 500 / 500 Output: Urine 400 / 400 900 / 900 Other: # Voids 1 Date of Last Bowel Movement 01/03/18 Narrative: GENERAL: in NAD, SKIN: Warm and dry. HEAD: Bruises, mild [place]coon/[place] eyes EYES: Pupils equal and round. No scleral icterus. ENT: No nasal bleeding or discharge. Mucous membranes pink and moist. NECK: Trachea midline. No JVD. CARDIOVASCULAR: Regular rate and rhythm. RESPIRATORY: No accessory muscle use. GASTROINTESTINAL: Abdomen soft, non-tender, nondistended. MUSCULOSKELETAL: Right great toe purplish mottled white states chronic NEUROLOGICAL: Awake and alert. Oriented x 2, not to date, follows pleasant no aphasia, fluent articulate, No facial asymmetry, OU 3-2mm, eomi, VFF, No drift, Motor grossly within normal limits. bilateral distal foot weakness 3-4 out of 5 dorsiflexion in addition to reduced range of motion with bilateral arm abduction above the shoulders which is chronic suspected rotator cuff. Tone normal in all 4 limbs, reduce pinprick lower extremities, msr 1-2+ sym, no clonus, planterflexor, gait not assessed secondary fall risk PSYCHIATRIC: Appropriate mood and affect - Constitutional no acute distress - Routine HEENT Exam Head: Present: normocephalic - Urinary Catheter Management Condom Cath placed during this visit: no Objective Laboratory Results - last 24 hr 01/07/18 01/07/18 01/07/18 11:13 16:02 20:12 POC Glucose 264 H 211 H 157 H 01/08/18 02:34 POC Glucose 127 H Review/Management - Diagnosis (1) Closed head injury Code(s): S09.90XA - Unspecified injury of head, initial encounter Status: Acute Current Visit: Yes (2) Dysrhythmia Code(s): I49.9 - Cardiac arrhythmia, unspecified Status: Acute Current Visit : Yes (3) PEA (Pulseless electrical activity) Code(s): I46.9 - Cardiac arrest, cause unspecified Status: Acute Current Visit: Yes (4) Fall with injury Code(s): W19.XXXA - Unspecified fall, initial encounter Status: Acute Current Visit: Yes (5) Concussion Code(s): S06.0X9A - Concussion with loss of consciousness of unspecified duration, initial encounter Status: Acute Current Visit: Yes - Review/Management Plan: Status post cardiac arrest PEA, fall with concussive type injury MRI brain scan reviewed which demonstrates very tiny high cortical ischemic- looking regions. I suspect this may be related to contusion injury versus hypoxic. Tiny embolic infarcts is another possibility although less likely He does have mild postconcussive/hypoxic encephalopathy which is gradually improving Chronic gait disorder using a walker carotid ultrasound clinical negative EEG negative for any seizure activity Recommendations Neuro stable; doing well Therapy May require inpatient rehab No driving Will sign off follow-up as needed (1) Closed head injury Qualifiers: Encounter type: initial encounter Qualified Code(s): S09.90XA - Unspecified injury of head, initial encounter (2) Dysrhythmia Qualifiers: Arrhythmia type: unspecified cardiac arrhythmia Qualified Code(s): I49.9 - Cardiac arrhythmia, unspecified
[2018-01-08] MEDS: Carvedilol 12.5 MG Tablet PO SCH (09:25)
[2018-01-08] MEDS: Citalopram 20 MG Tablet PO SCH (09:25)
[2018-01-08] MEDS: amLODIPine 5 MG Tablet PO SCH (09:26)
[2018-01-08] MEDS: Heparin - SQ 10,000 UNITS/ML Vial SQ SCH (09:26)
[2018-01-08] MEDS: Senna/Docusate Sodium 8.6/50 MG Tablet PO SCH (09:26)
[2018-01-08] MEDS: Famotidine 20 MG Tablet PO SCH (09:26)
--- NOTE | 2018-01-08 10:06 | P.PN ---
Subjective Interval history: Follow-up closed head injury/dysrhythmia/PEA January 07, 2018-patient seen and examined, denies any headache, visual impairment. Denies any chest pain or shortness of breath. No acute event overnight. Alert and oriented to self and place but not date. January 08, 2018-patient seen and examined, complains of shortness of breath states he needs at least 2 pillows at night to sleep. No chest pain. Otherwise alert and oriented x2 Physical Exam Vital signs: Vital Signs 01/07/18 10:50 01/07/18 12:00 01/07/18 16:00 Temperature 97.2 F L 97.2 F L Pulse Rate 61 70 Respiratory Rate 17 17 Blood Pressure 119/57 L 146/66 H Pulse Oximetry 94 L 92 L 93 L 01/07/18 19:40 01/07/18 20:00 01/08/18 00:00 Temperature 97.3 F L 98.2 F Pulse Rate 67 74 Respiratory Rate 20 20 Blood Pressure 150/67 H 176/74 H Pulse Oximetry 94 L 93 L 92 L 01/08/18 04:00 01/08/18 08:00 Temperature 97.9 F 98.0 F Pulse Rate 72 63 Respiratory Rate 22 18 Blood Pressure 153/64 H 165/74 H Pulse Oximetry 98 92 L Intake & Output 01/07/18 01/08/18 01/08/18 18:59 06:59 18:59 Intake Total 500 / 500 Output Total 400 / 400 900 / 900 Balance -400 / -400 -400 / -400 Intake: Oral 500 / 500 Output: Urine 400 / 400 900 / 900 Other: # Voids 1 Date of Last Bowel Movement 01/03/18 01/03/18 Narrative: GENERAL: NAD, SKIN: Warm and dry. HEAD: Bruises, mild raccoon/beckman eyes EYES: Pupils equal and round. No scleral icterus. ENT: No nasal bleeding or discharge. Mucous membranes pink and moist. NECK: Trachea midline. No JVD. CARDIOVASCULAR: Regular rate and rhythm. RESPIRATORY: No accessory muscle use. GASTROINTESTINAL: Abdomen soft, non-tender, nondistended. MUSCULOSKELETAL: Right great toe purplish mottled white states chronic NEUROLOGICAL: Awake and alert. Oriented x 2, not to date, follows pleasant no aphasia, fluent articulate, No facial asymmetry, OU 3-2mm, eomi, VFF, No drift, Motor grossly within normal limits. bilateral distal foot weakness 3-4 out of 5 dorsiflexion in addition to reduced range of motion with bilateral arm abduction above the shoulders which is chronic suspected rotator cuff. Tone normal in all 4 limbs, reduce pinprick lower extremities, msr 1-2+ sym, no clonus, planterflexor, gait not assessed secondary fall risk - Urinary Catheter Management Condom Cath placed during this visit: no Results - Labs CBC & Chem 7: 01/05/18 05:21 01/06/18 04:45 Laboratory Results - last 24 hr 01/07/18 01/07/18 01/07/18 11:13 16:02 20:12 POC Glucose 264 H 211 H 157 H 01/08/18 01/08/18 02:34 08:59 POC Glucose 127 H 129 H - Procedures None Assessment and Plan - Assessment (1) PEA (Pulseless electrical activity) Code(s): I46.9 - Cardiac arrest, cause unspecified Status: Acute (2) Closed head injury Code(s): S09.90XA - Unspecified injury of head, initial encounter Status: Acute (3) Hypercarbia Code(s): R06.89 - Other abnormalities of breathing Status: Acute (4) Diabetes Code(s): E11.9 - Type 2 diabetes mellitus without complications Status: Acute (5) Concussion Code(s): S06.0X9A - Concussion with loss of consciousness of unspecified duration, initial encounter Status: Acute (6) CAD (coronary artery disease) Code(s): I25.10 - Atherosclerotic heart disease of [place] coronary artery without angina pectoris Status: Acute - Plan 77-year-old man with: Mechanical fall resulting in head injury. Normal motor function peripherally -Chest CT- no acute trauma. concern for masslike airspace at L base- 5.9 x3.3 cm ; possible atelectasis w/ effusion vs possible malignancy, Outpatient f/u recommended. Ground glass consolidation at R middle lobe suggestive of possible aspiration. Prominent coronary calcifications -Continue Tylenol -PT/OT/ST consults Neuro Suspect concussion. 01/01- Normal neuro assessment with exception of not knowing year which is change from baseline 01/02- Improvement in memory of president; still oriented. Normal CN Imaging: Head CT negative on admission, Repeat Head CT ~12hrs after injury negative MRI brain- tiny cortical foci in high parietal lobes likely embolic in etiology. Scattered amyloid angiopathy. No midline shift. Moderate periventricular and subcortical white matter changes noted bilaterally Carotid US unremarkable -Appreciate input from neurology -possible contusion injury vs hypoxic causing MRI cortical lesions; embolic infarcts less likely -Post concussive hypoxic encephalopathy gradually improving -EEG Negative -Continue antiplatelets including aspirin and Plavix Cardiovascular PEA CAD s/p CABG PAD HTN Troponin 0.02-> 0.1-> 0.08. EKGs reassuring -Appreciate input from cardiology -continue home ASA, Plavix later today -Continue home BB, ARB -Losartan 50mg daily -Continue home statin -Continue home Metolazone -Continue Bumex Respiratory Suspect hypercarbia after encephalopathy per Neuro Chest CT- no acute trauma. concern for masslike airspace at L base- 5.9 x3.3 cm ; possible atelectasis w/ effusion vs possible malignancy, Outpatient f/u recommended. -Pulmonology input appreciated -BIPAP for CO2 retention as needed Mild VIKASH on CKD at baseline -Patient improved from nephrology, Bumex has been discontinued. Continue to monitor BUN and creatinine -Renal US- no gross hydronephrosis. DTPA renogram may help. Kidneys grossly unremarkable on CT 12/31 DM Currently on sliding scale insulin. Currently on low dose Levemir 5 units QHS. Toe gangrene -sees Dr. Aiken and Dr. Bustos as outpatient with planned surgical intervention next month. Case was discussed with podiatry yesterday 01/07 patient was clear for discharge to [facility] -MRI foot- marrow edema in distal tuft great toe crossing DIP to proximal phalanx; normal signal in other toes and metatarsals Full code. Heparin SQ. (2) Closed head injury Qualifiers: Encounter type: initial encounter Qualified Code(s): S09.90XA - Unspecified injury of head, initial encounter
== END 2018-01-08 11:01 ==
LOC: NEPI 15:40 → NEDA 18:05 → EDBD 18:05 → MERGE 18:05 → N03 20:28 → NEDA 20:28 → N05 01-05 23:13
PROVIDERS: ADMIT Hospitalist; ATTEND Hospitalist